=== PATIENT | female | born 1985 | race Caucasian/White ===

== ENCOUNTER 2018-07-15 19:47 | Emergency (ER) | payer MEDICAID, SELFPAY ==
[2018-07-15 19:59] VITALS: BP 140/67; PULSE 80; RESP 14; TEMP 36.8; O2SAT 100
[2018-07-15 20:13] LABS: Bilirubin Negative (Negative); Blood Moderate (Negative); Clarity Sl Cloudy; Glucose Negative (Negative); Ketones Negative (Negative); Leukocyte Esterase Small (Negative); Nitrite Negative (Negative); Specific Gravity >= 1.030 (1.005-1.025); Urobilinogen 0.2 EU/dL (Up TO 0.2); pH 6.5 (5-8)
--- NOTE | 2018-07-15 20:15 | ED.GENADUL_ITS ---
Discharge Plan Disposition Patient Disposition: HOME Condition: Good Discharge Details Chief Complaint: Urinary Clinical Impression: UTI (urinary tract infection) Primary Care Provider: Isabell Guthrie ED Provider: Judah Monique Verden Meds and New Rx's Prescriptions: New phenazopyridine 100 mg Tablet 100 mg PO TID Qty: 5 RF: 0 nitrofurantoin monohyd/m-cryst [Macrobid] 100 mg Capsule 100 mg PO BID Qty: 9 RF: 0 Continue trazodone 100 MG tablet 200 mg PO DAILY RF: 0 fluoxetine [Prozac] 20 MG capsule 20 mg PO DAILY RF: 0 lamotrigine [Lamictal] 100 MG tablet PO DIRECTED RF: 0 Implanon RF: 0 Discharge Instructions Instructions: Phenazopyridine (By mouth), Nitrofurantoin Combination (By mouth) , Urinary Tract Infection in Women (ED) Additional Instructions: Will treat for UTI though urine microscopic suggest contamination, symptoms are consistent with bladder infection. If you do not feel better next week please follow up with PCP. Return to ED if you develop fever, vomiting, flank pain, abdominal pain, other concerns. Referrals: Isabell Guthrie, BUSINESS RULES ANALYST [Primary Care Provider] - Medical Decision Making MDM Narrative Medical decision making narrative: Patient with urinary symptoms without evidence of systemic illness. test is negative. Urine dip positive for blood and leuks. Micro with evidence of contamination. Patient to provide repeat urine, will get micro only. Repeat urine is still contaminated. At this point will just go ahead and treat with Macrobid and Pyridium. Follow up with PCP next week if not better. Return to ED if fever, flank pain, vomiting, abdominal pain, other concerns. Lab Data Lab results reviewed: Yes I reviewed the patient's lab results. HPI - General Adult General Mode of arrival: ambulatory . Date/Time Provider Initiated Documentation: 07/15/18 20:11 . Limitations to Documentation: no limitations . Information obtained by: patient and RN notes reviewed . HPI Narrative: Patient presents to ED due to dysuria and frequency that she has had for two days now. She denies abdominal pain or pelvic pain. She denies vaginal bleeding or discharge. She denies fever or chills. She has no flank pain. She otherwise feels well. Related Data Home Medications Medication Instructions Recorded Confirmed lamotrigine [Lamictal] 0 mg PO DIRECTED 03/19/14 07/15/18 Implanon 06/28/17 fluoxetine [Prozac] 20 mg PO DAILY tab-cap 01/24/18 07/15/18 trazodone 200 mg PO DAILY tab-cap 01/24/18 07/15/18 Previous Rx's Medication Instructions Recorded nitrofurantoin monohyd/m-cryst 100 mg PO BID #9 cap 07/15/18 [Macrobid] phenazopyridine 100 mg PO TID #5 tab 07/15/18 Allergies Allergy/AdvReac Type Severity Reaction Status Date / Time aspirin AdvReac Intermediate unable to Unverified 07/15/18 20:11 take due to heart surgery General Stated Complaint: Urinary PAT: 4 Review of Systems Constitutional Denies chills, Denies fever(s), Denies headache(s), Denies malaise and Denies weakness ENT Denies headache(s) Cardiovascular Denies chest pain, Denies palpitations and Denies dyspnea Respiratory Denies cough and Denies dyspnea Gastrointestinal Denies abdominal pain, Denies diarrhea, Denies nausea and Denies vomiting Genitourinary Denies hematuria, Reports dysuria, Denies pelvic pain, Denies flank pain and Reports urinary urgency Musculoskeletal Denies numbness Neurologic Denies headache(s), Denies numbness and Denies weakness Endocrine Denies palpitations PFSH Family History Paternal Grandfather Diabetes Essential hypertension Coronary heart disease Brother ADHD Medical History Depression Epilepsy Hydrocephalus Transposition of great vessels Social History Smoking/Tobacco Use Status: Former Tobacco Use Surgical History Ventriculoperitoneal Shunt open heart surgery Exam Const General: cooperative and comfortable Nutritional Appearance: obese Orientation: alert and oriented x3 HENMT Head: normocephalic and atraumatic Resp Effort & Inspection: normal respiratory effort Auscultation: clear to auscultation bilaterally Cardio Rate: regular rate Rhythm: regular rhythm GI Inspection: non-distended Palpation: soft, no guarding and nontender Back/Spine/Pelvis Back: no CVA tenderness Neuro General: alert, oriented x3, no focal motor deficits and CN's II-XI intact bilaterally Sensory Exam: no sensory deficits noted Course Vital Signs Temperature 98.2 F 07/15/18 19:59 Pulse 80 07/15/18 19:59 Respiratory Rate 14 07/15/18 19:59 Blood Pressure 140/67 07/15/18 19:59 Pulse Oximetry 100 07/15/18 19:59 Temperature 98.2 F 07/15/18 19:59 Pulse 80 07/15/18 19:59 Respiratory Rate 14 07/15/18 19:59 Blood Pressure 140/67 07/15/18 19:59 Pulse Oximetry 100 07/15/18 19:59
[2018-07-15 20:29] LABS: Bacteria Few HPF (Negative); C & S Indicated? No/Sq. Contamination; Casts Negative LPF (Negative); Crystals Negative HPF (Negative); Epithelial Cells Many HPF (Negative); Mucus Trace (Negative); RBC 20-50 (0-2); WBC 20-50 HPF (0-5)
[2018-07-15 21:15] LABS: RBC >50 (0-2); WBC >50 HPF (0-5)
[2018-07-15 21:16] LABS: Bacteria Few HPF (Negative); C & S Indicated? No/Sq. Contamination; Casts Negative LPF (Negative); Crystals Negative HPF (Negative); Epithelial Cells Many HPF (Negative); Mucus Trace (Negative)
[2018-07-15 21:53] VITALS: BP 136/70; PULSE 76; RESP 14; TEMP 36.8; O2SAT 100
[2018-07-15] MEDS: Phenazopyridine 100 MG TAB PO (21:54)
[2018-07-15] MEDS: MacroBID 100 MG CAP PO (21:54)
== END 2018-07-15 21:54 | disposition home or self-care (01) ==
LOC: ER 21:58
PROVIDERS: Emergency Provider Emergency Medicine; PCP Nurse Practitioner
DX: N39.0 Urinary tract infection, site not specified (principal); E11.9 Type 2 diabetes mellitus without complications; I10 Essential (primary) hypertension
CPT/HCPCS: 81025; 99283; 81003; 81015

== ENCOUNTER 2018-08-08 11:35 | Emergency (ER) | payer MEDICAID, SELFPAY ==
[2018-08-08 11:51] VITALS: PULSE 81; RESP 17; TEMP 36.7; O2SAT 96
--- NOTE | 2018-08-08 13:32 | ED.GENADUL_ITS ---
Discharge Plan Disposition Patient Disposition: HOME Condition: Stable Discharge Details Chief Complaint: RespSymp Clinical Impression: Asthma Primary Care Provider: Isabell Guthrie ED Provider: Minal Mcconnell Home Meds and New Rx's Prescriptions: New albuterol sulfate 90 mcg/actuation HFA aerosol inhaler 2 puff IH Q4H PRN PRN (Reason: Shortness Of Breath Or Wheezing) Qty: 8 RF: 3 Continue trazodone 100 MG tablet 200 mg PO DAILY RF: 0 fluoxetine [Prozac] 20 MG capsule 20 mg PO DAILY RF: 0 lamotrigine [Lamictal] 100 MG tablet PO DIRECTED RF: 0 phenazopyridine 100 mg Tablet 100 mg PO TID Qty: 5 RF: 0 Implanon RF: 0 Discontinued nitrofurantoin monohyd/m-cryst [Macrobid] 100 mg Capsule 100 mg PO BID Qty: 9 RF: 0 Discharge Instructions Instructions: Asthma (ED) Additional Instructions: Please return immediately to the emergency department if you develop any new or worsening symptoms or if you become otherwise concerned. It is extremely important that you make an appointment to be seen by your primary care doctor within the next 1-2 weeks in follow-up for this visit. Referrals: Isabell Guthrie, INTERNAL MEDICINE DOCTOR [Primary Care Provider] - Discharge Data Discharge Date/Time-TO BE ENTERED AT DEPARTURE: 08/08/18 15:12 Medical Decision Making Patient initially placed in results waiting area due to high ED volume and low acuity of Pt at triage. I spoke with the patient at the time that she was moved to the results waiting area to ask if she wanted to be in the encounter or wanted to wait for room for privacy. The patient stated at that time that she wanted to wait to the arrival of her case planner and also for a room. Florence Otto is a 33 y/o woman with h/o cognitive deficit, hydrocehpalus s/p shunt, congenital heart defect, sz d/o who presented to the emergency department with SOB for several days after running out of her inhaler, which she typically uses once every few days. On exam Pt is very well-appearing, speaking in full sentences with nl WOB. Slight wheeze throughout on auscultation. Concern for mild asthma exacerbation. Exam/hx not c/w PTX, PNA, CHF, sepsis, PE, ACS, other acute life threatening pathology. Plan for duoneb, reassess. Pt reassessed. Wheeze resolved. LCTAB b/l. Pt feels much better, no further SOB. Plan for inh for home, Rx for inh. Lengthy discussion with Pt and case planner re: RTED precautions and importance of outpt f/u. They are amenable to the plan. Medical Records Medical records reviewed: Yes I reviewed the patient's medical records. HPI General Mode of arrival: ambulatory . Date/Time Provider Initiated Documentation: 08/08/18 11:38 . Limitations to Documentation: no limitations . Information obtained by: patient, RN notes reviewed and old records reviewed . HPI Narrative: Pt seen in RWR 2/2 triage level of Pt, acuity/volume of Pts in ED. Pt declines evaluation until her case planner is present. This resulted in significant delay in care. Florence Otto is a 33 y/o woman with h/o cognitive delay, congenital heart defect repaired as infant, hydrocephalus with shunt in place, seizures, asthma presenting to the emergency department with SOB for past few days; she is accompanied by her case planner. Pt reports that she has asthma, but her inhaler ran out last week. She reports mild SOB and wheezing in the past few days c/w her usual asthma symptoms. Mild dry cough that is also c/w her usual asthma. Has been able to complete her daily activities without restriction 2/2 symptoms. No fever, no n/v/d, no pain, no rash., no swelling. Feels otherwise in her usual state of health. Has been eating and drinking normally. No recent travel. Related Data Home Medications Medication Instructions Recorded Confirmed lamotrigine [Lamictal] 0 mg PO DIRECTED 03/19/14 07/15/18 Implanon 06/28/17 fluoxetine [Prozac] 20 mg PO DAILY tab-cap 01/24/18 07/15/18 trazodone 200 mg PO DAILY tab-cap 01/24/18 07/15/18 phenazopyridine 100 mg PO TID #5 tab 07/15/18 albuterol sulfate 2 puff IH Q4H PRN PRN #8 gm 08/08/18 Previous Rx's Medication Instructions Recorded phenazopyridine 100 mg PO TID #5 tab 07/15/18 albuterol sulfate 2 puff IH Q4H PRN PRN #8 gm 08/08/18 Allergies Allergy/AdvReac Type Severity Reaction Status Date / Time aspirin AdvReac Intermediate unable to Unverified 07/15/18 20:11 take due to heart surgery General Stated Complaint: RespSymp PAT: 3 Review of Systems Review of Systems Constitutional: denies fevers Eyes: denies eye pain ENT: denies facial pain, dental pain, sore throat Cardiovascular: denies chest pain, edema Respiratory: reports SOB, cough as per HPI GI: denies abdominal pain, vomiting, diarrhea : denies flank pain MSK: denies back pain, neck pain, arthralgias, myalgias Skin: denies rash Neuro: denies headaches, lightheadedness, weakness PFSH Family History Paternal Grandfather Diabetes Essential hypertension Coronary heart disease Brother ADHD Medical History Depression Epilepsy Hydrocephalus Transposition of great vessels Social History Smoking/Tobacco Use Status: Former Tobacco Use second hand exposure: No substance use type: does not use seatbelt use: always Surgical History Ventriculoperitoneal Shunt open heart surgery Exam Narrative Exam Narrative: Constitutional: well and [id number], pleasant, conversing normally HENT: head atraumatic, normocephalic normal inspection, mucous membranes moist Eyes: conjunctiva normal, sclera normal, pupils 3mm b/l Neck: no stridor, normal ROM, trachea midline Chest: normal inspection Resp: normal work of breathing, slight wheeze throughout, no rales/rhonchi, no decreased breath sounds Cardio: normal rate, normal rhythm, no murmur appreciated Back: normal inspection, no rash Skin: warm, dry, normal color, no rash Neuro: alert, not altered, grossly non-focal, normal tone Ext: no edema of LEs, no posterior calf TTP Psych: normal mood, normal affect, normal behavior Course Vital Signs Temperature 36.7 C 08/08/18 11:51 Pulse 81 08/08/18 11:51 Respiratory Rate 17 08/08/18 11:51 Pulse Oximetry 96 08/08/18 11:51 Temperature 36.7 C 08/08/18 11:51 Temperature Source Temporal Artery Scan 08/08/18 11:51 Pulse 81 08/08/18 11:51 Respiratory Rate 17 08/08/18 11:51 Pulse Oximetry 96 08/08/18 11:51 Oxygen Delivery Method Room Air 08/08/18 11:51 Oxygen Flow Rate 0 08/08/18 11:51 Pain Level 0 08/08/18 11:51
[2018-08-08 14:06] VITALS: PULSE 75; RESP 16; RESP 4; RESP 8; O2SAT 99
[2018-08-08] MEDS: Albuterol/Ipratropium 3 ML UPD VIAL UPD (14:06)
[2018-08-08 14:36] VITALS: PULSE 85; RESP 18; RESP 4; RESP 8; O2SAT 96
[2018-08-08] MEDS: Albuterol HFA 8 GM 60 PUFF INH IH (14:59)
[2018-08-08 15:11] VITALS: PULSE 85; RESP 18; O2SAT 96
== END 2018-08-08 15:12 | disposition home or self-care (01) ==
PROVIDERS: Emergency Provider Student in an Organized Health Care Education/Training Program; PCP Nurse Practitioner
DX: J45.909 Unspecified asthma, uncomplicated (principal)
CPT/HCPCS: 94640; 99283; J7620

== ENCOUNTER 2018-11-03 11:25 | Outpatient (REF) | payer MEDICAID, SELFPAY ==
[2018-11-04 13:04] LABS: Chlamydia Result Negative; GC Result Negative; Specimen Description URINE
== END 2018-11-03 11:45 ==
LOC: LBN 11:25
PROVIDERS: PCP Nurse Practitioner; Visit Provider Nurse Practitioner Women's Health
DX: Z11.3 Encounter for screening for infections with a predominantly sexual mode of transmission (principal)
CPT/HCPCS: 87491; 87591

== ENCOUNTER 2018-12-04 07:06 | Emergency (ER) | payer MEDICAID, SELFPAY ==
[2018-12-04 07:12] VITALS: BP 135/77; PULSE 80; RESP 18; TEMP 36.5; O2SAT 92
--- NOTE | 2018-12-04 07:22 | W.ED.GENAD ---
Discharge Plan Disposition Patient Disposition: HOME Condition: Stable Discharge Details Chief Complaint: DentalOral Clinical Impression: Left facial swelling Primary Care Provider: Isabell Guthrie ED Provider: Brian Carrera Home Meds and New Rx's Prescriptions: New clindamycin HCl [Cleocin HCl] 150 mg capsule 450 mg PO TID 7 Days Qty: 63 RF: 0 Continued Nexplanon 68 mg implant 1 implant SBD ONCE Qty: 1 RF: 0 trazodone 100 MG tablet 200 mg PO DAILY RF: 0 fluoxetine [Prozac] 20 MG capsule 20 mg PO DAILY RF: 0 lamotrigine [Lamictal] 100 MG tablet PO DIRECTED RF: 0 phenazopyridine 100 mg Tablet 100 mg PO TID Qty: 5 RF: 0 albuterol sulfate 90 mcg/actuation HFA aerosol inhaler 2 puff IH Q4H PRN PRN (Reason: Shortness Of Breath Or Wheezing) Qty: 8 RF: 3 Discharge Instructions Additional Instructions: If symptoms continue follow up with your surgeon you can take 1000mg tylenol and 600mg ibuprofen every 6 hours for pain as needed if you have difficulty breathing or swallowing liquids return to the emergency department Medical Decision Making pt states on Wednesday she had her wisdom teeth removed and has had swelling and some discomfort to the left lower jaw. She has mild swelling, no visible abscess, speaking in full senttences, no submandibular swelling, no pain over the hyoid or restricted neck movements, speaking in full setnences and no drooling swallowing without problems, no findings to suggest ludwigs, rpa, guard captain, epiglotitis. I suspect routine post op healing but will start abx to cover for possible infection and adivsed she call her oral surgeon tomorrow and return if worsening Differential Diagnosis infection, post op healing HPI General Mode of arrival: ambulatory. Date/Time Provider Initiated Documentation: 12/04/18 07:07. Limitations to Documentation: no limitations. Information obtained by: patient. History of Present Illness 33 year old F presents to the emergency department with the chief complaint of left facial swelling, described as moderate, with intensity rated at 3. Quality is described as aching, Patient reports no radiation. Patient started experiencing this hour(s) (12) and it has been constant. No relieving factors improve symptom(s), No exacerbating factors reported . Patient notes no other symptoms.. Related Data Home Medications Medication Instructions Recorded Confirmed lamotrigine [Lamictal] 0 mg PO DIRECTED 03/19/14 11/22/18 fluoxetine [Prozac] 20 mg PO DAILY tab-cap 01/24/18 11/22/18 trazodone 200 mg PO DAILY tab-cap 01/24/18 11/22/18 phenazopyridine 100 mg PO TID #5 tab 07/15/18 11/22/18 albuterol sulfate 2 puff IH Q4H PRN PRN #8 gm 08/08/18 11/22/18 etonogestrel 68 mg subdermal 1 implant SBD ONCE #1 each 11/03/18 11/22/18 implant clindamycin HCl [Cleocin HCl] 450 mg PO TID 7 Days #63 cap 12/04/18 Previous Rx's Medication Instructions Recorded phenazopyridine 100 mg PO TID #5 tab 07/15/18 albuterol sulfate 2 puff IH Q4H PRN PRN #8 gm 08/08/18 etonogestrel 68 mg subdermal 1 implant SBD ONCE #1 each 11/03/18 implant clindamycin HCl [Cleocin HCl] 450 mg PO TID 7 Days #63 cap 12/04/18 Allergies Allergy/AdvReac Type Severity Reaction Status Date / Time aspirin AdvReac Intermediate unable to Verified 11/22/18 09:30 take due to heart surgery General Stated Complaint: DentalOral PAT: 4 Review of Systems Review of Systems All systems reviewed & are unremarkable except as noted in HPI and below Constitutional Denies chills, Denies fever(s) and Denies weakness ENT Denies change in voice Cardiovascular Denies chest pain and Denies dyspnea Respiratory Denies cough and Denies dyspnea Gastrointestinal Denies abdominal pain, Denies nausea and Denies vomiting Genitourinary Denies dysuria Musculoskeletal Denies joint swelling Integumentary/Breasts Denies rash Neurologic Denies weakness [facility] Medical History Depression Epilepsy Hydrocephalus Transposition of great vessels Family History Paternal Grandfather Diabetes Essential hypertension Coronary heart disease Brother ADHD Social History lives independently: Yes number of children: 0 current occupational status: unemployed frequency: 3-4 times per week Smoking/Tobacco Use Status: Former Tobacco Use second hand exposure: No alcohol intake: current alcohol intake frequency: a few times a week substance use type: does not use seatbelt use: always Female Reproductive History Menstrual control method: implanted (nexplanon inserted by Elisa Carrera NP TVG=[id number] EXP=03/2021) History History 0 Para Hx # Term Pregnancies Multiple births Hx # Pregnancies Ectopic pregnancies AB induced Hx Number of Living Children AB spontaneous Exam Const General: no acute distress Orientation: alert HENMT Head: normal to inspection Ears: external ears normal General nose exam: external nose normal Mouth: moist mucous membranes Eyes General: appearance normal, both eyes and all related structures Neck Neck: normal visual inspection Resp Effort & Inspection: normal respiratory effort and able to speak in complete sentences Cardio Rate: regular rate Skin General skin exam: no rashes or lesions noted Neuro General: alert and oriented x3 Extrem General: normal to inspection Psych Mental Status: mental status grossly normal Course Vital Signs Temperature 36.5 C 12/04/18 07:12 Pulse 80 12/04/18 07:12 Respiratory Rate 18 12/04/18 07:12 Blood Pressure 135/77 12/04/18 07:12 Pulse Oximetry 92 L 12/04/18 07:12 Temperature 36.5 C 12/04/18 07:12 Temperature Source Temporal Artery Scan 12/04/18 07:12 Pulse 80 12/04/18 07:12 Respiratory Rate 18 12/04/18 07:12 Respiratory Effort 12/04/18 07:17 Blood Pressure 135/77 12/04/18 07:12 Blood Pressure Position Sitting 12/04/18 07:12 Pulse Oximetry 92 L 12/04/18 07:12 Oxygen Delivery Method Room Air 12/04/18 07:12 Oxygen Flow Rate 0 12/04/18 07:12 Pain Level 8 12/04/18 07:16
--- NOTE | 2018-12-04 07:25 | ED.GENADUL_ITS ---
Discharge Plan Disposition Patient Disposition: HOME Condition: Stable Discharge Details Chief Complaint: DentalOral Clinical Impression: Left facial swelling Primary Care Provider: Isabell Guthrie ED Provider: Brian Carrera Home Meds and New Rx's Prescriptions: New clindamycin HCl [Cleocin HCl] 150 mg capsule 450 mg PO TID 7 Days Qty: 63 RF: 0 Continued Nexplanon 68 mg implant 1 implant SBD ONCE Qty: 1 RF: 0 trazodone 100 MG tablet 200 mg PO DAILY RF: 0 fluoxetine [Prozac] 20 MG capsule 20 mg PO DAILY RF: 0 lamotrigine [Lamictal] 100 MG tablet PO DIRECTED RF: 0 phenazopyridine 100 mg Tablet 100 mg PO TID Qty: 5 RF: 0 albuterol sulfate 90 mcg/actuation HFA aerosol inhaler 2 puff IH Q4H PRN PRN (Reason: Shortness Of Breath Or Wheezing) Qty: 8 RF: 3 Discharge Instructions Additional Instructions: If symptoms continue follow up with your surgeon you can take 1000mg tylenol and 600mg ibuprofen every 6 hours for pain as needed if you have difficulty breathing or swallowing liquids return to the emergency department Medical Decision Making pt states on Wednesday she had her wisdom teeth removed and has had swelling and some discomfort to the left lower jaw. She has mild swelling, no visible abscess, speaking in full senttences, no submandibular swelling, no pain over the hyoid or restricted neck movements, speaking in full setnences and no drooling swallowing without problems, no findings to suggest ludwigs, rpa, captain waiter, epiglotitis. I suspect routine post op healing but will start abx to cover for possible infection and adivsed she call her oral surgeon tomorrow and return if worsening Differential Diagnosis infection, post op healing HPI General Mode of arrival: ambulatory . Date/Time Provider Initiated Documentation: 12/04/18 07:07 . Limitations to Documentation: no limitations . Information obtained by: patient . History of Present Illness 33 year old F presents to the emergency department with the chief complaint of left facial swelling, described as moderate, with intensity rated at 3. Quality is described as aching, Patient reports no radiation. Patient started experiencing this hour(s) (12) and it has been constant. No relieving factors improve symptom(s), No exacerbating factors reported . Patient notes no other symptoms.. Related Data Home Medications Medication Instructions Recorded Confirmed lamotrigine [Lamictal] 0 mg PO DIRECTED 03/19/14 11/22/18 fluoxetine [Prozac] 20 mg PO DAILY tab-cap 01/24/18 11/22/18 trazodone 200 mg PO DAILY tab-cap 01/24/18 11/22/18 phenazopyridine 100 mg PO TID #5 tab 07/15/18 11/22/18 albuterol sulfate 2 puff IH Q4H PRN PRN #8 gm 08/08/18 11/22/18 etonogestrel 68 mg subdermal 1 implant SBD ONCE #1 each 11/03/18 11/22/18 implant clindamycin HCl [Cleocin HCl] 450 mg PO TID 7 Days #63 cap 12/04/18 Previous Rx's Medication Instructions Recorded phenazopyridine 100 mg PO TID #5 tab 07/15/18 albuterol sulfate 2 puff IH Q4H PRN PRN #8 gm 08/08/18 etonogestrel 68 mg subdermal 1 implant SBD ONCE #1 each 11/03/18 implant clindamycin HCl [Cleocin HCl] 450 mg PO TID 7 Days #63 cap 12/04/18 Allergies Allergy/AdvReac Type Severity Reaction Status Date / Time aspirin AdvReac Intermediate unable to Verified 11/22/18 09:30 take due to heart surgery General Stated Complaint: DentalOral PAT: 4 Review of Systems Review of Systems All systems reviewed & are unremarkable except as noted in HPI and below Constitutional Denies chills, Denies fever(s) and Denies weakness ENT Denies change in voice Cardiovascular Denies chest pain and Denies dyspnea Respiratory Denies cough and Denies dyspnea Gastrointestinal Denies abdominal pain, Denies nausea and Denies vomiting Genitourinary Denies dysuria Musculoskeletal Denies joint swelling Integumentary/Breasts Denies rash Neurologic Denies weakness [facility] Medical History Depression Epilepsy Hydrocephalus Transposition of great vessels Family History Paternal Grandfather Diabetes Essential hypertension Coronary heart disease Brother ADHD Social History lives independently: Yes number of children: 0 current occupational status: unemployed frequency: 3-4 times per week Smoking/Tobacco Use Status: Former Tobacco Use second hand exposure: No alcohol intake: current alcohol intake frequency: a few times a week substance use type: does not use seatbelt use: always Female Reproductive History Menstrual control method: implanted (nexplanon inserted by Elisa Carrera NP MNS=[id number] EXP=03/2021) History History 0 Para Hx # Term Pregnancies Multiple births Hx # Pregnancies Ectopic pregnancies AB induced Hx Number of Living Children AB spontaneous Exam Const General: no acute distress Orientation: alert HENMT Head: normal to inspection Ears: external ears normal General nose exam: external nose normal Mouth: moist mucous membranes Eyes General: appearance normal, both eyes and all related structures Neck Neck: normal visual inspection Resp Effort & Inspection: normal respiratory effort and able to speak in complete sentences Cardio Rate: regular rate Skin General skin exam: no rashes or lesions noted Neuro General: alert and oriented x3 Extrem General: normal to inspection Psych Mental Status: mental status grossly normal Course Vital Signs Temperature 36.5 C 12/04/18 07:12 Pulse 80 12/04/18 07:12 Respiratory Rate 18 12/04/18 07:12 Blood Pressure 135/77 12/04/18 07:12 Pulse Oximetry 92 L 12/04/18 07:12 Temperature 36.5 C 12/04/18 07:12 Temperature Source Temporal Artery Scan 12/04/18 07:12 Pulse 80 12/04/18 07:12 Respiratory Rate 18 12/04/18 07:12 Respiratory Effort 12/04/18 07:17 Blood Pressure 135/77 12/04/18 07:12 Blood Pressure Position Sitting 12/04/18 07:12 Pulse Oximetry 92 L 12/04/18 07:12 Oxygen Delivery Method Room Air 12/04/18 07:12 Oxygen Flow Rate 0 12/04/18 07:12 Pain Level 8 12/04/18 07:16
[2018-12-04 18:16] VITALS: BP 135/77; PULSE 80; RESP 18; TEMP 36.5; O2SAT 92
== END 2018-12-04 07:30 | disposition home or self-care (01) ==
LOC: ER 07:27
PROVIDERS: Emergency Provider Emergency Medicine; PCP Nurse Practitioner
DX: R22.0 Localized swelling, mass and lump, head (principal); Y84.8 Other medical procedures as the cause of abnormal reaction of the patient, or of later complication, without mention of misadventure at the time of the procedure
CPT/HCPCS: 99283

== ENCOUNTER 2019-01-10 22:03 | Emergency (ER) | payer MEDICAID, SELFPAY ==
--- NOTE | 2019-01-10 22:07 | DI.RAD_ITS ---
SYMPTOM/DIAGNOSIS: PAIN, S/P FALL RIGHT ANKLE: There is an apparent nondisplaced posterior malleolar fracture. This finding noted on the lateral projection. There is no other evident fracture. The mortise joint appears intact. Soft tissue swelling is noted over the lateral malleolus.
[2019-01-10 22:09] VITALS: BP 157/89; PULSE 79; RESP 16; TEMP 36.8; O2SAT 98
[2019-01-10] MEDS: Ibuprofen 600 MG TAB PO (22:14)
--- NOTE | 2019-01-10 22:16 | W.ED.GENAD ---
Discharge Plan Disposition Patient Disposition: HOME Condition: Stable Discharge Details Chief Complaint: Orthopedic Clinical Impression: Closed fracture of distal end of right tibia Primary Care Provider: Isabell Guthrie ED Provider: Brian Carrera Home Meds and New Rx's Prescriptions: No Action Nexplanon 68 mg implant 1 implant SBD ONCE Qty: 1 RF: 0 trazodone 100 MG tablet 200 mg PO DAILY RF: 0 fluoxetine [Prozac] 20 MG capsule 20 mg PO DAILY RF: 0 lamotrigine [Lamictal] 100 MG tablet PO DIRECTED RF: 0 albuterol sulfate 90 mcg/actuation HFA aerosol inhaler 2 puff IH Q4H PRN PRN (Reason: Shortness Of Breath Or Wheezing) Qty: 8 RF: 3 Discharge Instructions Instructions: Ankle Sprain (ED) Additional Instructions: call orthopedics tomorrow morning for an appointment you can take 1000mg tylenol and 600mg ibuprofen every 6 hours for pain as needed Referrals: Young Fleming MD [ [facility] STAFF PHYSICIAN] - Medical Decision Making 33 yo female who states she saw what she thought was a skunk but turned out to be a cat, and started to run and slipped on ice and rolled her right ankle. Did not hit her head or pass out. No headache, neck pain, chest pain, sob, abd pain. She has pain in medial ankle without visible or palpable deformity to the ankle. She has intact sensation and pulses and has full plantar flexion so doubt achilles tendon rupture. Will xray to eval for fx though I suspect sprain xray shows fx of posterior distal tibia. Posterior splint applied, she states she has crutches and will use the ones she has at home. WIll have her f/u with orthopedics Differential Diagnosis sprain, fx Imaging Data Radiologic Study: Attestation: I personally reviewed and interpreted this imaging study as follows: Imaging: X-Ray My impression: Nondisplaced acute vertical oriented fracture through the dorsal corner of the right distal tibia. HPI General Mode of arrival: wheelchair. Date/Time Provider Initiated Documentation: 01/10/19 22:07. Limitations to Documentation: no limitations. Information obtained by: patient. History of Present Illness 33 year old F presents to the emergency department with the chief complaint of right ankle pain, described as severe, with intensity rated at 10. Quality is described as aching, and is localized to the right and lower extremity. Patient reports no radiation. Patient started experiencing this hour(s) (1) and it has been constant. No relieving factors improve symptom(s), No exacerbating factors reported . Patient did receive the following treatments prior to arrival, none Related Data Home Medications Medication Instructions Recorded Confirmed lamotrigine [Lamictal] 0 mg PO DIRECTED 03/19/14 01/10/19 fluoxetine [Prozac] 20 mg PO DAILY tab-cap 01/24/18 01/10/19 trazodone 200 mg PO DAILY tab-cap 01/24/18 01/10/19 albuterol sulfate 2 puff IH Q4H PRN PRN #8 gm 08/08/18 01/10/19 etonogestrel 68 mg subdermal 1 implant SBD ONCE #1 each 11/03/18 01/10/19 implant Previous Rx's Medication Instructions Recorded albuterol sulfate 2 puff IH Q4H PRN PRN #8 gm 08/08/18 etonogestrel 68 mg subdermal 1 implant SBD ONCE #1 each 11/03/18 implant Allergies Allergy/AdvReac Type Severity Reaction Status Date / Time aspirin AdvReac Intermediate unable to Verified 11/22/18 09:30 take due to heart surgery General Stated Complaint: Orthopedic PAT: 4 Review of Systems Review of Systems All systems reviewed & are unremarkable except as noted in HPI and below Constitutional Denies chills and Denies fever(s) ENT Denies change in voice Cardiovascular Denies chest pain and Denies dyspnea Respiratory Denies cough and Denies dyspnea Gastrointestinal Denies abdominal pain, Denies nausea and Denies vomiting Genitourinary Denies dysuria Musculoskeletal Denies joint swelling Integumentary/Breasts Denies rash Psychiatric Denies depression [facility] Social History lives independently: Yes number of children: 0 current occupational status: unemployed what type of physical activity do you participate in: walking frequency: 3-4 times per week Smoking and Tabacco status: Former Tobacco Use second hand exposure: No alcohol intake: current alcohol intake frequency: a few times a week substance use type: does not use Seatbelt use: always Female Reproductive History Menstrual control method: implanted (nexplanon inserted by Elisa Carrera NP WWP=[id number] EXP=03/2021) History History 0 Para Hx # Term Pregnancies Multiple births Hx # Pregnancies Ectopic pregnancies AB induced Hx Number of Living Children AB spontaneous Exam Const General: no acute distress Orientation: alert HENMT Head: normal to inspection Ears: external ears normal General nose exam: external nose normal Mouth: moist mucous membranes Eyes General: appearance normal, both eyes and all related structures Neck Neck: normal visual inspection Resp Effort & Inspection: normal respiratory effort and able to speak in complete sentences Cardio Rate: regular rate Skin General skin exam: no rashes or lesions noted Neuro General: alert and oriented x3 Extrem General: normal to inspection Psych Mental Status: mental status grossly normal Course Vital Signs Temperature 36.8 C 01/10/19 22:09 Pulse 79 01/10/19 22:09 Respiratory Rate 16 01/10/19 22:09 Blood Pressure 157/89 H 01/10/19 22:09 Pulse Oximetry 98 01/10/19 22:09 Temperature 36.8 C 01/10/19 22:09 Temperature Source Temporal Artery Scan 01/10/19 22:09 Pulse 79 01/10/19 22:09 Respiratory Rate 16 01/10/19 22:09 Respiratory Effort 01/10/19 22:09 Blood Pressure 157/89 H 01/10/19 22:09 Blood Pressure Position Sitting 01/10/19 22:09 Pulse Oximetry 98 01/10/19 22:09 Oxygen Delivery Method Room Air 01/10/19 22:09 Oxygen Flow Rate 0 01/10/19 22:09 Pain Level 10 01/10/19 22:14
--- NOTE | 2019-01-10 22:19 | ED.GENADUL_ITS ---
Discharge Plan Disposition Patient Disposition: HOME Condition: Stable Discharge Details Chief Complaint: Orthopedic Clinical Impression: Closed fracture of distal end of right tibia Primary Care Provider: Isabell Guthrie ED Provider: Brian Carrera Home Meds and New Rx's Prescriptions: No Action Nexplanon 68 mg implant 1 implant SBD ONCE Qty: 1 RF: 0 trazodone 100 MG tablet 200 mg PO DAILY RF: 0 fluoxetine [Prozac] 20 MG capsule 20 mg PO DAILY RF: 0 lamotrigine [Lamictal] 100 MG tablet PO DIRECTED RF: 0 albuterol sulfate 90 mcg/actuation HFA aerosol inhaler 2 puff IH Q4H PRN PRN (Reason: Shortness Of Breath Or Wheezing) Qty: 8 RF: 3 Discharge Instructions Instructions: Ankle Sprain (ED) Additional Instructions: call orthopedics tomorrow morning for an appointment you can take 1000mg tylenol and 600mg ibuprofen every 6 hours for pain as needed Referrals: Young Fleming MD [ [facility] STAFF PHYSICIAN] - Medical Decision Making 33 yo female who states she saw what she thought was a skunk but turned out to be a cat, and started to run and slipped on ice and rolled her right ankle. Did not hit her head or pass out. No headache, neck pain, chest pain, sob, abd pain. She has pain in medial ankle without visible or palpable deformity to the ankle. She has intact sensation and pulses and has full plantar flexion so doubt achilles tendon rupture. Will xray to eval for fx though I suspect sprain xray shows fx of posterior distal tibia. Posterior splint applied, she states she has crutches and will use the ones she has at home. WIll have her f/u with orthopedics Differential Diagnosis sprain, fx Imaging Data Radiologic Study: Attestation: I personally reviewed and interpreted this imaging study as follows: Imaging: X-Ray My impression: Nondisplaced acute vertical oriented fracture through the dorsal corner of the right distal tibia. HPI General Mode of arrival: wheelchair . Date/Time Provider Initiated Documentation: 01/10/19 22:07 . Limitations to Documentation: no limitations . Information obtained by: patient . History of Present Illness 33 year old F presents to the emergency department with the chief complaint of right ankle pain, described as severe, with intensity rated at 10. Quality is described as aching, and is localized to the right and lower extremity. Patient reports no radiation. Patient started experiencing this hour(s) (1) and it has been constant. No relieving factors improve symptom(s), No exacerbating factors reported . Patient did receive the following treatments prior to arrival, none Related Data Home Medications Medication Instructions Recorded Confirmed lamotrigine [Lamictal] 0 mg PO DIRECTED 03/19/14 01/10/19 fluoxetine [Prozac] 20 mg PO DAILY tab-cap 01/24/18 01/10/19 trazodone 200 mg PO DAILY tab-cap 01/24/18 01/10/19 albuterol sulfate 2 puff IH Q4H PRN PRN #8 gm 08/08/18 01/10/19 etonogestrel 68 mg subdermal 1 implant SBD ONCE #1 each 11/03/18 01/10/19 implant Previous Rx's Medication Instructions Recorded albuterol sulfate 2 puff IH Q4H PRN PRN #8 gm 08/08/18 etonogestrel 68 mg subdermal 1 implant SBD ONCE #1 each 11/03/18 implant Allergies Allergy/AdvReac Type Severity Reaction Status Date / Time aspirin AdvReac Intermediate unable to Verified 11/22/18 09:30 take due to heart surgery General Stated Complaint: Orthopedic PAT: 4 Review of Systems Review of Systems All systems reviewed & are unremarkable except as noted in HPI and below Constitutional Denies chills and Denies fever(s) ENT Denies change in voice Cardiovascular Denies chest pain and Denies dyspnea Respiratory Denies cough and Denies dyspnea Gastrointestinal Denies abdominal pain, Denies nausea and Denies vomiting Genitourinary Denies dysuria Musculoskeletal Denies joint swelling Integumentary/Breasts Denies rash Psychiatric Denies depression [facility] Social History lives independently: Yes number of children: 0 current occupational status: unemployed what type of physical activity do you participate in: walking frequency: 3-4 times per week Smoking and Tabacco status: Former Tobacco Use second hand exposure: No alcohol intake: current alcohol intake frequency: a few times a week substance use type: does not use Seatbelt use: always Female Reproductive History Menstrual control method: implanted (nexplanon inserted by Elisa Carrera NP GGM=[id number] EXP=03/2021) History History 0 Para Hx # Term Pregnancies Multiple births Hx # Pregnancies Ectopic pregnancies AB induced Hx Number of Living Children AB spontaneous Exam Const General: no acute distress Orientation: alert HENMT Head: normal to inspection Ears: external ears normal General nose exam: external nose normal Mouth: moist mucous membranes Eyes General: appearance normal, both eyes and all related structures Neck Neck: normal visual inspection Resp Effort & Inspection: normal respiratory effort and able to speak in complete sentences Cardio Rate: regular rate Skin General skin exam: no rashes or lesions noted Neuro General: alert and oriented x3 Extrem General: normal to inspection Psych Mental Status: mental status grossly normal Course Vital Signs Temperature 36.8 C 01/10/19 22:09 Pulse 79 01/10/19 22:09 Respiratory Rate 16 01/10/19 22:09 Blood Pressure 157/89 H 01/10/19 22:09 Pulse Oximetry 98 01/10/19 22:09 Temperature 36.8 C 01/10/19 22:09 Temperature Source Temporal Artery Scan 01/10/19 22:09 Pulse 79 01/10/19 22:09 Respiratory Rate 16 01/10/19 22:09 Respiratory Effort 01/10/19 22:09 Blood Pressure 157/89 H 01/10/19 22:09 Blood Pressure Position Sitting 01/10/19 22:09 Pulse Oximetry 98 01/10/19 22:09 Oxygen Delivery Method Room Air 01/10/19 22:09 Oxygen Flow Rate 0 01/10/19 22:09 Pain Level 10 01/10/19 22:14
--- NOTE | 2019-01-10 23:09 | DI.VRAD_ITS ---
Addendum created by Brian Velasco MD on 01/10/2019 11:10:26 PM EDT ADDENDUM: Nondisplaced acute vertical oriented fracture through the dorsal corner of the right distal tibia. Initial report created on 01/10/2019 11:09:15 PM EDT EXAM: XR Right Ankle Complete, 3 or more Views EXAM DATE/TIME: 01/10/2019 10:08 PM CLINICAL HISTORY: 33 years old, female; Signs and symptoms; Other: Pain S/P fall TECHNIQUE: XR Right ankle 3 or more views. COMPARISON: CR RIGHT ANKLE COMPLETE 07/20/2016 10:03 AM FINDINGS: Bones/joints: Plantar calcaneal spur. No acute fracture. Soft tissues: Normal. IMPRESSION: No acute finding. Dictated and Authenticated by: Brian Velasco MD. Ordering:PATRICIA Torres MD
== END 2019-01-10 23:33 | disposition home or self-care (01) ==
PROVIDERS: Emergency Provider Emergency Medicine; PCP Nurse Practitioner
DX: S82.301A Unspecified fracture of lower end of right tibia, initial encounter for closed fracture (principal); W00.0XXA Fall on same level due to ice and snow, initial encounter
CPT/HCPCS: 99283; 73610; L1902

== ENCOUNTER 2019-01-11 09:45 | Emergency (ER) | payer MEDICAID, SELFPAY ==
[2019-01-11 09:55] VITALS: BP 129/70; PULSE 87; RESP 16; TEMP 36.6; O2SAT 96
--- NOTE | 2019-01-11 09:58 | ED.GENADUL_ITS ---
Discharge Plan Disposition Patient Disposition: HOME Condition: Good Discharge Details Chief Complaint: Orthopedic Clinical Impression: Closed fracture of posterior malleolus of right tibia, Aftercare for cast or splint check or change Primary Care Provider: Isabell Guthrie ED Provider: Judah Monique [place] Meds and New Rx's Prescriptions: Continued Nexplanon 68 mg implant 1 implant SBD ONCE Qty: 1 RF: 0 trazodone 100 MG tablet 200 mg PO DAILY RF: 0 fluoxetine [Prozac] 20 MG capsule 20 mg PO DAILY RF: 0 lamotrigine [Lamictal] 100 MG tablet PO DIRECTED RF: 0 albuterol sulfate 90 mcg/actuation HFA aerosol inhaler 2 puff IH Q4H PRN PRN (Reason: Shortness Of Breath Or Wheezing) Qty: 8 RF: 3 Discharge Instructions Additional Instructions: Keep your leg elevated. Ice to help with swelling. Acetaminophen or ibuprofen for pain. Leave splint in place and remain nonweightbearing on the right. Follow-up with orthopedics next week as scheduled. Referrals: Young Fleming MD [ [facility] STAFF PHYSICIAN] - Isabell Guthrie NP [Primary Care Provider] - Discharge Data Discharge Date/Time-TO BE ENTERED AT DEPARTURE: 01/11/19 10:26 Medical Decision Making I did look at the patient's x-rays. Mortise is intact. Nondisplaced posterior malleolus fracture identified. Arun wrap was removed. Splint is intact and looks good. DP pulse is strong. Arun wrap reapplied and patient reports no discomfort. She has follow-up with orthopedics next week. She is to remain nonweightbearing. Medical Records Medical records reviewed: Yes I reviewed the patient's medical records. HPI General Mode of arrival: wheelchair . Date/Time Provider Initiated Documentation: 01/11/19 09:56 . Limitations to Documentation: no limitations . Information obtained by: patient . HPI Narrative: Patient seen here last night and diagnosed with posterior malleolus fracture of the tibia. She is in a posterior splint. She returns this morning saying that it is too tight and causing pain. She denies any numbness or tingling. She has not been weig htbearing. Related Data Home Medications Medication Instructions Recorded Confirmed lamotrigine [Lamictal] 0 mg PO DIRECTED 03/19/14 01/11/19 fluoxetine [Prozac] 20 mg PO DAILY tab-cap 01/24/18 01/11/19 trazodone 200 mg PO DAILY tab-cap 01/24/18 01/11/19 albuterol sulfate 2 puff IH Q4H PRN PRN #8 gm 08/08/18 01/11/19 etonogestrel 68 mg subdermal 1 implant SBD ONCE #1 each 11/03/18 01/11/19 implant Previous Rx's Medication Instructions Recorded albuterol sulfate 2 puff IH Q4H PRN PRN #8 gm 08/08/18 etonogestrel 68 mg subdermal 1 implant SBD ONCE #1 each 11/03/18 implant Allergies Allergy/AdvReac Type Severity Reaction Status Date / Time aspirin AdvReac Intermediate unable to Verified 01/11/19 09:58 take due to heart surgery General Stated Complaint: Orthopedic PAT: 4 Review of Systems Musculoskeletal Denies numbness and Denies tingling Comments: RLE in posterior splint Neurologic Denies numbness, Denies sensory deficit, Denies tingling and Denies paresthesias PFSH Medical History Depression Epilepsy Hydrocephalus Transposition of great vessels Surgical History Ventriculoperitoneal Shunt open heart surgery Social History lives independently: Yes number of children: 0 current occupational status: unemployed what type of physical activity do you participate in: walking frequency: 3-4 times per week Smoking and Tabacco status: Former Tobacco Use second hand exposure: No alcohol intake: current alcohol intake frequency: a few times a week substance use type: does not use Seatbelt use: always Female Reproductive History Menstrual control method: implanted (nexplanon inserted by Elisa Carrera NP EII=[id number] EXP=03/2021) History History 0 Para Hx # Term Pregnancies Multiple births Hx # Pregnancies Ectopic pregnancies AB induced Hx Number of Living Children AB spontaneous Exam Const General: cooperative, comfortable and no acute distress Skin Trauma: no lacerations or abrasions Wounds: no wounds Neuro General: alert, oriented x3 and no focal motor deficits Sensory Exam: no sensory deficits noted Extrem General: normal exam except as noted Other: Right lower extremity in a posterior splint with Arun wrapping. Toes with normal capillary refill. Able to wiggle toes. Sensory intact. Course Vital Signs Temperature 97.9 F 01/11/19 09:55 Pulse 87 01/11/19 09:55 Respiratory Rate 16 01/11/19 09:55 Blood Pressure 129/70 01/11/19 09:55 Pulse Oximetry 96 01/11/19 09:55 Temperature 97.9 F 01/11/19 09:55 Temperature Source Skin 01/11/19 09:55 Pulse 87 01/11/19 09:55 Respiratory Rate 16 01/11/19 09:55 Blood Pressure 129/70 01/11/19 09:55 Blood Pressure Position Sitting 01/11/19 09:55 Pulse Oximetry 96 01/11/19 09:55 Oxygen Delivery Method Room Air 01/11/19 09:55 Oxygen Flow Rate 0 01/11/19 09:55 Pain Level 8 01/11/19 09:55
[2019-01-11 10:30] VITALS: BP 129/70; PULSE 87; RESP 16; TEMP 36.6; O2SAT 96
== END 2019-01-11 10:26 | disposition home or self-care (01) ==
PROVIDERS: Emergency Provider Emergency Medicine; PCP Nurse Practitioner
DX: S82.301A Unspecified fracture of lower end of right tibia, initial encounter for closed fracture (principal); M25.571 Pain in right ankle and joints of right foot

== ENCOUNTER 2019-01-18 09:49 | Outpatient (CLI) | payer MEDICAID, SELFPAY ==
--- NOTE | 2019-01-18 09:40 | DI.RAD_ITS ---
SYMPTOMS/DIAGNOSIS: F/U RT POST MAL FX RIGHT ANKLE: Three views. Comparison is 01/10/19. The nondisplaced fracture of the posterior malleolus is less well visualized on the current examination. No new fractures or dislocations are seen.
== END 2019-01-18 10:09 ==
PROVIDERS: PCP Nurse Practitioner; Visit Provider Student in an Organized Health Care Education/Training Program
DX: S82.54XA Nondisplaced fracture of medial malleolus of right tibia, initial encounter for closed fracture (principal)
CPT/HCPCS: 73610

== ENCOUNTER 2019-02-07 08:59 | Emergency (ER) | payer MEDICAID, SELFPAY ==
[2019-02-07] VITALS (9 sets, daily range): BP systolic 139–156; BP diastolic 75–94; PULSE 74–77; RESP 15–28; TEMP 36.8; O2SAT 95–99
--- NOTE | 2019-02-07 09:31 | ED.GENADUL_ITS ---
Discharge Plan Disposition Patient Disposition: HOME Condition: Stable Discharge Details Chief Complaint: Chest Pain Clinical Impression: Gastritis Primary Care Provider: Isabell Guthrie ED Provider: Scott Osborn Home Meds and New Rx's Prescriptions: New ranitidine HCl 150 mg capsule 150 mg PO BID Qty: 14 RF: 0 Continued Nexplanon 68 mg implant 1 implant SBD ONCE Qty: 1 RF: 0 trazodone 100 MG tablet 200 mg PO DAILY RF: 0 fluoxetine [Prozac] 20 MG capsule 20 mg PO DAILY RF: 0 ibuprofen 800 mg tablet 800 mg PO TID PRN (Reason: pain) Qty: 60 RF: 3 lamotrigine [Lamictal] 100 MG tablet PO DIRECTED RF: 0 albuterol sulfate 90 mcg/actuation HFA aerosol inhaler 2 puff IH Q4H PRN PRN (Reason: Shortness Of Breath Or Wheezing) Qty: 8 RF: 3 Medical Decision Making 33-year-old female with a history of congenital heart disease repaired in the period. 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 She developed anterior substernal discomfort this morning that she describes as pressure and similar to previous in the past. She has not had any recent illness, no leg pain, swelling, recent travel. She is afebrile with normal oxygenation. Differential diagnosis considered including GERD, esophageal spasm, bronchitis, must exclude PE. Patient had IV access established, referred for chest x-ray, EKG, laboratory testing. Her diagnostic studies are reassuring without significant acute finding; she has had a mild leukocytosis in the past. She is improved with GI cocktail she may have a mild esophagitis from recent use of antibiotic for dental infection. I will prescribe her a short course of ranitidine. Lab Data Lab results reviewed: Yes I reviewed the patient's lab results. Laboratory Results - last 24 hr 02/07/19 02/07/19 02/07/19 09:55 09:55 09:55 WBC 11.45 H RBC 5.12 Hgb 13.4 Hct 41.0 MCV 80.1 MCH 26.2 L MCHC 32.7 RDW 13.5 Plt Count 368 MPV 8.6 Immature Gran % See Differential Neutrophils % 61.0 Lymphocytes % 23.0 Monocytes % 5.0 Eosinophils % 11.0 Basophils % 0.0 Absolute Neutrophils 6.98 H Absolute Lymphocytes 2.63 Absolute Monocytes 0.57 Absolute Eosinophils 1.26 H Absolute Basophils 0.00 Differential Comment Manual differential D-Dimer 396 Sodium 139 Potassium 3.5 Chloride 103 Carbon Dioxide 28.5 Anion Gap 7.5 BUN 11 Creatinine 0.79 Estimated GFR/1.73 m2 >= 60.00 Glucose 94 Calcium 8.6 Magnesium 1.8 Total Bilirubin 0.1 L AST 14 L ALT 26 Alkaline Phosphatase 107 Troponin I < 0.02 Total Protein 7.3 Albumin 3.3 L ECG Data Attestation: I personally reviewed and interpreted this ECG (s) as follows: Interpretation: Regular sinus rhythm with a rate of 77, there are T wave inversions in leads I, aVL, V2. There is no ST segment elevation. T wave inversions are similar to that of August 31, 2017 HPI General Mode of arrival: ambulatory . Date/Time Provider Initiated Documentation: 02/07/19 09:14 . Limitations to Documentation: no limitations . Information obtained by: patient . History of Present Illness 33 year old F presents to the emergency department with the chief complaint of Epigastric pain, described as moderate and similar to prior episodes, Quality is described as dull and constant, and is localized to the chest and abdomen. Patient started experiencing this hour(s) and it has been constant. No relieving factors improve symptom(s), No exacerbating factors reported . Patient notes no other symptoms.; denies cough, fever/chills and shortness of breath. Patient did receive the following treatments prior to arrival, none Related Data Home Medications Medication Instructions Recorded Confirmed lamotrigine [Lamictal] 0 mg PO DIRECTED 03/19/14 02/07/19 fluoxetine [Prozac] 20 mg PO DAILY tab-cap 01/24/18 02/07/19 trazodone 200 mg PO DAILY tab-cap 01/24/18 02/07/19 albuterol sulfate 2 puff IH Q4H PRN PRN #8 gm 08/08/18 02/07/19 etonogestrel 68 mg subdermal 1 implant SBD ONCE #1 each 11/03/18 02/07/19 implant ibuprofen 800 mg tablet 800 mg PO TID PRN #60 tab 01/16/19 02/07/19 ranitidine HCl 150 mg PO BID #14 cap 02/07/19 Previous Rx's Medication Instructions Recorded albuterol sulfate 2 puff IH Q4H PRN PRN #8 gm 08/08/18 etonogestrel 68 mg subdermal 1 implant SBD ONCE #1 each 11/03/18 implant ibuprofen 800 mg tablet 800 mg PO TID PRN #60 tab 01/16/19 ranitidine HCl 150 mg PO BID #14 cap 02/07/19 Allergies Allergy/AdvReac Type Severity Reaction Status Date / Time aspirin AdvReac Intermediate unable to Verified 02/07/19 09:14 take due to heart surgery General Stated Complaint: Chest Pain PAT: 3 Review of Systems Review of Systems No leg pain or swelling. No recent travel 6 systems reviewed and otherwise negative ON LICENSE OF [facility] Medical History Depression Epilepsy Hydrocephalus Transposition of great vessels Surgical History Ventriculoperitoneal Shunt open heart surgery Family History Paternal Grandfather Diabetes Essential hypertension Coronary heart disease Brother ADHD Social History Smoking/Tobacco Use Status: Former Tobacco Use Second Hand Exposure: No Alcohol Intake: current Alcohol Intake frequency: a few times a week Drug use: Never Substance use type: does not use Number of Children: 0 What type of physical activity do you participate in: walking Frequency: 3-4 times per week Seatbelt use: always Do you feel safe in your relationship?: Yes Female Reproductive History Menstrual control method: implanted (nexplanon inserted by Elisa Carrera NP UGE=[id number] EXP=03/2021) History History 0 Para Hx # Term Pregnancies Multiple births Hx # Pregnancies Ectopic pregnancies AB induced Hx Number of Living Children AB spontaneous Exam Narrative Exam Narrative: GEN: awake, alert, oriented 3. Pleasant, well groomed, interactive. HEAD: Normocephalic, atraumatic ENT: Mucous membranes moist, oropharynx unremarkable, External ear exam unremarkable EYES: PERRL, EOMI NECK: Full ROM, no EDER, no menigismus CHEST/RESP: Nontender, clear to auscultation bilateral, no wheeze/rhonchi/rales. Anterior sternotomy scar and left posterior thorax scar CARDIOVASCULAR: RRR, no murmur, rub mirela. 2+ Rad pulse bilateral ABDOMEN: Soft, nontender, no mass. +Bowel sounds EXT: Full ROM, no edema, no rash Neuro: Grossly normal neurologic exam, conversant, interactive. Psych: Speech fluent, thoughts congruent, affect flat at times Course Vital Signs Pulse 76 02/07/19 08:57 Respiratory Rate 19 02/07/19 08:57 Blood Pressure 139/94 H 02/07/19 08:57 Pulse Oximetry 96 02/07/19 08:57 Temperature 36.8 C 02/07/19 09:04 Temperature Source Skin 02/07/19 09:04 Pulse 75 02/07/19 09:16 Pulse 77 02/07/19 09:16 Respiratory Rate 28 H 02/07/19 09:16 Respiratory Effort Non-Labored 02/07/19 09:14 Blood Pressure 155/80 H 02/07/19 09:16 Blood Pressure Mean 97 02/07/19 09:16 Pulse Oximetry 99 02/07/19 09:16 Pain Level 6 02/07/19 09:04
--- NOTE | 2019-02-07 10:03 | DI.RAD_ITS ---
SYMPTOM/DIAGNOSIS: EPIGASTRIC AND CHEST PAIN PA AND LATERAL CHEST; Comparison is made with 10/20/17. Heart size and pulmonary vasculature are within normal limits. Ventriculoperitoneal shunt tubing is again seen. Wiring overlies the left chest wall is unchanged. The lungs are clear. No effusions or pneumothoraces are identified. The bones appear intact. IMPRESSION: No acute pulmonary process.
[2019-02-07 10:06] LABS: Abs Immature Grans 0.03 k/cumm (0.0-0.09); HGB 13.4 g/dL (12.0-15.5); Mean Corp. HGB Concentration 32.7 g/dL (32.0-36.0); Mean Corpuscular Hemoglobin 26.2 pg (27.0-33.0); Mean Corpuscular Volume 80.1 fL (80-95); Mean Platelet Volume 8.6 fL (8.0-11.0); Platelet Count 368 x1000/uL (130-400); RBC 5.12 m/cumm (4.00-5.20); RBC Distribution Width 13.5 % (11.7-14.6); White Blood Cell Count 11.45 k/cumm (4.4-10.8)
[2019-02-07 10:17] LABS: ALT 26 U/L (12-78); AST 14 U/L (15-37); Albumin 3.3 g/dL (3.4-5.0); Alkaline Phosphatase 107 U/L (46-116); Anion Gap 7.5 mmol/L (3-11); BUN 11 mg/dL (7-18); Bilirubin, Total 0.1 mg/dL (0.2-1.0); CO2 28.5 mmol/L (21.0-32.0); CREATININE 0.79 mg/dL (0.55-1.02); Calcium 8.6 mg/dL (8.5-10.1); Chloride 103 mmol/L (98-107); Glucose 94 mg/dL (70-100); Magnesium 1.8 mg/dL (1.8-2.4); Potassium 3.5 mmol/L (3.5-5.1); Sodium 139 mmol/L (136-145); Total Protein 7.3 g/dL (6.4-8.2)
[2019-02-07 10:18] LABS: Troponin I < 0.02 ng/mL (0.00-0.06)
[2019-02-07 10:25] LABS: Absolute Eosinophil Count 1.26 k/cumm (0.0-0.7); Absolute Lymphocyte Count 2.63 k/cumm (1.2-3.4); Absolute Monocyte Count 0.57 k/cumm (0.11-0.7); Absolute Neutrophil Count 6.98 k/cumm (1.2-6.7); Diff Comment Manual Differential
[2019-02-07 10:30] LABS: D-Dimer 396 ng/mlFEU (<500)
== END 2019-02-07 10:58 | disposition home or self-care (01) ==
PROVIDERS: Emergency Provider Emergency Medicine; PCP Nurse Practitioner
DX: K52.9 Noninfective gastroenteritis and colitis, unspecified (principal)
CPT/HCPCS: 36415; 80053; 93005; 99285; 71046; 83735; 84484; 85025; 85379; 93010

== ENCOUNTER 2019-02-08 10:06 | Outpatient (CLI) | payer MEDICAID, SELFPAY ==
--- NOTE | 2019-02-08 10:03 | DI.RAD_ITS ---
SYMPTOMS/DIAGNOSIS: F/U RT POSTERIOR MALLEOLUS FRACTURE RIGHT ANKLE: Three views. Comparison 01/18/19. There has been no change in alignment of the nondisplaced fracture involving the posterior malleolus. Callous formation has developed about the fracture site consistent with some interval healing. No new fractures or dislocations are seen. Calcaneal spurs are present. IMPRESSION: Healing posterior malleolar fracture.
== END 2019-02-08 10:26 ==
PROVIDERS: PCP Nurse Practitioner; Visit Provider Student in an Organized Health Care Education/Training Program
DX: S82.54XD Nondisplaced fracture of medial malleolus of right tibia, subsequent encounter for closed fracture with routine healing (principal)
CPT/HCPCS: 73610

== ENCOUNTER 2019-04-10 09:19 | Emergency (ER) | payer MEDICAID, SELFPAY ==
[2019-04-10 09:21] VITALS: BP 119/65; PULSE 85; RESP 16; TEMP 36.8; O2SAT 97
--- NOTE | 2019-04-10 09:42 | ED.GENADUL_ITS ---
Discharge Plan Disposition Patient Disposition: HOME Condition: Improving Discharge Details Chief Complaint: EarProblem Clinical Impression: Foreign body in left ear, initial encounter Primary Care Provider: Isabell Guthrie ED Provider: Deniz Mcconnell Home Meds and New Rx's Prescriptions: Continued Nexplanon 68 mg implant 1 implant SBD ONCE Qty: 1 RF: 0 ciclopirox 0.77 % cream 1 applic TP BID 28 Days Qty: 90 RF: 0 trazodone 100 MG tablet 200 mg PO DAILY RF: 0 fluoxetine [Prozac] 20 MG capsule 20 mg PO DAILY RF: 0 ibuprofen 800 mg tablet 800 mg PO TID PRN (Reason: pain) Qty: 60 RF: 3 lamotrigine [Lamictal] 100 MG tablet PO DIRECTED RF: 0 albuterol sulfate 90 mcg/actuation HFA aerosol inhaler 2 puff IH Q4H PRN PRN (Reason: Shortness Of Breath Or Wheezing) Qty: 8 RF: 3 Discharge Instructions Additional Instructions: Do not put Q-tips in your ear canal. Medical Decision Making 34-year-old female here with Q-tip cotton stuck in left external ear canal. Patient provided informed verbal consent to foreign body removal. Forceps were used to easily remove cotton foreign body without complication. Otoscopic exam post foreign body removal revealed intact tympanic membrane with no injury. HPI General Mode of arrival: ambulatory . Date/Time Provider Initiated Documentation: 04/10/19 09:20 . Limitations to Documentation: no limitations . Information obtained by: patient . HPI Narrative: 34-year-old female presents with chief complaint of piece of Q-tip broken off in her ear. This occurred just prior to arrival. Involved left ear. No modifiers. No associated ear pain or discharge. Related Data Home Medications Medication Instructions Recorded Confirmed lamotrigine [Lamictal] 0 mg PO DIRECTED 03/19/14 04/10/19 fluoxetine [Prozac] 20 mg PO DAILY tab-cap 01/24/18 04/10/19 trazodone 200 mg PO DAILY tab-cap 01/24/18 04/10/19 albuterol sulfate 2 puff IH Q4H PRN PRN #8 gm 08/08/18 04/10/19 etonogestrel 68 mg subdermal 1 implant SBD ONCE #1 each 11/03/18 04/10/19 implant ibuprofen 800 mg tablet 800 mg PO TID PRN #60 tab 01/16/19 04/10/19 ciclopirox 0.77 % topical cream 1 applic TP BID 28 Days #90 gm 04/05/19 04/10/19 Previous Rx's Medication Instructions Recorded albuterol sulfate 2 puff IH Q4H PRN PRN #8 gm 08/08/18 etonogestrel 68 mg subdermal 1 implant SBD ONCE #1 each 11/03/18 implant ibuprofen 800 mg tablet 800 mg PO TID PRN #60 tab 01/16/19 ciclopirox 0.77 % topical cream 1 applic TP BID 28 Days #90 gm 04/05/19 Allergies Allergy/AdvReac Type Severity Reaction Status Date / Time aspirin AdvReac Intermediate unable to Verified 04/10/19 09:27 take due to heart surgery General Stated Complaint: EarProblem PAT: 4 Review of Systems ENT Reports as per HPI PFSH Medical History Depression Hydrocephalus Transposition of great vessels (Resolved) Fracture of posterior malleolus of right tibia (Resolved) Vitamin D deficiency (Chronic 07/16/17) Seizure disorder (Acute 01/23/16) Obesity (Acute 07/16/17) Nexplanon in place (Acute 02/17/18) Mild cognitive impairment (Acute 07/16/17) 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) Hydrocephalus (Acute 01/23/16) 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) History of nephrolithiasis (Acute 07/16/17) GERD (gastroesophageal reflux disease) (Acute 07/16/17) Fatty liver (Acute 07/16/17) Depression (Acute 07/16/17) Chronic anxiety (Acute 07/16/17) Surgical History Ventriculoperitoneal Shunt (Chronic) open heart surgery (Resolved) Social History Smoking/Tobacco Use Status: Former Tobacco Use Second Hand Exposure: No Alcohol Intake: current Alcohol Intake frequency: a few times a week Drug use: Never Substance use type: does not use Adopted: No Caregiver/Support person: No Foster care: No Household members: other Details: Has her own apartment Number of Children: 0 Education Level: high school current occupation: On disability for cognitive impairment Pets and animals: Yes Pets and animals: cat(s) and other Details: Rabbit Current gender identity: female What type of physical activity do you participate in: walking Frequency: 3-4 times per week Seatbelt use: always Do you feel safe at home: Yes Do you feel safe in your relationship?: Yes Female Reproductive History Menstrual control method: implanted (nexplanon inserted by Elisa Carrera NP CXG=[id number] EXP=03/2021) History History 0 Para Hx # Term Pregnancies Multiple births Hx # Pregnancies Ectopic pregnancies AB induced Hx Number of Living Children AB spontaneous Exam Const General: cooperative and healthy appearing HENMT Ears: other (cotton fb in left external ear canal) Course Vital Signs Temperature 36.8 C 04/10/19 09:21 Pulse 85 04/10/19 09:21 Respiratory Rate 16 04/10/19 09:21 Blood Pressure 119/65 04/10/19 09:21 Pulse Oximetry 97 04/10/19 09:21 Temperature 36.8 C 04/10/19 09:21 Temperature Source Skin 04/10/19 09:21 Pulse 85 04/10/19 09:21 Respiratory Rate 16 04/10/19 09:21 Respiratory Effort 04/10/19 09:29 Blood Pressure 119/65 04/10/19 09:21 Blood Pressure Position Sitting 04/10/19 09:21 Pulse Oximetry 97 04/10/19 09:21 Oxygen Delivery Method Room Air 04/10/19 09:21 Oxygen Flow Rate 0 04/10/19 09:21 Pain Level 0 04/10/19 09:21
== END 2019-04-10 09:49 | disposition home or self-care (01) ==
PROVIDERS: Emergency Provider Student in an Organized Health Care Education/Training Program; PCP Nurse Practitioner
DX: T16.2XXA Foreign body in left ear, initial encounter (principal)
CPT/HCPCS: 99281

== ENCOUNTER 2019-06-21 13:16 | Emergency (ER) | payer MEDICAID, SELFPAY ==
[2019-06-21 13:20] VITALS: BP 127/59; PULSE 77; TEMP 36.7; O2SAT 97
--- NOTE | 2019-06-21 13:28 | ED.GENADUL_ITS ---
Discharge Plan Disposition Patient Disposition: HOME Condition: Stable Discharge Details Chief Complaint: EarProblem Clinical Impression: Otitis externa Primary Care Provider: Isabell Guthrie ED Provider: Jose Raul Colon Home Meds and New Rx's Prescriptions: New Ciprodex 0.3-0.1 % drops,suspension 4 drp OT BID 7 Days Qty: 7.5 RF: 0 Continued Nexplanon 68 mg implant 1 implant SBD ONCE Qty: 1 RF: 0 trazodone 100 MG tablet 200 mg PO DAILY RF: 0 fluoxetine [Prozac] 20 MG capsule 20 mg PO DAILY RF: 0 ibuprofen 800 mg tablet 800 mg PO TID PRN (Reason: pain) Qty: 60 RF: 3 lamotrigine [Lamictal] 100 mg tablet See Rx Instructions PO DIRECTED Qty: 76 RF: 0 albuterol sulfate 90 mcg/actuation HFA aerosol inhaler 2 puff IH Q4H PRN PRN (Reason: Shortness Of Breath Or Wheezing) Qty: 8 RF: 3 Discharge Instructions Instructions: Otitis Externa (ED) Additional Instructions: Please use the provided eardrops twice daily for the next 7 days. Return to the emergency department for any new or significant worsening of symptoms otherwise follow-up with your primary care provider as needed for reassessment Referrals: Isabell Guthrie, LIAT [Primary Care Provider] - Medical Decision Making Patient presenting the emergency department for chief complaint of left ear pain. Patient states this started 2 days ago with tenderness to palpation of the external ear. Patient denies fever chills, nasal congestion, sore throat. Physical exam shows edema, erythema, and purulence to the left external ear canal. TM appears intact but difficult to fully see due to amount of swelling. Exam is otherwise unremarkable. Patient placed on Ciprodex, return precautions discussed, patient otherwise to follow-up with primary care provider. HPI General Mode of arrival: ambulatory . Date/Time Provider Initiated Documentation: 06/21/19 13:23 . Limitations to Documentation: no limitations . Information obtained by: patient and RN notes reviewed . History of Present Illness 34 year old F presents to the emergency department with the chief complaint of left ear pain , described as moderate, with intensity rated at 6. Quality is described as aching, and is localized to the left (ear). Patient started experiencing this day(s) (2) and it has been constant. No relieving factors improve symptom(s), No exacerbating factors reported . Patient notes no other symptoms.. Patient did receive the following treatments prior to arrival, none Related Data Home Medications Medication Instructions Recorded Confirmed fluoxetine [Prozac] 20 mg PO DAILY tab-cap 01/24/18 06/21/19 trazodone 200 mg PO DAILY tab-cap 01/24/18 06/21/19 albuterol sulfate 2 puff IH Q4H PRN PRN #8 gm 08/08/18 06/21/19 etonogestrel 68 mg subdermal 1 implant SBD ONCE #1 each 11/03/18 06/21/19 implant ibuprofen 800 mg tablet 800 mg PO TID PRN #60 tab 01/16/19 06/21/19 lamotrigine 100 mg tablet See Rx Instructions PO DIRECTED 05/31/19 06/21/19 #76 tab ciprofloxacin-dexamethasone 4 drp OT BID 7 Days #7.5 ml 06/21/19 [Ciprodex] Previous Rx's Medication Instructions Recorded albuterol sulfate 2 puff IH Q4H PRN PRN #8 gm 08/08/18 etonogestrel 68 mg subdermal 1 implant SBD ONCE #1 each 11/03/18 implant ibuprofen 800 mg tablet 800 mg PO TID PRN #60 tab 01/16/19 lamotrigine 100 mg tablet See Rx Instructions PO DIRECTED 05/31/19 #76 tab ciprofloxacin-dexamethasone 4 drp OT BID 7 Days #7.5 ml 06/21/19 [Ciprodex] Allergies Allergy/AdvReac Type Severity Reaction Status Date / Time aspirin AdvReac Intermediate unable to Verified 06/21/19 13:26 take due to heart surgery General Stated Complaint: EarProblem PAT: 4 Review of Systems Constitutional Denies chills, Denies fever(s) and Denies headache(s) ENT Denies ear discharge, Reports otalgia, Denies headache(s), Denies nasal congestion and Denies sore throat Neurologic Denies headache(s) [facility] Medical History Chronic anxiety (Acute 07/16/17) Depression (Acute 07/16/17) Fatty liver (Acute 07/16/17) Fracture of posterior malleolus of right tibia (Resolved) GERD (gastroesophageal reflux disease) (Acute 07/16/17) History of nephrolithiasis (Acute 07/16/17) 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) Hydrocephalus (Acute 01/23/16) 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) Mild cognitive impairment (Acute 07/16/17) Nexplanon in place (Acute 02/17/18) Obesity (Acute 07/16/17) Seizure disorder (Acute 01/23/16) Transposition of great vessels (Resolved) Vitamin D deficiency (Chronic 07/16/17) Surgical History open heart surgery (Inactive) Ventriculoperitoneal Shunt (Chronic) Family History Paternal Grandfather Diabetes Essential hypertension Coronary heart disease Brother ADHD Social History Smoking/Tobacco Use Status: Former Tobacco Use Second Hand Exposure: No Alcohol Intake: current Alcohol Intake frequency: a few times a week Drug use: Never Substance use type: does not use Adopted: No Caregiver/Support person: No Foster care: No Household members: other Details: Has her own apartment Number of Children: 0 Education Level: high school current occupation: On disability for cognitive impairment Pets and animals: Yes Pets and animals: cat(s) and other Details: Rabbit Current gender identity: female What type of physical activity do you participate in: walking Frequency: 3-4 times per week Seatbelt use: always Do you feel safe at home: Yes Do you feel safe in your relationship?: Yes Female Reproductive History Menstrual control method: implanted (nexplanon inserted by Elisa Carrera NP CKV=[id number] EXP=03/2021) History History 0 Para Hx # Term Pregnancies Multiple births Hx # Pregnancies Ectopic pregnancies AB induced Hx Number of Living Children AB spontaneous Exam Const General: cooperative, healthy appearing, comfortable, no acute distress, not diaphoretic and not ill appearing Orientation: awake HENUT Head: normal to inspection, normocephalic and atraumatic Ears: hearing grossly normal bilaterally, TM normal on the right, mastoids normal, EAC abnormal erythema, edema, EAC tenderness and otic discharge, external ear abnormal auricular tenderness and pain with movement of external ear and unable to visualize TM on the left General nose exam: external nose normal Face and sinus: normal facial exam and no erythema Throat: posterior oropharynx normal, tonsils normal and uvula midline Neck Neck: normal visual inspection, full ROM, no lymphadenopathy, trachea midline, supple and no anterior neck swelling Chest Chest: normal inspection of the chest Resp Effort & Inspection: normal respiratory effort and able to speak in complete sentences Skin General skin exam: no rashes or lesions noted Course Vital Signs Temperature 36.7 C 06/21/19 13:20 Pulse 77 06/21/19 13:20 Blood Pressure 127/59 L 06/21/19 13:20 Pulse Oximetry 97 06/21/19 13:20 Temperature 36.7 C 06/21/19 13:20 Temperature Source Temporal Artery Scan 06/21/19 13:20 Pulse 77 06/21/19 13:20 Respiratory Effort 06/21/19 13:24 Blood Pressure 127/59 L 06/21/19 13:20 Blood Pressure Position Sitting 06/21/19 13:20 Pulse Oximetry 97 06/21/19 13:20 Oxygen Delivery Method Room Air 06/21/19 13:20 Oxygen Flow Rate 0 06/21/19 13:20
== END 2019-06-21 13:39 | disposition home or self-care (01) ==
PROVIDERS: Emergency Provider Nurse Practitioner Family; PCP Nurse Practitioner
DX: H60.502 Unspecified acute noninfective otitis externa, left ear (principal)
CPT/HCPCS: 99283

== ENCOUNTER 2019-07-20 18:22 | Outpatient (REF) | payer MEDICAID, SELFPAY | END 2019-07-20 18:42 | LOC: LBN 18:22 | PROVIDERS: PCP Nurse Practitioner; Visit Provider Obstetrics & Gynecology | DX: R30.0 Dysuria (principal) | CPT/HCPCS: 87086 ==

== ENCOUNTER 2019-08-01 01:43 | Outpatient (CLI) | payer MEDICAID, SELFPAY ==
--- NOTE | 2019-08-01 13:00 | NS.NUTBLAN_ITS ---
DESCRIPTION:? Florence Otto presents for nutrition consult fo obesity.? States she doesn't understand why she is not losing weight because she walks all the time and has given up grinders Weight today: 254.7? Goal weight 240 pounds. Florence has a dish of granola and yogurt for breakfast; salad for lunch, chicken with vegetable or salad for supper.? She denies snacking.? States she drinks water.? She states yesterday she had pasta for lunch and for z[place]an fries for supper.? She has pizza once a week, but only has a slice and eats it for several days. Denies eating sweets. States she walks 20 minutes a day.? Otherwise she tries to stay motivated by picking up the house.? Lives with her boyfriend who states he supports her weight loss efforts but buys what he wants which is pasta.? ASSESSMENT/INTERVENTION: Florence appears to have a good understanding of foods to help her lose weight but she is unable to consistently follow this plan and often eats what her boyfriend is eating. She expresses frustration that he is not supporting her when he promised he would. Discussed food guide, portions; hunger/fullness which is difficult for her to assess.? Discussed ways to be sure the foods that help with weight loss are available to her. Discussed ways to limit breads and grains including pasta. PLAN:? She agrees to make a list of the foods she wants to eat that are good for her before going shopping.? She will talk with her boyfriend about how he can support her in her weight loss efforts Suggest Claire Gamboa. 08/15/19 Florence comes in for weight check. Weight today 249 following the Keto diet as recommended by a cardiology doctor at [facility]. She is pleased with her progress and motivated to continue. She will call when she wants a weight check again.
== END 2019-08-01 02:03 ==
PROVIDERS: PCP Nurse Practitioner; Visit Provider Dietitian, Registered
DX: E66.09 Other obesity due to excess calories (principal); Z71.3 Dietary counseling and surveillance
CPT/HCPCS: 97802

== ENCOUNTER 2019-09-22 10:00 | Outpatient (CLI) | payer MEDICAID, SELFPAY ==
--- NOTE | 2019-09-22 14:00 | NS.NUTBLAN_ITS ---
DESCRIPTION: Florence Otto presents for same day request for weight check. She is distressed that her scale does not seem to be reading accurately. States she eats salads, egg, yogurt, chicken and stak for supper; does not drink soda. States she is sticking to the Keto diet. States she is walking daily. Weight today 241.9 which is her weight at home Florence is visibly distressed by this and cannot understand why she has not lost any more weight. INTERVENTION: Encouraged her to continue what she feels works well for her; encouraged her to think in terms of health rather than 'a number'. Discussed help she may want for food choices but she states she knows what to do and is doing it. Supportive listening. PLAN: She will return when she wishes. Face to face: 20 minutes
== END 2019-09-22 10:20 ==
PROVIDERS: PCP Nurse Practitioner; Visit Provider Dietitian, Registered
DX: E66.09 Other obesity due to excess calories (principal); Z71.3 Dietary counseling and surveillance
CPT/HCPCS: 97803

== ENCOUNTER 2019-11-13 11:02 | Outpatient (CLI) | payer MEDICAID, SELFPAY ==
--- NOTE | 2019-11-13 09:10 | NS.NUTBLAN_ITS ---
DESCRIPTION: Florence calls to have her weight checked. Presents with her partner who voices support for Florence's efforts. Weight today: 232.4 States she is drinking water; eating keto snacks between meals, mostly eating vegetables and meats and fruits. States she is following 'her plan'. States she walks extensively every day. Supportive listening. She is satisfied with her current regimen. She will follow up as she wishes. 15 minutes face to face 1 unit billed MNT
== END 2019-11-13 11:22 ==
PROVIDERS: PCP Nurse Practitioner; Visit Provider Dietitian, Registered
DX: E66.9 Obesity, unspecified (principal); Z71.3 Dietary counseling and surveillance
CPT/HCPCS: 97803

== ENCOUNTER 2019-12-06 03:05 | Outpatient (CLI) | payer MEDICAID, SELFPAY ==
--- NOTE | 2019-12-06 09:20 | NS.NUTBLAN_ITS ---
DESCRIPTION: Florence Otto presents for follow up nutrition consult for weight management. Florence is following what she calls the Keto diet under advisement of her calciner operator whom she just visited. She is eating meat, lots of 'real' fruits and vegetables and yogurt in the morning. States she eats nothing after 8PM. She has switched from ranch dressing to lite balsamic vinaigrette per her calciner operator. She reports a weight loss of 50 pounds. She states she does not even know what her BMI is, or how many calories she should be eating in a day. States she is also drinking Pedialyte because her mother suggested this. Weight today: 231 BMI 38.4 down from 43.3 at her self-reported highest weight Florence reports distress and disappointment because this weight today is higher than it was a few days ago. INTERVENTION: Attempted to discuss her weight in the big picture and to explain the weight loss plateau after 5-6 months of caloric restriction. She does not understand why she does everything right and has stopped losing weight. Attempted to clarify keto diet and her actual food choices of yogurt, corn, banana daily. It is unclear what resources she is using to guide her food choices other than her cardiologists recommendations. Discussed how she would manage counting calories as requested. Suggested using an dionte but this is not accepted. Suggested 1500 calories is a reasonable goal for weight loss, however in her post-weight loss period that may not be useful in achieving the goal of further weight loss at this time. She admits to high frustration and lack of patience, as well as irritation with those who suggest she needs patience. She does state she has a cooler servicer but she is never available to help her with what she needs help with. In response, discussed with her group support of Healthier Living workshop or WRAP. States she does not like large groups. She agreed that I could refer her for these 2 groups and she would decide if she wanted to do either of them. She knows to call when she would like follow up. Billed 2 MNT for 35 minutes face to face.
== END 2019-12-06 03:25 ==
PROVIDERS: PCP Nurse Practitioner; Visit Provider Dietitian, Registered
DX: E66.9 Obesity, unspecified (principal); Z71.3 Dietary counseling and surveillance
CPT/HCPCS: 97803

== ENCOUNTER 2019-12-07 10:12 | Outpatient (CLI) | payer MEDICAID, SELFPAY ==
[2019-12-08 10:48] LABS: HIV-1/2 Ag & Ab Screen Negative (Negative)
[2019-12-08 11:48] LABS: Hepatitis C Ab w Rflx HCV PCR Negative (Negative)
== END 2019-12-07 10:32 ==
PROVIDERS: PCP Nurse Practitioner; Visit Provider Obstetrics & Gynecology
DX: Z11.3 Encounter for screening for infections with a predominantly sexual mode of transmission (principal); Z11.4 Encounter for screening for human immunodeficiency virus [HIV]; Z11.59 Encounter for screening for other viral diseases
CPT/HCPCS: 36415; 86803; 87389

== ENCOUNTER 2019-12-07 11:46 | Outpatient (REF) | payer MEDICAID, SELFPAY ==
[2019-12-08 14:53] LABS: Chlamydia Result Negative (Negative); GC Result Negative (Negative)
== END 2019-12-07 12:06 ==
LOC: LBN 11:46
PROVIDERS: PCP Nurse Practitioner; Visit Provider Obstetrics & Gynecology
DX: Z11.3 Encounter for screening for infections with a predominantly sexual mode of transmission (principal)
CPT/HCPCS: 87491; 87591; 87480; 87510; 87660

== ENCOUNTER 2020-04-08 12:02 | Emergency (ER) | payer MEDICAID, SELFPAY ==
[2020-04-08 12:08] VITALS: BP 144/72; PULSE 73; RESP 16; TEMP 36.7; O2SAT 94
--- NOTE | 2020-04-08 12:27 | W.ED.GENAD ---
Discharge Plan Disposition Patient Disposition: HOME Condition: Improving Discharge Details Chief Complaint: Headache Clinical Impression: Headache, Sinus congestion Primary Care Provider: Isabell Guthrie ED Provider: Di Sanford Home Meds and New Rx's Prescriptions: New fluticasone propionate [Flonase Allergy Relief] 50 mcg/actuation spray,suspension 1 spray JABIER DAILY Qty: 15.8 RF: 0 methylprednisolone [Medrol (Dean)] 4 mg tablets,dose pack See Rx Instructions .ROUTE .COMPLEX Qty: 21 RF: 0 Continued Nexplanon 68 mg implant 1 implant SBD ONCE Qty: 1 RF: 0 lamotrigine [Lamictal] 100 mg tablet See Rx Instructions PO DIRECTED Qty: 315 RF: 3 nystatin 100,000 unit/gram cream 1 applic TP QID Qty: 60 RF: 0 clotrimazole 1 % cream 1 applic TP BID Qty: 15 RF: 0 trazodone 100 MG tablet 200 mg PO DAILY RF: 0 fluoxetine [Prozac] 20 MG capsule 20 mg PO DAILY RF: 0 No Action estradiol 1 mg tablet 1 mg PO DAILY 7 Days Qty: 7 RF: 0 Discharge Instructions Instructions: Sinusitis (ED), General Headache (ED) Additional Instructions: Your headache may be due to a sinus infection. As you have no reported fever or green nasal discharge, antibiotics are not indicated at this time. You are given a short course of low-dose steroids which may provide you relief for this. Headaches also can be due to tension, stress, muscle strain, dehydration, etc. Your SUPERVISOR PAYROLL shunt looks stable and the CAT scan of your head was negative for any acute findings today. Follow-up with your scheduled appointment with neurosurgery at [facility] this summer. Be sure to drink plenty of fluids and take Tylenol as needed and directed for pain. Use the Flonase as directed. Take the steroids until finished. Return immediately to the emergency department if you develop any worsening or concerning symptoms such as fever, worsening headache, persistent vomiting or any other concerns. Discharge Data Discharge Date/Time-TO BE ENTERED AT DEPARTURE: 04/08/20 15:30 Discharge Physician: Di Sanford Medical Decision Making 1215 -- 35-year-old female with history of hydrocephalus and SUPERVISOR PAYROLL shunt placed at along with congenital heart defect with history of PA band and PDA ligation, anxiety and depression presents for headache for the past week. Feels consistent with her usual headaches but more intense. Also admits to nasal congestion and discharge. No fever or neck pain. She appears nontoxic. She has left frontal sinus tenderness. No focal deficits. Differential diagnosis includes shunt dysfunction, migraine headache, tension headache, dehydration, sinusitis etc. History and presentation not c/w cva, subarachnoid hemorrhage, meningitis. Will check CT head, SUPERVISOR PAYROLL shunt series, screening labs and give fluids, Compazine, Benadryl and Decadron and reassess. 1430 -- Labs and imaging reviewed and unremarkable. Normal white blood cell count. test negative. CT head and SUPERVISOR PA[employer]RO[employer] shunt negative for acute findings. Pt reassessed - she feels much better. Headache near resolved. She was able to ambulate very easily around the ED with no acute complaints or unsteadiness. She is requesting to go home. Will treat for possible sinusitis with low dose short course of steroids and flonase. Do not see an indication for antibiotics at this time. Advised to f/u with her scheduled appointment with [facility] neurosurgery in June. Usual and customary return precautions given prior to discharge. Medical Records Medical records reviewed: Yes I reviewed the patient's medical records. 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 TECHNIQUE: Imaging Protocol: Axial computed tomography images with coronal and sagittal reformatted images were created and reviewed COMPARISON: CT HEAD WITHOUT CONTRAST from 12/11/2013 FINDINGS: Ventricles and Extra axial spaces: Normal in size and morphology for the patient's age. Hemorrhage: None. Cerebral parenchyma: Normal. Midline shift: None. Brainstem/Cerebellum: Normal. Calvarium: Normal. Visualized Paranasal sinuses/Mastoids: Mild mucosal thickening in both maxillary sinuses, right frontal sinus and ethmoid air cells bilaterally. Mastoids are clear bilaterally. Soft Tissues: There is again noted a right ventriculoperitoneal shunt. IMPRESSION: No acute intracranial process. 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 TECHNIQUE: 2D digital imaging was performed. COMPARISON: CR XR CHEST 2V PA LATERAL from 02/07/2019 CR XR CHEST 2V PA LATERAL from 02/07/2019 Findings: SKULL: Unremarkable. No destructive osseous lesion seen. LUNGS: Clear. No pleural abnormality seen. HEART: Normal. MEDIASTINUM: Normal. There is a round radiopaque object overlying the lower sternum of uncertain if any clinical significance. This may be artifact. Please correlate clinically. There is again seen a wire overlying the left chest and upper abdomen. It is unchanged. BOWEL GAS PATTERN: Nondistended bowel loops. No air-fluid levels seen. ABNORMAL COLLECTIONS OF AIR: No abnormal collection of air. No pneumoperitoneum. CALCIFICATIONS: None. No radiopaque renal, ureteral, or bladder calcification. SHUNT CATHETER: Visualized portions of shunt catheter from the level of the skull to the level of the abdomen is continuous without evidence of kink or break. OTHER FINDINGS: None. IMPRESSION: 1. Nonobstructive bowel gas pattern. 2. No acute pulmonary findings. Lab Data Lab results reviewed: Yes I reviewed the patient's lab results. Labs: Laboratory Tests Range/Units 04/08/20 04/08/20 13:20 13:20 WBC (4.4-10.8) k/cumm 10.66 RBC (4.00-5.20) m/cumm 5.17 Hgb (12.0-15.5) g/dL 14.2 Hct (36.0-46.0) % 42.3 MCV (80-95) fL 81.8 MCH (27.0-33.0) pg 27.5 MCHC (32.0-36.0) g/dL 33.6 RDW (11.7-14.6) % 13.3 Plt Count (130-400) x1000/uL 374 MPV (8.0-11.0) fL 8.9 Immature Gran % % 0.3 Neutrophils % 51.2 Lymphocytes % 30.1 Monocytes % 6.8 Eosinophils % 11.0 Basophils % 0.6 Absolute Neutrophils (1.2-6.7) k/cumm 5.46 Absolute Lymphocytes (1.2-3.4) k/cumm 3.21 Absolute Monocytes (0.11-0.7) k/cumm 0.73 H Absolute Eosinophils (0.0-0.7) k/cumm 1.17 H Absolute Basophils (0.0-0.2) k/cumm 0.06 Sodium (136-145) mmol/L 141 Potassium (3.5-5.1) mmol/L 3.7 Chloride (98-107) mmol/L 103 Carbon Dioxide (21.0-32.0) mmol/L 30.6 Anion Gap (3-11) mmol/L 7.4 BUN (7-18) mg/dL 14 Creatinine (0.55-1.02) mg/dL 0.82 Estimated GFR/1.73 m2 (mL/min/1.73m2) >= 60.00 Glucose (74-106) mg/dL 77 Calcium (8.5-10.1) mg/dL 9.1 Total Bilirubin (0.2-1.0) mg/dL 0.2 AST (15-37) U/L 19 ALT (14-59) U/L 35 Alkaline Phosphatase (46-116) U/L 93 C-Reactive Protein (0.0-0.3) mg/dL 0.32 H Total Protein (6.4-8.2) g/dL 7.6 Albumin (3.4-5.0) g/dL 3.6 HPI General Mode of arrival: ambulatory. Date/Time Provider Initiated Documentation: 04/08/20 12:08. Limitations to Documentation: no limitations. Information obtained by: patient. HPI Narrative: Patient is a 35-year-old female with a history of hydrocephalus and SUPERVISOR PAYROLL shunt placed at , anxiety, depression, seizure disorder and history of congenital heart defect with PA band and PDA ligation presents for headache for the past week. She describes the headache as intermittent, dull ache radiating from her occipital region along the top of her head to her forehead. She states she has frequent headaches and that this has the same quality but more intense than usual. She does admit to nasal congestion and rhinorrhea with clear discharge but denies any fever, neck pain, sore throat, cough, shortness of breath or chest pain. She usually has relief with Tylenol for headaches but denies any relief this week with this. Related Data Home Medications Medication Instructions Recorded Confirmed fluoxetine [Prozac] 20 mg PO DAILY tab-cap 01/24/18 04/09/20 trazodone 200 mg PO DAILY tab-cap 01/24/18 04/09/20 etonogestrel 68 mg subdermal 1 implant SBD ONCE #1 each 11/03/18 04/09/20 implant nystatin 100,000 unit/gram topical 1 applic TP QID #60 gm 09/26/19 04/09/20 cream lamotrigine 100 mg tablet See Rx Instructions PO DIRECTED 10/17/19 04/09/20 #315 tab clotrimazole 1 % topical cream 1 applic TP BID #15 gm 03/12/20 04/09/20 fluticasone propionate [Flonase 1 spray JABIER DAILY #15.8 ml 04/08/20 04/09/20 Allergy Relief] methylprednisolone [Medrol (Dean)] See Rx Instructions .ROUTE 04/08/20 04/09/20 .COMPLEX #21 dose pk estradiol 1 mg tablet 1 mg PO DAILY 7 Days #7 tab 04/09/20 04/09/20 Previous Rx's Medication Instructions Recorded etonogestrel 68 mg subdermal 1 implant SBD ONCE #1 each 11/03/18 implant nystatin 100,000 unit/gram topical 1 applic TP QID #60 gm 09/26/19 cream lamotrigine 100 mg tablet See Rx Instructions PO DIRECTED 10/17/19 #315 tab clotrimazole 1 % topical cream 1 applic TP BID #15 gm 03/12/20 fluticasone propionate [Flonase 1 spray JABIER DAILY #15.8 ml 04/08/20 Allergy Relief] methylprednisolone [Medrol (Dean)] See Rx Instructions .ROUTE 04/08/20 .COMPLEX #21 dose pk estradiol 1 mg tablet 1 mg PO DAILY 7 Days #7 tab 04/09/20 Allergies Allergy/AdvReac Type Severity Reaction Status Date / Time aspirin AdvReac Intermediate unable to Verified 04/09/20 13:34 take due to heart surgery ibuprofen AdvReac Unknown unknown Verified 04/09/20 13:34 General Stated Complaint: Headache PAT: 2 Review of Systems All systems reviewed & are unremarkable except as noted in HPI and below Constitutional Constitutional: Reports as per HPI, Denies chills, Denies fever(s) and Reports headache(s) Eyes Eyes: Denies blurry vision ENT Ears, Nose, Mouth, and Throat: Denies dizziness, Reports headache(s), Reports nasal congestion, Reports nasal discharge, Denies sore throat and Denies throat swelling Cardiovascular Cardiovascular: Denies chest pain and Denies dyspnea Respiratory Respiratory: Denies cough and Denies dyspnea Gastrointestinal Gastrointestinal: Denies abdominal pain, Denies diarrhea and Denies vomiting Genitourinary Genitourinary: Denies hematuria and Denies dysuria Musculoskeletal Musculoskeletal: Denies back pain and Denies numbness Integumentary/Breasts Skin/Breast: Denies lesions and Denies rash Neurologic Neurologic: Denies dizziness, Reports headache(s), Denies localized weakness and Denies numbness Allergic/Immunologic Allergic/Immunologic: Denies throat swelling [facility] Medical History (Updated 04/09/20 @ 14:04 by Elisha Abdi DO) Chronic anxiety (Acute 07/16/17) Depression (Chronic 07/16/17) DUB (dysfunctional uterine bleeding) (Acute) Fatty liver (Acute 07/16/17) U/S 11/06/15 Fracture of posterior malleolus of right tibia (Resolved) GERD (gastroesophageal reflux disease) (Acute 07/16/17) History of nephrolithiasis (Acute 07/16/17) CT 08/24/15 bilateral calculi 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 Pulmonary artery banding. 22mo removal of PA band and closure of VSD. Pt is under impression that she should not be Pt is under impression that she should not become . 03/2016 [facility] [place] records reviewed with [facility] Cardiology. No contraindication to . Hydrocephalus (Acute 01/23/16) Shunted at . Last repair 1994 at [facility]. No issues. 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 On meds. Previously seen at [facility] [place]. Now [facility] Transposition of great vessels (Resolved) s/p surgery at [facility]. Pulmonary artery banding. removal of band at 22mo and closure of VSD. Vitamin D deficiency (Chronic 07/16/17) Surgical History open heart surgery (Inactive) as for transposition of great vessels. Pulmonary artery banding at and removal of band @ 22mo and closure of VSD. Ventriculoperitoneal Shunt (Chronic) At ? Last surgery was 1994 @ [facility]. Social History Smoking/Tobacco Use Status: Former Tobacco Use Second Hand Exposure: No Alcohol Intake: current Alcohol Intake frequency: a few times a week Drug use: Never Substance use type: does not use Adopted: No Caregiver/Support person: No Foster care: No Household members: other Details: Has her own apartment Number of Children: 0 Education Level: high school current occupation: On disability for cognitive impairment Pets and animals: Yes Pets and animals: cat(s) and other Details: Rabbit Current gender identity: female What type of physical activity do you participate in: walking Frequency: 3-4 times per week Seatbelt use: always Do you feel safe at home: Yes Do you feel safe in your relationship?: Yes Female Reproductive History Menstrual control method: implanted (nexplanon inserted by Elisa Carrera NP AAB=[id number] EXP=03/2021) History History 0 Para Hx # Term Pregnancies Multiple births Hx # Pregnancies Ectopic pregnancies AB induced Hx Number of Living Children AB spontaneous Exam Const General: cooperative and healthy appearing Orientation: alert and awake HENMT Head: normal to inspection Ears: hearing grossly normal bilaterally, external ears normal and TM's normal bilaterally General nose exam: external nose normal Face and sinus: sinus tenderness frontal (Left) Mouth: oral mucosae normal Teeth and gingiva: dentition normal Throat: posterior oropharynx normal Eyes General: appearance normal, both eyes and all related structures Eyelids: eyelids normal Pupils: PERRL EOM: EOM intact bilaterally Neck Neck: normal visual inspection Lymphatic: no lymphadenopathy noted Chest Chest: normal inspection of the chest Resp Effort & Inspection: normal respiratory effort and able to speak in complete sentences Auscultation: clear to auscultation bilaterally Cardio Rate: regular rate Rhythm: regular rhythm GI Inspection: normal to inspection Palpation: soft, not firm, no guarding, no hepatosplenomegaly, no masses and nontender Auscultation: normal bowel sounds Back/Spine/Pelvis Back: no CVA tenderness Skin General skin exam: no rashes or lesions noted Neuro General: patient alert, patient awake, gait normal, moves all extremities, no meningeal signs, no focal motor deficits and CN's II-XI intact bilaterally Cranial Nerves: CN's II-XI intact bilaterally Cognition: normal cognition Speech: speech normal Gait: normal gait Motor: muscle tone normal throughout and strength 5/5 throughout Sensory Exam: no sensory deficits noted Extrem General: normal to inspection, full ROM and capillary refill normal Psych Appearance: grossly normal Mental Status: mental status grossly normal Speech and Movement: speech and movement normal Affect: normal affect Thought Process: normal Course Vital Signs Vital signs: Vital Signs Temperature 98.1 F 04/08/20 12:08 Pulse 73 04/08/20 12:08 Respiratory Rate 16 04/08/20 12:08 Blood Pressure 144/72 H 04/08/20 12:08 Pulse Oximetry 94 L 04/08/20 12:08 Temperature 98.1 F 04/08/20 12:08 Temperature Source Skin 04/08/20 12:08 Pulse 73 04/08/20 12:08 Respiratory Rate 16 04/08/20 12:08 Respiratory Effort Non-Labored 04/08/20 12:08 Blood Pressure 144/72 H 04/08/20 12:08 Pulse Oximetry 94 L 04/08/20 12:08 Oxygen Delivery Method Room Air 04/08/20 12:08 Oxygen Flow Rate 0 04/08/20 12:08 Pain Level 7 04/08/20 12:08
--- NOTE | 2020-04-08 12:45 | DI.RAD_ITS ---
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 TECHNIQUE: 2D digital imaging was performed. COMPARISON: CR XR CHEST 2V PA LATERAL from 02/07/2019 CR XR CHEST 2V PA LATERAL from 02/07/2019 Findings: SKULL: Unremarkable. No destructive osseous lesion seen. LUNGS: Clear. No pleural abnormality seen. HEART: Normal. MEDIASTINUM: Normal. There is a round radiopaque object overlying the lower sternum of uncertain if any clinical significance. This may be artifact. Please correlate clinically. There is again seen a wire overlying the left chest and upper abdomen. It is unchanged. BOWEL GAS PATTERN: Nondistended bowel loops. No air-fluid levels seen. ABNORMAL COLLECTIONS OF AIR: No abnormal collection of air. No pneumoperitoneum. CALCIFICATIONS: None. No radiopaque renal, ureteral, or bladder calcification. SHUNT CATHETER: Visualized portions of shunt catheter from the level of the skull to the level of the abdomen is continuous without evidence of kink or break. OTHER FINDINGS: None. IMPRESSION: 1. Nonobstructive bowel gas pattern. 2. No acute pulmonary findings. DATA REPOSITORY: RADIATION DOSE DELIVERED:
--- NOTE | 2020-04-08 12:45 | DI.CT_ITS ---
EXAM: CT HEAD WO CLINICAL HISTORY: headache, h/o vp celebrity services shunt, r/o acute disease/cva. TECHNIQUE: Imaging Protocol: Axial computed tomography images with coronal and sagittal reformatted images were created and reviewed COMPARISON: CT HEAD WITHOUT CONTRAST from 12/11/2013 FINDINGS: Ventricles and Extra axial spaces: Normal in size and morphology for the patient's age. Hemorrhage: None. Cerebral parenchyma: Normal. Midline shift: None. Brainstem/Cerebellum: Normal. Calvarium: Normal. Visualized Paranasal sinuses/Mastoids: Mild mucosal thickening in both maxillary sinuses, right front al sinus and ethmoid air cells bilaterally. Mastoids are clear bilaterally. Soft Tissues: There is again noted a right ventriculoperitoneal shunt. IMPRESSION: No acute intracranial process. Findings were discussed with the emergency department on the date of the examination. RADIATION DOSE DELIVERED: 749.45mGy.cm Total DLP DATA REPOSITORY: All CT scans at this facility are submitted to the National Radiology Data Registry (NRDR) Dose Index Registry (DIR) with the [employer] (ACR). RADIATION OPTIMIZATION: All CT scans at this facility use at least one of these dose optimization te chniques: automated exposure control; mA and/or kV adjustment per patient size (includes targeted exa ms where dose is matched to clinical indication); or iterative reconstruction.
[2020-04-08] MEDS: diphenhydrAMINE 50 MG/ML VIAL 25 MG IVP (13:27)
[2020-04-08] MEDS: Normal Saline Flush 10 ML SYR IVP (13:28)
[2020-04-08] MEDS: Dexamethasone 10 MG/ML VIAL IVP (13:30)
[2020-04-08] MEDS: Prochlorperazine 10 MG/2 ML VIAL IVP (13:31)
[2020-04-08 13:33] LABS: Abs Immature Grans 0.03 k/cumm (0.0-0.09); Absolute Basophil Count 0.06 k/cumm (0.0-0.2); Absolute Eosinophil Count 1.17 k/cumm (0.0-0.7); Absolute Lymphocyte Count 3.21 k/cumm (1.2-3.4); Absolute Monocyte Count 0.73 k/cumm (0.11-0.7); Absolute Neutrophil Count 5.46 k/cumm (1.2-6.7); Basophils % 0.6; HCT 42.3 % (36.0-46.0); HGB 14.2 g/dL (12.0-15.5); Immature Grans % 0.3 %; Lymphocytes % 30.1; Mean Corp. HGB Concentration 33.6 g/dL (32.0-36.0); Mean Corpuscular Hemoglobin 27.5 pg (27.0-33.0); Mean Corpuscular Volume 81.8 fL (80-95); Mean Platelet Volume 8.9 fL (8.0-11.0); Monocytes % 6.8; Neutrophils % 51.2; Platelet Count 374 x1000/uL (130-400); RBC 5.17 m/cumm (4.00-5.20); RBC Distribution Width 13.3 % (11.7-14.6); White Blood Cell Count 10.66 k/cumm (4.4-10.8)
[2020-04-08 13:44] LABS: ALT 35 U/L (14-59); AST 19 U/L (15-37); Albumin 3.6 g/dL (3.4-5.0); Alkaline Phosphatase 93 U/L (46-116); Anion Gap 7.4 mmol/L (3-11); BUN 14 mg/dL (7-18); Bilirubin, Total 0.2 mg/dL (0.2-1.0); C-Reactive Protein 0.32 mg/dL (0.0-0.3); CO2 30.6 mmol/L (21.0-32.0); CREATININE 0.82 mg/dL (0.55-1.02); Calcium 9.1 mg/dL (8.5-10.1); Chloride 103 mmol/L (98-107); Glucose 77 mg/dL (74-106); Potassium 3.7 mmol/L (3.5-5.1); Sodium 141 mmol/L (136-145); Total Protein 7.6 g/dL (6.4-8.2)
[2020-04-08 14:36] VITALS: BP 143/69; PULSE 73; RESP 14; O2SAT 99
== END 2020-04-08 15:30 | disposition home or self-care (01) ==
PROVIDERS: Emergency Provider Physician Assistant; PCP Nurse Practitioner
DX: R09.81 Nasal congestion (principal); R51 Headache; Q03.9 Congenital hydrocephalus, unspecified; Z98.2 Presence of cerebrospinal fluid drainage device
CPT/HCPCS: 36415; 80053; 81025; 96374; 96375; 99284; 70360; 70450; 71045; 72050; 74018; 85025; 86140; 99285; J0780; J1100; J1200

== ENCOUNTER 2020-05-07 09:40 | Outpatient (REF) | payer MEDICAID, SELFPAY ==
--- NOTE | 2020-05-07 09:34 | PAPFT_PTH ---
PATIENT: Florence Otto LOC: [facility] U#:[id number] AGE/SX: 35/F ROOM: RE05/07/[address]: Elisha Abdi DO : 1985 BED: DIS: 05/07/2020 SPEC #: [id number] RECD: 05/07/20 13:02 STATUS: ALEX RELenora #: [id number] JOSELIN: 05/07/20 09:[address]: Elisha Abdi DEPT[facility] Cytology RECD BY: Crys Truong ENTERED: 05/07/20 13:02 SP TYPE: PAPFT SERA DR: Isabell Guthrie APRN Tissues: 1 - CX/ENDOCX FOR PAP SMEARS Procedures: PAP THIN PREP/[facility] Screening HPV DNA PROBE Comments: [id number]
== END 2020-05-07 10:00 ==
LOC: LBN 09:40
PROVIDERS: PCP Nurse Practitioner; Visit Provider Obstetrics & Gynecology
DX: Z12.4 Encounter for screening for malignant neoplasm of cervix (principal)
CPT/HCPCS: 88142; 87624

== ENCOUNTER 2020-06-28 09:03 | Emergency (ER) | payer MEDICAID, SELFPAY ==
[2020-06-28 09:10] VITALS: BP 134/73; PULSE 70; RESP 18; TEMP 36.7; O2SAT 96
--- NOTE | 2020-06-28 09:21 | W.ED.GENAD ---
Discharge Plan Disposition Patient Disposition: HOME Condition: Stable Discharge Details Chief Complaint: Sorethroat Clinical Impression: Pharyngitis Primary Care Provider: Isabell Guthrie ED Provider: Deniz Mcconnell Home Meds and New Rx's Prescriptions: New fluticasone propionate [Flonase Allergy Relief] 50 mcg/actuation spray,suspension 1 spray JABIER BID Qty: 11.1 RF: 0 Continued Nexplanon 68 mg implant 1 implant SBD ONCE Qty: 1 RF: 0 lamotrigine [Lamictal] 100 mg tablet See Rx Instructions PO DIRECTED Qty: 315 RF: 3 trazodone 100 MG tablet 200 mg PO DAILY RF: 0 fluoxetine [Prozac] 20 MG capsule 20 mg PO DAILY RF: 0 Discharge Instructions Instructions: Pharyngitis (ED) Additional Instructions: Please drink plenty of fluid and allow for plenty of rest. Please take ibuprofen over the counter. Take 600mg by mouth every 6 hours as needed for pain. Please take acetaminophen (tylenol) - 650mg every 6 hours by mouth as needed for pain. Please contact your primary care physician to arrange follow-up. Return to the ER for any worsening or new concerning symptoms. Referrals: Isabell Guthrie, TILE DECORATOR [Primary Care Provider] - Medical Decision Making [phone]??35-year-old female here with sinus congestion and sore throat. Pharyngitis on exam. Rapid strep test negative. Suspect viral illness. Symptoms not consistent with typical COVID-19 presentation. Symptomatic treatment advised. Patient advised to follow-up with PCP. Usual and customary discharge instructions were reviewed with patient. HPI General Mode of arrival: ambulatory. Date/Time Provider Initiated Documentation: 06/28/20 09:21. Limitations to Documentation: no limitations. Information obtained by: patient. HPI Narrative: 35-year-old female presents with chief complaint of sore throat. Patient notes sore throat for the past 2 weeks. Symptoms are moderate. No modifiers. No difficulty swallowing. Patient has associated sinus congestion over same period of time. No ear pain. No fevers. No headache. No cough. No known contact with COVID-19 positive patient. No travel. Related Data Home Medications Medication Instructions Recorded Confirmed fluoxetine [Prozac] 20 mg PO DAILY tab-cap 01/24/18 05/17/20 trazodone 200 mg PO DAILY tab-cap 01/24/18 05/17/20 etonogestrel 68 mg subdermal 1 implant SBD ONCE #1 each 11/03/18 05/17/20 implant lamotrigine 100 mg tablet See Rx Instructions PO DIRECTED 10/17/19 05/17/20 #315 tab fluticasone propionate [Flonase 1 spray JABIER BID #11.1 ml 06/28/20 Allergy Relief] Previous Rx's Medication Instructions Recorded etonogestrel 68 mg subdermal 1 implant SBD ONCE #1 each 11/03/18 implant lamotrigine 100 mg tablet See Rx Instructions PO DIRECTED 10/17/19 #315 tab fluticasone propionate [Flonase 1 spray JABIER BID #11.1 ml 06/28/20 Allergy Relief] Allergies Allergy/AdvReac Type Severity Reaction Status Date / Time aspirin AdvReac Intermediate unable to Verified 06/28/20 09:12 take due to heart surgery ibuprofen AdvReac Unknown unknown Verified 06/28/20 09:12 General Stated Complaint: Sorethroat PAT: 4 Review of Systems Constitutional Constitutional: Denies fever(s) ENT Ears, Nose, Mouth, and Throat: Reports as per HPI, Denies otalgia, Denies facial pain and Reports nasal congestion Respiratory Respiratory: Denies cough PFSH Medical History Chronic anxiety (Acute 07/16/17) Depression (Chronic 07/16/17) DUB (dysfunctional uterine bleeding) (Acute) Fatty liver (Acute 07/16/17) U/S 11/06/15 Fracture of posterior malleolus of right tibia (Resolved) GERD (gastroesophageal reflux disease) (Acute 07/16/17) History of nephrolithiasis (Acute 07/16/17) CT 08/24/15 bilateral calculi 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 Pulmonary artery banding. 22mo removal of PA band and closure of VSD. Pt is under impression that she should not be Pt is under impression that she should not become . 03/2016 [facility] [place] records reviewed with [facility] Cardiology. No contraindication to . Hydrocephalus (Acute 01/23/16) Shunted at . Last repair 1994 at [facility]. No issues. 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 On meds. Previously seen at [facility] [place]. Now [facility] Transposition of great vessels (Resolved) s/p surgery at [facility]. Pulmonary artery banding. removal of band at 22mo and closure of VSD. Vitamin D deficiency (Chronic 07/16/17) Well woman exam with routine gynecological exam (Acute) Surgical History open heart surgery (Inactive) as for transposition of great vessels. Pulmonary artery banding at and removal of band @ 22mo and closure of VSD. Ventriculoperitoneal Shunt (Chronic) At ? Last surgery was 1994 @ [facility]. Family History Paternal Grandfather Diabetes Essential hypertension Coronary heart disease Brother ADHD Social History Smoking/Tobacco Use Status: Former Tobacco Use Second Hand Exposure: No Alcohol Intake: current Alcohol Intake frequency: a few times a week Drug use: Never Substance use type: does not use Adopted: No Caregiver/Support person: No Foster care: No Household members: other Details: Has her own apartment Number of Children: 0 Education Level: high school current occupation: On disability for cognitive impairment Pets and animals: Yes Pets and animals: cat(s) and other Details: Rabbit Current gender identity: female What type of physical activity do you participate in: walking Frequency: 3-4 times per week Seatbelt use: always Do you feel safe at home: Yes Do you feel safe in your relationship?: Yes Female Reproductive History Menstrual control method: implanted (nexplanon inserted by Elisa Carrera NP JQX=[id number] EXP=03/2021) History History 0 Para Hx # Term Pregnancies Multiple births Hx # Pregnancies Ectopic pregnancies AB induced Hx Number of Living Children AB spontaneous Exam Const General: cooperative and no acute distress HENMT General nose exam: no nasal discharge and other (Sinus congestion) Face and sinus: sinuses nontender, no erythema and no edema Mouth: moist mucous membranes and no trismus Throat: uvula midline, no peritonsillar masses and posterior oropharynx abnormal erythema; no cobblstoning, no edema and no exudates Eyes Conjunctivae: normal conjunctivae Sclera: normal sclerae Neck Neck: trachea midline and supple Resp Auscultation: clear to auscultation bilaterally, no rales, no rhonchi and no wheezes Cardio Jugular venous pressure: no JVD Rate: regular rate and not tachycardic Rhythm: regular rhythm Skin General skin exam: no rashes or lesions noted Neuro General: patient alert, patient awake and tone normal Course Vital Signs Vital signs: Vital Signs Temperature 36.7 C 06/28/20 09:10 Pulse 70 06/28/20 09:10 Respiratory Rate 18 06/28/20 09:10 Blood Pressure 134/73 06/28/20 09:10 Pulse Oximetry 96 06/28/20 09:10 Temperature 36.7 C 06/28/20 09:10 Pulse 70 06/28/20 09:10 Respiratory Rate 18 06/28/20 09:10 Respiratory Effort Non-Labored 06/28/20 09:12 Blood Pressure 134/73 06/28/20 09:10 Blood Pressure Position Sitting 06/28/20 09:10 Pulse Oximetry 96 06/28/20 09:10 Oxygen Delivery Method Room Air 06/28/20 09:10 Oxygen Flow Rate 0 06/28/20 09:10 Pain Level 7 06/28/20 09:10
[2020-06-28 09:24] VITALS: BP 134/73; PULSE 70; RESP 18; TEMP 36.7; O2SAT 96
== END 2020-06-28 09:27 | disposition home or self-care (01) ==
PROVIDERS: Emergency Provider Student in an Organized Health Care Education/Training Program; PCP Nurse Practitioner
DX: J02.9 Acute pharyngitis, unspecified (principal); R09.81 Nasal congestion
CPT/HCPCS: 87880; 99282; 87081; 99283

== ENCOUNTER 2020-08-25 14:57 | Emergency (ER) | payer MEDICAID, SELFPAY ==
[2020-08-25 15:06] VITALS: BP 139/79; PULSE 75; TEMP 36.5; O2SAT 94
[2020-08-25 15:12] VITALS: RESP 16
--- NOTE | 2020-08-25 15:12 | W.ED.GENAD ---
Discharge Plan Disposition Patient Disposition: HOME Condition: Stable Discharge Details Clinical Impression: Asthma Primary Care Provider: Isabell Guthrie ED Provider: Brian Carrera Home Meds and New Rx's Prescriptions: New prednisone 20 mg tablet 60 mg PO DAILY 4 Days Qty: 12 RF: 0 albuterol sulfate 90 mcg/actuation HFA aerosol inhaler 2 puff inhalation Q6H PRNQty: 18 RF: 0 Continued Nexplanon 68 mg implant 1 implant SBD ONCE Qty: 1 RF: 0 lamotrigine [Lamictal] 100 mg tablet See Rx Instructions PO DIRECTED Qty: 315 RF: 3 trazodone 100 MG tablet 200 mg PO DAILY RF: 0 fluoxetine [Prozac] 20 MG capsule 20 mg PO DAILY RF: 0 fluticasone propionate [Flonase Allergy Relief] 50 mcg/actuation spray,suspension 1 spray JABIER BID Qty: 11.1 RF: 0 Discharge Instructions Instructions: Asthma (ED) Additional Instructions: follow up with your primary care provider within 1 week especially if symptoms persist if you feel more ill, have worsening shortness of breath return to the emergency department Medical Decision Making 35 yo female with hx of asthma and has been out of her inhaler for over a month, comes in with cc of 12 days of worsening shortness of breath and wheezing. Denies fevers, chills, travel, sick contacts, chest pain/pressure, leg swelling. She arrives HD stable and speaking in full sentences. HAs no calf tenderness. Does have wheezing in all lung meeks bilaterally, no jvd. suspect asthma exacerbation from lack of medicine at home. Will give duoneb and prednisone and reassess. HAs no fevers or cough so doubt pna. No chest pain/pressure, no jvd or leg swelling so doubt acs or chf at this time and no tachycardia or evidence of dvt so doubt PE pt feels much better after nebs and prednisone lung souds improved remains hd stable. Will d/c with albuterol refill and prednisone and advised to f/u with pcp and return precautions given Differential Diagnosis Differential Diagnosis: asthma, reactive airway disease HPI General Mode of arrival: ambulatory. Date/Time Provider Initiated Documentation: 08/25/20 15:01. Limitations to Documentation: no limitations. Information obtained by: patient. History of Present Illness 35 year old F presents to the emergency department with the chief complaint of shortness of breath, Patient started experiencing this day(s) (12) and it has been constant. No relieving factors improve symptom(s), No exacerbating factors reported . Patient notes no other symptoms.. Patient did receive the following treatments prior to arrival, none Related Data Home Medications Medication Instructions Recorded Confirmed fluoxetine [Prozac] 20 mg PO DAILY tab-cap 01/24/18 08/25/20 trazodone 200 mg PO DAILY tab-cap 01/24/18 08/25/20 etonogestrel 68 mg subdermal 1 implant SBD ONCE #1 each 11/03/18 08/25/20 implant lamotrigine 100 mg tablet See Rx Instructions PO DIRECTED 10/17/19 08/25/20 #315 tab fluticasone propionate [Flonase 1 spray JABIER BID #11.1 ml 06/28/20 08/25/20 Allergy Relief] albuterol sulfate 2 puff INHALATION Q6H PRN #18 g 08/25/20 prednisone 60 mg PO DAILY 4 Days #12 tab 08/25/20 Previous Rx's Medication Instructions Recorded etonogestrel 68 mg subdermal 1 implant SBD ONCE #1 each 11/03/18 implant lamotrigine 100 mg tablet See Rx Instructions PO DIRECTED 10/17/19 #315 tab fluticasone propionate [Flonase 1 spray JABIER BID #11.1 ml 06/28/20 Allergy Relief] albuterol sulfate 2 puff INHALATION Q6H PRN #18 g 08/25/20 prednisone 60 mg PO DAILY 4 Days #12 tab 08/25/20 Allergies Allergy/AdvReac Type Severity Reaction Status Date / Time aspirin AdvReac Intermediate unable to Verified 08/25/20 15:10 take due to heart surgery ibuprofen AdvReac Unknown unknown Verified 08/25/20 15:10 General Stated Complaint: SOB PTA: 3 Review of Systems All systems reviewed & are unremarkable except as noted in HPI and below Constitutional Constitutional: Denies chills, Denies fever(s) and Denies weakness Cardiovascular Cardiovascular: Denies chest pain Respiratory Respiratory: Denies cough Gastrointestinal Gastrointestinal: Denies abdominal pain, Denies nausea and Denies vomiting Genitourinary Genitourinary: Denies dysuria Musculoskeletal Musculoskeletal: Denies joint swelling Integumentary/Breasts Skin/Breast: Denies rash Neurologic Neurologic: Denies weakness Psychiatric Psychiatric: Denies depression [facility] Medical History (Updated 08/25/20 @ 16:21 by Brian Carrera MD) Chronic anxiety (07/16/17) Depression (07/16/17) DUB (dysfunctional uterine bleeding) Fatty liver (07/16/17) U/S 11/06/15 Fracture of posterior malleolus of right tibia GERD (gastroesophageal reflux disease) (07/16/17) History of nephrolithiasis (07/16/17) CT 08/24/15 bilateral calculi History of transposition of great vessels (01/23/16) surgery at [facility] as a . Pulmonary artery banding. 22mo removal of PA band and closure of VSD. Pt is under impression that she should not be Pt is under impression that she should not become . 03/2016 [facility] [place] records reviewed with [facility] Cardiology. No contraindication to . Hydrocephalus (01/23/16) Shunted at . Last repair 1994 at [facility]. No issues. 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 On meds. Previously seen at [facility] [place]. Now [facility] Transposition of great vessels s/p surgery at [facility]. Pulmonary artery banding. removal of band at 22mo and closure of VSD. Vitamin D deficiency (07/16/17) Well woman exam with routine gynecological exam Surgical History open heart surgery as infant for transposition of great vessels. Pulmonary artery banding at and removal of band @ 22mo and closure of VSD. Ventriculoperitoneal Shunt At ? Last surgery was 1994 @ [facility]. Family History Paternal Grandfather Diabetes Essential hypertension Coronary heart disease Brother ADHD Social History Smoking/Tobacco Use Status: Former Tobacco Use Second Hand Exposure: No Alcohol Intake: current Alcohol Intake frequency: a few times a week Drug use: Never Substance use type: does not use Adopted: No Caregiver/Support person: No Foster care: No Household members: other Details: Has her own apartment Number of Children: 0 Education Level: high school current occupation: On disability for cognitive impairment Pets and animals: Yes Pets and animals: cat(s) and other Details: Rabbit Current gender identity: female What type of physical activity do you participate in: walking Frequency: 3-4 times per week Seatbelt use: always Do you feel safe at home: Yes Do you feel safe in your relationship?: Yes Female Reproductive History Menstrual control method: implanted (nexplanon inserted by Elisa Carrera NP PTB=[id number] EXP=03/2021) History History 0 Para Hx # Term Pregnancies Multiple births Hx # Pregnancies Ectopic pregnancies AB induced Hx Number of Living Children AB spontaneous Exam Const General: no acute distress Orientation: alert HENMT Head: normal to inspection Ears: external ears normal General nose exam: external nose normal Mouth: moist mucous membranes Eyes General: appearance normal, both eyes and all related structures Neck Neck: normal visual inspection Resp Effort & Inspection: normal respiratory effort and able to speak in complete sentences Cardio Rate: regular rate Skin General skin exam: no rashes or lesions noted Neuro General: patient alert and patient oriented x3 Extrem General: normal to inspection Psych Mental Status: mental status grossly normal Course Vital Signs Vital signs: Vital Signs Temperature 36.5 C 08/25/20 15:06 Pulse 75 08/25/20 15:06 Blood Pressure 139/79 08/25/20 15:06 Pulse Oximetry 94 08/25/20 15:06 Temperature 36.5 C 08/25/20 15:06 Temperature Source Temporal Artery Scan 08/25/20 15:06 Pulse 75 08/25/20 15:06 Respiratory Effort Non-Labored 08/25/20 15:08 Blood Pressure 139/79 08/25/20 15:06 Blood Pressure Position Sitting 08/25/20 15:06 Pulse Oximetry 94 08/25/20 15:06 Oxygen Delivery Method Room Air 08/25/20 15:06 Oxygen Flow Rate 0 08/25/20 15:06 Pain Level 0 08/25/20 15:06
[2020-08-25 15:23] VITALS: RESP 16; RESP 19; RESP 4; RESP 8; O2SAT 93
[2020-08-25] MEDS: predniSONE 20 MG TAB 60 MG PO (15:23)
[2020-08-25] MEDS: Albuterol/Ipratropium 3 ML UPD VIAL UPD ×2 (15:23→15:42)
[2020-08-25 15:42] VITALS: PULSE 76; RESP 12; RESP 16; RESP 4; O2SAT 95
[2020-08-25] MEDS: Inhaler, Assist Device 1 EACH MC (15:42)
== END 2020-08-25 16:28 | disposition home or self-care (01) ==
LOC: ER 16:33
PROVIDERS: Emergency Provider Emergency Medicine; PCP Nurse Practitioner
DX: J45.901 Unspecified asthma with (acute) exacerbation (principal); T48.6X6A Underdosing of antiasthmatics, initial encounter; Z91.138 Patient's unintentional underdosing of medication regimen for other reason
CPT/HCPCS: 94640; 99284; J7512; J7620

== ENCOUNTER 2020-09-11 01:38 | Outpatient (CLI) | payer MEDICAID, SELFPAY ==
--- NOTE | 2020-09-11 08:45 | DI.US_ITS ---
EXAM: US PELVIS TRANSVAGINAL CLINICAL HISTORY: abnl uterine bleeding,n93.8. TECHNIQUE: Transabdominal and transvaginal pelvic ultrasound was performed using standard protocol. COMPARISON: No exams were available for comparison FINDINGS: KIDNEYS: Kidneys are symmetric in size. No evidence of renal calculi. No evidence of hydronephrosis. No renal mass or cyst identified. UTERUS: Position: Anteverted. Size: 6.5 long by 2.9 AP by 4.7 transverse cm Endometrium: 0.4 cm. Normal for patient's menstrual status. Myometrium: Unremarkable. Cervix: Unremarkable. OVARIES: Right: 5.6 x 2.9 x 2.7 cm Cyst or mass: 4 x 3.9 x 2.1 cm simple cyst. Left: 1.8 x 1.3 x 1.0 cm Cyst or mass: None. DOPPLER: Color: Symmetric and uniform flow to both ovaries. No hyperemia. Duplex: Normal ovarian arterial waveforms visualized. CUL-DE-SAC: Free fluid: Small amount of fluid in the cul-de-sac. Other: None. IMPRESSION: 1. Normal sonographic appearance of the kidneys. 2. Normal-appearing uterus with endometrial stripe within normal limits. 3. 4 x 3.9 x 2.1 cm simple right ovarian cyst. DATA REPOSITORY:
== END 2020-09-11 01:58 ==
PROVIDERS: PCP Nurse Practitioner; Visit Provider Nurse Practitioner Women's Health
DX: N83.291 Other ovarian cyst, right side (principal); N93.8 Other specified abnormal uterine and vaginal bleeding
CPT/HCPCS: 76830; 76856

== ENCOUNTER 2020-09-11 01:42 | Outpatient (CLI) | payer MEDICAID, SELFPAY ==
--- NOTE | 2020-09-11 08:45 | DI.US_ITS ---
EXAM: US SOFT TISSUE HEAD OR NECK CLINICAL HISTORY: ? subdermal pathology,localized tenderness, ? subcutaneous cyst,scalp bruis TECHNIQUE: Ultrasound overlying the occiput was performed using standard protocol. COMPARISON: No exams were available for comparison FINDINGS: No solid or cystic masses, hypoechoic foci, areas of abnormal shadowing, or areas of skin thickening. IMPRESSION: No sonographically suspicious finding. DATA REPOSITORY:
== END 2020-09-11 02:02 ==
PROVIDERS: PCP Nurse Practitioner; Visit Provider Student in an Organized Health Care Education/Training Program
DX: R51.9 Headache, unspecified (principal); S00.03XA Contusion of scalp, initial encounter
CPT/HCPCS: 76536

== ENCOUNTER 2020-09-12 11:26 | Emergency (ER) | payer MEDICAID, SELFPAY ==
[2020-09-12] VITALS (26 sets, daily range): BP systolic 145–170; BP diastolic 79–128; PULSE 85–115; RESP 4–37; TEMP 37.2–37.4; O2SAT 88–98
--- NOTE | 2020-09-12 11:15 | RT.EKG_ITS ---
APPROVED REPORT Exam: Resting ECG Patient Location: E HR:89 bpm ECG Measurements Heart Rate 89 AXIS NM 115 P -46 QRSd 132 QRS 189 QT 411 T 109 QTc 500 Conclusion Sinus or ectopic atrial rhythm...P axis (-45,135) Nonspecific intraventricular conduction delay...QRSd >115mS, not LBBB/RBBB Abnrm T, consider ischemia, anterolateral lds...T <-0.20mV, I aVL V2-V6 ST elevation, consider inferior injury...ST >0.08mV, II III aVF. Sinus. No STEMI. No change from previous EKG 07/26/19
--- NOTE | 2020-09-12 11:28 | ED.GENADUL_ITS ---
Discharge Plan Disposition Patient Disposition: HOME Condition: Improving Discharge Details Clinical Impression: Asthma exacerbation Primary Care Provider: Isabell Guthrie ED Provider: Di Sanford Home Meds and New Rx's Prescriptions: New prednisone 20 mg tablet See Rx Instructions .ROUTE .COMPLEX Qty: 12 RF: 0 Flovent HFA 110 mcg/actuation HFA aerosol inhaler 2 puff inhalation BID Qty: 12 RF: 0 Continued Nexplanon 68 mg implant 1 implant SBD ONCE Qty: 1 RF: 0 lamotrigine [Lamictal] 100 mg tablet See Rx Instructions PO DIRECTED Qty: 315 RF: 3 norethindrone acetate [Aygestin] 5 mg tablet 5 mg PO DAILY Qty: 30 RF: 0 trazodone 100 MG tablet 200 mg PO HS RF: 0 fluoxetine [Prozac] 20 MG capsule 20 mg PO DAILY RF: 0 fluticasone propionate [Flonase Allergy Relief] 50 mcg/actuation spray,suspension 1 spray JABIER BID Qty: 11.1 RF: 0 albuterol sulfate 90 mcg/actuation HFA aerosol inhaler 2 puff inhalation Q6H PRN (Reason: shortness of breath or wheezing) Qty: 18 RF: 0 Discharge Instructions Instructions: Asthma (ED) Additional Instructions: Drink plenty of fluids and get plenty of rest. Use your albuterol inhaler as needed and directed for shortness of breath. Take the steroids until finished. Use the Flovent inhaler as directed to prevent an asthma exacerbation. Follow-up with your primary care doctor in 1 week. Call the respiratory therapy department to schedule an appointment for a pulmonary function test for further assessment of your asthma. Return to the emergency department with any worsening or new concerning symptoms. 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 Patient given a DuoNeb in route per EMS with some improvement of her symptoms. Oxygen saturation 93 to 94% on room air. She has inspiratory and expiratory wheezing throughout. No rhonchi. Normal ENT exam. Suspect most likely asthma exacerbation possibly due to cold weather change. Will give a DuoNeb and 5 mg neb and reassess. Do not see an indication for chest x-ray at this time. 1230 -- patient reassessed and she states she feels approximately 50% better. She has wheezing throughout. Oxygen saturation 90-91% on room air. Will give a 7.5mg albuterol neb and reassess. 1345 -- pt reassessed and she feels much better. Peak flow 250. O2 sat 93-94% on RA. Wheezing significantly improved. A pulmonary function test ordered to be done as outpatient. Advised to follow up with the primary doctor for re- evaluation. We will send home with a prescription for Flovent to help control symptoms due to her persistent recent asthma attack. Usual and customary return precautions given prior to discharge. Medical Records Medical records reviewed: Yes I reviewed the patient's medical records. ECG Data Attestation: I personally reviewed and interpreted this ECG (s) as follows: Interpretation: Rate of 89, sinus. No acute ST elevation or depression. No change from previous EKG 2018. AK 115. QRS 132. QTc 500. HPI General Mode of arrival: EMS . Date/Time Provider Initiated Documentation: 09/12/20 11:26 . Limitations to Documentation: no limitations . Information obtained by: patient . HPI Narrative: Patient is a 35-year-old female with a history of asthma, open heart surgery due to transposition of the great vessels, obesity and seizure disorder who presents for shortness of breath and dry cough since last night. Patient was seen here 2 weeks ago for an asthma attack and treated with oral steroids with improvement of her symptoms but states they did not completely resolve. She states her symptoms got much worse last night. Her usual triggers for her asthma include weather change and the temperature has dropped over the past 2 days. She admits to dry cough but denies any fever, chest pain, change in appetite, recent travel, recent sick contacts. She states she has used her albuterol inhaler at home as needed but does not have a nebulizer. She denies any recent antibiotics, recent hospital admission and states she does not take any controller inhalers or medication for her asthma. Related Data Home Medications Medication Instructions Recorded Confirmed fluoxetine [Prozac] 20 mg PO DAILY tab-cap 01/24/18 09/12/20 trazodone 200 mg PO HS tab-cap 01/24/18 09/12/20 etonogestrel 68 mg subdermal 1 implant SBD ONCE #1 each 11/03/18 09/12/20 implant lamotrigine 100 mg tablet See Rx Instructions PO DIRECTED 10/17/19 09/12/20 #315 tab fluticasone propionate [Flonase 1 spray JABIER BID #11.1 ml 06/28/20 09/12/20 Allergy Relief] norethindrone acetate 5 mg tablet 5 mg PO DAILY #30 tab 09/02/20 09/12/20 albuterol sulfate 2 puff INHALATION Q6H PRN #18 g 09/12/20 fluticasone propionate [Flovent 2 puff INHALATION BID #12 g 09/12/20 HFA] prednisone See Rx Instructions .ROUTE 09/12/20 .COMPLEX #12 tab Previous Rx's Medication Instructions Recorded etonogestrel 68 mg subdermal 1 implant SBD ONCE #1 each 11/03/18 implant lamotrigine 100 mg tablet See Rx Instructions PO DIRECTED 10/17/19 #315 tab fluticasone propionate [Flonase 1 spray JABIER BID #11.1 ml 06/28/20 Allergy Relief] norethindrone acetate 5 mg tablet 5 mg PO DAILY #30 tab 09/02/20 albuterol sulfate 2 puff INHALATION Q6H PRN #18 g 09/12/20 fluticasone propionate [Flovent 2 puff INHALATION BID #12 g 09/12/20 HFA] prednisone See Rx Instructions .ROUTE 09/12/20 .COMPLEX #12 tab Allergies Allergy/AdvReac Type Severity Reaction Status Date / Time aspirin AdvReac Intermediate unable to Verified 09/12/20 11:36 take due to heart surgery ibuprofen AdvReac Unknown unknown Verified 09/12/20 11:36 General PAT: 3 Review of Systems All systems reviewed & are unremarkable except as noted in HPI and below Constitutional Constitutional: Reports as per HPI, Denies chills and Denies fever(s) Eyes Eyes: Denies blurry vision ENT Ears, Nose, Mouth, and Throat: Denies dizziness, Denies sore throat and Denies throat swelling Cardiovascular Cardiovascular: Denies chest pain and Reports dyspnea Respiratory Respiratory: Reports cough and Reports dyspnea Gastrointestinal Gastrointestinal: Denies abdominal pain, Denies diarrhea and Denies vomiting Genitourinary Genitourinary: Denies hematuria and Denies dysuria Musculoskeletal Musculoskeletal: Denies back pain and Denies numbness Integumentary/Breasts Skin/Breast: Denies lesions and Denies rash Neurologic Neurologic: Denies dizziness, Denies localized weakness and Denies numbness Allergic/Immunologic Allergic/Immunologic: Denies throat swelling [facility] Medical History (Updated 09/12/20 @ 13:15 by Di Sanford DO) Asthma Cervicogenic headache More of a localized head pain, but worse with supine position .. WHEN LAYING ON OCCIPUT Chronic anxiety (07/16/17) Consultation for sterilization 09/2020. Federal consent form signed. 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 Pulmonary artery banding. 22mo removal of PA band and closure of VSD. Pt is under impression that she should not be Pt is under impression that she should not become . [place] [facility] [place] [facility] Cardiology. No contraindication to . Hydrocephalus (01/23/16) Shunted at . Last repair 1994 at [facility]. No issues. 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 On meds. Previously seen at [facility] [place] Now [facility] Transposition of great vessels s/p surgery at [facility]. Pulmonary artery banding. removal of band at 22mo and closure of VSD. Vitamin D deficiency (07/16/17) Well woman exam with routine gynecological exam Surgical History open heart surgery as for transposition of great vessels. Pulmonary artery banding at and removal of band @ 22mo and closure of VSD. Ventriculoperitoneal Shunt At ? Last surgery was 1994 @ [facility]. Family History Paternal Grandfather Diabetes Essential hypertension Coronary heart disease Brother ADHD Social History Smoking/Tobacco Use Status: Former Tobacco Use Second Hand Exposure: No Smoking risk assessment performed?: Yes Alcohol Intake: current Alcohol Intake frequency: a few times a week Drug use: Never Substance use type: does not use Adopted: No Caregiver/Support person: No Foster care: No Household members: other Details: Has her own apartment Number of Children: 0 Education Level: high school current occupation: On disability for cognitive impairment Pets and animals: Yes Pets and animals: cat(s) and other Details: Rabbit Current gender identity: female What type of physical activity do you participate in: walking Frequency: 3-4 times per week Seatbelt use: always Do you feel safe at home: Yes Do you feel safe in your relationship?: Yes Female Reproductive History Menstrual control method: implanted (nexplanon inserted by Elisa Carrera NP UVU=[id number] EXP=03/2021) History History 0 Para Hx # Term Pregnancies Multiple births Hx # Pregnancies Ectopic pregnancies AB induced Hx Number of Living Children AB spontaneous Exam Const General: cooperative, healthy appearing and no acute distress HENMT Head: normal to inspection Ears: hearing grossly normal bilaterally, external ears normal and TM's normal bilaterally General nose exam: external nose normal Face and sinus: normal facial exam Mouth: oral mucosae normal Throat: posterior oropharynx normal Eyes General: appearance normal, both eyes and all related structures Pupils: PERRL EOM: EOM intact bilaterally Neck Neck: normal visual inspection and No submandibular swelling Lymphatic: no lymphadenopathy noted Chest Chest: normal inspection of the chest and no tenderness Resp Effort & Inspection: normal respiratory effort and able to speak in complete sentences Auscultation: wheezes expiratory wheezes and inspiratory wheezes Cardio Rate: regular rate Rhythm: regular rhythm GI Inspection: normal to inspection Palpation: soft, not firm, not rigid and nontender Auscultation: normal bowel sounds Skin General skin exam: no rashes or lesions noted Neuro General: patient alert, patient awake and patient oriented x3 Cognition: normal cognition Speech: speech normal Motor: muscle tone normal throughout Sensory Exam: no sensory deficits noted Extrem General: normal to inspection, full ROM, capillary refill normal, no calf tenderness bilaterally and no edema Psych Appearance: grossly normal Mental Status: mental status grossly normal Speech and Movement: speech and movement normal Affect: normal affect
[2020-09-12] MEDS: Albuterol/Ipratropium 3 ML UPD VIAL (11:48)
[2020-09-12] MEDS: Albuterol 2.5 MG/3 ML INH SOLN VIAL 5 MG UPD (11:58)
[2020-09-12] MEDS: predniSONE 20 MG TAB 60 MG PO (12:06)
[2020-09-12] MEDS: Albuterol 2.5 MG/3 ML INH SOLN VIAL 7.5 MG UPD (12:52)
== END 2020-09-12 13:50 | disposition home or self-care (01) ==
PROVIDERS: Emergency Provider Physician Assistant; PCP Nurse Practitioner
DX: J45.901 Unspecified asthma with (acute) exacerbation (principal)
CPT/HCPCS: 81025; 93005; 94640; 99284; 93010; 99285; J7512; J7613; J7620

== ENCOUNTER 2020-09-17 15:57 | Outpatient (REF) | payer MEDICAID, SELFPAY ==
[2020-09-19 18:29] LABS: Patient Race White; SARS-CoV-2 RNA Undetected (Undetected); SARS-CoV-2 Specimen Source Nasal
== END 2020-09-17 16:17 ==
LOC: LBN 15:57
PROVIDERS: PCP Nurse Practitioner; Visit Provider Nurse Practitioner
DX: Z11.59 Encounter for screening for other viral diseases (principal)
CPT/HCPCS: U0003

== ENCOUNTER 2020-11-19 12:06 | Outpatient (CLI) | payer MEDICAID, SELFPAY ==
--- NOTE | 2020-11-19 09:00 | DI.RAD_ITS ---
EXAM: XR LUMBAR SPINE COMPLETE CLINICAL HISTORY: R/O Compression frx between L3-L5 M54.5 LOW BACK PAIN. TECHNIQUE: 2D digital imaging was performed. COMPARISON: CR XR SHUNT SERIES from 04/08/2020 FINDINGS: BONES: No fracture or destructive lesion. Vertebral bodies are unremarkable. No facet hypertrophy mega ntified. DISKS: Intervertebral disc spaces are maintained. Degenerative changes at the T11-T12 level. ALIGNMENT: Lumbar spinal alignment is within normal limits. 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 IMPRESSION: Unremarkable radiographs of the lumbar spine. DATA REPOSITORY: RADIATION DOSE DELIVERED:
== END 2020-11-19 12:26 ==
PROVIDERS: PCP Nurse Practitioner; Visit Provider Family Medicine
DX: M54.5 Low back pain (principal)
CPT/HCPCS: 72110

== ENCOUNTER 2021-01-28 15:21 | Emergency (ER) | payer MEDICAID, SELFPAY ==
[2021-01-28 15:29] VITALS: BP 151/86; PULSE 91; RESP 16; TEMP 36.7; O2SAT 92
--- NOTE | 2021-01-28 15:30 | DI.RAD_ITS ---
EXAM: XR PORTABLE CHEST AP CLINICAL HISTORY: cough. TECHNIQUE: 2D digital imaging was performed. COMPARISON: Chest x-ray 04/08/2020 FINDINGS: Sternotomy wires noted as is a wire over the left side of the chest and a right ventriculoperitoneal shunt. Heart size unchanged. Mediastinum is not widened. Mild increased markings noted in the righ t lung base but without air bronchograms. No obvious pleural effusions. IMPRESSION: As above. Recommend nonportable PA and lateral views when clinically possible. DATA REPOSITORY: RADIATION DOSE DELIVERED: All CT scans at this facility use at least one of these dose optimization techniques: automated exposure control; mA and/or kV adjustment per patient size (includes targeted e xams where dose is matched to clinical indication); or iterative reconstruction.
[2021-01-28 15:37] VITALS: RESP 20
--- NOTE | 2021-01-28 15:47 | W.ED.GENAD ---
Discharge Plan Disposition Patient Disposition: HOME Condition: Stable Discharge Details Clinical Impression: Asthma exacerbation, CAP (community acquired pneumonia) Primary Care Provider: Isabell Guthrie ED Provider: Brian Carrera Home Meds and New Rx's Prescriptions: New amoxicillin-pot clavulanate [Augmentin] 875-125 mg tablet 1 tab PO BID Qty: 14 RF: 0 azithromycin 500 mg tablet See Rx Instructions .ROUTE .COMPLEX Qty: 6 RF: 0 Continued Nexplanon 68 mg implant 1 implant SBD ONCE Qty: 1 RF: 0 lamotrigine [Lamictal] 100 mg tablet See Rx Instructions PO DIRECTED Qty: 315 RF: 3 acetaminophen-codeine 300-30 mg tablet 1 tab PO Q6H PRN (Reason: pain) Qty: 20 RF: 0 trazodone 100 MG tablet 200 mg PO HS RF: 0 fluoxetine [Prozac] 20 MG capsule 20 mg PO DAILY RF: 0 fluticasone propionate [Flonase Allergy Relief] 50 mcg/actuation spray,suspension 1 spray JABIER BID Qty: 11.1 RF: 0 Flovent HFA 110 mcg/actuation HFA aerosol inhaler 2 puff inhalation BID Qty: 12 RF: 0 albuterol sulfate 90 mcg/actuation HFA aerosol inhaler 2 puff inhalation Q6H PRN (Reason: shortness of breath or wheezing) Qty: 18 RF: 0 Discharge Instructions Instructions: Asthma (ED), Community Acquired Pneumonia (ED) Additional Instructions: follow up with your primary care provider within 1 week if you feel more ill or have worsening shortness of breath return to the emergency department Stand Alone Forms: PENDING COVID-19 TESTING Medical Decision Making 35 yo female with hx of asthma, depression, anxiety, gerd, former smoker and denies alcohol or drug use comes in with cc of cough which causes her to be short of breath for 2 weeks. Denies chest pain/pressure, denies fevers, chills, known sick contacts and no recent travel or surgeries. Denies leg swelling, abdominal pain, rashes. She is speaking in full sentences on exam in no distress. Does have diffuse wheezing in both lower lung meeks consistent with asthma exacerbation, will treat with prednisone and nebulizers and reasess. Given the cough which is likely related to the asthma will also obtain xray to evaluate for infiltrate though no fevers/chills so doubt this and will also send a test for covid. Has no leg swelling, pleuritic chest pain, tachycardia and has exam consistent with asthma so doubt PE and no chest pain/pressure, nor jvd or leg swelling so doubt acs or chf. patient feels better after neb and prednisone and only has very mild wheezing at right lower lobe and on my read shows small infiltrate in right lower lobe. She feels significantly better and remains stable. Will start her on treatment for community acquired pneumonia and advised to follow up with her pcp and return precautions given Differential Diagnosis Differential Diagnosis: pneumonia, asthma, covid Medical Records Medical records reviewed: Yes I reviewed the patient's medical records. Imaging Data Radiologic Study: Attestation: I personally reviewed and interpreted this imaging study as follows: Imaging: X-Ray My impression: right lower lobe infiltrate HPI General Mode of arrival: ambulatory. Date/Time Provider Initiated Documentation: 01/28/21 15:24. Limitations to Documentation: no limitations. Information obtained by: patient. History of Present Illness 35 year old F presents to the emergency department with the chief complaint of cough, described as moderate, Patient started experiencing this week(s) (3) and it has been constant. No relieving factors improve symptom(s), No exacerbating factors reported . Patient notes shortness of breath. Patient did receive the following treatments prior to arrival, none Related Data Home Medications Medication Instructions Recorded Confirmed fluoxetine [Prozac] 20 mg PO DAILY tab-cap 01/24/18 01/28/21 trazodone 200 mg PO HS tab-cap 01/24/18 01/28/21 etonogestrel 68 mg subdermal 1 implant SBD ONCE #1 each 11/03/18 01/28/21 implant lamotrigine 100 mg tablet See Rx Instructions PO DIRECTED 10/17/19 01/28/21 #315 tab fluticasone propionate [Flonase 1 spray JABIER BID #11.1 ml 06/28/20 01/28/21 Allergy Relief] Flovent HFA 2 puff INHALATION BID #12 g 09/12/20 01/28/21 albuterol sulfate 2 puff INHALATION Q6H PRN #18 g 09/12/20 01/28/21 acetaminophen 300 mg-codeine 30 mg 1 tab PO Q6H PRN #20 tab 11/18/20 01/28/21 tablet amoxicillin-pot clavulanate 1 tab PO BID #14 tab 01/28/21 [Augmentin] azithromycin See Rx Instructions .ROUTE 01/28/21 .COMPLEX #6 tab Previous Rx's Medication Instructions Recorded etonogestrel 68 mg subdermal 1 implant SBD ONCE #1 each 11/03/18 implant lamotrigine 100 mg tablet See Rx Instructions PO DIRECTED 10/17/19 #315 tab fluticasone propionate [Flonase 1 spray JABIER BID #11.1 ml 06/28/20 Allergy Relief] Flovent HFA 2 puff INHALATION BID #12 g 09/12/20 albuterol sulfate 2 puff INHALATION Q6H PRN #18 g 09/12/20 acetaminophen 300 mg-codeine 30 mg 1 tab PO Q6H PRN #20 tab 11/18/20 tablet amoxicillin-pot clavulanate 1 tab PO BID #14 tab 01/28/21 [Augmentin] azithromycin See Rx Instructions .ROUTE 01/28/21 .COMPLEX #6 tab Allergies Allergy/AdvReac Type Severity Reaction Status Date / Time aspirin AdvReac Intermediate unable to Verified 01/28/21 15:35 take due to heart surgery ibuprofen AdvReac Unknown unknown Verified 01/28/21 15:35 General Stated Complaint: SOB PAT: 2 Review of Systems All systems reviewed & are unremarkable except as noted in HPI and below Constitutional Constitutional: Denies chills, Denies fever(s) and Denies weakness Cardiovascular Cardiovascular: Denies chest pain Gastrointestinal Gastrointestinal: Denies abdominal pain, Denies nausea and Denies vomiting Neurologic Neurologic: Denies weakness [facility] Medical History Asthma Cervicogenic headache More of a localized head pain, but worse with supine position .. WHEN LAYING ON OCCIPUT Chronic anxiety (07/16/17) Consultation for sterilization 09/2020. Federal consent form signed. 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 Pulmonary artery banding. 22mo removal of PA band and closure of VSD. Pt is under impression that she should not be Pt is under impression that she should not become . 03/2016 [facility] records reviewed with [facility] Cardiology. No contraindication to . Hydrocephalus (01/23/16) Shunted at . Last repair 1994 at [facility]. No issues. 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 On meds. Previously seen at [facility]. Now [facility] Transposition of great vessels s/p surgery at [facility]. Pulmonary artery banding. removal of band at 22mo and closure of VSD. Vitamin D deficiency (07/16/17) Well woman exam with routine gynecological exam Surgical History open heart surgery as for transposition of great vessels. Pulmonary artery banding at and removal of band @ 22mo and closure of VSD. Ventriculoperitoneal Shunt At ? Last surgery was 1994 @ [facility]. Family History Paternal Grandfather Diabetes Essential hypertension Coronary heart disease Brother ADHD Social History Smoking/Tobacco Use Status: Former Tobacco Use Second Hand Exposure: No Smoking risk assessment performed?: Yes Alcohol Intake: former Drug use: Never Substance use type: does not use Adopted: No Caregiver/Support person: No Foster care: No Household members: other Details: Has her own apartment Number of Children: 0 Education Level: high school current occupation: On disability for cognitive impairment Pets and animals: Yes Pets and animals: cat(s) and other Details: Rabbit Current gender identity: female What type of physical activity do you participate in: walking Frequency: 3-4 times per week Seatbelt use: always Do you feel safe at home: Yes Do you feel safe in your relationship?: Yes Female Reproductive History Menstrual control method: implanted (nexplanon inserted by Elisa Carrera NP ENR=[id number] EXP=03/2021) History History 0 Para Hx # Term Pregnancies Multiple births Hx # Pregnancies Ectopic pregnancies AB induced Hx Number of Living Children AB spontaneous Exam Const General: no acute distress Orientation: alert HENMT Head: normal to inspection Ears: external ears normal General nose exam: external nose normal Mouth: moist mucous membranes Eyes General: appearance normal, both eyes and all related structures Neck Neck: normal visual inspection Resp Effort & Inspection: normal respiratory effort and able to speak in complete sentences Cardio Rate: regular rate Skin General skin exam: no rashes or lesions noted Neuro General: patient alert and patient oriented x3 Extrem General: normal to inspection Psych Mental Status: mental status grossly normal Course Vital Signs Vital signs: Vital Signs Temperature 36.7 C 01/28/21 15:29 Pulse 91 H 01/28/21 15:29 Respiratory Rate 16 01/28/21 15:29 Blood Pressure 151/86 H 01/28/21 15:29 Pulse Oximetry 92 01/28/21 15:29 Temperature 36.7 C 01/28/21 15:29 Temperature Source Skin 01/28/21 15:29 Pulse 91 H 01/28/21 15:29 Respiratory Rate 20 01/28/21 15:37 Respiratory Effort 01/28/21 15:37 Respiratory Depth Normal 01/28/21 15:37 Respiratory Pattern Normal 01/28/21 15:37 Blood Pressure 151/86 H 01/28/21 15:29 Blood Pressure Position Sitting 01/28/21 15:29 Pulse Oximetry 92 01/28/21 15:29 Oxygen Delivery Method Room Air 01/28/21 15:29 Oxygen Flow Rate 0 01/28/21 15:29 Pain Level 8 01/28/21 15:29 Comment 01/28/21 15:29
[2021-01-28 15:58] VITALS: RESP 4
[2021-01-28] MEDS: Albuterol/Ipratropium 3 ML UPD VIAL UPD (15:58)
[2021-01-28] MEDS: predniSONE 20 MG TAB 60 MG PO (15:58)
[2021-01-28] MEDS: Amoxicillin 875/Clav. 125 TAB PO (17:55)
--- NOTE | 2021-01-28 18:13 | DI.VRAD_ITS ---
PROCEDURE INFORMATION: Exam: XR Chest Exam date and time: 01/28/2021 3:42 PM Age: 35 years old Clinical indication: Other: Cough TECHNIQUE: Imaging protocol: XR of the chest Views: 1 view. Total images: 1 COMPARISON: CR XR CHEST 2V PA LATERAL 02/07/2019 10:03 AM FINDINGS: Lungs: Lungs are clear without consolidation. Pulmonary sharee: Unremarkable contours. Pleural spaces: No pleural effusion. No pneumothorax. Heart/Mediastinum: Unremarkable contours. No cardiomegaly. Bones/joints: Unremarkable. Intraperitoneal space: Visualized upper abdomen is unremarkable. IMPRESSION: No acute findings. No pneumonia. Dictated and Authenticated by: Scott Hall MD. Ordering:PATRICIA Torres MD
[2021-01-28 18:27] VITALS: BP 160/77; PULSE 81; RESP 16; TEMP 37; O2SAT 92
[2021-01-29 11:08] LABS: COVID-19 RT-PCR UVMMC Result Negative (Negative)
--- NOTE | 2021-01-30 15:24 | NUR.NOTE ---
Nursing Note: Pt contacted via phone and notified of negative covid results
== END 2021-01-28 18:30 | disposition home or self-care (01) ==
PROVIDERS: Emergency Provider Emergency Medicine; PCP Nurse Practitioner
DX: J44.0 Chronic obstructive pulmonary disease with (acute) lower respiratory infection (principal); J18.9 Pneumonia, unspecified organism; J45.901 Unspecified asthma with (acute) exacerbation; Z03.818 Encounter for observation for suspected exposure to other biological agents ruled out
CPT/HCPCS: 94640; 99283; U0003; 71045; J7512; J7620

== ENCOUNTER 2021-10-13 15:04 | Outpatient (REF) | payer MEDICAID, SELFPAY ==
[2021-10-16 11:09] LABS: Chlamydia Result Negative (Negative); GC Result Negative (Negative)
== END 2021-10-13 15:05 | disposition home or self-care (01) ==
LOC: LBN 15:04
PROVIDERS: PCP Nurse Practitioner; Visit Provider Nurse Practitioner Women's Health
DX: Z11.3 Encounter for screening for infections with a predominantly sexual mode of transmission (principal)
CPT/HCPCS: 87491; 87591

== ENCOUNTER 2021-12-29 19:27 | Outpatient (REF) | payer MEDICAID, SELFPAY ==
[2021-12-31 15:08] LABS: Chlamydia Result Negative (Negative); GC Result Negative (Negative)
== END 2021-12-29 19:28 | disposition home or self-care (01) ==
LOC: LBN 19:27
PROVIDERS: PCP Nurse Practitioner; Visit Provider Nurse Practitioner Women's Health
DX: Z11.3 Encounter for screening for infections with a predominantly sexual mode of transmission (principal)
CPT/HCPCS: 87491; 87591

== ENCOUNTER 2022-01-12 14:20 | Emergency (ER) | payer MEDICAID, SELFPAY ==
[2022-01-12 14:55] VITALS: BP 127/68; PULSE 76; RESP 16; TEMP 36.9; O2SAT 96
--- NOTE | 2022-01-12 16:00 | DI.RAD_ITS ---
Exam(s) XR CHEST 2V PA LATERAL EXAM: XR CHEST 2V PA LATERAL CLINICAL HISTORY: Right side chest pain TECHNIQUE: 2D digital imaging was performed. COMPARISON: CR XR SHUNT SERIES from 04/08/2020 CR,XR XR PORTABLE CHEST AP from 01/28/2021 FINDINGS: Heart is enlarged, unchanged. Sternal wires and pacing wire noted. SENIOR ADVISOR shunt. Stable mild prominenc e of pulmonary vasculature. No infiltrate or effusion. No pneumothorax. No visible rib or spine fr acture. IMPRESSION: No acute abnormality. DATA REPOSITORY: RADIATION DOSE DELIVERED:
--- NOTE | 2022-01-12 16:08 | W.ED.GENAD ---
Discharge Plan Disposition Patient Disposition: HOME Condition: Stable Discharge Details Clinical Impression: Right flank pain, Cirrhosis of liver Primary Care Provider: Isabell Guthrie ED Provider: Bonita Ashford Home Meds and New Rx's Prescriptions: Continued Nexplanon 68 mg implant 1 implant SBD ONCE Qty: 1 0RF Rx Instructions: as a single dose clotrimazole 1 % cream 1 applic TP TID Qty: 30 0RF Rx Instructions: apply liberal amnt to L axilla 3x/d until resolved lamotrigine [Lamictal] 100 mg tablet See Rx Instructions PO DIRECTED Qty: 315 3RF Rx Instructions: 200 mg am, 150 mg pm NKHS fluoxetine [Prozac] 20 mg capsule 20 mg PO DAILY Qty: 90 0RF Rx Instructions: [facility] 01/24/18 cgc trazodone 100 mg tablet 200 mg PO HS Qty: 60 0RF Rx Instructions: [facility] 01/24/18 cgc fluticasone propionate [Flonase Allergy Relief] 50 mcg/actuation spray,suspension 1 spray JABIER BID Qty: 11.1 0RF Rx Instructions: administer into each nostril albuterol sulfate 90 mcg/actuation HFA aerosol inhaler 2 puff inhalation Q6H PRN (Reason: shortness of breath or wheezing) Qty: 18 0RF Discharge Instructions Instructions: Cirrhosis (ED), Flank Pain (ED) Additional Instructions: Please follow-up with your primary care provider in the next 3 days to discuss results today. Follow up with primary care provider in 3-5 days. Return to ED sooner if any worsening or concerns. Increase oral fluids. Referrals: Isabell Guthrie NP [Primary Care Provider] - 3 days Medical Decision Making 36-year-old female presents to the ER with chief complaint of right flank pain which began approximately 2 days ago. Patient reports he gets worse when she stands up or moves certain ways and with deep breathing. She describes the pain as sharp. She denies any nausea vomiting diarrhea no fever chills. She does not report any known injury or heavy lifting. She does have a past medical history of asthma, vitamin D deficiency, obesity, mild cognitive impairment, hydrocephalus, GERD, fatty liver. 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 She is a former smoker. CBC shows slightly elevated white blood count 10.4, CMP largely within normal limits. Urinalysis shows trace blood trace protein Urinalysis negative for leukocytes or nitrites. Squamous contamination. CXR 2 view: Imaging protocol: XR of the chest. Views: 2 views. COMPARISON: XR PORTABLE CHEST AP 01/28/2021 5:14 PM FINDINGS: Lungs: See Heart/Mediastinum finding. Pleural spaces: Unremarkable. No pleural effusion. No pneumothorax. Heart/Mediastinum: Mildly enlarged cardiac silhouette. Borderline perihilar vascular fullness similar to January 28 2021. Bones/joints: Sternotomy wires. Right ventricular peritoneal shunt tubing. Left hemithoracic wire is unchanged dating to January 2019. IMPRESSION: Mildly enlarged cardiac silhouette. Borderline perihilar vascular fullness similar to January 28, 2021. Thank you for allowing us to participate in the care of your patient. Dictated and Authenticated by: Mahogany Rico DO 01/12/2022 5:28 PM Eastern Time (US & [place] CT Abd Pelvis WO: COMPARISON: CT ABD PELVIS WO CONTRAST 11/22/2017 10:01 AM FINDINGS: Tubes, catheters and devices: Lower thoracic and upper abdominal wire/catheter is similar to prior exams Lungs: No concerning finding. Liver: Nodular liver contour, asymmetric enlargement of left and caudate lobes and prominent fissures, consistent with cirrhosis. Gallbladder and bile ducts: Mildly distended gallbladder without calcified gallstones or pericholecystic inflammatory changes to suggest acute cholecystitis. Gallbladder position somewhat more midline than is typical, unchanged. No biliary ductal dilatation. Pancreas: The pancreas is unremarkable. Spleen: Unremarkable, nonenlarged spleen. Adrenal glands: The adrenal glands are unremarkable. Kidneys and ureters: No hydronephrosis. Punctate nonobstructing renal calculi. . No abnormal perinephric stranding. Stomach and bowel: Multiple small bowel loops are demonstrated within the right abdomen, lateral to the ascending colon which is midline, similar to November 2015, likely anatomic variant. No abnormal bowel distention or wall thickening. No mesenteric hyperemia or peritoneal thickening. Appendix: No evidence of appendicitis. Intraperitoneal space: Small volume simple non loculated ascites, also present in November 2015 and November 2017. Vasculature: The aorta is unremarkable. No portosystemic collaterals. Lymph nodes: Unremarkable. No enlarged lymph nodes. Urinary bladder: Unremarkable as visualized. Reproductive: Unremarkable as visualized. Bones/joints: Unremarkable. No acute fracture. Soft tissues: Unremarkable. IMPRESSION: 1. Punctate urinary tract calculi; no hydronephrosis or secondary signs of obstruction. 2. Mildly distended gallbladder without calcified gallstones or pericholecystic inflammatory changes to suggest acute cholecystitis. 3. Cirrhotic liver morphology. NO splenomegaly or portosystemic collaterals to suggest portal hypertension. 4. No acute abdominopelvic process or certain etiology for abdominal pain. 5. Atypically positioned bowel loops, dating to November 2015, likely anatomic variant Thank you for allowing us to participate in the care of your patient. Dictated and Authenticated by: Mahogany Rico DO Spoke with ad radiologist regarding the patient. She reports that the liver appears cirrhotic and nodular. There is also an abnormal bowel configuration which appears to be chronic. She also notes a distended gallbladder without any elevated. Patient is nontender in that area. I did discuss the findings with the patient reports that she has been told she has a history of fatty liver disease but she does not drink anymore. She reports that she stopped drinking approximately 4 months ago. Did discuss having patient follow-up with her primary care provider and has been referred to a GI specialist. I did discuss strict return instructions to return for any nausea vomiting worsening pain or fever. At this time liver enzymes are within normal limits. Bilirubin is within normal well. Discussed home care follow-up. This text was generated using [employer] system, please disregard any oddities of phrase or misspellings. HPI General Mode of arrival: ambulatory. Date/Time Provider Initiated Documentation: 01/12/22 14:23. Limitations to Documentation: no limitations. Information obtained by: patient, RN notes reviewed and old records reviewed. HPI Narrative: 36-year-old female presents to the ER with chief complaint of right flank pain which began approximately 2 days ago. Patient reports he gets worse when she stands up or moves certain ways and with deep breathing. She describes the pain as sharp. She denies any nausea vomiting diarrhea no fever chills. She does not report any known injury or heavy lifting. She does have a past medical history of asthma, vitamin D deficiency, obesity, mild cognitive impairment, hydrocephalus, GERD, fatty liver. 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 She is a former smoker. Related Data Home Medications Medication Instructions Recorded Confirmed etonogestrel 68 mg subdermal 1 implant SBD ONCE #1 each 11/03/18 01/12/22 implant (Nexplanon) fluticasone propionate 50 1 spray JABIER BID #11.1 ml 06/28/20 01/12/22 mcg/actuation nasal spray,suspension (Flonase Allergy Relief) albuterol sulfate 90 mcg/actuation 2 puff INHALATION Q6H PRN #18 g 09/12/20 01/12/22 aerosol inhaler lamotrigine 100 mg tablet See Rx Instructions PO DIRECTED 03/24/21 01/12/22 (Lamictal) #315 tab clotrimazole 1 % topical cream 1 applic TP TID #30 g 08/22/21 01/12/22 fluoxetine 20 mg capsule (Prozac) 20 mg PO DAILY #90 tab-cap 11/19/21 01/12/22 trazodone 100 mg tablet 200 mg PO HS #60 tab-cap 12/22/21 01/12/22 Previous Rx's Medication Instructions Recorded etonogestrel 68 mg subdermal 1 implant SBD ONCE #1 each 11/03/18 implant (Nexplanon) fluticasone propionate 50 1 spray JABIER BID #11.1 ml 06/28/20 mcg/actuation nasal spray,suspension (Flonase Allergy Relief) albuterol sulfate 90 mcg/actuation 2 puff INHALATION Q6H PRN #18 g 09/12/20 aerosol inhaler lamotrigine 100 mg tablet See Rx Instructions PO DIRECTED 03/24/21 (Lamictal) #315 tab clotrimazole 1 % topical cream 1 applic TP TID #30 g 08/22/21 fluoxetine 20 mg capsule (Prozac) 20 mg PO DAILY #90 tab-cap 11/19/21 trazodone 100 mg tablet 200 mg PO HS #60 tab-cap 12/22/21 Allergies Allergy/AdvReac Type Severity Reaction Status Date / Time aspirin AdvReac Intermediate unable to Verified 01/12/22 14:58 take due to heart surgery ibuprofen AdvReac Unknown unknown Verified 01/12/22 14:58 General Stated Complaint: Abd Prob PAT: 3 Review of Systems All systems reviewed & are unremarkable except as noted in HPI and below PFSH All Active Problems (Updated 01/12/22 @ 19:01 by Bonita Ashford) Right flank pain (Acute) Cirrhosis of liver (Acute) Partial epilepsy (Acute) Asthma (Acute) Asthma exacerbation (Acute) CAP (community acquired pneumonia) (Acute) Low back pain (Acute) Cough (Acute) Cervicogenic headache (Acute) More of a localized head pain, but worse with supine position .. WHEN LAYING ON OCCIPUT Infected piercing of trunk (Acute) Fungal rash of torso (Acute) Chest pain (Acute) Vitamin D deficiency (Chronic 07/16/17) Seizure disorder (Chronic) Dx at 21yo. 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 On meds. Previously seen at [facility]. 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 Last repair 1994 at [facility]. No issues. 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 Pulmonary artery banding. 22mo removal of PA band and closure of VSD. Pt is under impression that she should not be Pt is under impression that she should not become . 03/2016 [facility] records reviewed with [facility] Cardiology. No contraindication to . open heart surgery as for transposition of great vessels. Pulmonary artery banding at and removal of band @ 22mo and closure of VSD. Ventriculoperitoneal Shunt At ? Last surgery was 1994 @ [facility]. Family History Paternal Grandfather Diabetes Essential hypertension Coronary heart disease Brother ADHD Social History Smoking/Tobacco Use Status: Former Tobacco Use Second Hand Exposure: No Smoking risk assessment performed?: Yes Alcohol Intake: former Drug use: Never Substance use type: does not use Adopted: No Caregiver/Support person: No Foster care: No Household members: other Details: Has her own apartment Number of Children: 0 Education Level: high school current occupation: On disability for cognitive impairment Pets and animals: Yes Pets and animals: cat(s) and other Details: Rabbit Current gender identity: female What type of physical activity do you participate in: walking Frequency: 3-4 times per week Seatbelt use: always Do you feel safe at home: Yes Do you feel safe in your relationship?: Yes Female Reproductive History Menstrual control method: implanted (nexplanon inserted by Elisa Carrera NP DUB=[id number] EXP=03/2021) History History 0 Para Hx # Term Pregnancies Multiple births Hx # Pregnancies Ectopic pregnancies AB induced Hx Number of Living Children AB spontaneous Exam Narrative Exam Narrative: Constitutional: Alert and oriented x3. Appears stated age. Obese l body habitus. Head: Normocephalic, no trauma. Eyes: Pupils PERRL, Red reflex noted, EOM's intact. Eyelids symmetrical without lesions, discharge, or swelling. ENT: Bilateral TM's WNL, External ear normal to inspection, no mastoid TTP, swelling, or erythema, Nasal turbinates WNL, no nasal discharge. Normal dentition, Posterior pharynx WNL, no exudate. Chest: RRR, Normal S1, S2, distal pulses intact. Tenderness to the right rib cage with palpation. Resp: Lungs diminishedto auscultation bilaterally, no wheezes, rales, or rhonchi. Abdomen: Soft, non-distended, Normoactive bowel sounds all 4 quads. Musculoskeletal: Normal gait, 5/5 strength to all four extremities. Skin: No suspicious rashes or lesions. Capillary refill less than 2 sec. Neurologic: Cranial nerves II-XII intact. Alert and oriented x 3. Motor: No deficits noted. Sensory: Intact bilaterally all 4 extremities. Reflexes: DTR's intact bilaterally.. Hematologic/Lymphatic: No ecchymosis, no lymphadenopathy. Course Vital Signs Vital signs: Vital Signs Temperature 36.9 C 01/12/22 14:55 Pulse 76 01/12/22 14:55 Respiratory Rate 16 01/12/22 14:55 Blood Pressure 127/68 01/12/22 14:55 Pulse Oximetry 96 01/12/22 14:55 Temperature 36.9 C 01/12/22 14:55 Temperature Source Skin 01/12/22 14:55 Pulse 76 01/12/22 14:55 Respiratory Rate 16 01/12/22 14:55 Respiratory Effort 01/12/22 14:55 Blood Pressure 127/68 01/12/22 14:55 Blood Pressure Position Sitting 01/12/22 14:55 Pulse Oximetry 96 01/12/22 14:55 Oxygen Delivery Method Room Air 01/12/22 14:55 Oxygen Flow Rate 0 01/12/22 14:55 Pain Level 8 01/12/22 14:55
[2022-01-12 16:39] LABS: Abs Immature Grans 0.04 10^3/uL (0.0-0.06); Absolute Basophil Count 0.05 10^3/uL (0.0-0.2); Absolute Eosinophil Count 0.95 10^3/uL (0.0-0.7); Absolute Lymphocyte Count 2.61 10^3/uL (1.2-3.4); Absolute Monocyte Count 0.66 10^3/uL (0.1-0.8); Basophils % 0.5; Eosinophils % 8.8; HCT 43.5 % (36.0-46.0); HGB 13.7 g/dL (11.2-15.7); Immature Grans % 0.4; Lymphocytes % 24.1; MCH 25.5 pg (27.0-33.0); MCHC 31.5 % (32.0-36.0); MPV 8.9 fL (8.0-11.0); Monocytes % 6.1; Neutrophils % 60.1; Nucleated RBC 0 %; Platelet Count 395 10^3/uL (130-400); RBC 5.37 10^6/uL (3.93-5.22); RDW 13.2 % (11.7-14.6); RDW-SD 38.7 fL; WBC 10.84 10^3/uL (4.4-10.8)
[2022-01-12 16:40] LABS: Absolute Neutrophil Count 6.51 10^3/uL (1.2-6.7)
[2022-01-12 16:49] LABS: Bilirubin Negative (Negative); Blood Trace-lysed (Negative); Clarity Clear (Clear); Glucose Negative (Negative); Ketones Negative (Negative); Leukocyte Esterase Negative (Negative); Nitrite Negative (Negative); Specific Gravity >= 1.030 (1.005-1.025); Urobilinogen 0.2 EU/dL (Up TO 0.2)
[2022-01-12 16:55] LABS: Bacteria Few HPF (Negative); C & S Indicated? No/Sq. Contamination; Casts Negative LPF (Negative); Crystals Negative HPF (Negative); Epithelial Cells Many HPF (Negative); Mucus Trace (Negative)
[2022-01-12 16:57] LABS: ALT 38 U/L (14-59); AST 20 U/L (15-37); Albumin 4.1 g/dL (3.4-5.0); Alkaline Phosphatase 87 U/L (46-116); BUN 11 mg/dL (7-18); Bilirubin, Total 0.2 mg/dL (0.2-1.0); CREATININE 0.8 mg/dL (0.55-1.02); Calcium 9.3 mg/dL (8.5-10.1); Chloride 106 mmol/L (98-107); Glucose 80 mg/dL (74-106); Potassium 3.8 mmol/L (3.5-5.1); Sodium 142 mmol/L (136-145); Total Protein 8.1 g/dL (6.4-8.2)
--- NOTE | 2022-01-12 17:29 | DI.VRAD_ITS ---
PROCEDURE INFORMATION: Exam: XR Chest Exam date and time: 01/12/2022 4:12 PM Age: 36 years old Clinical indication: Other: Right side chest pain TECHNIQUE: Imaging protocol: XR of the chest. Views: 2 views. COMPARISON: XR PORTABLE CHEST AP 01/28/2021 5:14 PM FINDINGS: Lungs: See Heart/Mediastinum finding. Pleural spaces: Unremarkable. No pleural effusion. No pneumothorax. Heart/Mediastinum: Mildly enlarged cardiac silhouette. Borderline perihilar vascular fullness similar to January 28 2021. Bones/joints: Sternotomy wires. Right ventricular peritoneal shunt tubing. Left hemithoracic wire is unchanged dating to January 2019. IMPRESSION: Mildly enlarged cardiac silhouette. Borderline perihilar vascular fullness similar to January 28, 2021. Dictated and Authenticated by: Mahogany Rico MD. Ordering:GONZALEZ Mesa MD
[2022-01-12] MEDS: Ketorolac 15 MG/ML VIAL IVP (17:45)
--- NOTE | 2022-01-12 18:09 | DI.CT_ITS ---
Exam(s) CT ABDOMEN PELVIS WO EXAM: CT ABDOMEN PELVIS WO CLINICAL HISTORY: Right Flank Pain, R/O Kidney stone. TECHNIQUE: Imaging Protocol: Axial computed tomography images with coronal and sagittal reformatted images were created and reviewed. Oral: no COMPARISON: CT ABD PELVIS WO CONTRAST from 11/22/2017 FINDINGS: ABDOMEN: Lung Bases: Normal where visualized. Liver: Enlarged, particularly the left lobe. Mildly nodular contour. Diffusely decreased density co nsistent with moderate hepatic steatosis. No measurable mass. No evidence of varices. Gallbladder and biliary tract: No radiodense calculus or dilation. Pancreas: Normal density, no abnormal calcifications or inflammatory process. Spleen: Normal. Kidneys: Normal size, contour and axis. Punctate bilateral renal calculi. No obstructive uropathy. No masses seen. Adrenal glands: No masses seen. Lymph nodes: Within normal limits. Abdominal Aorta: Abdominal portion non-dilated. Soft tissues: COSMETIC ACCOUNT COORDINATOR shunt tubing seen in the right upper abdomen and lower chest. PELVIS: Bladder: Symmetric distention, no gross wall thickening. Bowel: Normal quantity of fecal material. The colon is positioned toward the left in the small bowel toward the right common anatomic variant. The appendix is normal. No obstruction or bowel wall thi ckening. Peritoneal cavity: Small amount of fluid in the low pelvis, similar to prior exams. No focal collect ion or mesenteric inflammatory response. Reproductive organs: Within normal limits. Bones: Within normal limits. IMPRESSION: No acute abnormality. Cirrhotic appearing liver with progression since the previous exam. Bilateral nonobstructing renal s tones. RADIATION DOSE DELIVERED: 1,034.24mGy.cm Total DLP DATA REPOSITORY: All CT scans at this facility are submitted to the National Radiology Data Registry (NRDR) Dose Index Registry (DIR) with the [employer] (ACR). RADIATION OPTIMIZATION: All CT scans at this facility use at least one of these dose optimization te chniques: automated exposure control; mA and/or kV adjustment per patient size (includes targeted exa ms where dose is matched to clinical indication); or iterative reconstruction.
--- NOTE | 2022-01-12 18:46 | DI.VRAD_ITS ---
Addendum created by Mahogany Rico DO on 01/12/2022 6:48:38 PM EDT: The findings were verbally communicated via telephone conference at 6:48 PM EDT on 01/12/2022 with LIDIA NAVAS. The findings were acknowledged and understood. Initial report created on 01/12/2022 6:45:36 PM EDT: PROCEDURE INFORMATION: Exam: CT Abdomen And Pelvis Without Contrast Exam date and time: 01/12/2022 5:36 PM Age: 36 years old Clinical indication: Patient HX: RT flank pain. HX stones TECHNIQUE: Imaging protocol: Computed tomography of the abdomen and pelvis without contrast. Radiation optimization: All CT scans at this facility use at least one of these dose optimization techniques: automated exposure control; mA and/or kV adjustment per patient size (includes targeted exams where dose is matched to clinical indication); or iterative reconstruction. COMPARISON: CT ABD PELVIS WO CONTRAST 11/22/2017 10:01 AM FINDINGS: Tubes, catheters and devices: Lower thoracic and upper abdominal wire/catheter is similar to prior exams Lungs: No concerning finding. Liver: Nodular liver contour, asymmetric enlargement of left and caudate lobes and prominent fissures, consistent with cirrhosis. Gallbladder and bile ducts: Mildly distended gallbladder without calcified gallstones or pericholecystic inflammatory changes to suggest acute cholecystitis. Gallbladder position somewhat more midline than is typical, unchanged. No biliary ductal dilatation. Pancreas: The pancreas is unremarkable. Spleen: Unremarkable, nonenlarged spleen. Adrenal glands: The adrenal glands are unremarkable. Kidneys and ureters: No hydronephrosis. Punctate nonobstructing renal calculi. . No abnormal perinephric stranding. Stomach and bowel: Multiple small bowel loops are demonstrated within the right abdomen, lateral to the ascending colon which is midline, similar to November 2015, likely anatomic variant. No abnormal bowel distention or wall thickening. No mesenteric hyperemia or peritoneal thickening. Appendix: No evidence of appendicitis. Intraperitoneal space: Small volume simple non loculated ascites, also present in November 2015 and November 2017. Vasculature: The aorta is unremarkable. No portosystemic collaterals. Lymph nodes: Unremarkable. No enlarged lymph nodes. Urinary bladder: Unremarkable as visualized. Reproductive: Unremarkable as visualized. Bones/joints: Unremarkable. No acute fracture. Soft tissues: Unremarkable. IMPRESSION: 1. Punctate urinary tract calculi; no hydronephrosis or secondary signs of obstruction. 2. Mildly distended gallbladder without calcified gallstones or pericholecystic inflammatory changes to suggest acute cholecystitis. 3. Cirrhotic liver morphology. NO splenomegaly or portosystemic collaterals to suggest portal hypertension. 4. No acute abdominopelvic process or certain etiology for abdominal pain. 5. Atypically positioned bowel loops, dating to November 2015, likely anatomic variant Dictated and Authenticated by: Mahogany Rico MD. Ordering:GONZALEZ Mesa MD
== END 2022-01-12 19:11 | disposition home or self-care (01) ==
PROVIDERS: Emergency Provider Registered Nurse Emergency; PCP Nurse Practitioner
DX: R10.9 Unspecified abdominal pain (principal); R07.1 Chest pain on breathing; K74.60 Unspecified cirrhosis of liver
CPT/HCPCS: 36415; 80053; 81025; 96374; 99284; 71046; 74176; 81003; 81015; 83735; 85025; J1885

== ENCOUNTER 2022-01-21 14:27 | Emergency (ER) | payer MEDICAID, SELFPAY ==
--- NOTE | 2022-01-21 14:45 | DI.CT_ITS ---
Exam(s) CT ABDOMEN PELVIS WO EXAM: CT ABDOMEN PELVIS WO CLINICAL HISTORY: right flank pain, hx of kidney stones. TECHNIQUE: Imaging Protocol: Axial computed tomography images with coronal and sagittal reformatted images were created and reviewed CONTRAST MATERIAL: Intravenous: none Oral: None COMPARISON: CT CT HEAD WO from 04/08/[address] ABDOMEN PELVIS WO from 01/12/2022 FINDINGS: VISUALIZED LUNG BASES: No nodules nor pleural effusions evident. ABDOMEN: There is no ascites. There is a right of center catheter which probably a ventriculoperitoneal shunt . LIVER: Left hepatic lobe is again noted be enlarged. No obvious discrete lesions in the liver on thi s noninfused study. GALLBLADDER/BILIARY: No obvious acute gallbladder pathology. CBD is not dilated. PANCREAS: No evidence of pancreatic mass nor dilatation of the pancreatic duct. SPLEEN: Spleen is not enlarged. No obvious intrasplenic lesions. ADRENALS: There are no significant adrenal masses. KIDNEYS:There is a 3 millimeter nonobstructive calculus in the lower pole of the right kidney. There is a 2 millimeter nonobstructive calculus in the midpole of the left kidney. There are no calculi i n the ureters (which are not dilated). Ureters are not dilated. No calculi in the urinary bladder. Bladder is not distended . No solid renal masses. No perinephric fluid.. ABDOMINAL AORTA: Abdominal aorta is not enlarged. LYMPH NODES: There is no retroperitoneal nor paraaortic adenopathy. ABDOMINAL WALL: No evidence of significant anterior abdominal wall nor inguinal hernia. GI: There appears to have been subtotal colectomy. No bowel obstruction. No free air. Nor abscess PELVIS: LYMPH NODES: There is no intrapelvic nor inguinal adenopathy. GI: No evidence of appendicitis.No evidence of sigmoid diverticulitis. URINARY BLADDER: No calculi nor obvious masses evident. REPRODUCTIVE: Uterus is anteverted, normal size. No abnormal ovarian masses evident. OSSEOUS: No significant osseous lesions. Incidentally noted is limbus T12 vertebra, anterosuperiorly. IMPRESSION: 1. Solitary small nonobstructive calculus in each ureter, unchanged in size and position from the CT scan of 01/12/2022. no hydronephrosis nor hydroureter. No calculi in the urinary bladder. 2. Enlarged left hepatic lobe again noted. No obvious discrete focal hepatic lesions on this noninfu sed study. 3. Appears to been probable subtotal colectomy. No evidence of bowel obstruction, free air, nor absc ess. There is a right-sided ventriculoperitoneal shunt again noted. RADIATION DOSE DELIVERED: 1,286.78mGy.cm Total DLP DATA REPOSITORY: All CT scans at this facility are submitted to the National Radiology Data Registry (NRDR) Dose Index Registry (DIR) with the [employer] (ACR). RADIATION OPTIMIZATION: All CT scans at this facility use at least one of these dose optimization te chniques: automated exposure control; mA and/or kV adjustment per patient size (includes targeted exa ms where dose is matched to clinical indication); or iterative reconstruction.
[2022-01-21 14:47] VITALS: BP 131/80; PULSE 73; RESP 16; TEMP 36.8; O2SAT 94
[2022-01-21] MEDS: Acetaminophen 325 MG TAB 650 MG PO (15:13)
--- NOTE | 2022-01-21 15:24 | ED.GENADUL_ITS ---
Discharge Plan Disposition Patient Disposition: HOME Condition: Stable Discharge Details Chief Complaint: FlankPain Clinical Impression: Flank pain, Bilateral kidney stones Primary Care Provider: Isabell Guthrie ED Provider: Jed Hastings Home Meds and New Rx's Prescriptions: No Action Nexplanon 68 mg implant 1 implant SBD ONCE Qty: 1 0RF Rx Instructions: as a single dose clotrimazole 1 % cream 1 applic TP TID Qty: 30 0RF Rx Instructions: apply liberal amnt to L axilla 3x/d until resolved fluoxetine [Prozac] 20 mg capsule 20 mg PO DAILY Qty: 90 3RF Rx Instructions: [facility] 01/24/18 cgc trazodone 100 mg tablet 200 mg PO HS Qty: 180 3RF Rx Instructions: [facility] 01/24/18 cgc lamotrigine [Lamictal] 100 mg tablet See Rx Instructions PO DIRECTED Qty: 315 3RF Rx Instructions: 200 mg am, 150 mg pm NKHS albuterol sulfate 90 mcg/actuation HFA aerosol inhaler 2 puff inhalation Q6H PRN (Reason: shortness of breath or wheezing) Qty: 18 6RF Discharge Instructions Instructions: Flank Pain (ED) Additional Instructions: Please follow-up with urology team as scheduled tomorrow. Please return to emergency department for any worsening symptoms such as worsening uncontrolled pain nausea vomiting fevers inability urinate or signs of infection such as burning when you pee cloudy smelly urine nausea vomiting or fevers. Medical Decision Making 36-year-old female history of obesity, seizure disorder, transposition of the great vessels, presents with acute on chronic right flank discomfort that is been present for some time, denies abdominal pain nausea vomiting dysuria urinary frequency or change in color of her urine. History of kidney stones has appointment to see urology tomorrow. Abdomen soft nontender nondistended no CVA tenderness, hemodynamically stable resting comfortably, no suprapubic tenderness. Consider symptomatic kidney stone versus less likely UTI versus unlikely pyelonephritis versus musculoskeletal back/flank pain versus unlikely biliary colic or cholecystitis. Screening labs imaging patient endorses that Tylenol will be fine for discomfort. Close reassessment if negative work-up will encourage follow-up as an outpatient Resting comfortably no acute distress. Kidney stones bilaterally stable. No signs of hydroureter or hydronephrosis. No evidence of infection. Patient has close follow-up with urology in the a.m. Tomorrow. Home care instructions and return precautions given. HPI General Date/Time Provider Initiated Documentation: 01/21/22 14:59 . HPI Narrative: 36-year-old female history of seizure disorder transposition of the great vessels with GERD kidney stones, presents with right flank pain over the past several days, denies nausea vomiting abdominal pain urinary symptomatology such as burning frequency or change in color of her urine. Has appointment to see urology tomorrow denies history of abdominal surgeries Related Data Home Medications Medication Instructions Recorded Confirmed etonogestrel 68 mg subdermal 1 implant SBD ONCE #1 each 11/03/18 01/21/22 implant (Nexplanon) clotrimazole 1 % topical cream 1 applic TP TID #30 g 08/22/21 01/21/22 albuterol sulfate 90 mcg/actuation 2 puff INHALATION Q6H PRN #18 g 01/14/22 01/21/22 aerosol inhaler fluoxetine 20 mg capsule (Prozac) 20 mg PO DAILY #90 tab-cap 01/14/22 01/21/22 lamotrigine 100 mg tablet See Rx Instructions PO DIRECTED 01/14/22 01/21/22 (Lamictal) #315 tab trazodone 100 mg tablet 200 mg PO HS #180 tab-cap 01/14/22 01/21/22 Previous Rx's Medication Instructions Recorded etonogestrel 68 mg subdermal 1 implant SBD ONCE #1 each 11/03/18 implant (Nexplanon) clotrimazole 1 % topical cream 1 applic TP TID #30 g 08/22/21 albuterol sulfate 90 mcg/actuation 2 puff INHALATION Q6H PRN #18 g 01/14/22 aerosol inhaler fluoxetine 20 mg capsule (Prozac) 20 mg PO DAILY #90 tab-cap 01/14/22 lamotrigine 100 mg tablet See Rx Instructions PO DIRECTED 01/14/22 (Lamictal) #315 tab trazodone 100 mg tablet 200 mg PO HS #180 tab-cap 01/14/22 Allergies Allergy/AdvReac Type Severity Reaction Status Date / Time aspirin AdvReac Intermediate unable to Verified 01/21/22 14:55 take due to heart surgery ibuprofen AdvReac Unknown unknown Verified 01/21/22 14:55 General Stated Complaint: FlankPain PAT: 3 Review of Systems Narrative: Review of Systems Constitutional: negative Eyes: negative ENT: negative Cardiovascular: negative Respiratory: negative Gastrointestinal: Flank pain : negative Musculoskeletal: negative Skin: negative Neurologic: negative Psych: negative PFSH All Active Problems (Updated 01/21/22 @ 17:15 by Jed Hastings MD) Flank pain (Acute) Bilateral kidney stones (Acute) Right flank pain (Acute) Cirrhosis of liver (Acute) Partial epilepsy (Acute) Asthma (Acute) Asthma exacerbation (Acute) CAP (community acquired pneumonia) (Acute) Low back pain (Acute) Cough (Acute) Cervicogenic headache (Acute) More of a localized head pain, but worse with supine position .. WHEN LAYING ON OCCIPUT Infected piercing of trunk (Acute) Fungal rash of torso (Acute) Chest pain (Acute) Vitamin D deficiency (Chronic 07/16/17) Seizure disorder (Chronic) Dx at 21yo. 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 On meds. Previously seen at [facility] [place] 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 Last repair 1994 at [facility]. No issues. 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 Pulmonary artery banding. 22mo removal of PA band and closure of VSD. Pt is under impression that she should not be Pt is under impression that she should not become . 03/2016 [facility] [place] records reviewed with [facility] Cardiology. No contraindication to . open heart surgery as for transposition of great vessels. Pulmonary artery banding at and removal of band @ 22mo and closure of VSD. Ventriculoperitoneal Shunt At ? Last surgery was 1994 @ [facility]. Family History Paternal Grandfather Diabetes Essential hypertension Coronary heart disease Brother ADHD Social History Smoking/Tobacco Use Status: Former Tobacco Use Second Hand Exposure: No Smoking risk assessment performed?: Yes Alcohol Intake: former Drug use: Never Substance use type: does not use Adopted: No Caregiver/Support person: No Foster care: No Household members: other Details: Has her own apartment Number of Children: 0 Education Level: high school current occupation: On disability for cognitive impairment Pets and animals: Yes Pets and animals: cat(s) and other Details: Rabbit Current gender identity: female What type of physical activity do you participate in: walking Frequency: 3-4 times per week Seatbelt use: always Do you feel safe at home: Yes Do you feel safe in your relationship?: Yes Female Reproductive History Menstrual control method: implanted (nexplanon inserted by Elisa Carrera NP SQJ=[id number] EXP=03/2021) History History 0 Para Hx # Term Pregnancies Multiple births Hx # Pregnancies Ectopic pregnancies AB induced Hx Number of Living Children AB spontaneous Exam Narrative Exam Narrative: Physical Examination General: alert, awake, cooperative, resting comfortably, no acute distress HEENT: normocephalic, atraumatic; PERRL, EOM intact, conjunctiva normal; no nasal discharge; moist mucous membranes, oral and pharyngeal mucosa normal, tolerating secretions Neck: supple, trachea midline; full ROM Chest: normal to inspection Respiratory: normal respiratory effort, speaking in full sentences, clear to auscultation, no wheezing, rales or rhonchi Cardiac: regular rate, regular rhythm, S1S2 intact, no murmurs rubs or gallops GI: abdomen soft, non-tender, non-distended; no palpable mass or hepatosplenomegaly; no CVA tenderness Skin: no lesions, rashes or trauma appreciated Neuro: AAOx3, normal speech, moving all extremities Psych: Appropriate mood and affect Course Vital Signs Vital signs: Vital Signs Temperature 36.8 C 01/21/22 14:47 Pulse 73 01/21/22 14:47 Respiratory Rate 16 01/21/22 14:47 Blood Pressure 131/80 01/21/22 14:47 Pulse Oximetry 94 01/21/22 14:47 Temperature 36.8 C 01/21/22 14:47 Temperature Source Tympanic 01/21/22 14:47 Pulse 73 01/21/22 14:47 Respiratory Rate 16 01/21/22 14:47 Respiratory Effort Non-Labored 01/21/22 14:54 Blood Pressure 131/80 01/21/22 14:47 Blood Pressure Position Sitting 01/21/22 14:47 Pulse Oximetry 94 01/21/22 14:47 Oxygen Delivery Method Room Air 01/21/22 14:47 Oxygen Flow Rate 0 01/21/22 14:47 Pain Level 8 01/21/22 15:13 Lab/Test Results Lab/Test Results: POC- Test(urine) Negative
[2022-01-21 15:26] LABS: Bilirubin Negative (Negative); Blood Trace-intact (Negative); Clarity Clear (Clear); Glucose Negative (Negative); Ketones Negative (Negative); Leukocyte Esterase Negative (Negative); Nitrite Negative (Negative); Specific Gravity >= 1.030 (1.005-1.025); Urobilinogen 0.2 EU/dL (Up TO 0.2); pH 6.5 (5-8)
[2022-01-21 15:28] LABS: Abs Immature Grans 0.03 10^3/uL (0.0-0.06); Absolute Basophil Count 0.07 10^3/uL (0.0-0.2); Absolute Monocyte Count 0.95 10^3/uL (0.1-0.8); Absolute Neutrophil Count 7.81 10^3/uL (1.2-6.7); Basophils % 0.5; Eosinophils % 9.2; HGB 13.8 g/dL (11.2-15.7); Immature Grans % 0.2; Lymphocytes % 22.9; MCH 26.2 pg (27.0-33.0); MCHC 32.1 % (32.0-36.0); MCV 81.6 fL (80-95); MPV 8.8 fL (8.0-11.0); Monocytes % 7.3; Neutrophils % 59.9; Nucleated RBC 0 %; Platelet Count 385 10^3/uL (130-400); RBC 5.27 10^6/uL (3.93-5.22); RDW 13.1 % (11.7-14.6); RDW-SD 38.7 fL; WBC 13.04 10^3/uL (4.4-10.8)
[2022-01-21 15:40] LABS: Bacteria Negative HPF (Negative); C & S Indicated? No/Sq. Contamination; Casts Negative LPF (Negative); Crystals Many Calcium Oxalate HPF (Negative); Epithelial Cells Many HPF (Negative); Mucus Negative (Negative); Other Cells Negative (Negative); RBC Negative HPF (0-2)
[2022-01-21 15:41] LABS: Absolute Lymphocyte Count 2.99 10^3/uL (1.2-3.4)
[2022-01-21 15:45] LABS: ALT 34 U/L (14-59); AST 22 U/L (15-37); Alkaline Phosphatase 97 U/L (46-116); Anion Gap 6.2 mmol/L (3-11); BUN 13 mg/dL (7-18); Bilirubin, Total 0.2 mg/dL (0.2-1.0); CO2 28.8 mmol/L (21.0-32.0); CREATININE 0.8 mg/dL (0.55-1.02); Calcium 8.9 mg/dL (8.5-10.1); Chloride 104 mmol/L (98-107); Glucose 88 mg/dL (74-106); Potassium 4.8 mmol/L (3.5-5.1); Sodium 139 mmol/L (136-145); Total Protein 8.2 g/dL (6.4-8.2)
[2022-01-21 17:24] VITALS: BP 121/75; PULSE 70; TEMP 37; O2SAT 93
[2022-01-21 17:30] VITALS: BP 121/75; PULSE 70; RESP 16; TEMP 37; O2SAT 97
== END 2022-01-21 17:37 | disposition home or self-care (01) ==
PROVIDERS: Emergency Provider Emergency Medicine; PCP Nurse Practitioner
DX: N20.0 Calculus of kidney (principal); R10.9 Unspecified abdominal pain
CPT/HCPCS: 80053; 81025; 99284; 74176; 81003; 81015; 85025; 99283

== ENCOUNTER 2022-05-08 02:43 | Outpatient (CLI) | payer MEDICAID, SELFPAY ==
--- NOTE | 2022-05-08 11:41 | W.NUTRFU ---
Date of service: 05/08/22 Time of Service: 11:41 Nutrition Note NOTE: Florence was referred for weight management education. Recently dx with fatty liver disease. 5'6 233 lbs BMI: 38. Diet Recall: B: roxana donut coffee with cakebatomas whitmanut. Lunch: baked ziti. Dinner: Crock Pot: pork loin, potatoes and vegetables. Drinks mostly water. No exercise. Does not like to walk. Session today focused on how to follow a lower carb diet. Recommend home made meals and avoiding Roxana Donuts and other convenience foods. Florence is very upset as she wants to lose weight but does not want to exercise or change her eating habits. May benefit from GLP1ra such as Trulicity as may help with appetite. Lisadeepali to meet with PCP 05/18/22 to discuss. Plan: Florence to follow up in 4 weeks. Goal weight loss is 10% of weight in next 90 days. Time Spent in Nutritional Counseling and Treatment: 30
== END 2022-05-08 02:44 | disposition home or self-care (01) ==
LOC: DS 02:43
PROVIDERS: PCP Nurse Practitioner; Visit Provider Dietitian, Registered

== ENCOUNTER 2022-05-13 11:21 | Outpatient (REF) | payer MEDICAID, SELFPAY | END 2022-05-13 11:22 | disposition home or self-care (01) | LOC: LBN 11:21 | PROVIDERS: PCP Nurse Practitioner; Visit Provider Nurse Practitioner | DX: R30.0 Dysuria (principal) | CPT/HCPCS: 87077; 87086; 87186 ==

== ENCOUNTER 2022-05-21 11:13 | Outpatient (CLI) | payer MEDICAID, SELFPAY | END 2022-05-21 11:14 | disposition home or self-care (01) | LOC: LBO 11:14 | PROVIDERS: PCP Nurse Practitioner; Visit Provider Nurse Practitioner ==

== ENCOUNTER 2022-05-27 03:55 | Outpatient (CLI) | payer MEDICAID, SELFPAY ==
[2022-05-27 10:16] LABS: Hemoglobin A1C 5.9 % (<5.7)
[2022-05-27 12:02] LABS: Calculated LDL 121 mg/dL (<100); Cholesterol 190 mg/dL (<200); HDL Cholesterol 49 mg/dL (40-60); Triglyceride 102 mg/dL (<150)
== END 2022-05-27 03:56 | disposition home or self-care (01) ==
LOC: LBO 03:55
PROVIDERS: Absent Provider Nurse Practitioner; PCP Nurse Practitioner; Referring Provider Nurse Practitioner; Visit Provider Nurse Practitioner
DX: E66.9 Obesity, unspecified (principal); Z13.220 Encounter for screening for lipoid disorders
CPT/HCPCS: 36415; 80061; 83036; 84443

== ENCOUNTER 2022-06-06 16:32 | Outpatient (REF) | payer MEDICAID, SELFPAY ==
[2022-06-07 10:57] LABS: COVID-19 RT-PCR UVMMC Result Negative (Negative)
== END 2022-06-06 16:33 | disposition home or self-care (01) ==
LOC: LBN 16:32
PROVIDERS: PCP Nurse Practitioner; Visit Provider Nurse Practitioner Family
DX: J02.9 Acute pharyngitis, unspecified (principal); Z20.822 Contact with and (suspected) exposure to COVID-19
CPT/HCPCS: U0003; 87070

== ENCOUNTER 2022-06-11 02:50 | Outpatient (CLI) | payer MEDICAID, SELFPAY ==
--- NOTE | 2022-06-11 10:00 | NS.NUTBLAN_ITS ---
Florence returns for weight management counseling. She was unable to have her insurance pay for Ozempic or trQuotefishity to aid in weight loss. She was started on 500 mg metformin BID. c/o diarrhea with new med but getting better. Diet Recall: apple sauce, keto bar. L: salad from subway with ranch and chicken, keto bar. Dinner: chicken and vegetables. Exercise: walks 1 hour every day for last 14 days. Wt: 236 lbs. down 4 lbs since 05/27/22. Florence has made dramatic changes in her meal plan and exercise habits. Her goal weight is 160-180 lbs. Reviewed meal plan and made adjustements. She is very happy and states that her exercise is helping make her feel better and more positive. She is not complaining about hunger. Overall, she is doing very well on a low carb diet and has incorporated daily exercise. Goal: 5 lbs loss per month Follow up planned 07/21/22 at 10 am.
== END 2022-06-11 02:51 | disposition home or self-care (01) ==
LOC: DS 02:50
PROVIDERS: PCP Nurse Practitioner; Visit Provider Dietitian, Registered
DX: E66.9 Obesity, unspecified (principal); Z71.3 Dietary counseling and surveillance
CPT/HCPCS: 97803

== ENCOUNTER 2022-06-15 12:08 | Emergency (ER) | payer MEDICAID, SELFPAY ==
[2022-06-15 12:20] VITALS: BP 137/65; PULSE 87; RESP 18; TEMP 37.3; O2SAT 91
--- NOTE | 2022-06-15 12:25 | ED.GENADUL_ITS ---
Discharge Plan Disposition Patient Disposition: HOME Condition: Good Discharge Details Clinical Impression: Sinus pain, Body aches, Malaise Primary Care Provider: Isabell Guthrie ED Provider: Kim Campuzano Home Meds and New Rx's Prescriptions: Continued Nexplanon 68 mg implant 1 implant SBD ONCE Qty: 1 0RF Rx Instructions: as a single dose hydroxyzine HCl 10 mg tablet 10 mg PO TID PRN (Reason: itching) Qty: 30 2RF clotrimazole 1 % cream 1 applic TP TID Qty: 30 0RF Rx Instructions: apply liberal amnt to L axilla 3x/d until resolved fluoxetine [Prozac] 20 mg capsule 20 mg PO DAILY Qty: 90 3RF Rx Instructions: [facility] 01/24/18 cgc trazodone 100 mg tablet 200 mg PO HS Qty: 180 3RF Rx Instructions: [facility] 01/24/18 cgc lamotrigine [Lamictal] 100 mg tablet See Rx Instructions PO DIRECTED Qty: 315 3RF Rx Instructions: 200 mg am, 150 mg pm [facility] albuterol sulfate 90 mcg/actuation HFA aerosol inhaler 2 puff inhalation Q6H PRN (Reason: shortness of breath or wheezing) Qty: 18 6RF metformin 500 mg tablet 500 mg PO BID Qty: 60 3RF Discharge Instructions Instructions: Viral Syndrome (ED) Additional Instructions: Your exam here today is most consistent with a viral illness. This is likely what is causing you to have your decreased appetite, body aches, sinus pain. Please continue to encourage hydration. May continue with Tylenol as directed on the packaging for discomfort. COVID test is pending. Please quarantine until his results have returned. Please follow-up with primary care in 1 week for reevaluation. If you develop fever/chills, shortness of breath, abdominal pain, inability stay hydrated or other new/worsening symptoms please seek care urgently once again. Referrals: Isabell Guthrie NP [Primary Care Provider] - Discharge Data Discharge Date/Time-TO BE ENTERED AT DEPARTURE: 06/15/22 13:38 Medical Decision Making Patient is a 37 year old female presenting today with cc of cough, SOB when coughing, body aches, rhinorrhea, sore throat. She states it began about 2 days ago. Ws ssen at urgent care. States that she took an at home COVID test which was negative. Denies rash. Reports subjective fevers. No GI upset. Endorses general body aches. Has been vaccinated. On exam, patient appears nontoxic. Her inital O2 wa recorded at 91%, rechecked and after ambulating into the room is 100%. She has no tachycardia. Lungs are clear. HEENT exam unremarkable. Her exam and history is most consistent with viral illness. Despite her negative home test, I remain concerned for possible COVID. She appears to be hydrating well. We discussed supportive care options and warning signs that should prompt her to return to the ED. I do not see indication of PE, bacterial pneumonia, pneumothorax at this time. All of her questions and concerns were addressed, she is in agreement with this plan. HPI General Date/Time Provider Initiated Documentation: 06/15/22 12:20 . Limitations to Documentation: no limitations . Information obtained by: patient and RN notes reviewed . History of Present Illness 37 year old F presents to the emergency department with the chief complaint of headache, malaise, cough, described as moderate, Quality is described as aching (general body aches), Patient started experiencing this day(s) (2) and it has been constant. No relieving factors improve symptom(s), No exacerbating factors reported . Patient notes cough, loss of appetite, malaise and shortness of breath; denies chest pain, diaphoresis, fever/chills, nausea/vomiting and rash. Patient did receive the following treatments prior to arrival, none Related Data Home Medications Medication Instructions Recorded Confirmed etonogestrel 68 mg subdermal 1 implant subdermal ONCE #1 ea 11/03/18 06/15/22 implant (Nexplanon) clotrimazole 1 % topical cream 1 applic topical TID #30 grams 08/22/21 06/15/22 albuterol sulfate 90 mcg/actuation 2 puff inhalation Q6H PRN 01/14/22 06/15/22 aerosol inhaler shortness of breath or wheezing #18 grams fluoxetine 20 mg capsule (Prozac) 20 mg PO DAILY #90 tab-caps 01/14/22 06/15/22 lamotrigine 100 mg tablet See Rx Instructions PO DIRECTED 01/14/22 06/15/22 (Lamictal) #315 tabs trazodone 100 mg tablet 200 mg PO HS #180 tab-caps 01/14/22 06/15/22 hydroxyzine HCl 10 mg tablet 10 mg PO TID PRN itching #30 tabs 05/28/22 06/15/22 metformin 500 mg tablet 500 mg PO BID #60 tabs 06/04/22 06/15/22 Previous Rx's Medication Instructions Recorded etonogestrel 68 mg subdermal 1 implant subdermal ONCE #1 ea 11/03/18 implant (Nexplanon) clotrimazole 1 % topical cream 1 applic topical TID #30 grams 08/22/21 albuterol sulfate 90 mcg/actuation 2 puff inhalation Q6H PRN 01/14/22 aerosol inhaler shortness of breath or wheezing #18 grams fluoxetine 20 mg capsule (Prozac) 20 mg PO DAILY #90 tab-caps 01/14/22 lamotrigine 100 mg tablet See Rx Instructions PO DIRECTED 01/14/22 (Lamictal) #315 tabs trazodone 100 mg tablet 200 mg PO HS #180 tab-caps 01/14/22 hydroxyzine HCl 10 mg tablet 10 mg PO TID PRN itching #30 tabs 05/28/22 metformin 500 mg tablet 500 mg PO BID #60 tabs 06/04/22 Allergies Allergy/AdvReac Type Severity Reaction Status Date / Time aspirin AdvReac Intermediate unable to Verified 06/15/22 12:23 take due to heart surgery ibuprofen AdvReac Unknown unknown Verified 06/15/22 12:23 General Stated Complaint: GenMedical PAT: 3 Review of Systems Constitutional Constitutional: Reports as per HPI and Denies headache(s) Eyes Eyes: Reports as per HPI, Denies eye discharge and Denies irritation ENT Ears, Nose, Mouth, and Throat: Reports as per HPI and Denies headache(s) Cardiovascular Cardiovascular: Reports as per HPI and Denies chest pain Respiratory Respiratory: Reports as per HPI Gastrointestinal Gastrointestinal: Reports as per HPI, Denies abdominal pain, Denies change in bowel habits, Denies nausea and Denies vomiting Integumentary/Breasts Skin/Breast: Reports as per HPI and Denies rash Neurologic Neurologic: Reports as per HPI and Denies headache(s) PFSH All Active Problems (Updated 06/15/22 @ 13:30 by KAYE Ramsey) Sinus pain (Acute) Body aches (Acute) Malaise (Acute) Pre-diabetes (Acute) Partial epilepsy (Acute) Asthma (Acute) Asthma exacerbation (Acute) CAP (community acquired pneumonia) (Acute) Low back pain (Acute) Cough (Acute) Cervicogenic headache (Acute) More of a localized head pain, but worse with supine position .. WHEN LAYING ON OCCIPUT Infected piercing of trunk (Acute) Fungal rash of torso (Acute) Chest pain (Acute) Vitamin D deficiency (Chronic 07/16/17) Seizure disorder (Chronic) Dx at 21yo. 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 On meds. [place] at [facility] [place] 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 Last repair 1994 at [facility]. No issues. History of nephrolithiasis (Acute 07/16/17) CT 08/24/15 bilateral calculi GERD (gastroesophageal reflux disease) (Acute 07/16/17) Fatty liver (Chronic 07/16/17) U/S 11/06/15 FibroScan 04/16/22 Stage 1 Liver Fibrosis, grade 3 Steatosis affectin 66% of hepatocytes. Depression (Chronic 07/16/17) Chronic anxiety (Acute 07/16/17) Anxiety with depression (Acute 07/16/17) Malrotation of intestine (Acute) Surgical History History of transposition of great vessels (01/23/16) surgery at [facility] as a . Pulmonary artery banding. 22mo removal of PA band and closure of VSD. Pt is under impression that she should not be Pt is under impression that she should not become . 03/2016 [facility] [place] reviewed with [facility] Cardiology. No contraindication to . open heart surgery as infant for transposition of great vessels. Pulmonary artery banding at and removal of band @ 22mo and closure of VSD. Ventriculoperitoneal Shunt At ? Last surgery was 1994 @ [facility]. Family History Paternal Grandfather Diabetes Essential hypertension Coronary heart disease Brother ADHD Social History Smoking/Tobacco Use Status: Former Tobacco Use Second Hand Exposure: No Smoking risk assessment performed?: Yes Alcohol Intake: former Drug use: Never Substance use type: does not use Adopted: No Caregiver/Support person: No Foster care: No Household members: other Details: Has her own apartment Number of Children: 0 Education Level: high school current occupation: On disability for cognitive impairment Pets and animals: Yes Pets and animals: cat(s) and other Details: Rabbit Current gender identity: female What type of physical activity do you participate in: walking Frequency: 3-4 times per week Seatbelt use: always Do you feel safe at home: Yes Do you feel safe in your relationship?: Yes Female Reproductive History Menstrual control method: implanted (nexplanon inserted by Elisa Carrera NP ANT=[id number] EXP=03/2021) History History 0 Para Hx # Term Pregnancies Multiple births Hx # Pregnancies Ectopic pregnancies AB induced Hx Number of Living Children AB spontaneous Exam Const General: cooperative, healthy appearing, comfortable, no acute distress, well developed and well groomed Nutritional Appearance: average body habitus and well nourished Orientation: alert and awake HENMI Head: normal to inspection, normocephalic and atraumatic Ears: hearing grossly normal bilaterally, external ears normal and TM's normal bilaterally General nose exam: external nose normal and nares normal Face and sinus: normal facial exam, sinuses nontender and face symmetric Mouth: oral mucosae normal, lip normal, tongue normal, oropharynx normal and moist mucous membranes Teeth and gingiva: dentition normal Throat: posterior oropharynx normal, tonsils normal and uvula midline Eyes General: appearance normal, both eyes and all related structures Neck Neck: normal visual inspection, full ROM, no lymphadenopathy and no meningeal signs Resp Effort & Inspection: normal respiratory effort, able to speak in complete sentences and no respiratory distress Auscultation: clear to auscultation bilaterally, no rales, no rhonchi and no wheezes Cardio Rate: regular rate Rhythm: regular rhythm Heart Sounds: S1 normal and S2 normal Skin General skin exam: no rashes or lesions noted Neuro General: patient alert and patient awake Cognition: normal cognition Speech: speech normal Gait: normal gait Psych Appearance: grossly normal and well kempt Mental Status: mental status grossly normal Speech and Movement: speech and movement normal Course Vital Signs Vital signs: Vital Signs Temperature 37.3 C 06/15/22 12:20 Pulse 87 06/15/22 12:20 Respiratory Rate 18 06/15/22 12:20 Blood Pressure 137/65 06/15/22 12:20 Pulse Oximetry 91 L 06/15/22 12:20 Temperature 37.3 C 06/15/22 12:20 Temperature Source Temporal Artery Scan 06/15/22 12:20 Pulse 87 06/15/22 12:20 Respiratory Rate 18 06/15/22 12:20 Blood Pressure 137/65 06/15/22 12:20 Blood Pressure Position Sitting 06/15/22 12:20 Pulse Oximetry 91 L 06/15/22 12:20 Oxygen Delivery Method Room Air 06/15/22 12:20 Oxygen Flow Rate 0 06/15/22 12:20
[2022-06-15 12:32] VITALS: RESP 18
[2022-06-15 13:29] VITALS: PULSE 82; RESP 18; TEMP 37.2; O2SAT 100
[2022-06-17 14:08] LABS: COVID-19 RT-PCR UVMMC Result Positive (Negative)
--- NOTE | 2022-06-17 14:09 | W.ED.FU ---
Date of service: 06/17/22 Time of Service: 14:09 Follow Up Plan: Covid test +, patient informed via phone call.
--- NOTE | 2022-06-17 17:34 | W.ED.FU ---
Follow Up Plan: got a lab print out of positive covid, after chart review patient had a call already from Dr. Osborn.
== END 2022-06-15 13:38 | disposition home or self-care (01) ==
PROVIDERS: Emergency Provider Physician Assistant; PCP Nurse Practitioner
DX: U07.1 COVID-19 (principal); Z87.891 Personal history of nicotine dependence
CPT/HCPCS: 99281; U0003; 99284

== ENCOUNTER 2022-07-21 01:45 | Outpatient (CLI) | payer MEDICAID, SELFPAY ==
--- NOTE | 2022-07-21 10:00 | NS.NUTBLAN_ITS ---
Maddison returns for weight management education. She reports that she has a lot of stress recently. Her BF is not working and won't help pay his part. She has been having a hard time exercising and following meal plan due to difficult home situation. Wt: 244 lbs, up 8 lbs in last month Exercise: walking about 10 min per day- down from 60 min daily last month Diet Recall: oatmeal for B, Wrap at L, Balanced meal for Dinner. Has increased intake of chocolate Session today focused on life style changes that Florence continues to do despite her stress. She continues to drink mostly water and be mindful of her meal choices. Encouraged Florence to talk to her parents about home life and to restart counseling if she feels like she needs to talk to someone. She is clearly overwhelmed and could use some extra support. Her BF has lived with her for 3.5 years and her parents pay for the apartment and want him out. Session today mostly consisted of encouraging Florence to talk to her parents and skilled nursing case manager and to ask for help. Encouraged her to continue to walk daily with goal of 1 hour walking per day. Florence to follow up once her home life is more settled and she can focus on herself again. No follow up planned at this time.
== END 2022-07-21 01:46 | disposition home or self-care (01) ==
LOC: DS 01:45
PROVIDERS: PCP Nurse Practitioner; Visit Provider Dietitian, Registered
DX: E66.8 Other obesity (principal); Z71.3 Dietary counseling and surveillance
CPT/HCPCS: 97803

== ENCOUNTER 2022-08-01 09:45 | Emergency (ER) | payer MEDICAID, SELFPAY ==
[2022-08-01 09:50] VITALS: BP 133/44; PULSE 85; RESP 18; TEMP 37.2; O2SAT 97
--- NOTE | 2022-08-01 10:01 | W.ED.GENAD ---
Discharge Plan Disposition Patient Disposition: HOME Condition: Stable Discharge Details Clinical Impression: Pain of left heel Primary Care Provider: Isabell Guthrie ED Provider: Brian Carrera Home Meds and New Rx's Prescriptions: Continued Nexplanon 68 mg implant 1 implant SBD ONCE Qty: 1 0RF Rx Instructions: as a single dose hydroxyzine HCl 10 mg tablet 10 mg PO TID PRN (Reason: itching) Qty: 30 2RF norgestimate-ethinyl estradiol 0.25-35 mg-mcg tablet 1 tab PO DAILY Qty: 84 0RF clotrimazole 1 % cream 1 applic TP TID Qty: 30 0RF Rx Instructions: apply liberal amnt to L axilla 3x/d until resolved fluoxetine [Prozac] 20 mg capsule 20 mg PO DAILY Qty: 90 3RF Rx Instructions: [facility] 01/24/18 cgc trazodone 100 mg tablet 200 mg PO HS Qty: 180 3RF Rx Instructions: [facility] 01/24/18 cgc lamotrigine [Lamictal] 100 mg tablet See Rx Instructions PO DIRECTED Qty: 315 3RF Rx Instructions: 200 mg am, 150 mg pm NK albuterol sulfate 90 mcg/actuation HFA aerosol inhaler 2 puff inhalation Q6H PRN (Reason: shortness of breath or wheezing) Qty: 18 6RF metformin 500 mg tablet 500 mg PO BID Qty: 60 3RF Discharge Instructions Instructions: Plantar Fasciitis (ED), Plantar Fasciitis Exercises (ED) Additional Instructions: follow up with your primary care provider within 1-2 weeks if symptoms continue use the crutches and walking boot until pain free if you feel more ill, have fevers or difficulty breathing return to the emergency department Medical Decision Making 37 yo female comes in with left heel pain for 2 weeks, denies trauma or falls but has been walking a lot wearing what she describes as poor fitting shoes. She denies fevers, chills, calf pain, dyspnea. She arrives stable speaking in full sentences in no distress. She has tenderness on the plantar surface of her left ankle at the heel, no deformities noted, no warmth, no erythema, full rom of the ankle and intact sensation and pulses. Given lack of trauma doubt fracture and do not feel xray indicated. She has no findings to suggest infectious etiology. Suspect plantar fascitis based on location, will provide walking boot and crutches to use as needed, advised to f/u with pcp and return precautions given Differential Diagnosis Differential Diagnosis: plantar fascitis, stress injury Medical Records Medical records reviewed: Yes I reviewed the patient's medical records. HPI General Mode of arrival: ambulatory. Date/Time Provider Initiated Documentation: 08/01/22 09:45. Limitations to Documentation: no limitations. Information obtained by: patient. History of Present Illness 37 year old F presents to the emergency department with the chief complaint of left heel pain, described as moderate, Quality is described as aching, Patient reports no radiation. Patient started experiencing this week(s) (2) and it has been constant. Rest improves symptom(s), Other factors that worsen symptoms (walking boot) . Patient notes no other symptoms.. Related Data Home Medications Medication Instructions Recorded Confirmed etonogestrel 68 mg subdermal 1 implant subdermal ONCE #1 ea 11/03/18 08/01/22 implant (Nexplanon) clotrimazole 1 % topical cream 1 applic topical TID #30 grams 08/22/21 08/01/22 albuterol sulfate 90 mcg/actuation 2 puff inhalation Q6H PRN 01/14/22 08/01/22 aerosol inhaler shortness of breath or wheezing #18 grams fluoxetine 20 mg capsule (Prozac) 20 mg PO DAILY #90 tab-caps 01/14/22 08/01/22 lamotrigine 100 mg tablet See Rx Instructions PO DIRECTED 01/14/22 08/01/22 (Lamictal) #315 tabs trazodone 100 mg tablet 200 mg PO HS #180 tab-caps 01/14/22 08/01/22 hydroxyzine HCl 10 mg tablet 10 mg PO TID PRN itching #30 tabs 05/28/22 08/01/22 metformin 500 mg tablet 500 mg PO BID #60 tabs 06/04/22 08/01/22 norgestimate 0.25 mg-ethinyl 1 tab PO DAILY #84 tabs 07/23/22 08/01/22 estradiol 35 mcg tablet Previous Rx's Medication Instructions Recorded etonogestrel 68 mg subdermal 1 implant subdermal ONCE #1 ea 11/03/18 implant (Nexplanon) clotrimazole 1 % topical cream 1 applic topical TID #30 grams 08/22/21 albuterol sulfate 90 mcg/actuation 2 puff inhalation Q6H PRN 01/14/22 aerosol inhaler shortness of breath or wheezing #18 grams fluoxetine 20 mg capsule (Prozac) 20 mg PO DAILY #90 tab-caps 01/14/22 lamotrigine 100 mg tablet See Rx Instructions PO DIRECTED 01/14/22 (Lamictal) #315 tabs trazodone 100 mg tablet 200 mg PO HS #180 tab-caps 01/14/22 hydroxyzine HCl 10 mg tablet 10 mg PO TID PRN itching #30 tabs 05/28/22 metformin 500 mg tablet 500 mg PO BID #60 tabs 06/04/22 norgestimate 0.25 mg-ethinyl 1 tab PO DAILY #84 tabs 07/23/22 estradiol 35 mcg tablet Allergies Allergy/AdvReac Type Severity Reaction Status Date / Time aspirin AdvReac Intermediate unable to Verified 07/23/22 09:45 take due to heart surgery ibuprofen AdvReac Unknown unknown Verified 07/23/22 09:45 General Stated Complaint: Orthopedic PAT: 4 Review of Systems All systems reviewed & are unremarkable except as noted in HPI and below Constitutional Constitutional: Denies chills, Denies fever(s) and Denies weakness Cardiovascular Cardiovascular: Denies chest pain and Denies dyspnea Respiratory Respiratory: Denies cough and Denies dyspnea Gastrointestinal Gastrointestinal: Denies abdominal pain, Denies nausea and Denies vomiting Musculoskeletal Musculoskeletal: Denies joint swelling Neurologic Neurologic: Denies weakness PFSH All Active Problems (Updated 08/01/22 @ 10:05 by Brian Carrera MD) Pain of left heel (Acute) Breakthrough bleeding on Implanon (Acute) Pre-diabetes (Acute) Partial epilepsy (Acute) Asthma (Acute) Asthma exacerbation (Acute) CAP (community acquired pneumonia) (Acute) Low back pain (Acute) Cough (Acute) Cervicogenic headache (Acute) More of a localized head pain, but worse with supine position .. WHEN LAYING ON OCCIPUT Infected piercing of trunk (Acute) Fungal rash of torso (Acute) Chest pain (Acute) Vitamin D deficiency (Chronic 07/16/17) Seizure disorder (Chronic) Dx at 21yo. 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 On meds. [place] [facility] 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 Last repair 1994 at [facility]. No issues. History of nephrolithiasis (Acute 07/16/17) CT 08/24/15 bilateral calculi GERD (gastroesophageal reflux disease) (Acute 07/16/17) Fatty liver (Chronic 07/16/17) U/S 11/06/15 FibroScan 04/16/22 Stage 1 Liver Fibrosis, grade 3 Steatosis affectin 66% of hepatocytes. 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 Pulmonary artery banding. 22mo removal of PA band and closure of VSD. Pt is under impression that she should not be Pt is under impression that she should not become . [place] [facility] [place] [facility] Cardiology. No contraindication to . open heart surgery as infant for transposition of great vessels. Pulmonary artery banding at and removal of band @ 22mo and closure of VSD. Ventriculoperitoneal Shunt At ? Last surgery was 1994 @ [facility]. Family History Paternal Grandfather Diabetes Essential hypertension Coronary heart disease Brother ADHD Social History Smoking/Tobacco Use Status: Former Tobacco Use Second Hand Exposure: No Smoking risk assessment performed?: Yes Alcohol Intake: former Drug use: Never Substance use type: does not use Adopted: No Caregiver/Support person: No Foster care: No Household members: other Details: Has her own apartment Number of Children: 0 Education Level: high school current occupation: On disability for cognitive impairment Pets and animals: Yes Pets and animals: cat(s) and other Details: Rabbit Current gender identity: female What type of physical activity do you participate in: walking Frequency: 3-4 times per week Seatbelt use: always Do you feel safe at home: Yes Do you feel safe in your relationship?: Yes Female Reproductive History Menstrual control method: implanted History History 0 Para Hx # Term Pregnancies Multiple births Hx # Pregnancies Ectopic pregnancies AB induced Hx Number of Living Children AB spontaneous Exam Const General: no acute distress Orientation: alert HENMT Head: normal to inspection Ears: external ears normal General nose exam: external nose normal Mouth: moist mucous membranes Eyes General: appearance normal, both eyes and all related structures Neck Neck: normal visual inspection Resp Effort & Inspection: normal respiratory effort and able to speak in complete sentences Cardio Rate: regular rate Skin General skin exam: no rashes or lesions noted Neuro General: patient alert and patient oriented x3 Extrem General: full ROM and capillary refill normal Psych Mental Status: mental status grossly normal Course Vital Signs Vital signs: Vital Signs Temperature 37.2 C 08/01/22 09:50 Pulse 85 08/01/22 09:50 Respiratory Rate 18 08/01/22 09:50 Blood Pressure 133/44 L 08/01/22 09:50 Pulse Oximetry 97 08/01/22 09:50 Temperature 37.2 C 08/01/22 09:50 Temperature Source Temporal Artery Scan 08/01/22 09:50 Pulse 85 08/01/22 09:50 Respiratory Rate 18 08/01/22 09:50 Respiratory Effort Non-Labored 08/01/22 09:53 Blood Pressure 133/44 L 08/01/22 09:50 Blood Pressure Position Sitting 08/01/22 09:50 Pulse Oximetry 97 08/01/22 09:50 Oxygen Delivery Method Room Air 08/01/22 09:50 Oxygen Flow Rate 0 08/01/22 09:50 Pain Level 6 08/01/22 09:50
[2022-08-01 10:04] VITALS: BP 133/44; PULSE 85; RESP 18; TEMP 37.2; O2SAT 97
== END 2022-08-01 10:23 | disposition home or self-care (01) ==
PROVIDERS: Emergency Provider Emergency Medicine; PCP Nurse Practitioner
DX: M79.672 Pain in left foot (principal); Z87.891 Personal history of nicotine dependence
CPT/HCPCS: 99281; 99282

== ENCOUNTER → 2022-08-20 11:03 | Outpatient (CLI) | payer MEDICAID, SELFPAY ==
--- NOTE | 2022-08-20 | DI.RAD_ITS ---
Exam(s) XR FOOT LT COMPLETE EXAM: XR FOOT LT COMPLETE CLINICAL HISTORY: LEFT HEEL PAIN--M79.6732 TECHNIQUE: COMPARISON: CR LEFT FOOT COMPLETE from 06/18/2013 FINDINGS: Three views were obtained. There are enthesophytes of the attachment of the plantar fascia and Achil les tendon on the calcaneus. No other significant bony abnormality seen. Alignment appears within n ormal limits. IMPRESSION: RADIATION DOSE DELIVERED: Total DLP
== END ==
PROVIDERS: PCP Nurse Practitioner; Visit Provider Physician Assistant Medical
DX: M76.62 Achilles tendinitis, left leg (principal)
CPT/HCPCS: 73630

== ENCOUNTER → 2022-09-07 13:30 | Outpatient (CLI) | payer MEDICAID, SELFPAY ==
--- NOTE | 2022-09-07 10:54 | DI.RAD_ITS ---
Exam(s) XR WRIST RT COMPLETE EXAM: XR WRIST RT COMPLETE CLINICAL HISTORY: PAIN IN RT WRIST, M25.531. TECHNIQUE: 2D digital imaging was performed. COMPARISON: CR RIGHT THUMB from 05/29/2013 FINDINGS: 3 views No evidence of fracture or dislocation. No significant ulnar variance. Bone density normal. No oss eous lesions nor erosions. IMPRESSION: No significant osseous findings in the wrist. Wet read DATA REPOSITORY: RADIATION DOSE DELIVERED:
== END ==
PROVIDERS: PCP Nurse Practitioner; Visit Provider Nurse Practitioner Family
DX: M25.531 Pain in right wrist (principal)
CPT/HCPCS: 73110

== ENCOUNTER 2022-10-07 14:40 | Outpatient (REF) | payer MEDICAID, SELFPAY ==
[2022-10-09 13:11] LABS: COVID-19 RT-PCR UVMMC Result Negative (Negative)
[2022-10-12 16:26] LABS: Influenza A RNA Result Positive (Negative); Influenza B RNA Result Negative (Negative); RSV RNA Result Negative (Negative)
== END 2022-10-07 14:41 | disposition home or self-care (01) ==
LOC: LBN 14:40
PROVIDERS: PCP Nurse Practitioner; Visit Provider Nurse Practitioner
DX: R05.8 Other specified cough (principal); R09.89 Other specified symptoms and signs involving the circulatory and respiratory systems; Z20.822 Contact with and (suspected) exposure to COVID-19
CPT/HCPCS: 87631; U0003

== ENCOUNTER 2022-11-09 15:57 | Outpatient (REF) | payer MEDICAID, SELFPAY ==
[2022-11-11 12:50] LABS: GC Result Negative (Negative)
[2022-11-11 14:04] LABS: Specimen Description CERVIX
[2022-11-11 14:09] LABS: Chlamydia Result Positive (Negative)
== END 2022-11-09 15:58 | disposition home or self-care (01) ==
LOC: LBN 15:57
PROVIDERS: PCP Nurse Practitioner; Visit Provider Nurse Practitioner Women's Health
DX: Z11.3 Encounter for screening for infections with a predominantly sexual mode of transmission (principal)
CPT/HCPCS: 87491; 87591

== ENCOUNTER 2022-11-12 04:05 | Outpatient (CLI) | payer MEDICAID, SELFPAY ==
[2022-11-14 09:40] LABS: HIV-1/2 Ag & Ab Screen Negative (Negative)
[2022-11-16 09:54] LABS: Hepatitis C Ab w Rflx HCV PCR Negative (Negative)
[2022-11-16 23:52] LABS: Syphilis IgG w/Reflex Nonreactive (Nonreactive)
== END 2022-11-12 04:06 | disposition home or self-care (01) ==
LOC: LBO 04:05
PROVIDERS: PCP Nurse Practitioner; Visit Provider Nurse Practitioner Women's Health
DX: Z11.3 Encounter for screening for infections with a predominantly sexual mode of transmission (principal); Z11.4 Encounter for screening for human immunodeficiency virus [HIV]; Z11.59 Encounter for screening for other viral diseases
CPT/HCPCS: 36415; 86803; 87389; 86780

== ENCOUNTER 2022-12-09 17:40 | Outpatient (REF) | payer MEDICAID, SELFPAY ==
[2022-12-11 12:57] LABS: Chlamydia Result Negative (Negative); GC Result Negative (Negative)
== END 2022-12-09 17:41 | disposition home or self-care (01) ==
LOC: LBN 17:40
PROVIDERS: PCP Nurse Practitioner; Visit Provider Nurse Practitioner Women's Health
DX: Z11.3 Encounter for screening for infections with a predominantly sexual mode of transmission (principal)
CPT/HCPCS: 87491; 87591

== ENCOUNTER 2023-02-26 12:51 | Outpatient (REF) | payer MEDICAID, SELFPAY ==
[2023-02-26 14:24] LABS: Bacteria Few HPF (Negative); C & S Indicated? C&S Done As Ordered; Casts Negative LPF (Negative); Crystals Negative HPF (Negative); Epithelial Cells Moderate HPF (Negative); Mucus Negative (Negative); RBC 0-2 HPF (0-2); WBC >50 HPF (0-5)
[2023-02-27 15:05] LABS: GC Result Negative (Negative)
[2023-02-27 15:47] LABS: Chlamydia Result Positive (Negative); Specimen Description VAGINAL
== END 2023-02-26 12:52 | disposition home or self-care (01) ==
LOC: LBN 12:51
PROVIDERS: PCP Nurse Practitioner; Visit Provider Physician Assistant Medical
DX: R30.0 Dysuria (principal); N89.8 Other specified noninflammatory disorders of vagina; Z11.3 Encounter for screening for infections with a predominantly sexual mode of transmission
CPT/HCPCS: 87491; 87591; 81015; 87086; 87480; 87510; 87660

== ENCOUNTER 2023-03-25 08:52 | Emergency (ER) | payer MEDICAID, SELFPAY ==
[2023-03-25 09:02] VITALS: BP 129/74; PULSE 72; RESP 18; TEMP 37.2; O2SAT 96
--- NOTE | 2023-03-25 09:36 | DI.CT_ITS ---
Exam(s) CT ABDOMEN PELVIS W EXAM: CT ABDOMEN PELVIS W CLINICAL HISTORY: abdominal pain, rt flank TECHNIQUE: Imaging Protocol: Axial computed tomography images with coronal and sagittal reformatted images were created and reviewed CONTRAST MATERIAL: Intravenous: Omnipaque 350 Contrast volume:100 mL Oral: No COMPARISON: CT RENAL COLIC WO CONTRAST from 04/24/2011 CT RENAL COLIC WO CONTRAST from 04/13/2013 CT RENAL COLIC WO CONTRAST from 05/05/2013 CT ABD PELVIS WITH CONTRAST from 11/23/[address] ABDOMEN PELVIS WO from 01/12/[address] ABDOMEN PELVIS WO from 01/21/2022 FINDINGS: ABDOMEN: Lung Bases: Normal where visualized. Liver: Unchanged hepatomegaly. There are 4 enhancing masses seen within the liver. They show homoge neous enhancement. There isodense to the aorta. The largest is seen in the inferior aspect of the r ight lobe of the liver and measures 3.2 x 2.5 cm. There is a 2.4 x 2.4 cm low lesion in the inferior left lobe of the liver. There are 2 smaller left lobe lesions measuring approximately 1.2 cm each. These may represent hemangiomas. Portal, Superior Mesenteric, and Splenic Veins: Unremarkable. Gallbladder and Biliary Tract: No radiodense calculus or dilation. Pancreas: Normal density, no abnormal calcifications or inflammatory process. Spleen: Normal. Adrenals: No masses seen. Kidneys: Normal size, contour and axis. Bilateral nephrolithiasis. No ureterolithiasis or hydronephr osis. No masses seen. Abdominal Aorta: Abdominal portion non-dilated. Bowel: The duodenum does not appear to cross the midline suggesting malrotation of the bowel. The ce cum appears to lie in the midline. There is no evidence of bowel obstruction or bowel wall thickenin g. Appendix is unremarkable. Peritoneal Cavity: No free air.The distal aspect of the ventricular peritoneal shunt is in place. Th ere is a small amount of free fluid in the abdomen. No focal fluid collection is seen. Lymph Nodes: Within normal limits. Bones: Within normal limits for the patient's age. Soft Tissues: Unremarkable. PELVIS: Bladder: Symmetric distention, no gross wall thickening. Reproductive Organs: Unremarkable as visualized. Lymph Nodes: Within normal limits. Bones: Within normal limits for the patient's age. IMPRESSION: 1. No acute abdominal or pelvic process. 2. Four enhancing hepatic masses. They may represent hepatic hemangiomas. Nonemergent MRI or CT sca n is recommended using the hepatic hemangioma protocol for further evaluation. 3. Bilateral nephrolithiasis. No evidence of hydronephrosis or ureterolithiasis. 4. Presence of a TOOLER shunt. 5. Findings were discussed with Dr. Mcconnell at 11:45 a.m. on 03/25/2023. RADIATION DOSE DELIVERED: 1,284.95mGy.cm Total DLP DATA REPOSITORY: All CT scans at this facility are submitted to the National Radiology Data Registry (NRDR) Dose Index Registry (DIR) with the [employer] (ACR). RADIATION OPTIMIZATION: All CT scans at this facility use at least one of these dose optimization te chniques: automated exposure control; mA and/or kV adjustment per patient size (includes targeted exa ms where dose is matched to clinical indication); or iterative reconstruction.
[2023-03-25 09:37] LABS: Abs Immature Grans 0.02 10^3/uL (0.0-0.06); Absolute Basophil Count 0.05 10^3/uL (0.0-0.2); Absolute Eosinophil Count 0.42 10^3/uL (0.0-0.7); Absolute Lymphocyte Count 2.29 10^3/uL (1.2-3.4); Absolute Monocyte Count 0.74 10^3/uL (0.1-0.8); Absolute Neutrophil Count 5.24 10^3/uL (1.2-6.7); Basophils % 0.6; Eosinophils % 4.8; HCT 41.3 % (36.0-46.0); HGB 13.5 g/dL (11.2-15.7); Immature Grans % 0.2; Lymphocytes % 26.1; MCH 26.6 pg (27.0-33.0); MCHC 32.7 % (32.0-36.0); MCV 81 fL (80-95); MPV 9.1 fL (8.0-11.0); Monocytes % 8.4; Neutrophils % 59.9; Platelet Count 336 10^3/uL (130-400); RBC 5.08 10^6/uL (3.93-5.22); RDW 12.9 % (11.7-14.6); RDW-SD 38.3 fL; WBC 8.76 10^3/uL (4.4-10.8)
--- NOTE | 2023-03-25 09:39 | W.ED.GENAD ---
Discharge Plan Disposition Patient Disposition: Home Condition: Stable Discharge Details Clinical Impression: Liver masses, Kidney stones Primary Care Provider: Isabell Guthrie ED Provider: Deniz Mcconnell Home Meds and New Rx's Prescriptions: Continued Nexplanon 68 mg implant 1 implant SBD ONCE Qty: 1 0RF Rx Instructions: as a single dose hydroxyzine HCl 10 mg tablet 10 mg PO TID PRN (Reason: itching) Qty: 30 2RF benzonatate 200 mg capsule 200 mg PO TID PRN (Reason: cough) Qty: 21 0RF clotrimazole 1 % cream 1 applic TP TID Qty: 30 0RF Rx Instructions: apply liberal amnt to L axilla 3x/d until resolved lamotrigine [Lamictal] 100 mg tablet See Rx Instructions PO DIRECTED Qty: 315 3RF Rx Instructions: 200 mg am, 150 mg pm NKHS albuterol sulfate 90 mcg/actuation HFA aerosol inhaler 2 puff inhalation Q6H PRN (Reason: shortness of breath or wheezing) Qty: 18 6RF metformin 500 mg tablet 500 mg PO BID Qty: 60 3RF fluoxetine [Prozac] 20 mg capsule 20 mg PO DAILY Qty: 90 3RF Rx Instructions: [facility] [place] [facility] tablet 200 mg PO HS Qty: 180 1RF Rx Instructions: [facility] 01/24/18 [facility] Discharge Instructions Instructions: Kidney Stones (ED), Flank Pain (ED) Additional Instructions: CT the abdomen pelvis today revealed that you have 4 hepatic masses. Additional outpatient diagnostic testing is recommended by radiology. Please follow-up with your primary care physician to discuss. Please contact your primary care physician to arrange follow-up. Return to the ER immediately for any worsening or new concerning symptoms. Referrals: Isabell Guthrie, LIAT [Primary Care Provider] - Discharge Data Discharge Date/Time-TO BE ENTERED AT DEPARTURE: 03/25/23 12:36 Medical Decision Making 950?? 38-year-old female here with right foot pain that started yesterday and has persisted. Patient tender to right flank. No right lower quadrant tenderness. Negative Prince sign. Patient has no pelvic discomfort or vaginal symptoms. Consider pyelonephritis versus renal stone versus other. Plan to obtain CT of the abdomen pelvis. -- CT of the abdomen pelvis was interpreted by radiology: IMPRESSION: 1. No acute abdominal or pelvic process. 2. Four enhancing hepatic masses.? They may represent hepatic hemangiomas.? Nonemergent MRI or CT scan is recommended using the hepatic hemangioma protocol for further evaluation. 3. Bilateral nephrolithiasis.? No evidence of hydronephrosis or ureterolithiasis. 4. Presence of a DOUBLE SURFACE OPERATOR shunt. 5. Findings were discussed with Dr. Mcconnell at 11:45 a.m. on 03/25/2023. Labs reviewed and nondiagnostic. All results were discussed with the patient. Plan for discharge with outpatient follow-up. Disposition decision was made weighing the risks and benefits of hospitalization versus outpatient treatment, the risk for further decompensation, and the patient's wishes. The patient was stable and requested discharge. Prior to discharge, my usual and customary return precautions were reviewed with the patient - this included follow-up instructions and reason to return to the emergency department if condition worsens, does not improve as expected, or other new concerns arise. Lab Data Lab results reviewed: Yes I reviewed the patient's lab results. Labs: Laboratory Tests Range/Units 03/25/23 03/25/23 03/25/23 09:13 09:13 09:56 WBC (4.4-10.8) 10^3/uL 8.76 RBC (3.93-5.22) 10^6/uL 5.08 Hgb (11.2-15.7) g/dL 13.5 Hct (36.0-46.0) % 41.3 MCV (80-95) fL 81 MCH (27.0-33.0) pg 26.6 L MCHC (32.0-36.0) % 32.7 RDW (11.7-14.6) % 12.9 Plt Count (130-400) 10^3/uL 336 MPV (8.0-11.0) fL 9.1 Immature Gran % 0.2 Neutrophils % 59.9 Lymphocytes % 26.1 Monocytes % 8.4 Eosinophils % 4.8 Basophils % 0.6 Nucleated RBC % (0.0-0.3) % 0.0 Absolute Neutrophils (1.2-6.7) 10^3/uL 5.24 Absolute Lymphocytes (1.2-3.4) 10^3/uL 2.29 Absolute Monocytes (0.1-0.8) 10^3/uL 0.74 Absolute Eosinophils (0.0-0.7) 10^3/uL 0.42 Absolute Basophils (0.0-0.2) 10^3/uL 0.05 Sodium (136-145) mmol/L 137 Potassium (3.5-5.1) mmol/L 3.9 Chloride (98-107) mmol/L 102 Carbon Dioxide (21.0-32.0) mmol/L 29.5 Anion Gap (3-11) mmol/L 5.5 BUN (7-18) mg/dL 14 Creatinine (0.55-1.02) mg/dL 0.8 Est GFR (CKD-EPI 2020) (mL/min/1.73m2) 97.26 Glucose (74-106) mg/dL 81 Calcium (8.5-10.1) mg/dL 9.1 Total Bilirubin (0.2-1.0) mg/dL 0.2 AST (15-37) U/L 16 ALT (14-59) U/L 32 Alkaline Phosphatase (46-116) U/L 84 Total Protein (6.4-8.2) g/dL 8.3 H Albumin (3.4-5.0) g/dL 4.1 Lipase (16-77) U/L 43 Urine Color (Yellow) Yellow Urine Clarity (Clear) Clear Urine pH (5-8) 6.5 Ur Specific Pandora (1.005-1.025) 1.020 Urine Protein (Negative) mg/dL Negative Urine Ketones (Negative) mg/dL Negative Urine Blood (Negative) Negative Urine Nitrite (Negative) Negative Urine Bilirubin (Negative) Negative Urine Urobilinogen (Up to 0.2) mg/dL 0.2 Ur Leukocyte Esterase (Negative) Negative Urine Glucose (Negative) mg/dL Negative HPI General Mode of arrival: ambulatory. Date/Time Provider Initiated Documentation: 03/25/23 08:55. Limitations to Documentation: no limitations. Information obtained by: patient. History of Present Illness 38 year old F presents to the emergency department with the chief complaint of abdominal pain, described as severe, Quality is described as sharp, and is localized to the abdomen. Patient reports no radiation. Patient started experiencing this day(s) (1) and it has been constant. No relieving factors improve symptom(s), No exacerbating factors reported . Patient notes no other symptoms.. HPI Narrative: 38-year-old female here with right flank pain that started yesterday and has persisted. Pain is moderate. Feels sharp. No modifiers. She has no associated urinary symptoms. No fever. Related Data Home Medications Medication Instructions Recorded Confirmed etonogestrel 68 mg subdermal 1 implant subdermal ONCE #1 ea 11/03/18 03/30/23 implant (Nexplanon) clotrimazole 1 % topical cream 1 applic topical TID #30 grams 08/22/21 03/25/23 albuterol sulfate 90 mcg/actuation 2 puff inhalation Q6H PRN 01/14/22 03/30/23 aerosol inhaler shortness of breath or wheezing #18 grams lamotrigine 100 mg tablet See Rx Instructions PO DIRECTED 01/14/22 03/30/23 (Lamictal) #315 tabs hydroxyzine HCl 10 mg tablet 10 mg PO TID PRN itching #30 tabs 05/28/22 03/30/23 metformin 500 mg tablet 500 mg PO BID #60 tabs 06/04/22 03/30/23 benzonatate 200 mg capsule 200 mg PO TID PRN cough #21 caps 10/07/22 03/25/23 fluoxetine 20 mg capsule (Prozac) 20 mg PO DAILY #90 tab-caps 12/24/22 03/30/23 trazodone 100 mg tablet 200 mg PO HS #180 tab-caps 01/18/23 03/30/23 Previous Rx's Medication Instructions Recorded etonogestrel 68 mg subdermal 1 implant subdermal ONCE #1 ea 11/03/18 implant (Nexplanon) clotrimazole 1 % topical cream 1 applic topical TID #30 grams 08/22/21 albuterol sulfate 90 mcg/actuation 2 puff inhalation Q6H PRN 01/14/22 aerosol inhaler shortness of breath or wheezing #18 grams lamotrigine 100 mg tablet See Rx Instructions PO DIRECTED 01/14/22 (Lamictal) #315 tabs hydroxyzine HCl 10 mg tablet 10 mg PO TID PRN itching #30 tabs 05/28/22 metformin 500 mg tablet 500 mg PO BID #60 tabs 06/04/22 benzonatate 200 mg capsule 200 mg PO TID PRN cough #21 caps 10/07/22 fluoxetine 20 mg capsule (Prozac) 20 mg PO DAILY #90 tab-caps 12/24/22 trazodone 100 mg tablet 200 mg PO HS #180 tab-caps 01/18/23 Allergies Allergy/AdvReac Type Severity Reaction Status Date / Time aspirin AdvReac Intermediate unable to Verified 03/30/23 20:16 take due to heart surgery ibuprofen AdvReac Unknown unknown Verified 03/30/23 20:16 General Stated Complaint: Abd Prob PAT: 3 Review of Systems All systems reviewed & are unremarkable except as noted in HPI and below Constitutional Constitutional: Denies fever(s) Gastrointestinal Gastrointestinal: Reports as per HPI Genitourinary Genitourinary: Denies hematuria, Denies difficulty voiding, Denies genital pruritis, Denies genital lesions, Denies dysuria, Denies urinary urgency, Denies vaginal discharge and Denies vaginal pruritus PFSH All Active Problems (Updated 03/31/23 @ 01:48 by Aquiles Macdonald DO) Acute right flank pain (Acute) UTI (urinary tract infection) (Acute) Liver masses (Acute) Kidney stones (Chronic) Chlamydia infection (Acute) Pre-diabetes (Acute) Partial epilepsy (Acute) Asthma (Acute) Asthma exacerbation (Acute) CAP (community acquired pneumonia) (Acute) Low back pain (Acute) Cough (Acute) Cervicogenic headache (Acute) More of a localized head pain, but worse with supine position .. WHEN LAYING ON OCCIPUT Fungal rash of torso (Acute) Chest pain (Acute) Vitamin D deficiency (Chronic 07/16/17) Seizure disorder (Chronic) Dx at 21yo. 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 On meds. [place] [facility] 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 Depression (Chronic 07/16/17) Chronic anxiety (Acute 07/16/17) Anxiety with depression (Acute 07/16/17) Malrotation of intestine (Acute) Medical History Abnormal uterine bleeding (AUB) Hydrocephalus (01/23/16) Shunted at . Last repair 1994 at [facility]. No issues. 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 Pulmonary artery banding. removal of band at 22mo and closure of VSD. 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 Pulmonary artery banding. 22mo removal of PA band and closure of VSD. Pt is under impression that she should not be Pt is under impression that she should not become . 03[place] [facility] [place] [facility] Cardiology. No contraindication to . open heart surgery as for transposition of great vessels. Pulmonary artery banding at and removal of band @ 22mo and closure of VSD. Ventriculoperitoneal Shunt At ? Last surgery was 1994 @ [facility] [place]. Family History Paternal Grandfather Diabetes Essential hypertension Coronary heart disease Brother ADHD Social History Smoking/Tobacco Use Status: Former Tobacco Use Second Hand Exposure: No Smoking risk assessment performed?: Yes Alcohol Intake: former Drug use: Never Substance use type: does not use Adopted: No Caregiver/Support person: No Foster care: No Household members: other Details: Has her own apartment Number of Children: 0 Education Level: high school current occupation: On disability for cognitive impairment Pets and animals: Yes Pets and animals: cat(s) and other Details: Rabbit Current gender identity: female What type of physical activity do you participate in: walking Frequency: 3-4 times per week Seatbelt use: always Do you feel safe at home: Yes Do you feel safe in your relationship?: Yes Female Reproductive History Menstrual control method: implanted History History 0 Para Hx # Term Pregnancies Multiple births Hx # Pregnancies Ectopic pregnancies AB induced Hx Number of Living Children AB spontaneous Exam Const General: cooperative and no acute distress HENMT Mouth: moist mucous membranes Eyes Conjunctivae: normal conjunctivae Sclera: normal sclerae Neck Neck: trachea midline and supple Resp Auscultation: clear to auscultation bilaterally, no rales, no rhonchi and no wheezes Cardio Rate: regular rate and not tachycardic Rhythm: regular rhythm GI Palpation: soft, not firm, no guarding, no masses, not rigid and tender (rt flank) Neuro General: patient alert, patient awake and tone normal Extrem General: no edema Psych Appearance: grossly normal Mental Status: mental status grossly normal Course Vital Signs Vital signs: Vital Signs Temperature 37.2 C 03/25/23 09:02 Pulse 72 03/25/23 09:02 Respiratory Rate 18 03/25/23 09:02 Blood Pressure 129/74 03/25/23 09:02 Pulse Oximetry 96 03/25/23 09:02 Temperature 37.2 C 03/25/23 09:02 Pulse 72 03/25/23 09:02 Respiratory Rate 18 03/25/23 09:02 Respiratory Effort Normal 03/25/23 09:05 Blood Pressure 129/74 03/25/23 09:02 Blood Pressure Position Sitting 03/25/23 09:02 Pulse Oximetry 96 03/25/23 09:02 Oxygen Delivery Method Room Air 03/25/23 09:02 Oxygen Flow Rate 0 03/25/23 09:02 Pain Level 5 03/25/23 09:02 Lab/Test Results Lab/Test Results: Laboratory Tests Range/Units 03/25/23 09:13 WBC (4.4-10.8) 10^3/uL 8.76 RBC (3.93-5.22) 10^6/uL 5.08 Hgb (11.2-15.7) g/dL 13.5 Hct (36.0-46.0) % 41.3 MCV (80-95) fL 81 MCH (27.0-33.0) pg 26.6 L MCHC (32.0-36.0) % 32.7 RDW (11.7-14.6) % 12.9 Plt Count (130-400) 10^3/uL 336 MPV (8.0-11.0) fL 9.1 Immature Gran % 0.2 Neutrophils % 59.9 Lymphocytes % 26.1 Monocytes % 8.4 Eosinophils % 4.8 Basophils % 0.6 Nucleated RBC % (0.0-0.3) % 0.0 Absolute Neutrophils (1.2-6.7) 10^3/uL 5.24 Absolute Lymphocytes (1.2-3.4) 10^3/uL 2.29 Absolute Monocytes (0.1-0.8) 10^3/uL 0.74 Absolute Eosinophils (0.0-0.7) 10^3/uL 0.42 Absolute Basophils (0.0-0.2) 10^3/uL 0.05
[2023-03-25 09:50] LABS: ALT 32 U/L (14-59); AST 16 U/L (15-37); Albumin 4.1 g/dL (3.4-5.0); Alkaline Phosphatase 84 U/L (46-116); Anion Gap 5.5 mmol/L (3-11); BUN 14 mg/dL (7-18); Bilirubin, Total 0.2 mg/dL (0.2-1.0); CO2 29.5 mmol/L (21.0-32.0); CREATININE 0.8 mg/dL (0.55-1.02); Calcium 9.1 mg/dL (8.5-10.1); Chloride 102 mmol/L (98-107); Estimated GFR 97.26 (mL/min/1.73m2); Glucose 81 mg/dL (74-106); Lipase 43 U/L (16-77); Potassium 3.9 mmol/L (3.5-5.1); Sodium 137 mmol/L (136-145); Total Protein 8.3 g/dL (6.4-8.2)
[2023-03-25 10:05] LABS: Bilirubin Negative (Negative); Blood Negative (Negative); Clarity Clear (Clear); Glucose Negative (Negative); Ketones Negative (Negative); Leukocyte Esterase Negative (Negative); Nitrite Negative (Negative); Urobilinogen 0.2 mg/dL (Up to 0.2); pH 6.5 (5-8)
[2023-03-25] MEDS: Omnipaque 350 MG/ML 100 ML BTL IJ (11:11)
[2023-03-25] MEDS: Acetaminophen 325 MG TAB 650 MG PO (12:13)
[2023-03-25 12:33] VITALS: BP 121/80; PULSE 86; RESP 15; O2SAT 98
== END 2023-03-25 12:36 | disposition home or self-care (01) ==
PROVIDERS: Emergency Provider Student in an Organized Health Care Education/Training Program; PCP Nurse Practitioner
DX: N20.0 Calculus of kidney (principal); R16.0 Hepatomegaly, not elsewhere classified
CPT/HCPCS: 36415; 80053; 81025; 83690; 99285; 74177; 81003; 85025; 99284; J3490

== ENCOUNTER 2023-03-30 19:55 | Emergency (ER) | payer MEDICAID, SELFPAY ==
[2023-03-30] VITALS (9 sets, daily range): BP systolic 111–130; BP diastolic 61–73; PULSE 62–69; RESP 17; TEMP 37; O2SAT 97–100
[2023-03-30] MEDS: Normal Saline 1,000 ML 1000 ML IV (21:10)
[2023-03-30 21:35] LABS: Abs Immature Grans 0.03 10^3/uL (0.0-0.06); Absolute Basophil Count 0.06 10^3/uL (0.0-0.2); Absolute Eosinophil Count 0.44 10^3/uL (0.0-0.7); Absolute Lymphocyte Count 3.72 10^3/uL (1.2-3.4); Absolute Monocyte Count 0.77 10^3/uL (0.1-0.8); Basophils % 0.5; Eosinophils % 3.8; HCT 37.5 % (36.0-46.0); HGB 12.2 g/dL (11.2-15.7); Immature Grans % 0.3; MCH 26.5 pg (27.0-33.0); MCHC 32.5 % (32.0-36.0); MCV 81 fL (80-95); MPV 8.8 fL (8.0-11.0); Monocytes % 6.6; Neutrophils % 56.8; Platelet Count 301 10^3/uL (130-400); RBC 4.61 10^6/uL (3.93-5.22); RDW 12.7 % (11.7-14.6); RDW-SD 37.3 fL; WBC 11.64 10^3/uL (4.4-10.8)
[2023-03-30 21:41] LABS: Absolute Neutrophil Count 6.61 10^3/uL (1.2-6.7)
[2023-03-30 21:50] LABS: ALT 31 U/L (14-59); AST 17 U/L (15-37); Albumin 3.6 g/dL (3.4-5.0); Alkaline Phosphatase 84 U/L (46-116); Anion Gap 7.6 mmol/L (3-11); BUN 17 mg/dL (7-18); Bilirubin, Total 0.2 mg/dL (0.2-1.0); CO2 29.4 mmol/L (21.0-32.0); CREATININE 0.9 mg/dL (0.55-1.02); Calcium 8.6 mg/dL (8.5-10.1); Chloride 104 mmol/L (98-107); Estimated GFR 84.44 (mL/min/1.73m2); Glucose 80 mg/dL (74-106); Potassium 3.7 mmol/L (3.5-5.1); Sodium 141 mmol/L (136-145); Total Protein 7.3 g/dL (6.4-8.2)
[2023-03-30 22:02] LABS: Bilirubin Negative (Negative); Blood Trace-intact (Negative); Clarity Sl Cloudy (Clear); Glucose Negative (Negative); Ketones Negative (Negative); Leukocyte Esterase Trace (Negative); Nitrite Negative (Negative); Urobilinogen 0.2 mg/dL (Up to 0.2); pH 6.5 (5-8)
[2023-03-30 22:12] LABS: Bacteria Few HPF (Negative); C & S Indicated? No/Sq. Contamination; Crystals Negative HPF (Negative); Epithelial Cells Moderate HPF (Negative); Mucus Negative (Negative)
--- NOTE | 2023-03-30 22:22 | W.ED.GENAD ---
Discharge Plan Disposition Patient Disposition: Home Condition: Good Discharge Details Clinical Impression: UTI (urinary tract infection), Acute right flank pain Primary Care Provider: Isabell Guthrie ED Provider: Aquiles Macdonald Home Meds and New Rx's Prescriptions: New cephalexin 500 mg capsule 500 mg PO QID 7 Days Qty: 28 0RF No Action Nexplanon 68 mg implant 1 implant SBD ONCE Qty: 1 0RF Rx Instructions: as a single dose hydroxyzine HCl 10 mg tablet 10 mg PO TID PRN (Reason: itching) Qty: 30 2RF benzonatate 200 mg capsule 200 mg PO TID PRN (Reason: cough) Qty: 21 0RF clotrimazole 1 % cream 1 applic TP TID Qty: 30 0RF Rx Instructions: apply liberal amnt to L axilla 3x/d until resolved lamotrigine [Lamictal] 100 mg tablet See Rx Instructions PO DIRECTED Qty: 315 3RF Rx Instructions: 200 mg am, 150 mg pm NKHS albuterol sulfate 90 mcg/actuation HFA aerosol inhaler 2 puff inhalation Q6H PRN (Reason: shortness of breath or wheezing) Qty: 18 6RF metformin 500 mg tablet 500 mg PO BID Qty: 60 3RF fluoxetine [Prozac] 20 mg capsule 20 mg PO DAILY Qty: 90 3RF Rx Instructions: [facility] 01/24/18 cgc trazodone 100 mg tablet 200 mg PO HS Qty: 180 1RF Rx Instructions: [facility] 01/24/18 cgc Tubersol 5 tub. unit /0.1 mL solution 0.1 ml intradermal ONCE Qty: 1 0RF Discharge Instructions Instructions: Urinary Tract Infection in Women (ED), Flank Pain (ED) Additional Instructions: At this time your symptoms appear consistent with a urinary tract infection. If you have continued worsening of your symptoms you may need to return for repeat imaging and potential ultrasound. Please take the Keflex as directed. It is been sent to your pharmacy. Please take at 1000 mg of Tylenol every 6 hours for pain. If you notice any worsening of your symptoms, or any new symptoms such as vomiting, diarrhea, fever, chills, shortness of breath, chest pain, numbness, weakness, or fainting , please return immediately to the emergency department for reevaluation. Please follow up with your primary care provider as soon as possible for reassessment and reevaluation. As always, it was a pleasure participating in your medical care today. Referrals: Jagjit Jackson MD [ [facility] STAFF PHYSICIAN] - Isbaell Guthrie NP [Primary Care Provider] - Medical Decision Making 38-year-old female with a past medical history of a ORGAN TUNER shunt, GERD, hepatic lesions recently diagnosed, kidney stones, presents today for right flank pain. For the last 6 days the patient has had mild right flank pain, she was seen and assessed here 4 days ago where CAT scan was performed and she had evidence of few stones in her kidneys, and a few lesions on her liver which were thought to be hemangiomas, but no other significant abnormalities. Pain was very mild at that time. She went to see her primary care provider in the last 36 hours, and they are scheduling further outpatient imaging to further differentiate the liver lesions, however this evening her pain got notably worse. It is not improved with Tylenol or Motrin. She denies any fever or chills. No other complaints at this time. No other modifying factors Exam demonstrates a small area on the right with reproducible right CVA tenderness. No pain to McBurney's point, negative Prince sign. Differential includes UTI, less likely kidney stone. We will treat the patient's pain, get a urinalysis and labs, monitor closely and reassess. 1:44 AM Laboratory work-up shows minimal white count at 11.6, no bandemia or left shift. Lymphocytes are slightly elevated potentially suggestive of viral etiology. Renal function normal. Urinalysis does show elevated WBCs, trace leuk esterase, negative nitrates. Minimal blood. Concern for UTI. Symptoms appear inconsistent with obstructive urolithiasis at this time based on low level of RBCs, current symptoms, and CT scan. I did discuss with the patient potential repeat CT imaging versus treatment of the UTI, and at this time she has elected to hold off on any additional CT imaging currently. We will treat with Keflex, will send in a prescription to her pharmacy. Recommend continued Tylenol at home. I have extensively reviewed the treatment plan and discharge instructions with the patient. I have addressed all patient concerns at this time. The patient was made aware of what symptoms to monitor for that would warrant a return to the emergency department. Discussed the plan with the patient, they demonstrate verbal understanding and agreement with our assessment and plan at this time. The documentation in this chart was dictated using [employer] dictation software. Please excuse any dictation errors. ABDOMEN: Lung Bases: Normal where visualized. Liver: Unchanged hepatomegaly. There are 4 enhancing masses seen within the liver. They show homogeneous enhancement. There isodense to the aorta. The largest is seen in the inferior aspect of the right lobe of the liver and measures 3.2 x 2.5 cm. There is a 2.4 x 2.4 cm low lesion in the inferior left lobe of the liver. There are 2 smaller left lobe lesions measuring approximately 1.2 cm each. These may represent hemangiomas. Portal, Superior Mesenteric, and Splenic Veins: Unremarkable. Gallbladder and Biliary Tract: No radiodense calculus or dilation. Pancreas: Normal density, no abnormal calcifications or inflammatory process. Spleen: Normal. Adrenals: No masses seen. Kidneys: Normal size, contour and axis. Bilateral nephrolithiasis. No ureterolithiasis or hydronephrosis. No masses seen. Abdominal Aorta: Abdominal portion non-dilated. Bowel: The duodenum does not appear to cross the midline suggesting malrotation of the bowel. The cecum appears to lie in the midline. There is no evidence of bowel obstruction or bowel wall thickening. Appendix is unremarkable. Peritoneal Cavity: No free air.The distal aspect of the ventricular peritoneal shunt is in place. There is a small amount of free fluid in the abdomen. No focal fluid collection is seen. Lymph Nodes: Within normal limits. Bones: Within normal limits for the patient's age. Soft Tissues: Unremarkable. PELVIS: Bladder: Symmetric distention, no gross wall thickening. Reproductive Organs: Unremarkable as visualized. Lymph Nodes: Within normal limits. Bones: Within normal limits for the patient's age. IMPRESSION: 1. No acute abdominal or pelvic process. 2. Four enhancing hepatic masses. They may represent hepatic hemangiomas. Nonemergent MRI or CT scan is recommended using the hepatic hemangioma protocol for further evaluation. 3. Bilateral nephrolithiasis. No evidence of hydronephrosis or ureterolithiasis. 4. Presence of a ORGAN TUNER shunt. HPI General Date/Time Provider Initiated Documentation: 03/30/23 20:05. HPI Narrative: 38-year-old female with a past medical history of a ORGAN TUNER shunt, GERD, hepatic lesions recently diagnosed, kidney stones, presents today for right flank pain. For the last 6 days the patient has had mild right flank pain, she was seen and assessed here 4 days ago where CAT scan was performed and she had evidence of few stones in her kidneys, and a few lesions on her liver which were thought to be hemangiomas, but no other significant abnormalities. Pain was very mild at that time. She went to see her primary care provider in the last 36 hours, and they are scheduling further outpatient imaging to further differentiate the liver lesions, however this evening her pain got notably worse. It is not improved with Tylenol or Motrin. She denies any fever or chills. No other complaints at this time. No other modifying factors Related Data Home Medications Medication Instructions Recorded Confirmed etonogestrel 68 mg subdermal 1 implant subdermal ONCE #1 ea 11/03/18 03/30/23 implant (Nexplanon) clotrimazole 1 % topical cream 1 applic topical TID #30 grams 08/22/21 03/25/23 albuterol sulfate 90 mcg/actuation 2 puff inhalation Q6H PRN 01/14/22 03/30/23 aerosol inhaler shortness of breath or wheezing #18 grams lamotrigine 100 mg tablet See Rx Instructions PO DIRECTED 01/14/22 03/30/23 (Lamictal) #315 tabs hydroxyzine HCl 10 mg tablet 10 mg PO TID PRN itching #30 tabs 05/28/22 03/30/23 metformin 500 mg tablet 500 mg PO BID #60 tabs 06/04/22 03/30/23 benzonatate 200 mg capsule 200 mg PO TID PRN cough #21 caps 10/07/22 03/25/23 fluoxetine 20 mg capsule (Prozac) 20 mg PO DAILY #90 tab-caps 12/24/22 03/30/23 trazodone 100 mg tablet 200 mg PO HS #180 tab-caps 01/18/23 03/30/23 cephalexin 500 mg capsule 500 mg PO QID 7 days #28 caps 03/31/23 Previous Rx's Medication Instructions Recorded etonogestrel 68 mg subdermal 1 implant subdermal ONCE #1 ea 11/03/18 implant (Nexplanon) clotrimazole 1 % topical cream 1 applic topical TID #30 grams 08/22/21 albuterol sulfate 90 mcg/actuation 2 puff inhalation Q6H PRN 01/14/22 aerosol inhaler shortness of breath or wheezing #18 grams lamotrigine 100 mg tablet See Rx Instructions PO DIRECTED 01/14/22 (Lamictal) #315 tabs hydroxyzine HCl 10 mg tablet 10 mg PO TID PRN itching #30 tabs 05/28/22 metformin 500 mg tablet 500 mg PO BID #60 tabs 06/04/22 benzonatate 200 mg capsule 200 mg PO TID PRN cough #21 caps 10/07/22 fluoxetine 20 mg capsule (Prozac) 20 mg PO DAILY #90 tab-caps 12/24/22 trazodone 100 mg tablet 200 mg PO HS #180 tab-caps 01/18/23 cephalexin 500 mg capsule 500 mg PO QID 7 days #28 caps 03/31/23 Allergies Allergy/AdvReac Type Severity Reaction Status Date / Time aspirin AdvReac Intermediate unable to Verified 03/30/23 20:16 take due to heart surgery ibuprofen AdvReac Unknown unknown Verified 03/30/23 20:16 General Stated Complaint: FlankPain PAT: 3 Review of Systems All systems reviewed & are unremarkable except as noted in HPI and below PFSH All Active Problems (Updated 03/31/23 @ 01:48 by Aquiles Macdonald DO) Acute right flank pain (Acute) UTI (urinary tract infection) (Acute) Liver masses (Acute) Kidney stones (Chronic) Chlamydia infection (Acute) Pre-diabetes (Acute) Partial epilepsy (Acute) Asthma (Acute) Asthma exacerbation (Acute) CAP (community acquired pneumonia) (Acute) Low back pain (Acute) Cough (Acute) Cervicogenic headache (Acute) More of a localized head pain, but worse with supine position .. WHEN LAYING ON OCCIPUT Fungal rash of torso (Acute) Chest pain (Acute) Vitamin D deficiency (Chronic 07/16/17) Seizure disorder (Chronic) Dx at 21yo. 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 On meds. Previously seen at [facility] [place]. 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 Depression (Chronic 07/16/17) Chronic anxiety (Acute 07/16/17) Anxiety with depression (Acute 07/16/17) Malrotation of intestine (Acute) Medical History Abnormal uterine bleeding (AUB) Hydrocephalus (01/23/16) Shunted at . Last repair 1994 at [facility]. No issues. 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 Pulmonary artery banding. removal of band at 22mo and closure of VSD. Surgical History History of transposition of great vessels (01/23/16) surgery at [facility] as a . Pulmonary artery banding. 22mo removal of PA band and closure of VSD. Pt is under impression that she should not be Pt is under impression that she should not become . 03/2016 [facility] [place] records reviewed with [facility] Cardiology. No contraindication to . open heart surgery as infant for transposition of great vessels. Pulmonary artery banding at and removal of band @ 22mo and closure of VSD. Ventriculoperitoneal Shunt At ? Last surgery was 1994 @ [facility]. Family History Paternal Grandfather Diabetes Essential hypertension Coronary heart disease Brother ADHD Social History Smoking/Tobacco Use Status: Former Tobacco Use Second Hand Exposure: No Smoking risk assessment performed?: Yes Alcohol Intake: former Drug use: Never Substance use type: does not use Adopted: No Caregiver/Support person: No Foster care: No Household members: other Details: Has her own apartment Number of Children: 0 Education Level: high school current occupation: On disability for cognitive impairment Pets and animals: Yes Pets and animals: cat(s) and other Details: Rabbit Current gender identity: female What type of physical activity do you participate in: walking Frequency: 3-4 times per week Seatbelt use: always Do you feel safe at home: Yes Do you feel safe in your relationship?: Yes Female Reproductive History Menstrual control method: implanted History History 0 Para Hx # Term Pregnancies Multiple births Hx # Pregnancies Ectopic pregnancies AB induced Hx Number of Living Children AB spontaneous Exam Narrative Exam Narrative: 1.Const: Well-nourished, Well-developed, appearing stated age 2.Eyes: PERRL, no conjunctival injection, and symmetrical lids. 3.ENT: Atraumatic external nose and ears. Moist MM. Neck: Symmetric, trachea midline, No thyromegaly. 4.CVS: +S1/S2, No murmurs or gallops. Peripheral pulses 2+ and equal in all extremities. Brisk capillary refill in all extremities. 5.RESP: Unlabored respiratory effort. Clear to auscultation bilaterally. No wheezes rales or rhonchi 6.GI: Soft, Nontender/Nondistended, No hepatosplenomegaly. No guarding or rebound. Minimal right CVA tenderness 7.MSK: Normocephalic/Atraumatic, Extremities w/o deformity or ttp No cyanosis or clubbing, Normal movement of all extremities 8.Skin: Warm, Dry. No rashes or lesions. 9.Neuro: coil former II-XII grossly intact. Sensation grossly intact, no focal neurologic deficits. 10.Psych: (AAO) x3. Appropriate mood and affect Course Vital Signs Vital signs: Vital Signs Temperature 37.0 C 03/30/23 19:59 Pulse 69 03/30/23 19:59 Respiratory Rate 17 03/30/23 19:59 Blood Pressure 119/61 03/30/23 19:59 Pulse Oximetry 97 03/30/23 19:59 Temperature 37.0 C 03/30/23 19:59 Temperature Source Temporal Artery Scan 03/30/23 19:59 Pulse 62 03/30/23 22:01 Respiratory Rate 17 03/30/23 19:59 Respiratory Effort Normal 03/30/23 20:03 Blood Pressure 111/66 03/30/23 22:01 Blood Pressure Mean 76 03/30/23 22:01 Blood Pressure Position Sitting 03/30/23 19:59 Pulse Oximetry 98 03/30/23 22:00 Oxygen Delivery Method Room Air 03/30/23 19:59 Oxygen Flow Rate 0 03/30/23 19:59 Pain Level 6 05/30/23 20:15 Lab/Test Results Lab/Test Results: Laboratory Tests Range/Units 03/30/23 03/30/23 03/30/23 21:30 21:30 21:48 WBC (4.4-10.8) 10^3/uL 11.64 H RBC (3.93-5.22) 10^6/uL 4.61 Hgb (11.2-15.7) g/dL 12.2 Hct (36.0-46.0) % 37.5 MCV (80-95) fL 81 MCH (27.0-33.0) pg 26.5 L MCHC (32.0-36.0) % 32.5 RDW (11.7-14.6) % 12.7 Plt Count (130-400) 10^3/uL 301 MPV (8.0-11.0) fL 8.8 Immature Gran % 0.3 Neutrophils % 56.8 Lymphocytes % 32.0 Monocytes % 6.6 Eosinophils % 3.8 Basophils % 0.5 Nucleated RBC % (0.0-0.3) % 0.0 Absolute Neutrophils (1.2-6.7) 10^3/uL 6.61 Absolute Lymphocytes (1.2-3.4) 10^3/uL 3.72 H Absolute Monocytes (0.1-0.8) 10^3/uL 0.77 Absolute Eosinophils (0.0-0.7) 10^3/uL 0.44 Absolute Basophils (0.0-0.2) 10^3/uL 0.06 Sodium (136-145) mmol/L 141 Potassium (3.5-5.1) mmol/L 3.7 Chloride (98-107) mmol/L 104 Carbon Dioxide (21.0-32.0) mmol/L 29.4 Anion Gap (3-11) mmol/L 7.6 BUN (7-18) mg/dL 17 Creatinine (0.55-1.02) mg/dL 0.9 Est GFR (CKD-EPI 2020) (mL/min/1.73m2) 84.44 Glucose (74-106) mg/dL 80 Calcium (8.5-10.1) mg/dL 8.6 Total Bilirubin (0.2-1.0) mg/dL 0.2 AST (15-37) U/L 17 ALT (14-59) U/L 31 Alkaline Phosphatase (46-116) U/L 84 Total Protein (6.4-8.2) g/dL 7.3 Albumin (3.4-5.0) g/dL 3.6 Urine Color (Yellow) Yellow Urine Clarity (Clear) Sl Cloudy Urine pH (5-8) 6.5 Ur Specific Salyer (1.005-1.025) 1.020 Urine Protein (Negative) mg/dL Negative Urine Ketones (Negative) mg/dL Negative Urine Blood (Negative) Trace-intact H Urine Nitrite (Negative) Negative Urine Bilirubin (Negative) Negative Urine Urobilinogen (Up to 0.2) mg/dL 0.2 Ur Leukocyte Esterase (Negative) Trace H Urine RBC (0-2) HPF 3-5 H Urine WBC (0-5) HPF 10-20 H Ur Epithelial Cells (Negative) HPF Moderate Urine Crystals (Negative) HPF Negative Urine Bacteria (Negative) HPF Few Urine Mucus (Negative) Negative Ur Culture Indicated? No/Sq. Contamination Urine Glucose (Negative) mg/dL Negative
== END 2023-03-30 22:32 | disposition home or self-care (01) ==
PROVIDERS: Emergency Provider Student in an Organized Health Care Education/Training Program; PCP Nurse Practitioner
DX: N39.0 Urinary tract infection, site not specified (principal); R10.9 Unspecified abdominal pain
CPT/HCPCS: 80053; 96361; 96374; 99284; 81003; 81015; 85025

== ENCOUNTER 2023-04-12 20:59 | Emergency (ER) | payer MEDICAID, SELFPAY ==
[2023-04-12 21:02] VITALS: BP 131/80; PULSE 74; RESP 16; TEMP 36.5; O2SAT 100
[2023-04-12 22:08] LABS: Abs Immature Grans 0.04 10^3/uL (0.0-0.06); Absolute Lymphocyte Count 3.56 10^3/uL (1.2-3.4); Basophils % 0.3; Eosinophils % 2.1; HCT 41.6 % (36.0-46.0); Immature Grans % 0.3; Lymphocytes % 24.4; MCH 26.6 pg (27.0-33.0); MCHC 33.7 % (32.0-36.0); MCV 79 fL (80-95); MPV 9.3 fL (8.0-11.0); Monocytes % 6.2; Neutrophils % 66.7; Platelet Count 380 10^3/uL (130-400); RBC 5.27 10^6/uL (3.93-5.22); RDW 12.8 % (11.7-14.6); RDW-SD 36.7 fL; WBC 14.61 10^3/uL (4.4-10.8)
[2023-04-12 22:09] LABS: Absolute Basophil Count 0.04 10^3/uL (0.0-0.2); Absolute Eosinophil Count 0.31 10^3/uL (0.0-0.7); Absolute Monocyte Count 0.91 10^3/uL (0.1-0.8); Absolute Neutrophil Count 9.74 10^3/uL (1.2-6.7)
[2023-04-12 22:10] LABS: Bilirubin Negative (Negative); Blood Moderate (Negative); Clarity Sl Cloudy (Clear); Glucose Negative (Negative); Ketones Negative (Negative); Leukocyte Esterase Negative (Negative); Nitrite Negative (Negative); Urobilinogen 0.2 mg/dL (Up to 0.2); pH 7.5 (5-8)
--- NOTE | 2023-04-12 22:15 | DI.CT_ITS ---
Exam(s) CT ABDOMEN PELVIS W EXAM: CT ABDOMEN PELVIS W CLINICAL HISTORY: RUQ pain, leukocytosis. TECHNIQUE: Imaging Protocol: Axial computed tomography images with coronal and sagittal reformatted images were created and reviewed CONTRAST MATERIAL: Intravenous: Omnipaque-350 100cc Oral: None COMPARISON: CT CT ABDOMEN PELVIS W from 03/25/2023 FINDINGS: VISUALIZED LUNG BASES: No nodules nor pleural effusions evident. ABDOMEN: There are 2 separate catheter device is associated with the anterior abdominal wall. One of these ce ntral-slightly left of center, coiled, and terminates in the left rectus abdominus muscle. The upper aspect this catheter in the field of view this study is over the left side of the heart. There is n o fluid collection associated with this catheter. The other catheter is a subcutaneous ventriculoperitoneal shunt which enters the abdomen at the later al aspect of the right rectus abdominus muscle. There is small amount of associated perihepatic asci harjinder. LIVER: Mild hepatomegaly. No discrete focal hepatic lesions. No dilated intrahepatic ducts. No dil ated intrahepatic ducts. GALLBLADDER/BILIARY: No obvious gallbladder pathology. CBD is not dilated. PANCREAS: No evidence of pancreatic mass nor dilatation of the pancreatic duct. SPLEEN: Spleen is not enlarged. No obvious intrasplenic lesions. Splenic and portal veins are paten t. ADRENALS: There are no significant adrenal masses. KIDNEYS:No cysts evident. No solid renal masses. There a small nonobstructive calculi in both kidney s. No hydronephrosis nor hydroureter. No calculi in the nondistended urinary bladder. ABDOMINAL AORTA: Abdominal aorta is not enlarged. LYMPH NODES:There are few small retroperitoneal lymph nodes. There is no significant para-aortic anaid nopathy. ABDOMINAL WALL: No evidence of significant anterior abdominal wall nor inguinal hernia. GI: There is mild rotation of the small bowel loops which are predominantly right-sided. Also small bowel loops are filled with fluid and upper normal diameters.: Course is also on conventional. With exception of the rectosigmoid colon is also filled with fluid. There is fecal material in the rectos igmoid and rectum. There is no obvious bowel obstruction. PELVIS: GI: Appendix is difficult to identify. No obvious acute appendicitis.No evidence of sigmoid divertic ulitis. LYMPH NODES: There is no intrapelvic nor inguinal adenopathy. REPRODUCTIVE: Uterus size normal. There is a right ovarian cyst measuring 5 by 3.5 cm. No left adne xal findings. URINARY BLADDER: No calculi nor obvious masses evident OSSEOUS: No fractures and no significant osseous lesions. T12 limbus vertebra noted IMPRESSION: 1. There is a right-sided subcutaneous ventriculoperitoneal catheter which enters and remains in the right-side of the abdomen and is associated with a small amount of ascites. A 2nd catheter is projec cindy over the midline and the heart and appears to terminate in the rectus abdominus muscle. 2. Hepatomegaly noted. No a patent lesions identified. 3. Small bilateral nonobstructive renal calculi. No hydronephrosis. 4. Congenital bowel malrotation noted. The small bowel loops and large bowel loops with the exceptio n of the rectosigmoid contain abundant fluid suggesting diarrhea state. There is no obvious bowel ob struction. 5. There is a 5 x 4 cm cyst in the right ovary. Appropriate follow-up recommended. No left adnexal findings. Uterus normal size. RADIATION DOSE DELIVERED: 1,095.95mGy.cm Total DLP DATA REPOSITORY: All CT scans at this facility are submitted to the National Radiology Data Registry (NRDR) Dose Index Registry (DIR) with the [employer] (ACR). RADIATION OPTIMIZATION: All CT scans at this facility use at least one of these dose optimization te chniques: automated exposure control; mA and/or kV adjustment per patient size (includes targeted exa ms where dose is matched to clinical indication); or iterative reconstruction.
[2023-04-12 22:18] LABS: Bacteria Rare HPF (Negative); C & S Indicated? No; Casts Negative LPF (Negative); Crystals Moderate Amorphous HPF (Negative); Epithelial Cells Rare HPF (Negative); Mucus Negative (Negative); WBC Negative HPF (0-5)
[2023-04-12 22:23] LABS: ALT 37 U/L (14-59); AST 20 U/L (15-37); Albumin 4.4 g/dL (3.4-5.0); Alkaline Phosphatase 100 U/L (46-116); Anion Gap 8.9 mmol/L (3-11); BUN 16 mg/dL (7-18); Bilirubin, Total 0.4 mg/dL (0.2-1.0); CO2 30.1 mmol/L (21.0-32.0); CREATININE 0.9 mg/dL (0.55-1.02); Calcium 10.7 mg/dL (8.5-10.1); Chloride 97 mmol/L (98-107); Estimated GFR 84.44 (mL/min/1.73m2); Glucose 86 mg/dL (74-106); Lipase 36 U/L (16-77); Potassium 3.6 mmol/L (3.5-5.1); Sodium 136 mmol/L (136-145); Total Protein 8.8 g/dL (6.4-8.2)
[2023-04-12] MEDS: Normal Saline - Diluent 50 ML VIAL IJ (22:54)
[2023-04-12] MEDS: Omnipaque 350 MG/ML 100 ML BTL IJ (23:05)
[2023-04-12] MEDS: Normal Saline Flush 10 ML SYR IVP (23:06)
--- NOTE | 2023-04-12 23:12 | ED.GENADUL_ITS ---
Discharge Plan Disposition Patient Disposition: Home Discharge Details Clinical Impression: Abdominal pain Primary Care Provider: Isabell Guthrie ED Provider: Crys Holland Home Meds and New Rx's Prescriptions: Continued Nexplanon 68 mg implant 1 implant SBD ONCE Qty: 1 0RF Rx Instructions: as a single dose hydroxyzine HCl 10 mg tablet 10 mg PO TID PRN (Reason: itching) Qty: 30 2RF clotrimazole 1 % cream 1 applic TP TID Qty: 30 0RF Rx Instructions: apply liberal amnt to L axilla 3x/d until resolved lamotrigine [Lamictal] 100 mg tablet See Rx Instructions PO DIRECTED Qty: 315 3RF Rx Instructions: 200 mg am, 150 mg pm NKHS albuterol sulfate 90 mcg/actuation HFA aerosol inhaler 2 puff inhalation Q6H PRN (Reason: shortness of breath or wheezing) Qty: 18 6RF metformin 500 mg tablet 500 mg PO BID Qty: 60 3RF fluoxetine [Prozac] 20 mg capsule 20 mg PO DAILY Qty: 90 3RF Rx Instructions: [facility] 01/24/18 [facility] trazodone 100 mg tablet 200 mg PO HS Qty: 180 1RF Rx Instructions: [facility] 01/24/18 cgc Discharge Instructions Instructions: Abdominal Pain (ED) Additional Instructions: Please follow-up with primary care physician for reassessment Take Tylenol as needed for pain Return earlier with fever, chills, or with any new or worsening complaints please be rechecked by your pcp tomorrow and have blood work rechecked by pcp Referrals: Isabell Guthrie, INFORMATION SYSTEMS PROJECT MANAGER [Primary Care Provider] - Discharge Data Discharge Date/Time-TO BE ENTERED AT DEPARTURE: 04/13/23 00:20 Medical Decision Making 38-year-old female, alert and oriented, no acute distress but significant tenderness right upper quadrant Leukocytosis 14,000, because of this I will order another CT abdomen and pelvis for further evaluation Negative test I did perform a pelvic exam, there is no cervical motion tenderness or significant vaginal discharge, scant bleeding noted, specifically no adnexal tenderness or cervical motion tenderness, swabs pending Leukocytosis, 14,000, calcium mildly elevated at 10.7 urinalysis has mild blood consistent with patient's current menstruation Negative test CT abdomen pelvis shows hernia without any significant acute findings, will refer to surgery in the outpatient setting calm and Cooperative, no acute distress at time of reevaluation HPI General Date/Time Provider Initiated Documentation: 04/12/23 21:28 . 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 Denies any fever or chills. Denies chest pain or shortness of breath. Denies any urinary complaints. Worse with movement per patient. Related Data Home Medications Medication Instructions Recorded Confirmed etonogestrel 68 mg subdermal 1 implant subdermal ONCE #1 ea 11/03/18 04/14/23 implant (Nexplanon) clotrimazole 1 % topical cream 1 applic topical TID #30 grams 08/22/21 04/14/23 albuterol sulfate 90 mcg/actuation 2 puff inhalation Q6H PRN 01/14/22 04/14/23 aerosol inhaler shortness of breath or wheezing #18 grams lamotrigine 100 mg tablet See Rx Instructions PO DIRECTED 01/14/22 04/14/23 (Lamictal) #315 tabs hydroxyzine HCl 10 mg tablet 10 mg PO TID PRN itching #30 tabs 05/28/22 04/14/23 metformin 500 mg tablet 500 mg PO BID #60 tabs 06/04/22 04/14/23 fluoxetine 20 mg capsule (Prozac) 20 mg PO DAILY #90 tab-caps 12/24/22 04/14/23 trazodone 100 mg tablet 200 mg PO HS #180 tab-caps 01/18/23 04/14/23 Previous Rx's Medication Instructions Recorded etonogestrel 68 mg subdermal 1 implant subdermal ONCE #1 ea 11/03/18 implant (Nexplanon) clotrimazole 1 % topical cream 1 applic topical TID #30 grams 08/22/21 albuterol sulfate 90 mcg/actuation 2 puff inhalation Q6H PRN 01/14/22 aerosol inhaler shortness of breath or wheezing #18 grams lamotrigine 100 mg tablet See Rx Instructions PO DIRECTED 01/14/22 (Lamictal) #315 tabs hydroxyzine HCl 10 mg tablet 10 mg PO TID PRN itching #30 tabs 05/28/22 metformin 500 mg tablet 500 mg PO BID #60 tabs 06/04/22 fluoxetine 20 mg capsule (Prozac) 20 mg PO DAILY #90 tab-caps 12/24/22 trazodone 100 mg tablet 200 mg PO HS #180 tab-caps 01/18/23 Allergies Allergy/AdvReac Type Severity Reaction Status Date / Time aspirin AdvReac Intermediate unable to Verified 04/14/23 09:27 take due to heart surgery ibuprofen AdvReac Unknown unknown Verified 04/14/23 09:27 General Stated Complaint: Abd Prob PAT: 3 PFSH All Active Problems (Updated 04/14/23 @ 11:22 by Cleveland Fry MD) Acute right flank pain (Acute) UTI (urinary tract infection) (Acute) Abdominal pain (Acute) Liver masses (Acute) Kidney stones (Chronic) Chlamydia infection (Acute) Pre-diabetes (Acute) Partial epilepsy (Acute) Asthma (Acute) Asthma exacerbation (Acute) CAP (community acquired pneumonia) (Acute) Low back pain (Acute) Cough (Acute) Cervicogenic headache (Acute) More of a localized head pain, but worse with supine position .. WHEN LAYING ON OCCIPUT Fungal rash of torso (Acute) Chest pain (Acute) Vitamin D deficiency (Chronic 07/16/17) Seizure disorder (Chronic) Dx at 21yo. 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 On meds. Previously seen at [facility]. 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 Depression (Chronic 07/16/17) Chronic anxiety (Acute 07/16/17) Anxiety with depression (Acute 07/16/17) Malrotation of intestine (Acute) Medical History Abnormal uterine bleeding (AUB) Hydrocephalus (01/23/16) Shunted at . Last repair 1994 at [facility]. No issues. Transposition of great vessels s/p surgery at [facility]. Pulmonary artery banding. removal of band at 22mo and closure of VSD. Surgical History History of transposition of great vessels (01/23/16) surgery at [facility] as a . Pulmonary artery banding. 22mo removal of PA band and closure of VSD. Pt is under impression that she should not be Pt is under impression that she should not become . 03/2016 [facility] records reviewed with [facility] Cardiology. No contraindication to . open heart surgery as infant for transposition of great vessels. Pulmonary artery banding at and removal of band @ 22mo and closure of VSD. Ventriculoperitoneal Shunt At ? Last surgery was 1994 @ [facility]. Family History Paternal Grandfather Diabetes Essential hypertension Coronary heart disease Brother ADHD Social History Smoking/Tobacco Use Status: Former Tobacco Use Second Hand Exposure: No Smoking risk assessment performed?: Yes Alcohol Intake: former Drug use: Never Substance use type: does not use Adopted: No Caregiver/Support person: No Foster care: No Household members: other Details: Has her own apartment Number of Children: 0 Education Level: high school current occupation: On disability for cognitive impairment Pets and animals: Yes Pets and animals: cat(s) and other Details: Rabbit Current gender identity: female What type of physical activity do you participate in: walking Frequency: 3-4 times per week Seatbelt use: always Do you feel safe at home: Yes Do you feel safe in your relationship?: Yes Female Reproductive History Menstrual control method: implanted History History 0 Para Hx # Term Pregnancies Multiple births Hx # Pregnancies Ectopic pregnancies AB induced Hx Number of Living Children AB spontaneous Exam Narrative Exam Narrative: Patient is calm and cooperative, no acute distress Mild diffuse abdominal tenderness without rebound or guarding No scleral icterus, lungs clear to auscultation, cardiac rate rhythm regular no pallor, alert and oriented , mild blood noted cervical os, no cervical motion tenderness, no adnexal tenderness Alert and oriented x4, cranial nerves II through XII intact, ambulatory with steady Course Vital Signs Vital signs: Vital Signs Temperature 36.5 C 04/12/23 21:02 Pulse 74 04/12/23 21:02 Respiratory Rate 16 04/12/23 21:02 Blood Pressure 131/80 04/12/23 21:02 Pulse Oximetry 100 04/12/23 21:02 Temperature 36.5 C 04/12/23 21:02 Temperature Source Tympanic 04/12/23 21:02 Pulse 74 04/12/23 21:02 Respiratory Rate 16 04/12/23 21:02 Respiratory Effort Normal 04/12/23 21:06 Blood Pressure 131/80 04/12/23 21:02 Pulse Oximetry 100 04/12/23 21:02 Oxygen Delivery Method Room Air 04/12/23 21:02 Oxygen Flow Rate 0 04/12/23 21:02 Pain Level 7 04/12/23 21:02 Lab/Test Results Lab/Test Results: 04/12/23 22:15 Vaginal Vaginitis Screen - Pending Laboratory Tests Range/Units 04/12/23 04/12/23 04/12/23 21:40 21:40 22:05 WBC (4.4-10.8) 10^3/uL 14.61 H RBC (3.93-5.22) 10^6/uL 5.27 H Hgb (11.2-15.7) g/dL 14.0 Hct (36.0-46.0) % 41.6 MCV (80-95) fL 79 L MCH (27.0-33.0) pg 26.6 L MCHC (32.0-36.0) % 33.7 RDW (11.7-14.6) % 12.8 Plt Count (130-400) 10^3/uL 380 MPV (8.0-11.0) fL 9.3 Immature Gran % 0.3 Neutrophils % 66.7 Lymphocytes % 24.4 Monocytes % 6.2 Eosinophils % 2.1 Basophils % 0.3 Nucleated RBC % (0.0-0.3) % 0.0 Absolute Neutrophils (1.2-6.7) 10^3/uL 9.74 H Absolute Lymphocytes (1.2-3.4) 10^3/uL 3.56 H Absolute Monocytes (0.1-0.8) 10^3/uL 0.91 H Absolute Eosinophils (0.0-0.7) 10^3/uL 0.31 Absolute Basophils (0.0-0.2) 10^3/uL 0.04 Sodium (136-145) mmol/L 136 Potassium (3.5-5.1) mmol/L 3.6 Chloride (98-107) mmol/L 97 L Carbon Dioxide (21.0-32.0) mmol/L 30.1 Anion Gap (3-11) mmol/L 8.9 BUN (7-18) mg/dL 16 Creatinine (0.55-1.02) mg/dL 0.9 Est GFR (CKD-EPI 2020) (mL/min/1.73m2) 84.44 Glucose (74-106) mg/dL 86 Calcium (8.5-10.1) mg/dL 10.7 H Total Bilirubin (0.2-1.0) mg/dL 0.4 AST (15-37) U/L 20 ALT (14-59) U/L 37 Alkaline Phosphatase (46-116) U/L 100 Total Protein (6.4-8.2) g/dL 8.8 H Albumin (3.4-5.0) g/dL 4.4 Lipase (16-77) U/L 36 Urine Color (Yellow) Yellow Urine Clarity (Clear) Sl Cloudy Urine pH (5-8) 7.5 Ur Specific [place] (1.005-1.025) 1.020 Urine Protein (Negative) mg/dL Trace H Urine Ketones (Negative) mg/dL Negative Urine Blood (Negative) Moderate H Urine Nitrite (Negative) Negative Urine Bilirubin (Negative) Negative Urine Urobilinogen (Up to 0.2) mg/dL 0.2 Ur Leukocyte Esterase (Negative) Negative Urine RBC (0-2) HPF 5-10 H Urine WBC (0-5) HPF Negative Ur Epithelial Cells (Negative) HPF Rare Urine Crystals (Negative) HPF Moderate Amorphous Urine Bacteria (Negative) HPF Rare Urine Casts (Negative) LPF Negative Urine Mucus (Negative) Negative Ur Culture Indicated? No Urine Glucose (Negative) mg/dL Negative POC- Test(urine) Negative
--- NOTE | 2023-04-12 23:54 | DI.VRAD_ITS ---
PROCEDURE INFORMATION: Exam: CT Abdomen And Pelvis With Contrast Exam date and time: 04/12/2023 10:51 PM Age: 38 years old Clinical indication: Other: Ruq pain leukocytosis TECHNIQUE: Imaging protocol: Computed tomography of the abdomen and pelvis with contrast. Radiation optimization: All CT scans at this facility use at least one of these dose optimization techniques: automated exposure control; mA and/or kV adjustment per patient size (includes targeted exams where dose is matched to clinical indication); or iterative reconstruction. Contrast material: OMNIPAQUE 350; Contrast volume: 100 ml; Contrast route: INTRAVENOUS (IV); COMPARISON: CT ABDOMEN PELVIS W 03/25/2023 11:09 AM FINDINGS: Tubes, catheters and devices: Retained epicardial pacer lead segment noted. Shunt catheter tubing in the right anterior chest wall extends into the right upper quadrant peritoneal space, with its tip in the posterior right mid abdominal peritoneal space. No tubing breakage or kink within the scan range. Lungs: Visualized lung bases are clear. Heart: Heart size upper limits of normal. Mediastinal space: The visualized distal esophagus is largely contracted without gross abnormality. Liver: Mildly irregular liver contour with hypertrophy of the left lobe and caudate suspicious for cirrhosis. No mass lesions. No intrahepatic biliary ductal dilatation. Gallbladder and bile ducts: Normal. No calcified stones. No ductal dilation. Pancreas: Normal. No inflammatory changes or ductal dilation. Spleen: Normal. No splenomegaly. Adrenal glands: Normal. No adrenal mass. Kidneys and ureters: 5 mm nonobstructive right renal stone. 5 mm nonobstructive left renal stone. No ureteral stones. No hydronephrosis or hydroureter. Stomach and bowel: Moderate food content in the stomach. A small portion of the medial gastric fundus herniates through a small Bochdalek's hernia in the posteromedial left hemidiaphragm with no evidence of obstruction or strangulation. Bowel configuration is consistent with congenital malrotation, with the colon in the left abdomen in the small bowel in the right abdomen. Excessive fluid content throughout the small and large bowel suggesting diarrheal state, with slight wall thickening/hyperenhancement which may represent changes of hepatic enteropathy/colopathy from cirrhosis and hypoproteinemia although can not exclude mild infectious/inflammatory enterocolitis. No evidence of obstruction or perforation. Appendix: The appendix is normal in caliber and demonstrates no evidence of appendicitis. Intraperitoneal space: Small volume simple intrapelvic free fluid, within physiologic range. No free air. Vasculature: No acute process. No abdominal aortic aneurysm. Lymph nodes: There are few mildly enlarged periportal nodes, nonspecific. Urinary bladder: Unremarkable as visualized. Reproductive: Uterus and left ovary are unremarkable. Right ovarian cyst demonstrates simple features, measuring 5.2 x 2.8 by 2.9 cm. This is increased in size from 03/25/2023. No solid nodularity or septation is evident. Ultrasound follow-up in 6-12 months is recommended. (Reference: Joseph) Bones/joints: No acute osseous abnormalities. Soft tissues: Unremarkable. IMPRESSION: 1. Shunt catheter tubing in the right anterior chest wall extends into the right upper quadrant of the abdomen. No evidence of tubing breakage or kink. 2. Morphologic changes in the liver suspicious for hepatic cirrhosis. 3. Small volume peritoneal free fluid. 4. Bilateral nonobstructive renal stones. No ureteral stones or hydronephrosis. 5. Congenital bowel malrotation. 6. Excessive fluid content throughout the small and large bowel suggesting diarrheal state, with slight wall thickening/hyperenhancement which may represent changes of hepatic enteropathy/colopathy although can not exclude mild infectious/inflammatory enterocolitis. No perforation or obstruction. 7. There is a 5.2 cm simple right ovarian cyst. Ultrasound follow-up in 6-12 months is recommended. 8. There are few mildly enlarged periportal nodes, nonspecific. 9. Additional nonemergent findings detailed above. REFERENCES: Joseph et al. Management of Incidental Adnexal Findings on CT and MRI: A White Paper of the ACR Incidental Findings Committee, J Am Jaden Radiol. 2019;17(2):248-254. Dictated and Authenticated by: Frankie Garduno MD. Ordering:TAE Spangler MD
[2023-04-13 00:19] VITALS: BP 132/76; PULSE 65; RESP 18; O2SAT 96
--- NOTE | 2023-04-13 02:11 | NUR.NOTE ---
Referral faxed to [facility] to f/u gaviota 04/13/23 if possible for abd pain.Nursing Note:
[2023-04-14 12:44] LABS: Chlamydia Result Negative (Negative); GC Result Negative (Negative)
== END 2023-04-13 00:20 | disposition home or self-care (01) ==
PROVIDERS: Emergency Provider Physician Assistant; PCP Nurse Practitioner
DX: R10.9 Unspecified abdominal pain (principal)
CPT/HCPCS: 80053; 81025; 83690; 87491; 87591; 99285; 74177; 81003; 81015; 85025; 87480; 87510; 87660; 99283; J3490

== ENCOUNTER 2023-04-13 10:26 | Outpatient (REF) | payer MEDICAID, SELFPAY ==
[2023-04-13 10:37] LABS: Abs Immature Grans 0.03 10^3/uL (0.0-0.06); Absolute Basophil Count 0.05 10^3/uL (0.0-0.2); Absolute Eosinophil Count 0.34 10^3/uL (0.0-0.7); Absolute Lymphocyte Count 2.37 10^3/uL (1.2-3.4); Absolute Monocyte Count 0.64 10^3/uL (0.1-0.8); Absolute Neutrophil Count 7.06 10^3/uL (1.2-6.7); Basophils % 0.5; Eosinophils % 3.2; HCT 40.4 % (36.0-46.0); HGB 13.7 g/dL (11.2-15.7); Immature Grans % 0.3; Lymphocytes % 22.6; MCH 26.9 pg (27.0-33.0); MCHC 33.9 % (32.0-36.0); MCV 79 fL (80-95); MPV 9.4 fL (8.0-11.0); Monocytes % 6.1; Neutrophils % 67.3; Platelet Count 356 10^3/uL (130-400); RDW 12.9 % (11.7-14.6); RDW-SD 36.7 fL; WBC 10.49 10^3/uL (4.4-10.8)
== END 2023-04-13 10:27 | disposition home or self-care (01) ==
LOC: LBN 10:26
PROVIDERS: PCP Nurse Practitioner; Visit Provider Physical Therapy Assistant
DX: R10.84 Generalized abdominal pain (principal); R10.13 Epigastric pain
CPT/HCPCS: 85025

== ENCOUNTER 2023-04-14 09:16 | Emergency (ER) | payer MEDICAID, SELFPAY ==
[2023-04-14 09:21] VITALS: BP 128/47; PULSE 82; RESP 16; TEMP 36.9; O2SAT 97
--- NOTE | 2023-04-14 10:15 | DI.US_ITS ---
Exam(s) US ABDOMEN LIMITED EXAM: US ABDOMEN LIMITED CLINICAL HISTORY: post parandial pain TECHNIQUE: Ultrasound abdomen performed using standard protocol. COMPARISON: US US PELVIS TRANSVAGINAL from 09/11/[address] ABDOMEN PELVIS W from 03/25/[address] ABDOMEN PELVIS W from 04/12/2023 FINDINGS: There is no ascites evident in these ultrasound images.. LIVER: There are no hepatic lesions evident nor dilatation of intrahepatic ducts. GALLBLADDER/BILIARY: There are no gallstones. No gallbladder wall edema nor pericholecystic fluid. The common hepatic duct isnot dilated, measuring 5mm at the level of feliberto hepatis. PANCREAS: There is no evidence of pancreatic mass nor dilatation of the pancreatic duct. RIGHT KIDNEY:No cysts nor solid masses. No obvious echogenic calculi nor hydronephrosis. IMPRESSION: 1. No evidence of cholelithiasis nor dilatation of the biliary tree. 2. No other significant ultrasound findings in the right upper quadrant. 3. Please note that this patient has small calculi seen in both kidneys as evident on recent CT scan of 04/12/2023. These are too small to appreciate on ultrasound. 4. Also please note that recent CT scan revealed the presence of a probable ventriculoperitoneal felisha nt with some mild perihepatic fluid in region of this shunt. That CT scan also revealed congenital bowel malrotation. As well as a 5 cm cyst in the right ovary. DATA REPOSITORY:
--- NOTE | 2023-04-14 10:30 | W.ED.GENAD ---
Discharge Plan Disposition Patient Disposition: Home Discharge Details Chief Complaint: Abd Prob Clinical Impression: Malrotation of intestine Primary Care Provider: Isabell Guthrie ED Provider: Cleveland Fry Home Meds and New Rx's Prescriptions: No Action Nexplanon 68 mg implant 1 implant SBD ONCE Qty: 1 0RF Rx Instructions: as a single dose hydroxyzine HCl 10 mg tablet 10 mg PO TID PRN (Reason: itching) Qty: 30 2RF clotrimazole 1 % cream 1 applic TP TID Qty: 30 0RF Rx Instructions: apply liberal amnt to L axilla 3x/d until resolved lamotrigine [Lamictal] 100 mg tablet See Rx Instructions PO DIRECTED Qty: 315 3RF Rx Instructions: 200 mg am, 150 mg pm NKHS albuterol sulfate 90 mcg/actuation HFA aerosol inhaler 2 puff inhalation Q6H PRN (Reason: shortness of breath or wheezing) Qty: 18 6RF metformin 500 mg tablet 500 mg PO BID Qty: 60 3RF fluoxetine [Prozac] 20 mg capsule 20 mg PO DAILY Qty: 90 3RF Rx Instructions: [facility] 01/24/18 [facility] trazodone 100 mg tablet 200 mg PO HS Qty: 180 1RF Rx Instructions: [facility] 01/24/18 [facility] Discharge Instructions Instructions: Ileus (ED) Additional Instructions: Your care was discussed with the [facility] surgery service. You may follow-up with them for your condition. You may also want to advise with your primary care provider. Please see information below [facility] Surgery Department phone: [phone]: Medical Decision Making GB disease vs sequelae from malrotation. PT was unaware of this condition. [facility] general surgery , recommends r/o of GB DX and follow up as outpatient for malrotation. GB US pending, LFT's and lipase ordered. Will reassess. . HPI General Date/Time Provider Initiated Documentation: 04/14/23 09:17. HPI Narrative: Patient with a history of transposition of the great vessels now with her 3rd visit to the ED with post parandial abdominal pain. Moderate to severe. No known GB disease. Was unaware of possible gut malrotation DX. Went to OB today for eval of ovarian cysts as cause of pain. Denies NVD or fevers. Distant follow up with GI but non recent. Hx of [employer]CH[employer] shunt, no abd surgery. Related Data Home Medications Medication Instructions Recorded Confirmed etonogestrel 68 mg subdermal 1 implant subdermal ONCE #1 ea 11/03/18 04/14/23 implant (Nexplanon) clotrimazole 1 % topical cream 1 applic topical TID #30 grams 08/22/21 04/14/23 albuterol sulfate 90 mcg/actuation 2 puff inhalation Q6H PRN 01/14/22 04/14/23 aerosol inhaler shortness of breath or wheezing #18 grams lamotrigine 100 mg tablet See Rx Instructions PO DIRECTED 01/14/22 04/14/23 (Lamictal) #315 tabs hydroxyzine HCl 10 mg tablet 10 mg PO TID PRN itching #30 tabs 05/28/22 04/14/23 metformin 500 mg tablet 500 mg PO BID #60 tabs 06/04/22 04/14/23 fluoxetine 20 mg capsule (Prozac) 20 mg PO DAILY #90 tab-caps 12/24/22 04/14/23 trazodone 100 mg tablet 200 mg PO HS #180 tab-caps 01/18/23 04/14/23 Previous Rx's Medication Instructions Recorded etonogestrel 68 mg subdermal 1 implant subdermal ONCE #1 ea 11/03/18 implant (Nexplanon) clotrimazole 1 % topical cream 1 applic topical TID #30 grams 08/22/21 albuterol sulfate 90 mcg/actuation 2 puff inhalation Q6H PRN 01/14/22 aerosol inhaler shortness of breath or wheezing #18 grams lamotrigine 100 mg tablet See Rx Instructions PO DIRECTED 01/14/22 (Lamictal) #315 tabs hydroxyzine HCl 10 mg tablet 10 mg PO TID PRN itching #30 tabs 05/28/22 metformin 500 mg tablet 500 mg PO BID #60 tabs 06/04/22 fluoxetine 20 mg capsule (Prozac) 20 mg PO DAILY #90 tab-caps 12/24/22 trazodone 100 mg tablet 200 mg PO HS #180 tab-caps 01/18/23 Allergies Allergy/AdvReac Type Severity Reaction Status Date / Time aspirin AdvReac Intermediate unable to Verified 04/14/23 09:27 take due to heart surgery ibuprofen AdvReac Unknown unknown Verified 04/14/23 09:27 General Stated Complaint: Abd Prob PAT: 3 Review of Systems Narrative: CONST: Negative for fever, body aches and chills. HENT: Negative for neck pain/stiffness, headache, congestion, sore throat, swelling. EYES: Negative for discharge/pain or vision changes. RESP: Negative for cough/hemoptysis and shortness of breath. CV: Negative chest pain, difficulty breathing, palpitations. ABD: , nausea, vomiting. : Negative increase frequency, dysuria, blood in urine or stool. MUSC: Negative for muscle aches, edema. SKIN: Negative rash, lesions/sores. NEURO: Negative headache, dizziness, weakness. PFSH All Active Problems (Updated 04/14/23 @ 11:22 by Cleveland Fry MD) Acute right flank pain (Acute) UTI (urinary tract infection) (Acute) Abdominal pain (Acute) Liver masses (Acute) Kidney stones (Chronic) Chlamydia infection (Acute) Pre-diabetes (Acute) Partial epilepsy (Acute) Asthma (Acute) Asthma exacerbation (Acute) CAP (community acquired pneumonia) (Acute) Low back pain (Acute) Cough (Acute) Cervicogenic headache (Acute) More of a localized head pain, but worse with supine position .. WHEN LAYING ON OCCIPUT Fungal rash of torso (Acute) Chest pain (Acute) Vitamin D deficiency (Chronic 07/16/17) Seizure disorder (Chronic) Dx at 21yo. 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 On meds. Previously seen at [facility]. 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 Depression (Chronic 07/16/17) Chronic anxiety (Acute 07/16/17) Anxiety with depression (Acute 07/16/17) Malrotation of intestine (Acute) Medical History Abnormal uterine bleeding (AUB) Hydrocephalus (01/23/16) Shunted at . Last repair 1994 at [facility]. No issues. Transposition of great vessels s/p surgery at [facility]. Pulmonary artery banding. removal of band at 22mo and closure of VSD. Surgical History History of transposition of great vessels (01/23/16) surgery at [facility] as a . Pulmonary artery banding. 22mo removal of PA band and closure of VSD. Pt is under impression that she should not be Pt is under impression that she should not become . 03/2016 [facility] records reviewed with [facility] Cardiology. No contraindication to . open heart surgery as for transposition of great vessels. Pulmonary artery banding at and removal of band @ 22mo and closure of VSD. Ventriculoperitoneal Shunt At ? Last surgery was 1994 @ [facility]. Family History Paternal Grandfather Diabetes Essential hypertension Coronary heart disease Brother ADHD Social History Smoking/Tobacco Use Status: Former Tobacco Use Second Hand Exposure: No Smoking risk assessment performed?: Yes Alcohol Intake: former Drug use: Never Substance use type: does not use Adopted: No Caregiver/Support person: No Foster care: No Household members: other Details: Has her own apartment Number of Children: 0 Education Level: high school current occupation: On disability for cognitive impairment Pets and animals: Yes Pets and animals: cat(s) and other Details: Rabbit Current gender identity: female What type of physical activity do you participate in: walking Frequency: 3-4 times per week Seatbelt use: always Do you feel safe at home: Yes Do you feel safe in your relationship?: Yes Female Reproductive History Menstrual control method: implanted History History 0 Para Hx # Term Pregnancies Multiple births Hx # Pregnancies Ectopic pregnancies AB induced Hx Number of Living Children AB spontaneous Exam Narrative Exam Narrative: GENERAL APPEARANCE NAD, activity normal for age, well developed/ well nourished, no cyanosis, pallor, or diaphoresis. EYES lids/conjunctiva normal. EARS/NOSE/THROAT Mucous membranes moist, nares normal, lips/teeth normal uvula midline without oral pharyngeal erythema, exudate or swelling No lymphangitis/lymphedema. HEAD/NECK normocephalic atraumatic, no facial trauma, neck is supple. RESPIRATORY respiratory effort normal, speaks in full sentences, no tripod position, no accessory muscle use. Lungs clear to auscultation without rhonchi, wheezes, rales CARDIAC Regular rate and rhythm, no edema. ABDOMINAL epigastric abd pain , no guarding no rebound MUSCLES/EXTREMITIES No abnormal range of motion, no swelling. SKIN Warm, pink and dry. No rashes, dermatoses, petechiae or lesions. NEUROLOGICAL Speech is clear and appropriate. Normal level of consciousness. Gait and coordination are normal. 5/5 strength in all extremities. PSYCH Normal mood and affect. Judgement/competence is appropriate Course Reevaluation(s) Time: 11:19 Reevaluation: Right upper quadrant ultrasound reveals no biliary pathology as the cause of the patient's pain. As per discussion with general surgery patient stable for outpatient management and I will give her referral with the [facility] general surgery. Recommend diet modification. No further work-up in the ED necessary. Vital Signs Vital signs: Vital Signs Temperature 36.9 C 04/14/23 09:21 Pulse 82 04/14/23 09:21 Respiratory Rate 16 04/14/23 09:21 Blood Pressure 128/47 L 04/14/23 09:21 Pulse Oximetry 97 04/14/23 09:21 Temperature 36.9 C 04/14/23 09:21 Temperature Source Oral 04/14/23 09:21 Pulse 82 04/14/23 09:21 Respiratory Rate 16 04/14/23 09:21 Respiratory Effort Normal 04/14/23 09:24 Blood Pressure 128/47 L 04/14/23 09:21 Blood Pressure Position Sitting 04/14/23 09:21 Pulse Oximetry 97 04/14/23 09:21 Oxygen Delivery Method Room Air 04/14/23 09:21 Oxygen Flow Rate 0 04/14/23 09:21 Pain Level 7 04/14/23 09:24 Lab/Test Results Lab/Test Results: Laboratory Tests Range/Units 04/14/23 04/14/23 09:26 09:26 WBC Cancelled RBC Cancelled Hgb Cancelled Hct Cancelled MCV Cancelled MCH Cancelled MCHC Cancelled RDW Cancelled Plt Count Cancelled MPV Cancelled Immature Gran % Cancelled Neutrophils % Cancelled Band Neutrophils % Cancelled Lymphocytes % Cancelled Atypical Lymphs % Cancelled Monocytes % Cancelled Eosinophils % Cancelled Basophils % Cancelled Metamyelocytes % Cancelled Myelocytes % Cancelled Promyelocytes % Cancelled Other Cells % Cancelled Nucleated RBC % Cancelled Absolute Neutrophils Cancelled Absolute Lymphocytes Cancelled Absolute Monocytes Cancelled Absolute Eosinophils Cancelled Absolute Basophils Cancelled RBC Morphology Cancelled Polychromasia Cancelled Hypochromasia Cancelled Poikilocytosis Cancelled Basophilic Stippling Cancelled Anisocytosis Cancelled Microcytosis Cancelled Macrocytosis Cancelled Spherocytes Cancelled Tear Drop Cells Cancelled Ovalocytes Cancelled Stomatocytes Cancelled [place] Bodies Cancelled Maris Cells/Echinocytes Cancelled Acanthocytes (Spur) Cancelled Schistocytes Cancelled Sodium Cancelled Potassium Cancelled Chloride Cancelled Carbon Dioxide Cancelled Anion Gap Cancelled BUN Cancelled Creatinine Cancelled Est GFR (CKD-EPI 2020) Cancelled Glucose Cancelled Calcium Cancelled Total Bilirubin Cancelled AST Cancelled ALT Cancelled Alkaline Phosphatase Cancelled Total Protein Cancelled Albumin Cancelled
[2023-04-14 10:33] LABS: Abs Immature Grans 0.02 10^3/uL (0.0-0.06); Absolute Basophil Count 0.04 10^3/uL (0.0-0.2); Absolute Eosinophil Count 0.27 10^3/uL (0.0-0.7); Absolute Lymphocyte Count 2.04 10^3/uL (1.2-3.4); Absolute Monocyte Count 0.56 10^3/uL (0.1-0.8); Absolute Neutrophil Count 4.79 10^3/uL (1.2-6.7); Basophils % 0.5; Eosinophils % 3.5; HCT 39.6 % (36.0-46.0); HGB 13.1 g/dL (11.2-15.7); Immature Grans % 0.3; Lymphocytes % 26.4; MCH 26.7 pg (27.0-33.0); MCHC 33.1 % (32.0-36.0); MCV 81 fL (80-95); MPV 9.2 fL (8.0-11.0); Monocytes % 7.3; Platelet Count 299 10^3/uL (130-400); RDW 12.9 % (11.7-14.6); RDW-SD 37.8 fL; WBC 7.72 10^3/uL (4.4-10.8)
[2023-04-14 11:04] LABS: ALT 34 U/L (14-59); AST 16 U/L (15-37); Albumin 3.7 g/dL (3.4-5.0); Alkaline Phosphatase 88 U/L (46-116); Anion Gap 8.5 mmol/L (3-11); BUN 12 mg/dL (7-18); Bilirubin, Total 0.2 mg/dL (0.2-1.0); CO2 27.5 mmol/L (21.0-32.0); CREATININE 0.9 mg/dL (0.55-1.02); Calcium 9.1 mg/dL (8.5-10.1); Chloride 103 mmol/L (98-107); Estimated GFR 84.44 (mL/min/1.73m2); Glucose 107 mg/dL (74-106); Potassium 3.7 mmol/L (3.5-5.1); Sodium 139 mmol/L (136-145); Total Protein 7.7 g/dL (6.4-8.2)
[2023-04-14 13:13] LABS: Lipase 35 U/L (16-77)
== END 2023-04-14 11:44 | disposition home or self-care (01) ==
PROVIDERS: Emergency Provider Emergency Medicine; PCP Nurse Practitioner
DX: Q43.3 Congenital malformations of intestinal fixation (principal)
CPT/HCPCS: 36415; 80053; 83690; 99284; 76705; 85025; 99283

== ENCOUNTER → 2023-08-24 12:25 | Outpatient (CLI) | payer MEDICAID, SELFPAY ==
--- NOTE | 2023-08-24 11:15 | DI.CT_ITS ---
Exam(s) CT HEAD WO EXAM: CT HEAD WO CLINICAL HISTORY: headache, vision change, dizzy for 1W. 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 TECHNIQUE: Imaging Protocol: Axial computed tomography images with coronal and sagittal reformatted images were created and reviewed COMPARISON: CT CT HEAD WO from 04/08/2020 FINDINGS: Ventricles and Extra axial spaces: Ventriculoperitoneal shunt in place. No change in ventricular siz e. Hemorrhage: None. Cerebral parenchyma: No evidence of acute infarct or mass. Midline shift: None. Brainstem/Cerebellum: Normal. Calvarium: Normal. Visualized Paranasal sinuses/Mastoids: From opacification of the right maxillary sinus. Mucosal thic kening or left maxillary sinus. Mild mucous retention ethmoid sinuses. Soft Tissues: Unremarkable. IMPRESSION: Ventriculoperitoneal shunt, no change.. No acute intracranial process. Chronic sinus disease, great est of right maxillary sinus. RADIATION DOSE DELIVERED: Total DLP DATA REPOSITORY: All CT scans at this facility are submitted to the National Radiology Data Registry (NRDR) Dose Index Registry (DIR) with the [employer] (A[employer]). RADIATION OPTIMIZATION: All CT scans at this facility use at least one of these dose optimization te chniques: automated exposure control; mA and/or kV adjustment per patient size (includes targeted exa ms where dose is matched to clinical indication); or iterative reconstruction.
== END ==
PROVIDERS: PCP Nurse Practitioner; Visit Provider Nurse Practitioner
DX: R42 Dizziness and giddiness (principal); R51.9 Headache, unspecified; Z98.2 Presence of cerebrospinal fluid drainage device; J32.0 Chronic maxillary sinusitis
CPT/HCPCS: 70450

== ENCOUNTER 2023-10-13 11:32 | Outpatient (REF) | payer MEDICAID, SELFPAY ==
[2023-10-14 13:53] LABS: GC Result Negative (Negative)
[2023-10-14 14:10] LABS: Specimen Description CERVIX
[2023-10-14 14:13] LABS: Chlamydia Result Positive (Negative)
== END 2023-10-13 11:33 | disposition home or self-care (01) ==
LOC: LBN 11:32
PROVIDERS: PCP Nurse Practitioner; Visit Provider Nurse Practitioner
DX: N76.0 Acute vaginitis; Z20.2 Contact with and (suspected) exposure to infections with a predominantly sexual mode of transmission
CPT/HCPCS: 87491; 87591; 87480; 87510; 87660

== ENCOUNTER 2023-10-15 02:28 | Outpatient (CLI) | payer MEDICAID, SELFPAY ==
[2023-10-16 09:56] LABS: HIV-1/2 Ag & Ab Screen Negative (Negative)
[2023-10-18 10:17] LABS: Hepatitis C Ab w Rflx HCV PCR Negative (Negative)
[2023-10-18 12:29] LABS: Syphilis Serology (RPR) Negative (Negative)
== END 2023-10-15 02:29 | disposition home or self-care (01) ==
LOC: LBO 02:28
PROVIDERS: Absent Provider Nurse Practitioner; PCP Nurse Practitioner; Referring Provider Nurse Practitioner; Visit Provider Nurse Practitioner
DX: Z11.3 Encounter for screening for infections with a predominantly sexual mode of transmission (principal); Z20.2 Contact with and (suspected) exposure to infections with a predominantly sexual mode of transmission
CPT/HCPCS: 36415; 86803; 87389; 86592

== ENCOUNTER 2023-11-27 16:59 | Emergency (ER) | payer MEDICAID, SELFPAY ==
[2023-11-27] VITALS (13 sets, daily range): BP systolic 142–159; BP diastolic 56–72; PULSE 64–74; RESP 13–23; TEMP 36.6; O2SAT 95–98
--- NOTE | 2023-11-27 17:08 | W.ED.GENAD ---
HPI General Mode of arrival: ambulatory. Date/Time Provider Initiated Documentation: 11/27/23 17:02. Limitations to Documentation: no limitations. Information obtained by: patient, family and RN notes reviewed. History of Present Illness 38 year old F presents to the emergency department with the chief complaint of Right-sided abdominal pain, described as moderate, with intensity rated at 8. Quality is described as sharp, and is localized to the abdomen. Patient reports no radiation. Patient started experiencing this day(s) (2) and it has been constant. No relieving factors improve symptom(s), No exacerbating factors reported . Patient notes no other symptoms.. Patient did receive the following treatments prior to arrival, none Related Data Home Medications Medication Instructions Recorded Confirmed etonogestrel 68 mg subdermal 1 implant subdermal ONCE #1 ea 11/03/18 11/27/23 implant (Nexplanon) clotrimazole 1 % topical cream 1 applic topical TID #30 grams 08/22/21 11/27/23 hydroxyzine HCl 10 mg tablet 10 mg PO TID PRN itching #30 tabs 05/28/22 11/27/23 fluoxetine 20 mg capsule (Prozac) 20 mg PO DAILY #90 tab-caps 12/24/22 11/27/23 albuterol sulfate 90 mcg/actuation 2 puff inhalation Q6H PRN 04/16/23 11/27/23 aerosol inhaler shortness of breath or wheezing #18 grams trazodone 100 mg tablet See Rx Instructions .Route 07/06/23 11/27/23 .COMPLEX #180 tabs metformin 500 mg tablet 500 mg PO BID #60 tabs 08/24/23 11/27/23 lamotrigine 100 mg tablet See Rx Instructions PO DIRECTED 11/16/23 11/27/23 (Lamictal) #315 tabs Previous Rx's Medication Instructions Recorded etonogestrel 68 mg subdermal 1 implant subdermal ONCE #1 ea 11/03/18 implant (Nexplanon) clotrimazole 1 % topical cream 1 applic topical TID #30 grams 08/22/21 hydroxyzine HCl 10 mg tablet 10 mg PO TID PRN itching #30 tabs 05/28/22 fluoxetine 20 mg capsule (Prozac) 20 mg PO DAILY #90 tab-caps 12/24/22 albuterol sulfate 90 mcg/actuation 2 puff inhalation Q6H PRN 04/16/23 aerosol inhaler shortness of breath or wheezing #18 grams trazodone 100 mg tablet See Rx Instructions .Route 07/06/23 .COMPLEX #180 tabs metformin 500 mg tablet 500 mg PO BID #60 tabs 08/24/23 lamotrigine 100 mg tablet See Rx Instructions PO DIRECTED 11/16/23 (Lamictal) #315 tabs Allergies Allergy/AdvReac Type Severity Reaction Status Date / Time aspirin AdvReac Intermediate unable to Verified 11/27/23 17:05 take due to heart surgery ibuprofen AdvReac Unknown unknown Verified 11/27/23 17:05 General Stated Complaint: Abd Prob PAT: 3 Review of Systems Constitutional Constitutional: Denies chills, Denies fever(s) and Reports poor appetite Cardiovascular Cardiovascular: Denies chest pain and Denies dyspnea Respiratory Respiratory: Denies cough and Denies dyspnea Gastrointestinal Gastrointestinal: Reports as per HPI, Reports abdominal pain, Denies melena, Denies change in bowel habits, Denies constipation, Denies diarrhea, Denies nausea and Denies vomiting Genitourinary Genitourinary: Denies hematuria, Denies dysuria, Denies pelvic pain and Denies vaginal discharge Integumentary/Breasts Skin/Breast: Denies rash Exam Const General: cooperative Orientation: alert, awake and oriented x3 Resp Effort & Inspection: normal respiratory effort and able to speak in complete sentences Auscultation: clear to auscultation bilaterally Cardio Rate: regular rate Rhythm: regular rhythm Heart Sounds: S1 normal and S2 normal GI Inspection: obesity Palpation: soft, not firm, guarding in the RLQ, no masses, no pulsatile masses, not rigid and tender in the RLQ, at McBurney's point and with rebound tenderness; Prince's sign negative and psoas sign negative Auscultation: hypoactive bowel sounds Back/Spine/Pelvis Back: no CVA tenderness Neuro General: patient alert, patient awake, patient oriented x3, gait normal and moves all extremities Medical Decision Making Patient presenting to the emergency department for chief complaint of abdominal pain. Patient reports 3 days ago she started having some right-sided abdominal pain. Around that same time she did have a bellybutton ring that she removed due to slight signs of infection. Patient states no umbilical pain or discomfort but did note some redness but having more right-sided belly pain now. Patient denies all other associated symptoms. Patient has past medical history of of GERD, anxiety, obesity, mild cognitive impairment, seizure disorder, hydrocephalus, s/p shunt placement, nephrolithiasis, fatty liver, vitamin D deficiency and history of VSD repair. Exam is positive for point tenderness to McBurney's point in the right lower quadrant, no perceived CVA tenderness, area well here healing where umbilical ring was removed with no signs of cellulitis induration or abscess, hypoactive bowel sounds, otherwise noncontributory exam. Will plan on checking labs, verifying status, and performing CT imaging. Pending results will give patient IV acetaminophen. Reviewed patient's labs and patient is not , urinalysis shows some blood but otherwise nondiagnostic, patient does have white count of 11.65 with slight elevated neutrophils. CMP is nondiagnostic, magnesium slightly low at 1.7 lipase within normal range. Reviewed CT imaging and radiologist interpretation that shows possible early appendicitis. Findings otherwise nonemergent with recommendation for hepatic ultrasound that can be done outpatient given I do not feel that this is acute and patient has normal LFTs. Reassessed patient and she did state improvement of pain after acetaminophen. Discussed case with general surgeon and reviewed CT imaging and radiologist interpretation, along with patient's history of multiple visits for right-sided abdominal pain. Given that patient has no left shift, symptoms have been going on for days, pain is completely resolved at this time, patient has no other associated symptoms to be on the pain feel low likelihood that this is acute appendicitis. High potential for this to either be pain from adnexal cyst rupture, chronic abdominal pain due to noted malrotation of intestines, or other in undifferentiated abdominal etiology. Given this patient will follow-up with general surgery office on Wednesday for reassessment otherwise informed both patient and sister who is with her that they should return for significant worsening of symptoms which were thoroughly discussed. After discussion of diagnosis and plan of care patient and sibling has no further needs, questions, or concerns and states clear understanding to return to the emergency department for any worsening symptoms. This documentation was generated using [employer] system, please disregard any oddities of phrase or misspellings. Imaging Data Radiologic Study: Imaging: CT Scan Radiologist's impression: Exam(s) Addendum created by Vj Jha MD on 11/27/2023 7:18:12 PM EST: THIS REPORT CONTAINS FINDINGS THAT MAY BE CRITICAL TO PATIENT CARE. The findings were verbally communicated via telephone conference with JOSE RAUL COLON at 7:17 PM EST on 11/27/2023. The findings were acknowledged and understood. Discussion regarding the possibility of an early acute appendicitis. Also discussion of minor free fluid in the right pelvis and Jolie adnexal region. Also discussed was the hepatic change and recommendation for liver ultrasound follow-up. Initial report created on 11/27/2023 7:13:24 PM EST: PROCEDURE INFORMATION: Exam: CT Abdomen And Pelvis With Contrast Exam date and time: 11/27/2023 5:59 PM Age: 38 years old Clinical indication: Other: Rlq pain TECHNIQUE: Imaging protocol: Computed tomography of the abdomen and pelvis with contrast. Contrast material: OMNI 350; Contrast volume: 100 ml; Contrast route: INTRAVENOUS (IV); COMPARISON: CT ABDOMEN PELVIS W 04/12/2023 10:51 PM FINDINGS: Lungs: Lung bases are clear. Pleural spaces: No pleural effusion. Heart: Mild cardiomegaly. No pericardial effusion. No coronary artery atherosclerotic calcium is visible. Liver: Diffuse mild fatty liver change. Moderate hepatic enlargement. Transverse hepatic diameter is 27 cm. There is an area of slight hyperattenuation or contrast blush in the inferior right hepatic lobe measuring 3.4 x 2.5 cm. This could represent an area of geographic fatty sparing. Possibility of a hemangioma should also be considered. An ultrasound follow-up of the liver may be helpful for further characterization. This is not definable on a previous CT 04/12/2023.. Portal vein opacifies. Gallbladder and bile ducts: Patient has had a previous cholecystectomy. There is no biliary dilatation. There are no ductal stones visible. Pancreas: The pancreas is normal in contour and attenuation. Spleen: The spleen is normal in size, contour and attenuation. Adrenal glands: The adrenal glands are normal in size and contour bilaterally. Kidneys and ureters: The kidneys bilaterally are unremarkable. Normal attenutation. No hydronephrosis. No calculi. Stomach and bowel: Gastric morphology is unremarkable. No edema. No gastric outlet obstruction. Small bowel malrotation. Duodenal is in the right abdomen. The duodenal does not pass through the retroperitoneum. Large bowel is unremarkable caliber. The right colon and cecum are more midline in location. Formed feces. No obstructive change. Appendix: The appendix is visualized on series 5: Images 70 through 68 extending rightward from the cecal tip. No acute inflammatory features. Intraperitoneal space: Small amount of free fluid in the pelvis in the region of the right adnexa. Nonspecific. Vasculature: Abdominal aorta and inferior vena cava are unremarkable. Lymph nodes: Unremarkable. No enlarged lymph nodes. Urinary bladder: Urinary bladder is unremarkable in appearance. No wall thickening. No intravesicular calculi. No intravesicular gas. Reproductive: Uterus is unremarkable in appearance. There is a nonspecific left ovarian cyst measuring 3.3 x 2.9 cm. Right adnexa is unremarkable. Minor free fluid in the pelvis and right Jolie adnexal region. This fluid appears simple based on attenuation coefficient. No free air in the abdomen. Bones/joints: Unremarkable. No acute fracture. Soft tissues: Soft tissues of the abdominal wall are unremarkable. There is a [employer]UIT [employer]ILL shunt catheter noted. There also appear to be abandoned epicardial pacer leads. Minor fat containing umbilical hernia. No acute change.. IMPRESSION: 1. Partial bowel malrotation. No acute bowel obstruction or bowel edema. 2. The appendix is identified. Appendix is gasless, but without edema or adjacent inflammatory change. No calculus. Please correlate clinically. Possibility of early appendicitis can not be excluded. 3. Minor free fluid in the right posterior pelvis and periadnexal region. 4. Left ovarian nonspecific 3.3 x 2.9 cm cyst. 5. Moderate hepatic steatosis and hepatomegaly. Inferior right hepatic area of relative increased attenuation. Consider geographic sparing of fat versus a hemangioma versus a mass. This was not present 04/12/2023. See axial series 5: Image 24. Ultrasound follow-up of the liver is recommended. Dictated and Authenticated by: Vj Jha MD. Lab Data Lab results reviewed: Yes I reviewed the patient's lab results. Quality:SDOH Health Related Social Needs: No Data to Display PFSH All Active Problems (Updated 11/27/23 @ 19:39 by Jose Raul Colon NP) Right sided abdominal pain (Acute) test negative (Acute) Chlamydia infection (Acute) Pre-diabetes (Acute) Partial epilepsy (Acute) Asthma (Acute) Asthma exacerbation (Acute) CAP (community acquired pneumonia) (Acute) Low back pain (Acute) Cough (Acute) Cervicogenic headache (Acute) More of a localized head pain, but worse with supine position .. WHEN LAYING ON OCCIPUT Fungal rash of torso (Acute) Chest pain (Acute) Vitamin D deficiency (Chronic 07/16/17) Seizure disorder (Chronic) Dx at 21yo. 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 On meds. Previously seen at [facility]. Now 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 Depression (Chronic 07/16/17) Chronic anxiety (Acute 07/16/17) Anxiety with depression (Acute 07/16/17) Malrotation of intestine (Acute) Medical History Abnormal uterine bleeding (AUB) Hydrocephalus (01/23/16) Shunted at . Last repair 1994 at [facility]. No issues. 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 Pulmonary artery banding. removal of band at 22mo and closure of VSD. 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 Pulmonary artery banding. 22mo removal of PA band and closure of VSD. Pt is under impression that she should not be Pt is under impression that she should not become . 03/2016 [facility] records reviewed with [facility] Cardiology. No contraindication to . open heart surgery as for transposition of great vessels. Pulmonary artery banding at and removal of band @ 22mo and closure of VSD. Ventriculoperitoneal Shunt At ? Last surgery was 1994 @ [facility]. Family History Paternal Grandfather Diabetes Essential hypertension Coronary heart disease Brother ADHD Social History Smoking/Tobacco Use Status: Former Tobacco Use Second Hand Exposure: No Smoking risk assessment performed?: Yes Alcohol Intake: former Drug use: Never Substance use type: does not use Adopted: No Caregiver/Support person: No Foster care: No Household members: other Details: Has her own apartment Housing: apartment Number of Children: 0 Education Level: high school current occupation: On disability for cognitive impairment Pets and animals: Yes Pets and animals: cat(s) and other Details: Rabbit Current gender identity: female What type of physical activity do you participate in: walking Frequency: 3-4 times per week Seatbelt use: always Do you feel safe at home: Yes Do you feel safe in your relationship?: Yes Female Reproductive History Menstrual control method: implanted History History 0 Para Hx # Term Pregnancies Multiple births Hx # Pregnancies Ectopic pregnancies AB induced Hx Number of Living Children AB spontaneous Discharge Plan Disposition Patient Disposition: Home Discharge Details Clinical Impression: Right sided abdominal pain Primary Care Provider: Isabell Guthrie ED Provider: Jose Raul Colon [place] Meds and New Rx's Prescriptions: No Action Nexplanon 68 mg implant 1 implant SBD ONCE Qty: 1 0RF Rx Instructions: as a single dose hydroxyzine HCl 10 mg tablet 10 mg PO TID PRN (Reason: itching) Qty: 30 2RF albuterol sulfate 90 mcg/actuation HFA aerosol inhaler 2 puff inhalation Q6H PRN (Reason: shortness of breath or wheezing) Qty: 18 6RF clotrimazole 1 % cream 1 applic TP TID Qty: 30 0RF Rx Instructions: apply liberal amnt to L axilla 3x/d until resolved fluoxetine [Prozac] 20 mg capsule 20 mg PO DAILY Qty: 90 3RF Rx Instructions: [facility] 01/24/18 cgc trazodone 100 mg tablet See Rx Instructions .ROUTE .COMPLEX Qty: 180 1RF Dose Instruction: TAKE TWO TABLETS BY MOUTH AT BEDTIME Rx Instructions: TAKE TWO TABLETS BY MOUTH AT BEDTIME metformin 500 mg tablet 500 mg PO BID Qty: 60 3RF lamotrigine [Lamictal] 100 mg tablet See Rx Instructions PO DIRECTED Qty: 315 3RF Rx Instructions: 200 mg am, 150 mg pm NK Discharge Instructions Instructions: Abdominal Pain (ED) Additional Instructions: Please continue to monitor symptoms and return immediately for any new or significant worsening of symptoms. This may include significant nausea and vomiting, for loss of appetite, fever, or severe worsening of pain Otherwise please follow-up with the general surgery office on Wednesday. You will need to call the office on Wednesday for arrangement of specific appointment time. Please continue to take [id number] acetaminophen as needed for pain and discomfort as discussed. Referrals: [facility] [Provider Group] - 11/30/23
--- NOTE | 2023-11-27 17:15 | DI.CT_ITS ---
Exam(s) CT ABDOMEN PELVIS W EXAM: CT ABDOMEN PELVIS W CLINICAL HISTORY: RLQ pain TECHNIQUE: Imaging Protocol: Axial computed tomography images with coronal and sagittal reformatted images were created and reviewed. CONTRAST MATERIAL: Intravenous: Omnipaque 350 Contrast volume:100 mL Oral: No COMPARISON: CT CT ABDOMEN PELVIS WO from 01/21/[address] ABDOMEN PELVIS W from 03/25/[address] ABDOMEN PELVIS W from 04/12/2023 FINDINGS: ABDOMEN: Lung Bases: Normal where visualized. Liver: Mild hepatomegaly. There again seen enhancing hepatic masses. The largest is again seen in t he inferior aspect of the right lobe of the liver. It measures 3.5 x 2.4 cm. This compares to 3.2 x 2.5 cm on the prior examination. No new hepatic masses are seen. Portal, Superior Mesenteric, and Splenic Veins: Unremarkable. Gallbladder and Biliary Tract: No radiodense calculus or dilation. Pancreas: Normal density, no abnormal calcifications or inflammatory process. Spleen: Normal. Adrenals: No masses seen. Kidneys: Normal size, contour and axis. No radiodense stones or obstructive uropathy. No masses seen. Abdominal Aorta: Abdominal portion non-dilated. Bowel: There is malrotation of the bowel. No evidence of bowel obstruction or bowel wall thickening. The appendix measures 6 mm in diameter at its widest. (Series 6, image 708. No wall enhancement o r Jolie appendiceal inflammatory changes are seen. There is no evidence of an appendicoliths. Peritoneal Cavity: There is a trace amount of free fluid in the pelvis which may be physiologic. No free air.There is a catheter seen in the right abdomen which may represent a ALUMINUM HYDROXIDE PROCESS OPERATOR shunt. Lymph Nodes: Within normal limits. Bones: Within normal limits for the patient's age. Soft Tissues: Unremarkable. PELVIS: Bladder: Symmetric distention, no gross wall thickening. Reproductive Organs: Unremarkable as visualized. There is a 3 cm left ovarian cyst (series 6, image 6 60). Lymph Nodes: Within normal limits. Bones: Within normal limits for the patient's age. IMPRESSION: 1. The appendix measures 6 cm in diameter. No appendicoliths, wall thickening/enhancement or Jolie ap pendiceal inflammatory changes are seen. Early appendicitis cannot be entirely excluded. Follow-up as clinically appropriate. 2. No abscess or free air. 3. Stable hepatic masses. 4. 3 cm left ovarian cyst. RADIATION DOSE DELIVERED: 1,105.34mGy.cm Total DLP DATA REPOSITORY: All CT scans at this facility are submitted to the National Radiology Data Registry (NRDR) Dose Index Registry (DIR) with the [employer] (ACR). RADIATION OPTIMIZATION: All CT scans at this facility use at least one of these dose optimization te chniques: automated exposure control; mA and/or kV adjustment per patient size (includes targeted exa ms where dose is matched to clinical indication); or iterative reconstruction.
[2023-11-27 17:26] LABS: Bilirubin Negative (Negative); Blood Moderate (Negative); Clarity Clear (Clear); Glucose Negative (Negative); Ketones Negative (Negative); Leukocyte Esterase Negative (Negative); Nitrite Negative (Negative); Specific Gravity 1.025 (1.005-1.025); Urobilinogen 0.2 mg/dL (Up to 0.2)
[2023-11-27 17:39] LABS: Bacteria Rare HPF (Negative); C & S Indicated? No; Casts Negative LPF (Negative); Crystals Negative HPF (Negative); Epithelial Cells Few HPF (Negative); Mucus Trace (Negative); WBC 0-2 HPF (0-5)
[2023-11-27 17:48] LABS: Abs Immature Grans 0.04 10^3/uL (0.0-0.06); Absolute Basophil Count 0.08 10^3/uL (0.0-0.2); Absolute Eosinophil Count 0.41 10^3/uL (0.0-0.7); Absolute Lymphocyte Count 3.32 10^3/uL (1.2-3.4); Absolute Monocyte Count 0.75 10^3/uL (0.1-0.8); Basophils % 0.7; Eosinophils % 3.5; HCT 37.1 % (36.0-46.0); HGB 12.5 g/dL (11.2-15.7); Immature Grans % 0.3; Lymphocytes % 28.5; MCH 26.8 pg (27.0-33.0); MCHC 33.7 % (32.0-36.0); MCV 79 fL (80-95); MPV 8.8 fL (8.0-11.0); Monocytes % 6.4; Neutrophils % 60.6; Platelet Count 391 10^3/uL (130-400); RBC 4.67 10^6/uL (3.93-5.22); RDW 12.7 % (11.7-14.6); WBC 11.65 10^3/uL (4.4-10.8)
[2023-11-27 17:49] LABS: Absolute Neutrophil Count 7.06 10^3/uL (1.2-6.7)
[2023-11-27] MEDS: ACETAMINOPHEN 1,000 MG/100 ML BTL 400 MG IVPB (17:55)
[2023-11-27] MEDS: Omnipaque 350 MG/ML 100 ML BTL IJ (18:01)
[2023-11-27] MEDS: Normal Saline - Diluent 50 ML VIAL IJ (18:02)
[2023-11-27 18:05] LABS: ALT 28 U/L (14-59); AST 20 U/L (15-37); Albumin 3.9 g/dL (3.4-5.0); Alkaline Phosphatase 81 U/L (46-116); Anion Gap 9.6 mmol/L (3-11); BUN 15 mg/dL (7-18); Bilirubin, Total 0.2 mg/dL (0.2-1.0); CO2 27.4 mmol/L (21.0-32.0); CREATININE 0.9 mg/dL (0.55-1.02); Calcium 9.3 mg/dL (8.5-10.1); Chloride 102 mmol/L (98-107); Estimated GFR 84.44 (mL/min/1.73m2); Glucose 90 mg/dL (74-106); Lipase 48 U/L (16-77); Magnesium 1.7 mg/dL (1.8-2.4); Potassium 3.9 mmol/L (3.5-5.1); Sodium 139 mmol/L (136-145)
--- NOTE | 2023-11-27 19:13 | DI.VRAD_ITS ---
Addendum created by Vj Jha MD on 11/27/2023 7:18:12 PM EST: THIS REPORT CONTAINS FINDINGS THAT MAY BE CRITICAL TO PATIENT CARE. The findings were verbally communicated via telephone conference with ARIEL QUEEN at 7:17 PM EST on 11/27/2023. The findings were acknowledged and understood. Discussion regarding the possibility of an early acute appendicitis. Also discussion of minor free fluid in the right pelvis and Jolie adnexal region. Also discussed was the hepatic change and recommendation for liver ultrasound follow-up. Initial report created on 11/27/2023 7:13:24 PM EST: PROCEDURE INFORMATION: Exam: CT Abdomen And Pelvis With Contrast Exam date and time: 11/27/2023 5:59 PM Age: 38 years old Clinical indication: Other: Rlq pain TECHNIQUE: Imaging protocol: Computed tomography of the abdomen and pelvis with contrast. Contrast material: OMNI 350; Contrast volume: 100 ml; Contrast route: INTRAVENOUS (IV); COMPARISON: CT ABDOMEN PELVIS W 04/12/2023 10:51 PM FINDINGS: Lungs: Lung bases are clear. Pleural spaces: No pleural effusion. Heart: Mild cardiomegaly. No pericardial effusion. No coronary artery atherosclerotic calcium is visible. Liver: Diffuse mild fatty liver change. Moderate hepatic enlargement. Transverse hepatic diameter is 27 cm. There is an area of slight hyperattenuation or contrast blush in the inferior right hepatic lobe measuring 3.4 x 2.5 cm. This could represent an area of geographic fatty sparing. Possibility of a hemangioma should also be considered. An ultrasound follow-up of the liver may be helpful for further characterization. This is not definable on a previous CT 04/12/2023.. Portal vein opacifies. Gallbladder and bile ducts: Patient has had a previous cholecystectomy. There is no biliary dilatation. There are no ductal stones visible. Pancreas: The pancreas is normal in contour and attenuation. Spleen: The spleen is normal in size, contour and attenuation. Adrenal glands: The adrenal glands are normal in size and contour bilaterally. Kidneys and ureters: The kidneys bilaterally are unremarkable. Normal attenutation. No hydronephrosis. No calculi. Stomach and bowel: Gastric morphology is unremarkable. No edema. No gastric outlet obstruction. Small bowel malrotation. Duodenal is in the right abdomen. The duodenal does not pass through the retroperitoneum. Large bowel is unremarkable caliber. The right colon and cecum are more midline in location. Formed feces. No obstructive change. Appendix: The appendix is visualized on series 5: Images 70 through 68 extending rightward from the cecal tip. No acute inflammatory features. Intraperitoneal space: Small amount of free fluid in the pelvis in the region of the right adnexa. Nonspecific. Vasculature: Abdominal aorta and inferior vena cava are unremarkable. Lymph nodes: Unremarkable. No enlarged lymph nodes. Urinary bladder: Urinary bladder is unremarkable in appearance. No wall thickening. No intravesicular calculi. No intravesicular gas. Reproductive: Uterus is unremarkable in appearance. There is a nonspecific left ovarian cyst measuring 3.3 x 2.9 cm. Right adnexa is unremarkable. Minor free fluid in the pelvis and right Jolie adnexal region. This fluid appears simple based on attenuation coefficient. No free air in the abdomen. Bones/joints: Unremarkable. No acute fracture. Soft tissues: Soft tissues of the abdominal wall are unremarkable. There is a CLUBHOUSE MANAGER shunt catheter noted. There also appear to be abandoned epicardial pacer leads. Minor fat containing umbilical hernia. No acute change.. IMPRESSION: 1. Partial bowel malrotation. No acute bowel obstruction or bowel edema. 2. The appendix is identified. Appendix is gasless, but without edema or adjacent inflammatory change. No calculus. Please correlate clinically. Possibility of early appendicitis can not be excluded. 3. Minor free fluid in the right posterior pelvis and periadnexal region. 4. Left ovarian nonspecific 3.3 x 2.9 cm cyst. 5. Moderate hepatic steatosis and hepatomegaly. Inferior right hepatic area of relative increased attenuation. Consider geographic sparing of fat versus a hemangioma versus a mass. This was not present 04/12/2023. See axial series 5: Image 24. Ultrasound follow-up of the liver is recommended. Dictated and Authenticated by: Vj Jha MD. Ordering:REJI Blunt MD
--- NOTE | 2023-11-27 19:41 | SCONE_ITS ---
Date of service: 11/27/23 Time of Service: 19:42 Assessment and Plan Assessment and plan (1) Right sided abdominal pain: Status: Acute Assessment and plan: 38-year-old woman who has on chronic right?sided abdominal pain. Certainly the differential diagnosis includes appendicitis however CT scan states her cecum and right colon are in the midline secondary to malrotation and thus appendicitis would not be expected in the right lower quadrant. Ignoring the chronicity of right?sided pain for her, the acute presentation today is reportedly for 2 days. After 2 days of appendicitis, 1 would suspect significant inflammation to be visible on CT scan and 2 days of appendicitis would NOT be early. She has a mild/minimal leukocytosis without a shift and again, she has multiple prior lab work showing chronic slightly elevated leukocytosis. I think I counted 7 CT scans of the abdomen and pelvis in the last 2 years for right?sided abdominal pain and that is only this hospital. Who knows if she has gone elsewhere and gotten other scans. She is hemodynamically stable and her abdominal exam, while focally tender, is essentially benign and without peritonitis. I think she can be safely discharged home but this warrants more outpatient workup and I want her to have follow-up this week in the surgery office. Malrotation can present with on and off, chronic abdominal discomfort and I am suspicious this is her underlying problem. She should at least be offered the option of an elective, outpatient diagnostic laparoscopy with likely Stephen's procedure to include removing the appendix out of the picture anyway since it is in an unusual anatomic location. Plan: Offer her follow-up in the surgery office this week. If anything otherwise worsens she can return to the ER for repeat clinical evaluation and abdominal exam. I really do not think she needs another CT scan of the abdomen/pelvis in the future unless extreme clinical circumstances (such as trauma or septic shock) warrant it. All of this was discussed, in detail with the ER provider. History of Present Illness Narrative: Phone consult - history per chart and ED provider Called by ED provider because show CT scan reading: cannot rule out early appendicitis. 38-year-old woman presents with 2 days of constant, right-sided abdominal pain. No fevers. She has a history of multiple ED visits for right?sided pain over the last few years. She has had multiple CT scans. She had her gallbladder removed. She frequently has a low?grade leukocytosis on lab work. She has known malrotation. [facility] All Active Problems (Updated 11/27/23 @ 19:39 by Jose Raul Colon NP) Right sided abdominal pain (Acute) test negative (Acute) Chlamydia infection (Acute) Pre-diabetes (Acute) Partial epilepsy (Acute) Asthma (Acute) Asthma exacerbation (Acute) CAP (community acquired pneumonia) (Acute) Low back pain (Acute) Cough (Acute) Cervicogenic headache (Acute) More of a localized head pain, but worse with supine position .. WHEN LAYING ON OCCIPUT Fungal rash of torso (Acute) Chest pain (Acute) Vitamin D deficiency (Chronic 07/16/17) Seizure disorder (Chronic) Dx at 21yo. 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 On meds. Previously seen at [facility]. 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 Depression (Chronic 07/16/17) Chronic anxiety (Acute 07/16/17) Anxiety with depression (Acute 07/16/17) Malrotation of intestine (Acute) Medical History Abnormal uterine bleeding (AUB) Hydrocephalus (01/23/16) Shunted at . Last repair 1994 at [facility]. No issues. 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 Pulmonary artery banding. removal of band at 22mo and closure of VSD. Surgical History History of transposition of great vessels (01/23/16) surgery at [facility] as a . Pulmonary artery banding. 22mo removal of PA band and closure of VSD. Pt is under impression that she should not be Pt is under impression that she should not become . 03/2016 [facility] records reviewed with [facility] Cardiology. No contraindication to . open heart surgery as infant for transposition of great vessels. Pulmonary artery banding at and removal of band @ 22mo and closure of VSD. Ventriculoperitoneal Shunt At ? Last surgery was 1994 @ [facility]. Family History Paternal Grandfather Diabetes Essential hypertension Coronary heart disease Brother ADHD Social History Smoking/Tobacco Use Status: Former Tobacco Use Second Hand Exposure: No Smoking risk assessment performed?: Yes Alcohol Intake: former Drug use: Never Substance use type: does not use Adopted: No Caregiver/Support person: No Foster care: No Household members: other Details: Has her own apartment Housing: apartment Number of Children: 0 Education Level: high school current occupation: On disability for cognitive impairment Pets and animals: Yes Pets and animals: cat(s) and other Details: Rabbit Current gender identity: female What type of physical activity do you participate in: walking Frequency: 3-4 times per week Seatbelt use: always Do you feel safe at home: Yes Do you feel safe in your relationship?: Yes Female Reproductive History Menstrual control method: implanted History History 2 0 Para Hx # Term Pregnancies Multiple births Hx # Pregnancies Ectopic pregnancies AB induced Hx Number of Living Children AB spontaneous Exam Narrative Exam Narrative: Per ER provider over the phone: Hemodynamically stable with normal vital signs and afebrile. Patient is obese Patient's abdominal exam is focal McBurney point tenderness in the right lower quadrant. Results Last Vital Signs Temp 97.9 F 11/27/23 17:17 Pulse 64 11/27/23 19:31 Resp 18 11/27/23 19:31 BP 143/63 H 11/27/23 19:31 Pulse Ox 96 11/27/23 19:31 Labs 11/27/23 17:40 11/27/23 17:40 Labs: Laboratory Results - last 24 hr 11/27/23 11/27/23 11/27/23 17:13 17:40 18:50 WBC 11.65 H RBC 4.67 Hgb 12.5 Hct 37.1 MCV 79 L MCH 26.8 L MCHC 33.7 RDW 12.7 Plt Count 391 MPV 8.8 Immature Gran % 0.3 Neutrophils % 60.6 Lymphocytes % 28.5 Monocytes % 6.4 Eosinophils % 3.5 Basophils % 0.7 Nucleated RBC % 0.0 Absolute Neutrophils 7.06 H Absolute Lymphocytes 3.32 Absolute Monocytes 0.75 Absolute Eosinophils 0.41 Absolute Basophils 0.08 Sodium 139 Potassium 3.9 Chloride 102 Carbon Dioxide 27.4 Anion Gap 9.6 BUN 15 Creatinine 0.9 Est GFR (CKD-EPI 2020) 84.44 Glucose 90 Calcium 9.3 Magnesium 1.7 L Total Bilirubin 0.2 AST 20 ALT 28 Alkaline Phosphatase 81 Total Protein 8.0 Albumin 3.9 Lipase 48 Urine Color Yellow Urine Clarity Clear Urine pH 6.0 Ur Specific [place] 1.025 Urine Protein Negative Urine Ketones Negative Urine Blood Moderate H Urine Nitrite Negative Urine Bilirubin Negative Urine Urobilinogen 0.2 Ur Leukocyte Esterase Negative Urine RBC 3-5 H Urine WBC 0-2 Ur Epithelial Cells Few Urine Crystals Negative Urine Bacteria Rare Urine Casts Negative Urine Mucus Trace Urine Other Rare [place] Ur Culture Indicated? No Urine Glucose Negative Salicylates Cancelled Acetaminophen Cancelled Ethyl Alcohol Cancelled
== END 2023-11-27 20:31 | disposition home or self-care (01) ==
PROVIDERS: Emergency Provider Nurse Practitioner Family; PCP Nurse Practitioner
DX: R10.32 Left lower quadrant pain (principal); N83.202 Unspecified ovarian cyst, left side; Z87.891 Personal history of nicotine dependence
CPT/HCPCS: 00123; 80053; 81025; 83690; 96374; 99285; 74177; 80320; 80329; 81003; 81015; 83735; 85025; 99284; J0131; J3490

== ENCOUNTER 2023-12-17 13:25 | Emergency (ER) | payer MEDICAID, SELFPAY ==
[2023-12-17 13:33] VITALS: BP 167/64; PULSE 83; RESP 16; TEMP 36.7; O2SAT 95
[2023-12-17 14:19] LABS: Bilirubin Negative (Negative); Blood Negative (Negative); Clarity Clear (Clear); Glucose Negative (Negative); Ketones Negative (Negative); Leukocyte Esterase Trace (Negative); Nitrite Negative (Negative); Specific Gravity 1.025 (1.005-1.025); Urobilinogen 0.2 mg/dL (Up to 0.2)
[2023-12-17 14:24] LABS: Bacteria Rare HPF (Negative); C & S Indicated? No/Sq. Contamination; Casts Negative LPF (Negative); Crystals Negative HPF (Negative); Epithelial Cells Moderate HPF (Negative); Mucus Negative (Negative); RBC 0-2 HPF (0-2)
--- NOTE | 2023-12-17 14:34 | ED.GENADUL_ITS ---
HPI General Mode of arrival: ambulatory . Date/Time Provider Initiated Documentation: 12/17/23 13:36 . Limitations to Documentation: no limitations . Information obtained by: patient . History of Present Illness 38 year old F presents to the emergency department with the chief complaint of right flank pain, described as moderate, Quality is described as aching, and it has been constant. No relieving factors improve symptom(s), No exacerbating factors reported . Patient notes no other symptoms.; denies chest pain, fever/chills and shortness of breath. Patient did receive the following treatments prior to arrival, none Related Data Home Medications Medication Instructions Recorded Confirmed etonogestrel 68 mg subdermal 1 implant subdermal ONCE #1 ea 11/03/18 12/17/23 implant (Nexplanon) clotrimazole 1 % topical cream 1 applic topical TID #30 grams 08/22/21 12/17/23 hydroxyzine HCl 10 mg tablet 10 mg PO TID PRN itching #30 tabs 05/28/22 12/17/23 fluoxetine 20 mg capsule (Prozac) 20 mg PO DAILY #90 tab-caps 12/24/22 12/17/23 albuterol sulfate 90 mcg/actuation 2 puff inhalation Q6H PRN 04/16/23 12/17/23 aerosol inhaler shortness of breath or wheezing #18 grams trazodone 100 mg tablet See Rx Instructions .Route 07/06/23 12/17/23 .COMPLEX #180 tabs metformin 500 mg tablet 500 mg PO BID #60 tabs 08/24/23 12/17/23 lamotrigine 100 mg tablet See Rx Instructions PO DIRECTED 11/16/23 12/17/23 (Lamictal) #315 tabs Previous Rx's Medication Instructions Recorded etonogestrel 68 mg subdermal 1 implant subdermal ONCE #1 ea 11/03/18 implant (Nexplanon) clotrimazole 1 % topical cream 1 applic topical TID #30 grams 08/22/21 hydroxyzine HCl 10 mg tablet 10 mg PO TID PRN itching #30 tabs 05/28/22 fluoxetine 20 mg capsule (Prozac) 20 mg PO DAILY #90 tab-caps 12/24/22 albuterol sulfate 90 mcg/actuation 2 puff inhalation Q6H PRN 04/16/23 aerosol inhaler shortness of breath or wheezing #18 grams trazodone 100 mg tablet See Rx Instructions .Route 07/06/23 .COMPLEX #180 tabs metformin 500 mg tablet 500 mg PO BID #60 tabs 08/24/23 lamotrigine 100 mg tablet See Rx Instructions PO DIRECTED 11/16/23 (Lamictal) #315 tabs Allergies Allergy/AdvReac Type Severity Reaction Status Date / Time aspirin AdvReac Intermediate unable to Verified 12/17/23 13:31 take due to heart surgery ibuprofen AdvReac Unknown unknown Verified 12/17/23 13:31 General Stated Complaint: Abd Prob PAT: 3 Review of Systems All systems reviewed & are unremarkable except as noted in HPI and below Constitutional Constitutional: Denies chills, Denies fever(s) and Denies weakness Cardiovascular Cardiovascular: Denies chest pain and Denies dyspnea Respiratory Respiratory: Denies cough and Denies dyspnea Gastrointestinal Gastrointestinal: Denies nausea and Denies vomiting Genitourinary Genitourinary: Denies dysuria Musculoskeletal Musculoskeletal: Denies joint swelling Integumentary/Breasts Skin/Breast: Denies rash Neurologic Neurologic: Denies weakness Exam Const General: no acute distress Orientation: alert [facility] Head: normal to inspection Ears: external ears normal General nose exam: external nose normal Mouth: moist mucous membranes Eyes General: appearance normal, both eyes and all related structures Neck Neck: normal visual inspection Resp Effort & Inspection: normal respiratory effort and able to speak in complete sentences Cardio Rate: regular rate GI Palpation: soft, not firm and no guarding Skin General skin exam: no rashes or lesions noted Neuro General: patient alert and patient oriented x3 Extrem General: normal to inspection Psych Mental Status: mental status grossly normal Course Vital Signs Vital signs: Vital Signs Temperature 36.7 C 12/17/23 13:33 Pulse 83 12/17/23 13:33 Respiratory Rate 16 12/17/23 13:33 Blood Pressure 167/64 H 12/17/23 13:33 Pulse Oximetry 95 12/17/23 13:33 Temperature 36.7 C 12/17/23 13:33 Temperature Source Skin 12/17/23 13:33 Pulse 83 12/17/23 13:33 Respiratory Rate 16 12/17/23 13:33 Respiratory Effort Normal, Non-Labored 12/17/23 13:36 Blood Pressure 167/64 H 12/17/23 13:33 Pulse Oximetry 95 12/17/23 13:33 Pain Level 6 12/17/23 13:33 Lab/Test Results Lab/Test Results: Laboratory Tests Range/Units 12/17/23 14:05 Urine Color (Yellow) Yellow Urine Clarity (Clear) Clear Urine pH (5-8) 6.0 Ur Specific [place] (1.005-1.025) 1.025 Urine Protein (Neg-Trace) mg/dL Negative Urine Ketones (Negative) mg/dL Negative Urine Blood (Negative) Negative Urine Nitrite (Negative) Negative Urine Bilirubin (Negative) Negative Urine Urobilinogen (Up to 0.2) mg/dL 0.2 Ur Leukocyte Esterase (Negative) Trace H Urine RBC (0-2) HPF 0-2 Urine WBC (0-5) HPF 3-5 Ur Epithelial Cells (Negative) HPF Moderate Urine Crystals (Negative) HPF Negative Urine Bacteria (Negative) HPF Rare Urine Casts (Negative) LPF Negative Urine Mucus (Negative) Negative Ur Culture Indicated? No/Sq. Contamination Urine Glucose (Negative) mg/dL Negative Medical Decision Making 38-year-old female with a history of transposition of the great vessels r equiring surgery and she was a child, anxiety, who has had prolonged chronic right-sided flank pain with 7 CAT scans within the last 1 to 2 years, who comes in with continued right sided upper flank pain. She denies any new trauma or falls, no fevers no vomiting, no chest pain or shortness of breath. She localizes the pain to the right upper oblique area, has no visible or palpable deformity is mildly tender here. No other tenderness in the abdomen on exam. She appears well speaking in full sentences. Unclear etiology for her continued pain, she has seen general surgery in the recent past and they do not feel there is any surgical pathology at this time. Will check CBC CMP lipase and reassess after droperidol. She request to try and defer CAT scan at this time which I feel is reasonable. Patient stable, declined droperidol but requested IV Tylenol which significantly helped her pain. Labs unremarkable has a chronically elevated mild leukocytosis with white count of 14 today. No tenderness on exam. Given multiple recent imaging studies do not feel acute emergent imaging indicated. She is stable for discharge advised to follow-up with her primary care and return precautions given Differential Diagnosis Differential Diagnosis: Musculoskeletal pain, biliary colic Medical Records Medical records reviewed: Yes I reviewed the patient's medical records. Lab Data Lab results reviewed: Yes I reviewed the patient's lab results. Quality:[facility] Health Related Social Needs: No Data to Display [facility] All Active Problems (Updated 12/17/23 @ 15:24 by Brian Carrera MD) Right flank pain, chronic (Acute) Right sided abdominal pain (Acute) Pre-diabetes (Acute) Partial epilepsy (Acute) Asthma (Acute) Asthma exacerbation (Acute) CAP (community acquired pneumonia) (Acute) Low back pain (Acute) Cough (Acute) Cervicogenic headache (Acute) More of a localized head pain, but worse with supine position .. WHEN LAYING ON OCCIPUT Fungal rash of torso (Acute) Chest pain (Acute) Vitamin D deficiency (Chronic 07/16/17) Seizure disorder (Chronic) Dx at 21yo. 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 On meds. Previously seen at [facility]. 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 Depression (Chronic 07/16/17) Chronic anxiety (Acute 07/16/17) Anxiety with depression (Acute 07/16/17) Malrotation of intestine (Acute) Medical History (Updated 12/17/23 @ 15:24 by Brian Carrera MD) Left ovarian cyst Incidental finding on CT scan - likely physiologic Hydrocephalus (01/23/16) Shunted at . Last repair 1994 at [facility]. No issues. 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 Pulmonary artery banding. removal of band at 22mo and closure of VSD. 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 Pulmonary artery banding. 22mo removal of PA band and closure of VSD. Pt is under impression that she should not be Pt is under impression that she should not become . 03/2016 [facility] recor ds reviewed with [facility] Cardiology. No contraindication to . open heart surgery as infant for transposition of great vessels. Pulmonary artery banding at and removal of band @ 22mo and closure of VSD. Ventriculoperitoneal Shunt At ? Last surgery was 1994 @ [facility]. Family History Paternal Grandfather Diabetes Essential hypertension Coronary heart disease Brother ADHD Social History Smoking/Tobacco Use Status: Former Tobacco Use Second Hand Exposure: No Smoking risk assessment performed?: Yes Alcohol Intake: former Drug use: Never Substance use type: does not use Adopted: No Caregiver/Support person: No Foster care: No Household members: other Details: Has her own apartment Housing: apartment Number of Children: 0 Education Level: high school current occupation: On disability for cognitive impairment Pets and animals: Yes Pets and animals: cat(s) and other Details: Rabbit Current gender identity: female What type of physical activity do you participate in: walking Frequency: 3-4 times per week Seatbelt use: always Do you feel safe at home: Yes Do you feel safe in your relationship?: Yes Female Reproductive History Menstrual control method: implanted History History 0 Para Hx # Term Pregnancies Multiple births Hx # Pregnancies Ectopic pregnancies AB induced Hx Number of Living Children AB spontaneous Discharge Plan Disposition Patient Disposition: Home Condition: Stable Discharge Details Clinical Impression: Right flank pain, chronic Primary Care Provider: Isabell Guthrie ED Provider: Brian Carrera [place] Meds and New Rx's Prescriptions: Continued Nexplanon 68 mg implant 1 implant SBD ONCE Qty: 1 0RF Rx Instructions: as a single dose hydroxyzine HCl 10 mg tablet 10 mg PO TID PRN (Reason: itching) Qty: 30 2RF albuterol sulfate 90 mcg/actuation HFA aerosol inhaler 2 puff inhalation Q6H PRN (Reason: shortness of breath or wheezing) Qty: 18 6RF clotrimazole 1 % cream 1 applic TP TID Qty: 30 0RF Rx Instructions: apply liberal amnt to L axilla 3x/d until resolved fluoxetine [Prozac] 20 mg capsule 20 mg PO DAILY Qty: 90 3RF Rx Instructions: [facility] 01/24/18 cgc trazodone 100 mg tablet See Rx Instructions .ROUTE .COMPLEX Qty: 180 1RF Dose Instruction: TAKE TWO TABLETS BY MOUTH AT BEDTIME Rx Instructions: TAKE TWO TABLETS BY MOUTH AT BEDTIME metformin 500 mg tablet 500 mg PO BID Qty: 60 3RF lamotrigine [Lamictal] 100 mg tablet See Rx Instructions PO DIRECTED Qty: 315 3RF Rx Instructions: 200 mg am, 150 mg pm [facility] Discharge Instructions Instructions: Chronic Pain (ED) Additional Instructions: Follow-up with your primary care provider within 1 to 2 weeks If you feel more ill, have new pain such as severe chest pain, or new symptoms such as high fevers return to the emergency department
[2023-12-17 15:10] LABS: Abs Immature Grans 0.07 10^3/uL (0.0-0.06); Absolute Eosinophil Count 0.62 10^3/uL (0.0-0.7); Absolute Lymphocyte Count 3.37 10^3/uL (1.2-3.4); Absolute Monocyte Count 0.78 10^3/uL (0.1-0.8); Basophils % 0.7; Eosinophils % 4.4; HGB 12.5 g/dL (11.2-15.7); Immature Grans % 0.5; Lymphocytes % 23.8; MCH 26.4 pg (27.0-33.0); MCHC 32.9 % (32.0-36.0); MCV 80 fL (80-95); MPV 8.1 fL (8.0-11.0); Monocytes % 5.5; Neutrophils % 65.1; Platelet Count 344 10^3/uL (130-400); RBC 4.74 10^6/uL (3.93-5.22); RDW 12.7 % (11.7-14.6); RDW-SD 36.5 fL; WBC 14.14 10^3/uL (4.4-10.8)
[2023-12-17 15:15] LABS: Absolute Neutrophil Count 9.21 10^3/uL (1.2-6.7)
[2023-12-17] MEDS: Normal Saline 1,000 ML 1000 ML IV (15:33)
[2023-12-17 15:35] LABS: ALT 42 U/L (14-59); AST 22 U/L (15-37); Alkaline Phosphatase 91 U/L (46-116); Anion Gap 9.5 mmol/L (3-11); BUN 12 mg/dL (7-18); Bilirubin, Direct 0.1 mg/dL (0.0-0.2); Bilirubin, Total 0.2 mg/dL (0.2-1.0); CO2 28.5 mmol/L (21.0-32.0); CREATININE 0.9 mg/dL (0.55-1.02); Calcium 9.6 mg/dL (8.5-10.1); Chloride 102 mmol/L (98-107); Estimated GFR 84.44 (mL/min/1.73m2); Glucose 97 mg/dL (74-106); Lipase 52 U/L (16-77); Magnesium 1.8 mg/dL (1.8-2.4); Potassium 3.6 mmol/L (3.5-5.1); Sodium 140 mmol/L (136-145); Total Protein 8.1 g/dL (6.4-8.2)
[2023-12-17] MEDS: ACETAMINOPHEN 1,000 MG/100 ML BTL 400 MG IVPB (15:56)
[2023-12-17 16:15] VITALS: PULSE 78; RESP 18; TEMP 37.2; O2SAT 98
== END 2023-12-17 16:33 | disposition home or self-care (01) ==
PROVIDERS: Emergency Provider Emergency Medicine; PCP Nurse Practitioner
DX: R10.9 Unspecified abdominal pain (principal); Z87.891 Personal history of nicotine dependence
CPT/HCPCS: 80053; 83690; 96361; 96374; 96375; 99284; 81003; 81015; 82248; 83735; 85025; 99283; J0131

== ENCOUNTER 2024-01-01 17:35 | Outpatient (REF) | payer MEDICAID, SELFPAY | END 2024-01-01 17:36 | disposition home or self-care (01) | LOC: LBN 17:35 | PROVIDERS: PCP Nurse Practitioner; Visit Provider Physician Assistant Medical | DX: J02.9 Acute pharyngitis, unspecified (principal) | CPT/HCPCS: 87070 ==

== ENCOUNTER 2024-01-25 13:52 | Outpatient (REF) | payer MEDICAID, SELFPAY ==
[2024-01-26 12:02] LABS: Chlamydia Result Negative (Negative); GC Result Negative (Negative)
== END 2024-01-25 13:53 | disposition home or self-care (01) ==
LOC: LBN 13:52
PROVIDERS: PCP Nurse Practitioner; Visit Provider Nurse Practitioner Women's Health
DX: N76.0 Acute vaginitis (principal); Z11.3 Encounter for screening for infections with a predominantly sexual mode of transmission
CPT/HCPCS: 87491; 87591; 87480; 87510; 87660

== ENCOUNTER 2024-02-08 11:57 | Emergency (ER) | payer MEDICAID, SELFPAY ==
[2024-02-08 12:04] VITALS: BP 129/78; PULSE 85; RESP 18; TEMP 36.6; O2SAT 98
[2024-02-08 12:25] LABS: Bilirubin Negative (Negative); Blood Negative (Negative); Clarity Clear (Clear); Glucose Negative (Negative); Ketones 15 mg/dL (Negative); Leukocyte Esterase Negative (Negative); Nitrite Negative (Negative); Specific Gravity >= 1.030 (1.005-1.025); Urobilinogen 0.2 mg/dL (Up to 0.2); pH 5.5 (5-8)
[2024-02-08] MEDS: ACETAMINOPHEN 1,000 MG/100 ML BTL 400 MG IVPB (12:30)
--- NOTE | 2024-02-08 12:30 | DI.CT_ITS ---
Exam(s) CT ABDOMEN PELVIS WO EXAM: CT ABDOMEN PELVIS WO CLINICAL HISTORY: Right Flank Pain. TECHNIQUE: Imaging Protocol: Axial computed tomography images with coronal and sagittal reformatted images were created and reviewed. Oral: no COMPARISON: CT HEAD WITHOUT CONTRAST from 07/05/2009 CR ABD FLAT UPRIGHT PA CHEST from 04/24/2011 CT RENAL COLIC WO CONTRAST from 04/24/[address] ABDOMEN PELVIS W from 04/12/[address] ABDOMEN PELVIS W from 11/27/2023 FINDINGS: Lung Bases: No acute findings. The heart is enlarged. Liver: Enlarged. Hepatic steatosis. Previously noted on lesion at the inferior right lobe not visib le due to lack of contrast. Gallbladder and biliary tract: No radiodense calculus or biliary dilation. Pancreas: Normal density, no abnormal calcifications or inflammatory process. Spleen: Normal. Kidneys: Normal size, contour and axis. No radiodense stones or obstructive uropathy. No suspicious m asses seen. Adrenal glands: No masses seen. Lymph nodes: Within normal limits. Vasculature: Abdominal aorta non-dilated. Soft tissues: [employer] shunt tubing on the right. Bladder: Nearly empty. Not well evaluated. Bowel: Bowel malrotation again noted. No obstruction or bowel wall thickening. Appendix not dilate d. Peritoneal cavity: No ascites, collection or mesenteric inflammatory response. Reproductive organs: 3 centimeter right ovarian cyst/follicle. Bones: Unremarkable for age. IMPRESSION: No acute abnormality in the abdomen or pelvis. Small right ovarian cyst/dominant follicle. RADIATION DOSE DELIVERED: Total DLP DATA REPOSITORY: All CT scans at this facility are submitted to the National Radiology Data Registry (NRDR) Dose Index Registry (DIR) with the [employer] (ACR). RADIATION OPTIMIZATION: All CT scans at this facility use at least one of these dose optimization te chniques: automated exposure control; mA and/or kV adjustment per patient size (includes targeted exa ms where dose is matched to clinical indication); or iterative reconstruction.
--- NOTE | 2024-02-08 12:31 | W.ED.GENAD ---
Discharge Plan Disposition Patient Disposition: Home Condition: Stable Discharge Details Clinical Impression: Ovarian cyst, right Primary Care Provider: Isabell Guthrie ED Provider: Bonita Ashford Home Meds and New Rx's Prescriptions: Continued Nexplanon 68 mg implant 1 implant SBD ONCE Qty: 1 0RF Rx Instructions: as a single dose hydroxyzine HCl 10 mg tablet 10 mg PO TID PRN (Reason: itching) Qty: 30 2RF albuterol sulfate 90 mcg/actuation HFA aerosol inhaler 2 puff inhalation Q6H PRN (Reason: shortness of breath or wheezing) Qty: 18 6RF Mounjaro 5 mg/0.5 mL pen injector 5 mg subcut QWEEK MDD 5.0 mg 28 Days Qty: 2 12RF Rx Instructions: Inject 5.0 mg subcutaneously (under the skin) once weekly as directed clotrimazole 1 % cream 1 applic TP TID Qty: 30 0RF Rx Instructions: apply liberal amnt to L axilla 3x/d until resolved Mounjaro 2.5 mg/0.5 mL pen injector 2.5 mg subcut QWEEK 28 Days Qty: 2 0RF metformin 500 mg tablet 500 mg PO BID Qty: 60 3RF lamotrigine [Lamictal] 100 mg tablet See Rx Instructions PO DIRECTED Qty: 315 3RF Rx Instructions: 200 mg am, 150 mg pm [facility] trazodone 100 mg tablet See Rx Instructions .ROUTE .COMPLEX Qty: 180 1RF Dose Instruction: TAKE TWO TABLETS BY MOUTH AT BEDTIME Rx Instructions: TAKE TWO TABLETS BY MOUTH AT BEDTIME fluoxetine [Prozac] 20 mg capsule 20 mg PO DAILY Qty: 90 1RF Rx Instructions: [facility] 01/24/18 cgc Discharge Instructions Instructions: Ovarian Cyst (ED) Additional Instructions: CT shows a right-sided ovarian cyst. These usually will go away on their own. No evidence of kidney stones. Please take Tylenol or Ibuprofen with food every 4-6 hours as needed for pain and swelling. Follow up with primary care provider in 3-5 days. Return to ED sooner if any worsening or concerns. Referrals: Isabell Guthrie, [employer] [Primary Care Provider] - 5 days Discharge Data Discharge Date/Time-TO BE ENTERED AT DEPARTURE: 02/08/24 14:21 HPI General Mode of arrival: ambulatory. Date/Time Provider Initiated Documentation: 02/08/24 12:01. Limitations to Documentation: no limitations. Information obtained by: patient, RN notes reviewed and old records reviewed. HPI Narrative: 38-year-old female presents to the ER with a chief complaint of right-sided flank pain which began this morning. She denies taking any medication prior to arrival. No nausea vomiting diarrhea. 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 Other history includes left ovarian cyst and hydrocephalus. She reports she does have a history of kidney stones. No other associated symptoms or concerns. Related Data Home Medications Medication Instructions Recorded Confirmed etonogestrel 68 mg subdermal 1 implant subdermal ONCE #1 ea 11/03/18 02/08/24 implant (Nexplanon) clotrimazole 1 % topical cream 1 applic topical TID #30 grams 08/22/21 02/08/24 hydroxyzine HCl 10 mg tablet 10 mg PO TID PRN itching #30 tabs 05/28/22 02/08/24 albuterol sulfate 90 mcg/actuation 2 puff inhalation Q6H PRN 04/16/23 02/08/24 aerosol inhaler shortness of breath or wheezing #18 grams metformin 500 mg tablet 500 mg PO BID #60 tabs 08/24/23 02/08/24 lamotrigine 100 mg tablet See Rx Instructions PO DIRECTED 11/16/23 02/08/24 (Lamictal) #315 tabs fluoxetine 20 mg capsule (Prozac) 20 mg PO DAILY #90 tab-caps 12/29/23 02/08/24 trazodone 100 mg tablet See Rx Instructions .Route 12/29/23 02/08/24 .COMPLEX #180 tabs tirzepatide 2.5 mg/0.5 mL 2.5 mg (0.5 mL) subcut QWEEK 4 01/24/24 02/08/24 subcutaneous pen injector weeks #2 mL (Mounjaro) tirzepatide 5 mg/0.5 mL 5 mg (0.5 mL) subcut QWEEK 28 days 02/07/24 02/08/24 subcutaneous pen injector #2 mL (Mounjaro) Previous Rx's Medication Instructions Recorded etonogestrel 68 mg subdermal 1 implant subdermal ONCE #1 ea 11/03/18 implant (Nexplanon) clotrimazole 1 % topical cream 1 applic topical TID #30 grams 08/22/21 hydroxyzine HCl 10 mg tablet 10 mg PO TID PRN itching #30 tabs 05/28/22 albuterol sulfate 90 mcg/actuation 2 puff inhalation Q6H PRN 04/16/23 aerosol inhaler shortness of breath or wheezing #18 grams metformin 500 mg tablet 500 mg PO BID #60 tabs 08/24/23 lamotrigine 100 mg tablet See Rx Instructions PO DIRECTED 11/16/23 (Lamictal) #315 tabs fluoxetine 20 mg capsule (Prozac) 20 mg PO DAILY #90 tab-caps 12/29/23 trazodone 100 mg tablet See Rx Instructions .Route 12/29/23 .COMPLEX #180 tabs tirzepatide 2.5 mg/0.5 mL 2.5 mg (0.5 mL) subcut QWEEK 4 01/24/24 subcutaneous pen injector weeks #2 mL (Mounjaro) tirzepatide 5 mg/0.5 mL 5 mg (0.5 mL) subcut QWEEK 28 days 02/07/24 subcutaneous pen injector #2 mL (Mounjaro) Allergies Allergy/AdvReac Type Severity Reaction Status Date / Time aspirin AdvReac Intermediate unable to Verified 02/08/24 12:06 take due to heart surgery ibuprofen AdvReac Unknown unknown Verified 02/08/24 12:06 General Stated Complaint: Abd Prob PAT: 3 Review of Systems All systems reviewed & are unremarkable except as noted in HPI and below Genitourinary Genitourinary: Reports as per HPI and Reports flank pain Exam Narrative Exam Narrative: Constitutional: Alert and oriented x3. Appears stated age. Normal body habitus. Head: Normocephalic, no trauma. Eyes: Pupils PERRL, Red reflex noted, EOM's intact. Eyelids symmetrical without lesions, discharge, or swelling. ENT: Bilateral TM's WNL, External ear normal to inspection, no mastoid TTP, swelling, or erythema, Nasal turbinates WNL, no nasal discharge. Normal dentition, Posterior pharynx WNL, no exudate. Chest: RRR, Normal S1, S2, distal pulses intact. Resp: Lungs clear to auscultation bilaterally, no wheezes, rales, or rhonchi. Abdomen: Soft, non-distended, Normoactive bowel sounds all 4 quads. Musculoskeletal: Normal gait, Skin: No suspicious rashes or lesions. Capillary refill less than 2 sec. Neurologic: Cranial nerves II-XII intact. Alert and oriented x 3. Motor: No deficits noted. Sensory: Intact bilaterally all 4 extremities. Hematologic/Lymphatic: No ecchymosis, no lymphadenopathy. Course Vital Signs Vital signs: Vital Signs Temperature 36.6 C 02/08/24 12:04 Pulse 85 02/08/24 12:04 Respiratory Rate 18 02/08/24 12:04 Blood Pressure 129/78 02/08/24 12:04 Pulse Oximetry 98 02/08/24 12:04 Temperature 36.6 C 02/08/24 12:04 Temperature Source Skin 02/08/24 12:04 Pulse 85 02/08/24 12:04 Respiratory Rate 18 02/08/24 12:04 Respiratory Effort Normal, Non-Labored 02/08/24 12:06 Blood Pressure 129/78 02/08/24 12:04 Blood Pressure Position Sitting 02/08/24 12:04 Pulse Oximetry 98 02/08/24 12:04 Oxygen Delivery Method Room Air 02/08/24 12:04 Oxygen Flow Rate 0 02/08/24 12:04 Pain Level 4 02/08/24 12:04 Lab/Test Results Lab/Test Results: Laboratory Tests Range/Units 02/08/24 12:15 Urine Color (Yellow) Yellow Urine Clarity (Clear) Clear Urine pH (5-8) 5.5 Ur Specific [place] (1.005-1.025) >= 1.030 H Urine Protein (Neg-Trace) mg/dL Negative Urine Ketones (Negative) mg/dL 15 H Urine Blood (Negative) Negative Urine Nitrite (Negative) Negative Urine Bilirubin (Negative) Negative Urine Urobilinogen (Up to 0.2) mg/dL 0.2 Ur Leukocyte Esterase (Negative) Negative Urine Glucose (Negative) mg/dL Negative POC Urine Test Start: 02/08/24 12:17 Freq: Status: Complete Protocol: Document 02/08/24 12:17 FIDEL (Rec: 02/08/24 12:18 FIDEL [id number]) Test(Urine)-POC POC- Test(urine) Negative POC- Test(urine) Negative Medical Decision Making 38-year-old female presents to the ER with a chief complaint of right-sided flank pain which began this morning. She denies taking any medication prior to arrival. No nausea vomiting diarrhea. 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 Other history includes left ovarian cyst and hydrocephalus. She reports she does have a history of kidney stones. No other associated symptoms or concerns. Workup ordered including CBC CMP, urinalysis, CT abdomen pelvis without contrast. Will give Tylenol IV. CT shows a right-sided ovarian cyst, no evidence of kidney stone or urinary obstruction no hydronephrosis. Labs are largely unremarkable, will discharge home with follow-up with PCP. Imaging Data Radiologic Study: Imaging: CT Scan Radiologist's impression: CT CT ABDOMEN PELVIS W from 11/27/2023 FINDINGS: Lung Bases: No acute findings. The heart is enlarged. Liver: Enlarged. Hepatic steatosis. Previously noted on lesion at the inferior right lobe not visible due to lack of contrast. Gallbladder and biliary tract: No radiodense calculus or biliary dilation. Pancreas: Normal density, no abnormal calcifications or inflammatory process. Spleen: Normal. Kidneys: Normal size, contour and axis. No radiodense stones or obstructive uropathy. No suspicious masses seen. Adrenal glands: No masses seen. Lymph nodes: Within normal limits. Vasculature: Abdominal aorta non-dilated. Soft tissues: EMBOSSED OR IMPRESSED LETTERING PAINTER shunt tubing on the right. Bladder: Nearly empty. Not well evaluated. Bowel: Bowel malrotation again noted. No obstruction or bowel wall thickening. Appendix not dilated. Peritoneal cavity: No ascites, collection or mesenteric inflammatory response. Reproductive organs: 3 centimeter right ovarian cyst/follicle. Bones: Unremarkable for age. IMPRESSION: No acute abnormality in the abdomen or pelvis. Small right ovarian cyst/dominant follicl Lab Data Lab results reviewed: Yes I reviewed the patient's lab results. Labs: Laboratory Tests Range/Units 02/08/24 02/08/24 12:15 12:45 WBC (4.4-10.8) 10^3/uL 10.90 H RBC (3.93-5.22) 10^6/uL 4.74 Hgb (11.2-15.7) g/dL 12.6 Hct (36.0-46.0) % 38.3 MCV (80-95) fL 81 MCH (27.0-33.0) pg 26.6 L MCHC (32.0-36.0) % 32.9 RDW (11.7-14.6) % 12.6 Plt Count (130-400) 10^3/uL 344 MPV (8.0-11.0) fL 8.5 Immature Gran % 0.3 Neutrophils % 65.4 Lymphocytes % 23.6 Monocytes % 6.1 Eosinophils % 4.0 Basophils % 0.6 Nucleated RBC % (0.0-0.3) % 0.0 Absolute Neutrophils (1.2-6.7) 10^3/uL 7.13 H Absolute Lymphocytes (1.2-3.4) 10^3/uL 2.57 Absolute Monocytes (0.1-0.8) 10^3/uL 0.66 Absolute Eosinophils (0.0-0.7) 10^3/uL 0.44 Absolute Basophils (0.0-0.2) 10^3/uL 0.07 Sodium (136-145) mmol/L 141 Potassium (3.5-5.1) mmol/L 3.9 Chloride (98-107) mmol/L 103 Carbon Dioxide (21.0-32.0) mmol/L 26.7 Anion Gap (3-11) mmol/L 11.3 H BUN (7-18) mg/dL 14 Creatinine (0.55-1.02) mg/dL 0.9 Est GFR (CKD-EPI 2020) (mL/min/1.73m2) 84.44 Glucose (74-106) mg/dL 75 Calcium (8.5-10.1) mg/dL 9.1 Total Bilirubin (0.2-1.0) mg/dL 0.3 AST (15-37) U/L 23 ALT (14-59) U/L 38 Alkaline Phosphatase (46-116) U/L 80 Total Protein (6.4-8.2) g/dL 8.0 Albumin (3.4-5.0) g/dL 4.0 Urine Color (Yellow) Yellow Urine Clarity (Clear) Clear Urine pH (5-8) 5.5 Ur Specific [place] (1.005-1.025) >= 1.030 H Urine Protein (Neg-Trace) mg/dL Negative Urine Ketones (Negative) mg/dL 15 H Urine Blood (Negative) Negative Urine Nitrite (Negative) Negative Urine Bilirubin (Negative) Negative Urine Urobilinogen (Up to 0.2) mg/dL 0.2 Ur Leukocyte Esterase (Negative) Negative Urine Glucose (Negative) mg/dL Negative Quality:SDOH Health Related Social Needs: No Data to Display PFSH All Active Problems (Updated 02/08/24 @ 13:55 by Bonita Ashford NP) Ovarian cyst, right (Acute) Right flank pain, chronic (Acute) Pre-diabetes (Acute) Partial epilepsy (Acute) Asthma (Acute) Asthma exacerbation (Acute) CAP (community acquired pneumonia) (Acute) Low back pain (Acute) Cough (Acute) Cervicogenic headache (Acute) More of a localized head pain, but worse with supine position .. WHEN LAYING ON OCCIPUT Fungal rash of torso (Acute) Chest pain (Acute) Vitamin D deficiency (Chronic 07/16/17) Seizure disorder (Chronic) Dx at 21yo. 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 On meds. Previously seen at [facility]. 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 Depression (Chronic 07/16/17) Chronic anxiety (Acute 07/16/17) Anxiety with depression (Acute 07/16/17) Malrotation of intestine (Acute) Medical History Left ovarian cyst Incidental finding on CT scan - likely physiologic Hydrocephalus (01/23/16) Shunted at . Last repair 1994 at [facility]. No issues. Transposition of great vessels s/p surgery at [facility]. Pulmonary artery banding. removal of band at 22mo and closure of VSD. Surgical History History of transposition of great vessels (01/23/16) surgery at [facility] as a . Pulmonary artery banding. 22mo removal of PA band and closure of VSD. Pt is under impression that she should not be Pt is under impression that she should not become . 03/2016 [facility] [facility] records reviewed with [facility] Cardiology. No contraindication to . open heart surgery as for transposition of great vessels. Pulmonary artery banding at and removal of band @ 22mo and closure of VSD. Ventriculoperitoneal Shunt At ? Last surgery was 1994 @ [facility]. Family History Paternal Grandfather Diabetes Essential hypertension Coronary heart disease Brother ADHD Social History Smoking/Tobacco Use Status: Former Tobacco Use Second Hand Exposure: No Smoking risk assessment performed?: Yes Alcohol Intake: former Drug use: Never Substance use type: does not use Adopted: No Caregiver/Support person: No Foster care: No Household members: other Details: Has her own apartment Housing: apartment Number of Children: 0 Education Level: high school current occupation: On disability for cognitive impairment Pets and animals: Yes Pets and animals: cat(s) and other Details: Rabbit Current gender identity: female What type of physical activity do you participate in: walking Frequency: 3-4 times per week Seatbelt use: always Do you feel safe at home: Yes Do you feel safe in your relationship?: Yes Female Reproductive History Menstrual control method: implanted History History 0 Para Hx # Term Pregnancies Multiple births Hx # Pregnancies Ectopic pregnancies AB induced Hx Number of Living Children AB spontaneous
[2024-02-08 12:53] LABS: Abs Immature Grans 0.03 10^3/uL (0.0-0.06); Absolute Eosinophil Count 0.44 10^3/uL (0.0-0.7); Absolute Lymphocyte Count 2.57 10^3/uL (1.2-3.4); Absolute Monocyte Count 0.66 10^3/uL (0.1-0.8); Basophils % 0.6; HCT 38.3 % (36.0-46.0); HGB 12.6 g/dL (11.2-15.7); Immature Grans % 0.3; Lymphocytes % 23.6; MCH 26.6 pg (27.0-33.0); MCHC 32.9 % (32.0-36.0); MCV 81 fL (80-95); MPV 8.5 fL (8.0-11.0); Monocytes % 6.1; Neutrophils % 65.4; Platelet Count 344 10^3/uL (130-400); RBC 4.74 10^6/uL (3.93-5.22); RDW 12.6 % (11.7-14.6); RDW-SD 37.6 fL
[2024-02-08 12:55] LABS: Absolute Basophil Count 0.07 10^3/uL (0.0-0.2); Absolute Neutrophil Count 7.13 10^3/uL (1.2-6.7)
[2024-02-08 13:10] LABS: ALT 38 U/L (14-59); AST 23 U/L (15-37); Alkaline Phosphatase 80 U/L (46-116); Anion Gap 11.3 mmol/L (3-11); BUN 14 mg/dL (7-18); Bilirubin, Total 0.3 mg/dL (0.2-1.0); CO2 26.7 mmol/L (21.0-32.0); CREATININE 0.9 mg/dL (0.55-1.02); Calcium 9.1 mg/dL (8.5-10.1); Chloride 103 mmol/L (98-107); Estimated GFR 84.44 (mL/min/1.73m2); Glucose 75 mg/dL (74-106); Potassium 3.9 mmol/L (3.5-5.1); Sodium 141 mmol/L (136-145)
== END 2024-02-08 14:21 | disposition home or self-care (01) ==
PROVIDERS: Emergency Provider Registered Nurse Emergency; PCP Nurse Practitioner
DX: R10.32 Left lower quadrant pain (principal); Z98.2 Presence of cerebrospinal fluid drainage device; Z87.891 Personal history of nicotine dependence
CPT/HCPCS: 80053; 81025; 96374; 99284; 74176; 81003; 85025; J0131

== ENCOUNTER 2024-02-23 14:50 | Emergency (ER) | payer MEDICAID, SELFPAY ==
[2024-02-23 14:52] VITALS: BP 135/59; PULSE 74; RESP 18; TEMP 36.5; O2SAT 97
--- NOTE | 2024-02-23 15:11 | ED.GENADUL_ITS ---
Discharge Plan Disposition Patient Disposition: Home Condition: Stable Discharge Details Clinical Impression: Sinusitis Primary Care Provider: Isabell Guthrie ED Provider: Brian Carrera Home Meds and New Rx's Prescriptions: New prednisone 20 mg tablet 60 mg PO DAILY 4 Days Qty: 12 0RF Continued Nexplanon 68 mg implant 1 implant SBD ONCE Qty: 1 0RF Rx Instructions: as a single dose hydroxyzine HCl 10 mg tablet 10 mg PO TID PRN (Reason: itching) Qty: 30 2RF albuterol sulfate 90 mcg/actuation HFA aerosol inhaler 2 puff inhalation Q6H PRN (Reason: shortness of breath or wheezing) Qty: 18 6RF Mounjaro 5 mg/0.5 mL pen injector 5 mg subcut QWEEK MDD 5.0 mg 28 Days Qty: 2 12RF Rx Instructions: Inject 5.0 mg subcutaneously (under the skin) once weekly as directed clotrimazole 1 % cream 1 applic TP TID Qty: 30 0RF Rx Instructions: apply liberal amnt to L axilla 3x/d until resolved metformin 500 mg tablet 500 mg PO BID Qty: 60 3RF lamotrigine [Lamictal] 100 mg tablet See Rx Instructions PO DIRECTED Qty: 315 3RF Rx Instructions: 200 mg am, 150 mg pm NKHS trazodone 100 mg tablet See Rx Instructions .ROUTE .COMPLEX Qty: 180 1RF Dose Instruction: TAKE TWO TABLETS BY MOUTH AT BEDTIME Rx Instructions: TAKE TWO TABLETS BY MOUTH AT BEDTIME fluoxetine [Prozac] 20 mg capsule 20 mg PO DAILY Qty: 90 1RF Rx Instructions: [facility] 01/24/18 cgc Discharge Instructions Additional Instructions: You are likely suffering from allergies or virus. [id number] nasal or sinus rinses Take Benadryl as needed before bed, follow dosing instructions on the box. Can also try taking a daily Zyrtec or Claritin If not better within 10 days follow-up with your primary care provider To the emergency department if you feel you are more ill or suffering from an emergent medical process. HPI General Mode of arrival: ambulatory . Date/Time Provider Initiated Documentation: 02/23/24 14:51 . Limitations to Documentation: no limitations . Information obtained by: patient . History of Present Illness 38 year old F presents to the emergency department with the chief complaint of nasal congestion, described as moderate, Patient started experiencing this day(s) (1) and it has been constant. No relieving factors improve symptom(s), No exacerbating factors reported . Patient notes no other symptoms.; denies fever/chills. Patient did receive the following treatments prior to arrival, none Related Data Home Medications Medication Instructions Recorded Confirmed etonogestrel 68 mg subdermal 1 implant subdermal ONCE #1 ea 11/03/18 02/23/24 implant (Nexplanon) clotrimazole 1 % topical cream 1 applic topical TID #30 grams 08/22/21 02/23/24 hydroxyzine HCl 10 mg tablet 10 mg PO TID PRN itching #30 tabs 05/28/22 02/23/24 albuterol sulfate 90 mcg/actuation 2 puff inhalation Q6H PRN 04/16/23 02/23/24 aerosol inhaler shortness of breath or wheezing #18 grams metformin 500 mg tablet 500 mg PO BID #60 tabs 08/24/23 02/23/24 lamotrigine 100 mg tablet See Rx Instructions PO DIRECTED 11/16/23 02/23/24 (Lamictal) #315 tabs fluoxetine 20 mg capsule (Prozac) 20 mg PO DAILY #90 tab-caps 12/29/23 02/23/24 trazodone 100 mg tablet See Rx Instructions .Route 12/29/23 02/23/24 .COMPLEX #180 tabs tirzepatide 5 mg/0.5 mL 5 mg (0.5 mL) subcut QWEEK 28 days 02/07/24 02/23/24 subcutaneous pen injector #2 mL (Trevor) prednisone 20 mg tablet 60 mg (3 x 20 mg) PO DAILY 4 days 02/23/24 #12 tabs Previous Rx's Medication Instructions Recorded etonogestrel 68 mg subdermal 1 implant subdermal ONCE #1 ea 11/03/18 implant (Nexplanon) clotrimazole 1 % topical cream 1 applic topical TID #30 grams 08/22/21 hydroxyzine HCl 10 mg tablet 10 mg PO TID PRN itching #30 tabs 05/28/22 albuterol sulfate 90 mcg/actuation 2 puff inhalation Q6H PRN 04/16/23 aerosol inhaler shortness of breath or wheezing #18 grams metformin 500 mg tablet 500 mg PO BID #60 tabs 08/24/23 lamotrigine 100 mg tablet See Rx Instructions PO DIRECTED 11/16/23 (Lamictal) #315 tabs fluoxetine 20 mg capsule (Prozac) 20 mg PO DAILY #90 tab-caps 12/29/23 trazodone 100 mg tablet See Rx Instructions .Route 12/29/23 .COMPLEX #180 tabs tirzepatide 5 mg/0.5 mL 5 mg (0.5 mL) subcut QWEEK 28 days 02/07/24 subcutaneous pen injector #2 mL (Mounjaro) prednisone 20 mg tablet 60 mg (3 x 20 mg) PO DAILY 4 days 02/23/24 #12 tabs Allergies Allergy/AdvReac Type Severity Reaction Status Date / Time aspirin AdvReac Intermediate unable to Verified 02/23/24 14:55 take due to heart surgery ibuprofen AdvReac Unknown unknown Verified 02/23/24 14:55 General Stated Complaint: RespSymp PAT: 4 Review of Systems All systems reviewed & are unremarkable except as noted in HPI and below Constitutional Constitutional: Denies chills, Denies fever(s) and Denies weakness ENT Ears, Nose, Mouth, and Throat: Denies change in voice Cardiovascular Cardiovascular: Denies chest pain and Denies dyspnea Respiratory Respiratory: Denies cough and Denies dyspnea Gastrointestinal Gastrointestinal: Denies abdominal pain, Denies nausea and Denies vomiting Musculoskeletal Musculoskeletal: Denies joint swelling Neurologic Neurologic: Denies weakness Exam Const General: no acute distress Orientation: alert HENMT Head: normal to inspection Ears: external ears normal General nose exam: external nose normal Mouth: moist mucous membranes Eyes General: appearance normal, both eyes and all related structures Neck Neck: normal visual inspection Resp Effort & Inspection: normal respiratory effort and able to speak in complete sentences Cardio Rate: regular rate Skin General skin exam: no rashes or lesions noted Neuro General: patient alert and patient oriented x3 Extrem General: normal to inspection Psych Mental Status: mental status grossly normal Course Vital Signs Vital signs: Vital Signs Temperature 36.5 C 02/23/24 14:52 Pulse 74 02/23/24 14:52 Respiratory Rate 18 02/23/24 14:52 Blood Pressure 135/59 L 02/23/24 14:52 Pulse Oximetry 97 02/23/24 14:52 Temperature 36.5 C 02/23/24 14:52 Temperature Source Skin 02/23/24 14:52 Pulse 74 02/23/24 14:52 Respiratory Rate 18 02/23/24 14:52 Respiratory Effort Normal, Non-Labored 02/23/24 14:55 Blood Pressure 135/59 L 02/23/24 14:52 Blood Pressure Position Sitting 02/23/24 14:52 Pulse Oximetry 97 02/23/24 14:52 Oxygen Delivery Method Room Air 02/23/24 14:52 Oxygen Flow Rate 0 02/23/24 14:52 Pain Level 0 02/23/24 14:52 Medical Decision Making 38-year-old female who comes in with 1 day of feeling like her nose is congested and cannot breathe through her nose. She denies any other symptoms, no fevers, no cough, no headaches. She has not had any purulent or bloody nasal discharge She is well on exam in no distress speaking in full sentences. She has no nasal drainage currently, states she has pressure in the maxillary sinuses, no periorbital swelling or facial lesions, normal posterior pharynx, normal TMs. 1 day of symptoms do not feel antibiotics indicated advised to try [id number] remedies and will provide a short course of prednisone to help with likely allergies. He is stable for discharge, advised to follow-up with her PCP and return precautions given Differential Diagnosis Differential Diagnosis: Sinusitis, allergies, viral illness Quality:SDOH Health Related Social Needs: No Data to Display PFSH All Active Problems (Updated 02/23/24 @ 15:15 by Brian Carrera MD) Sinusitis (Acute) Ovarian cyst, right (Acute) Right flank pain, chronic (Acute) Pre-diabetes (Acute) Partial epilepsy (Acute) Asthma (Acute) Asthma exacerbation (Acute) CAP (community acquired pneumonia) (Acute) Low back pain (Acute) Cough (Acute) Cervicogenic headache (Acute) More of a localized head pain, but worse with supine position .. WHEN LAYING ON OCCIPUT Fungal rash of torso (Acute) Chest pain (Acute) Vitamin D deficiency (Chronic 07/16/17) Seizure disorder (Chronic) Dx at 21yo. 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 On meds. [place] [facility] [place] [facility] 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 Depression (Chronic 07/16/17) Chronic anxiety (Acute 07/16/17) Anxiety with depression (Acute 07/16/17) Malrotation of intestine (Acute) Medical History (Updated 02/23/24 @ 15:15 by Brian Carrera MD) Ventricular inversion (~01/2024) 02/17/24 Cardiology Left ovarian cyst Incidental finding on CT scan - likely physiologic Hydrocephalus (01/23/16) Shunted at . Last repair 1994 at [facility]. No issues. 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 Pulmonary artery banding. removal of band at 22mo and closure of VSD. 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 Pulmonary artery banding. 22mo removal of PA band and closure of VSD. Pt is under impression that she should not be Pt is under impression that she should not become . 03/2016 [facility] [place] reviewed with [facility] Cardiology. No contraindication to . open heart surgery as for transposition of great vessels. Pulmonary artery banding at and removal of band @ 22mo and closure of VSD. Ventriculoperitoneal Shunt At ? Last surgery was 1994 @ [facility]. Family History Paternal Grandfather Diabetes Essential hypertension Coronary heart disease Brother ADHD Social History Smoking/Tobacco Use Status: Former Tobacco Use Second Hand Exposure: No Smoking risk assessment performed?: Yes Alcohol Intake: former Drug use: Never Substance use type: does not use Adopted: No Caregiver/Support person: No Foster care: No Household members: other Details: Has her own apartment Housing: apartment Number of Children: 0 Education Level: high school current occupation: On disability for cognitive impairment Pets and animals: Yes Pets and animals: cat(s) and other Details: Rabbit Current gender identity: female What type of physical activity do you participate in: walking Frequency: 3-4 times per week Seatbelt use: always Do you feel safe at home: Yes Do you feel safe in your relationship?: Yes Female Reproductive History Menstrual control method: implanted History History 0 Para Hx # Term Pregnancies Multiple births Hx # Pregnancies Ectopic pregnancies AB induced Hx Number of Living Children AB spontaneous
[2024-02-23 15:18] VITALS: BP 135/59; PULSE 74; RESP 18; TEMP 36.5; O2SAT 97
== END 2024-02-23 15:29 | disposition home or self-care (01) ==
LOC: ER 17:54
PROVIDERS: Emergency Provider Emergency Medicine; PCP Nurse Practitioner
DX: J32.9 Chronic sinusitis, unspecified (principal)
CPT/HCPCS: 99283

== ENCOUNTER 2024-02-28 16:13 | Emergency (ER) | payer MEDICAID, SELFPAY ==
[2024-02-28 16:28] VITALS: BP 137/71; PULSE 65; RESP 16; TEMP 37; O2SAT 99
== END 2024-02-28 17:21 ==
LOC: ER 16:16
PROVIDERS: PCP Nurse Practitioner
DX: Z53.21 Procedure and treatment not carried out due to patient leaving prior to being seen by health care provider (principal)

== ENCOUNTER 2024-05-05 13:31 | Emergency (ER) | payer MEDICAID, SELFPAY ==
[2024-05-05 13:35] VITALS: BP 121/53; PULSE 69; RESP 18; TEMP 35.7; O2SAT 97
--- NOTE | 2024-05-05 14:47 | NUR.NOTE ---
patient left before being seen.
--- NOTE | 2024-05-05 17:01 | NUR.NOTE ---
Nursing Note:[id number] patient left wobs.
== END 2024-05-05 14:41 | disposition left against medical advice (07) ==
LOC: ER 15:04
PROVIDERS: PCP Nurse Practitioner
DX: Z53.21 Procedure and treatment not carried out due to patient leaving prior to being seen by health care provider (principal)

== ENCOUNTER 2024-06-23 12:17 | Emergency (ER) | payer MEDICAID, SELFPAY ==
[2024-06-23 12:19] VITALS: BP 116/73; PULSE 74; RESP 18; TEMP 36.7; O2SAT 93
--- NOTE | 2024-06-23 12:30 | ED.GENADUL_ITS ---
Discharge Plan Disposition Patient Disposition: Eloped Condition: Stable Discharge Details Clinical Impression: Clavicle pain Primary Care Provider: Isabell Guthrie ED Provider: Aquiles Hanesn Home Meds and New Rx's Prescriptions: No Action Nexplanon 68 mg implant 1 implant SBD ONCE Qty: 1 0RF Rx Instructions: as a single dose albuterol sulfate 90 mcg/actuation HFA aerosol inhaler 2 puff inhalation Q6H PRN (Reason: shortness of breath or wheezing) Qty: 18 6RF Mounjaro 5 mg/0.5 mL pen injector 5 mg subcut QWEEK MDD 5.0 mg 28 Days Qty: 2 12RF Rx Instructions: Inject 5.0 mg subcutaneously (under the skin) once weekly as directed clotrimazole 1 % cream 1 applic TP TID Qty: 30 0RF Rx Instructions: apply liberal amnt to L axilla 3x/d until resolved metformin 500 mg tablet 500 mg PO BID Qty: 60 3RF lamotrigine [Lamictal] 100 mg tablet See Rx Instructions PO DIRECTED Qty: 315 3RF Rx Instructions: 200 mg am, 150 mg pm NKHS trazodone 100 mg tablet See Rx Instructions .ROUTE .COMPLEX Qty: 180 1RF Dose Instruction: TAKE TWO TABLETS BY MOUTH AT BEDTIME Rx Instructions: TAKE TWO TABLETS BY MOUTH AT BEDTIME fluoxetine 20 mg capsule See Rx Instructions .ROUTE .COMPLEX Qty: 90 1RF Dose Instruction: TAKE ONE CAPSULE BY MOUTH EVERY DAY Rx Instructions: TAKE ONE CAPSULE BY MOUTH EVERY DAY hydroxyzine HCl 10 mg tablet 10 mg PO TID PRN (Reason: itching) Qty: 30 2RF Discharge Instructions Additional Instructions: Patient eloped without speaking to anyone, had been given Tylenol and 2 lidocaine patches. Discharge Data Discharge Date/Time-TO BE ENTERED AT DEPARTURE: 06/23/24 13:48 HPI General Date/Time Provider Initiated Documentation: 06/23/24 12:23 . HPI Narrative: 39 year-old female presents to ED today by POV/ambulating with a chief complaint of bilateral distal clavicle pains without trauma with onset this morning. Quality described as tender/painful to touch, no radiation to trauma, fever, swelling, deformity, chest pain, shortness of breath, cough. Severity is described as moderate. Palliating factors include nothing attempted. Provoking factors include nothing specific. Patient not anticoagulated. Related Data Home Medications ?Medication ?Instructions ?Recorded ?Confirmed etonogestrel 68 mg subdermal 1 implant subdermal ONCE #1 ea 11/03/18 06/02/24 implant (Nexplanon) clotrimazole 1 % topical cream 1 applic topical TID #30 grams 08/22/21 06/02/24 albuterol sulfate 90 mcg/actuation 2 puff inhalation Q6H PRN 04/16/23 06/02/24 aerosol inhaler shortness of breath or wheezing #18 grams metformin 500 mg tablet 500 mg PO BID #60 tabs 08/24/23 06/02/24 lamotrigine 100 mg tablet See Rx Instructions PO DIRECTED 11/16/23 06/02/24 (Lamictal) #315 tabs trazodone 100 mg tablet See Rx Instructions .Route 12/29/23 06/02/24 .COMPLEX #180 tabs tirzepatide 5 mg/0.5 mL 5 mg (0.5 mL) subcut QWEEK 28 days 02/07/24 06/02/24 subcutaneous pen injector #2 mL (Trevor) fluoxetine 20 mg capsule See Rx Instructions .Route 03/28/24 06/02/24 .COMPLEX #90 caps hydroxyzine HCl 10 mg tablet 10 mg PO TID PRN itching #30 tabs 04/11/24 06/02/24 Previous Rx's ?Medication ?Instructions ?Recorded etonogestrel 68 mg subdermal 1 implant subdermal ONCE #1 ea 11/03/18 implant (Nexplanon) clotrimazole 1 % topical cream 1 applic topical TID #30 grams 08/22/21 albuterol sulfate 90 mcg/actuation 2 puff inhalation Q6H PRN 04/16/23 aerosol inhaler shortness of breath or wheezing #18 grams metformin 500 mg tablet 500 mg PO BID #60 tabs 08/24/23 lamotrigine 100 mg tablet See Rx Instructions PO DIRECTED 11/16/23 (Lamictal) #315 tabs trazodone 100 mg tablet See Rx Instructions .Route 12/29/23 .COMPLEX #180 tabs tirzepatide 5 mg/0.5 mL 5 mg (0.5 mL) subcut QWEEK 28 days 04/08/24 subcutaneous pen injector #2 mL (Trevor) fluoxetine 20 mg capsule See Rx Instructions .Route 03/28/24 .COMPLEX #90 caps hydroxyzine HCl 10 mg tablet 10 mg PO TID PRN itching #30 tabs 04/11/24 Allergies Allergy/AdvReac Type Severity Reaction Status Date / Time aspirin AdvReac Intermediate unable to Verified 05/05/24 13:37 take due to heart surgery ibuprofen AdvReac Unknown unknown Verified 05/05/24 13:37 General Stated Complaint: Orthopedic PAT: 4 Review of Systems All systems reviewed & are unremarkable except as noted in HPI and below Exam Narrative Exam Narrative: GENERAL APPEARANCE: Well-nourished, non-toxic, awake and alert, atraumatic, no acute distress. SKIN: Warm, pink, dry, intact, without rashes/lesions/ulcerations. HEAD: Normocephalic, atraumatic, normal hair distribution for gender/age. EYES: Normal conjunctiva, no exudates on lids/lashes. ENT: Nares patent, no circumoral cyanosis, no facial swelling NECK: Supple, trachea midline, painless cervical ROM. LUNGS/CHEST: Lungs CTA bilaterally- no rhonchi/rales/wheezes diffusely, non- labored respirations, normal A/P diameter, symmetrical expansion, no chest wall deformity HEART (CV/PV): Regular rate and rhythm without murmur, no peripheral edema, no JVD. ABDOMEN: Soft, non-distended, no guarding. MSK: Normal ROM, no swelling/deformity to bilateral UEs or LEs, moving all extremities without weakness, no cyanosis, spine midline without tenderness, normal curvature, tenderness to distal into bilateral clavicles without abnormality, no strength or motion deficits of either upper extremity, no crepitus NEURO: Mental Status AAOx4 - alert to person, place, time, events No facial droop, no forehead involvement. Motor: No focal weakness - strength 5/5 in bilateral UEs and LEs, proximal and distal, symmetric. Sensory: sensation intact to light touch globally. Gait normal: patient ambulated without ataxia into ED room. PSYCH: euthymic, cooperative, pleasant, appropriate speech Course Vital Signs Vital signs: Vital Signs Temperature 36.7 C 06/23/24 12:19 Pulse 74 06/23/24 12:19 Respiratory Rate 18 06/23/24 12:19 Blood Pressure 116/73 06/23/24 12:19 Pulse Oximetry 93 06/23/24 12:19 Temperature 36.7 C 06/23/24 12:19 Temperature Source Temporal Artery Scan 06/23/24 12:19 Pulse 74 06/23/24 12:19 Respiratory Rate 18 06/23/24 12:19 Blood Pressure 116/73 06/23/24 12:19 Blood Pressure Position Sitting 06/23/24 12:19 Pulse Oximetry 93 06/23/24 12:19 Oxygen Delivery Method Room Air 06/23/24 12:19 Oxygen Flow Rate 0 06/23/24 12:19 Medical Decision Making This dictation utilizes [id number] dictation software and may contain unedit ed grammatical errors. 39 year-old female presents to ED today by POV/ambulating with a chief complaint of bilateral distal clavicle pains without trauma with onset this morning. Quality described as tender/painful to touch, no radiation to trauma, fever, swelling, deformity, chest pain, shortness of breath, cough. Severity is described as moderate. Palliating factors include nothing attempted. Provoking factors include nothing specific. Patients' medical history: Cognitive delay, history of transposition of great vessels unable to take NSAIDs. 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 Pertinent exam findings / vital signs include clavicle stable, lungs CTA, mild tenderness at the ends of each distal clavicle without skin abnormalities or swelling. Differential / pathologies of concern include musculoskeletal pain, repetitive motion injury, strain/sprain. Diagnostic studies of: -none. Interventions of: -1000mg Tylenol, Lidoderm patches x2. 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 Findings not consistent with PE risk, trauma, fracture. Disposition of Clavicle Pain. Patient verbalized understanding of the plan and return to ED criteria and engaged in shared decision making. Medical Records Medical records reviewed: Yes I reviewed the patient's medical records. Quality:SDOH Health Related Social Needs: No Data to Display PFSH All Active Problems (Updated 06/23/24 @ 13:48 by KAYE Rivas) Clavicle pain (Acute) Right flank pain, chronic (Acute) Pre-diabetes (Acute) Partial epilepsy (Acute) Asthma (Acute) Asthma exacerbation (Acute) CAP (community acquired pneumonia) (Acute) Low back pain (Acute) Cough (Acute) Cervicogenic headache (Acute) More of a localized head pain, but worse with supine position .. WHEN LAYING ON OCCIPUT Fungal rash of torso (Acute) Chest pain (Acute) Vitamin D deficiency (Chronic 07/16/17) Seizure disorder (Chronic) Dx at 21yo. 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 On meds. Previously seen at [facility]. 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 Depression (Chronic 07/16/17) Chronic anxiety (Acute 07/16/17) Anxiety with depression (Acute 07/16/17) Malrotation of intestine (Acute) Medical History (Updated 06/23/24 @ 13:48 by KAYE Rivas) Ventricular inversion (~01/2024) 02/17/24 Cardiology Left ovarian cyst Incidental finding on CT scan - likely physiologic Hydrocephalus (01/23/16) Shunted at . Last repair 1994 at [facility]. No issues. 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 Pulmonary artery banding. removal of band at 22mo and closure of VSD. 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 Pulmonary artery banding. 22mo removal of PA band and closure of VSD. Pt is under impression that she should not be Pt is under impression that she should not become . 03/2016 [facility] records reviewed with [facility] Cardiology. No contraindication to . open heart surgery as for transposition of great vessels. Pulmonary artery banding at and removal of band @ 22mo and closure of VSD. Ventriculoperitoneal Shunt At ? Last surgery was 1994 @ [facility]. Family History Paternal Grandfather Diabetes Essential hypertension Coronary heart disease Brother ADHD Social History Smoking/Tobacco Use Status: Former Tobacco Use Second Hand Exposure: No Smoking risk assessment performed?: Yes Alcohol Intake: former Drug use: Never Substance use type: does not use Adopted: No Caregiver/Support person: No Foster care: No Household members: other Details: Has her own apartment Housing: apartment Number of Children: 0 Education Level: high school current occupation: On disability for cognitive impairment Pets and animals: Yes Pets and animals: cat(s) and other Details: Rabbit Current gender identity: female What type of physical activity do you participate in: walking Frequency: 3-4 times per week Seatbelt use: always Do you feel safe at home: Yes Do you feel safe in your relationship?: Yes Female Reproductive History Menstrual control method: implanted History History 0 Para Hx # Term Pregnancies Multiple births Hx # Pregnancies Ectopic pregnancies AB induced Hx Number of Living Children AB spontaneous
== END 2024-06-23 13:48 | disposition left against medical advice (07) ==
PROVIDERS: Emergency Provider Physician Assistant; PCP Nurse Practitioner
DX: Z53.21 Procedure and treatment not carried out due to patient leaving prior to being seen by health care provider (principal)

== ENCOUNTER 2024-07-05 03:04 | Outpatient (CLI) | payer MEDICAID, SELFPAY ==
[2024-07-05 12:00] LABS: Iron 37 ug/dL (50-170)
[2024-07-05 12:12] LABS: Anion Gap 7.2 mmol/L (3-11); BUN 13 mg/dL (7-18); CO2 28.8 mmol/L (21.0-32.0); CREATININE 0.8 mg/dL (0.55-1.02); Calcium 9.3 mg/dL (8.5-10.1); Calculated LDL 114 mg/dL (<100); Chloride 105 mmol/L (98-107); Cholesterol 185 mg/dL (<200); Estimated GFR 96.66 (mL/min/1.73m2); Ferritin 75 ng/mL (8-252); Glucose 86 mg/dL (74-106); HDL Cholesterol 62 mg/dL (40-60); Magnesium 1.7 mg/dL (1.8-2.4); Potassium 4.1 mmol/L (3.5-5.1); Sodium 141 mmol/L (136-145); Triglyceride 49 mg/dL (<150)
== END 2024-07-05 03:05 | disposition home or self-care (01) ==
LOC: LBO 03:04
PROVIDERS: PCP Nurse Practitioner; Referring Provider Nurse Practitioner; Visit Provider Nurse Practitioner
DX: Z51.81 Encounter for therapeutic drug level monitoring (principal)
CPT/HCPCS: 36415; 80048; 80061; 82728; 83540; 83735

== ENCOUNTER 2024-07-12 15:46 | Outpatient (REF) | payer MEDICAID, SELFPAY | END 2024-07-12 15:47 | disposition home or self-care (01) | LOC: LBN 15:46 | PROVIDERS: PCP Nurse Practitioner; Visit Provider Physician Assistant Medical | DX: J02.9 Acute pharyngitis, unspecified (principal) | CPT/HCPCS: 87070 ==

== ENCOUNTER 2024-07-30 08:39 | Emergency (ER) | payer MEDICAID, SELFPAY ==
[2024-07-30 08:41] VITALS: BP 134/81; PULSE 86; RESP 14; TEMP 36.7; O2SAT 96
[2024-07-30 08:45] VITALS: BP 134/81; PULSE 86; RESP 14; TEMP 36.7; O2SAT 96
--- NOTE | 2024-07-30 08:55 | ED.GENADUL_ITS ---
Discharge Plan Disposition Patient Disposition: Home Discharge Details Clinical Impression: Suprapubic discomfort Primary Care Provider: Isabell Guthrie ED Provider: Taryn Kendall Home Meds and New Rx's Prescriptions: Continued Nexplanon 68 mg implant 1 implant SBD ONCE Qty: 1 0RF Rx Instructions: as a single dose albuterol sulfate 90 mcg/actuation HFA aerosol inhaler 2 puff inhalation Q6H PRN (Reason: shortness of breath or wheezing) Qty: 18 6RF clotrimazole 1 % cream 1 applic TP TID Qty: 30 0RF Rx Instructions: apply liberal amnt to L axilla 3x/d until resolved lamotrigine [Lamictal] 100 mg tablet See Rx Instructions PO DIRECTED Qty: 315 3RF Rx Instructions: 200 mg am, 150 mg pm NKHS hydroxyzine HCl 10 mg tablet 10 mg PO TID PRN (Reason: anxiety) Qty: 30 2RF trazodone 100 mg tablet See Rx Instructions .ROUTE .COMPLEX Qty: 180 1RF Dose Instruction: TAKE TWO TABLETS BY MOUTH AT BEDTIME Rx Instructions: TAKE TWO TABLETS BY MOUTH AT BEDTIME Magnesium Complex 300 mg magnesium tablet See Rx Instructions PO .COMPLEX Qty: 90 3RF Rx Instructions: orally; 1 tab daily ferrous sulfate 325 mg (65 mg iron) tablet 325 mg PO DAILY Qty: 90 3RF tirzepatide 7.5 mg/0.5 mL pen injector 7.5 mg subcut QWEEK 28 Days Qty: 2 1RF Rx Instructions: Inject 5.0 mg subcutaneously (under the skin) once weekly as directed fluoxetine 20 mg capsule See Rx Instructions .ROUTE .COMPLEX Rx Instructions: TAKE ONE CAPSULE BY MOUTH EVERY evening Discharge Instructions Additional Instructions: Please call [facility] to schedule a follow up appointment for reassessment if you are not feeling significantly better in a few days. Stay well hydrated, drinking plenty of fluids throughout the day. Advance diet slowly as tolerated, starting with gentle foods like chicken noodle soup. Return to emergency care if you develop severe abdominal pain, uncontrollable vomiting, blood in stool or vomit, fevers associated with belly pain, or if you are very worried and need to be rechecked again immediately. Referrals: Isabell Guthrie NP [Primary Care Provider] - [facility] General Date/Time Provider Initiated Documentation: 07/30/24 08:41 . HPI Narrative: Florence is a 39-year-old female who presents to the emergency department today for evaluation of suprapubic discomfort described as a tightness that started last night. She reports she has also had discomfort/burning with urination. She denies associated fever/chills, nausea/vomiting, change in bowel function/diarrhea from baseline, black/tarry stools, unusual vaginal discharge or bleeding. She is sexually active, has Nexplanon implant in place. Denies history of abdominal surgeries. She has had decreased appetite which she attributes to the abdominal discomfort, says she is nervous about making her belly pain worse. She also reports irregular menstrual cycle, says LMP was last month but has not had period this month yet. Physical exam very reassuring. Patient is alert and oriented, no acute distress. Abdomen is soft, nondistended, mild tenderness with palpation of suprapubic area. No palpable masses. Normal active bowel sounds. Easy work of breathing, lung sounds clear bilaterally. Normal heart sounds. No CVA tenderness. History and presentation most consistent with UTI, though other d/dx include but are not limited to: early , fibroids, ovulatory pain. Physical exam very reassuring with no peritoneal signs in nontoxic appearing patient, no indications at this time for emergent diagnostic imaging or labs. I independently interpreted the following tests: Urine dip not consistent with UTI, some protein and trace ketone. While in the emergency department/was given celine hector and crackers which she was able to eat without difficulty. Unclear etiology of abdominal pain, however abdominal exam and history are reassuring and outpatient management/observation recommended. Recommend follow- up with PCP if this discomfort persist. Reviewed discharge instructions with patient, including symptomatic management, importance of follow-up with PCP, and red flags indicate need for return to emergency care. Related Data Home Medications ?Medication ?Instructions ?Recorded ?Confirmed etonogestrel 68 mg subdermal 1 implant subdermal ONCE #1 ea 11/03/18 07/30/24 implant (Nexplanon) clotrimazole 1 % topical cream 1 applic topical TID #30 grams 08/22/21 07/30/24 albuterol sulfate 90 mcg/actuation 2 puff inhalation Q6H PRN 04/16/23 07/30/24 aerosol inhaler shortness of breath or wheezing #18 grams lamotrigine 100 mg tablet See Rx Instructions PO DIRECTED 11/16/23 07/30/24 (Lamictal) #315 tabs hydroxyzine HCl 10 mg tablet 10 mg PO TID PRN anxiety #30 tabs 04/11/24 07/30/24 trazodone 100 mg tablet See Rx Instructions .Route 07/04/24 07/30/24 .COMPLEX #180 tabs ferrous sulfate 325 mg (65 mg 325 mg PO DAILY #90 tabs 07/05/24 07/30/24 iron) tablet magnesium carb,citrate,oxide See Rx Instructions PO .COMPLEX 07/05/24 07/30/24 (Magnesium Complex) #90 tabs tirzepatide 7.5 mg/0.5 mL 7.5 mg (0.5 mL) subcut QWEEK 28 07/25/24 07/30/24 subcutaneous pen injector days #2 mL fluoxetine 20 mg capsule See Rx Instructions .Route .COMPLEX 07/30/24 07/30/24 Previous Rx's ?Medication ?Instructions ?Recorded etonogestrel 68 mg subdermal 1 implant subdermal ONCE #1 ea 11/03/18 implant (Nexplanon) clotrimazole 1 % topical cream 1 applic topical TID #30 grams 08/22/21 albuterol sulfate 90 mcg/actuation 2 puff inhalation Q6H PRN 04/16/23 aerosol inhaler shortness of breath or wheezing #18 grams lamotrigine 100 mg tablet See Rx Instructions PO DIRECTED 11/16/23 (Lamictal) #315 tabs hydroxyzine HCl 10 mg tablet 10 mg PO TID PRN anxiety #30 tabs 04/11/24 trazodone 100 mg tablet See Rx Instructions .Route 07/04/24 .COMPLEX #180 tabs ferrous sulfate 325 mg (65 mg 325 mg PO DAILY #90 tabs 07/05/24 iron) tablet magnesium carb,citrate,oxide See Rx Instructions PO .COMPLEX 07/05/24 (Magnesium Complex) #90 tabs tirzepatide 7.5 mg/0.5 mL 7.5 mg (0.5 mL) subcut QWEEK 07/25/24 subcutaneous pen injector days #2 mL Allergies Allergy/AdvReac Type Severity Reaction Status Date / Time aspirin AdvReac Intermediate unable to Verified 07/30/24 08:46 take due to heart surgery ibuprofen AdvReac Unknown unknown Verified 07/30/24 08:46 General Stated Complaint: Abd Prob PAT: 3 Review of Systems Narrative: see HPI Exam Const General: cooperative, healthy appearing, comfortable, no acute distress, well developed and well groomed Nutritional Appearance: average body habitus Orientation: alert and oriented x3 Resp Effort & Inspection: normal respiratory effort and able to speak in complete sentences Auscultation: clear to auscultation bilaterally Cardio Rate: regular rate Rhythm: regular rhythm GI Inspection: normal to inspection and non-distended Palpation: soft, not firm, no guarding, no pulsatile masses, not rigid and tender suprapubicly (very mild); with no rebound tenderness Auscultation: normal bowel sounds Back/Spine/Pelvis Back: no CVA tenderness Course Vital Signs Vital signs: Vital Signs Temperature 36.7 C 07/30/24 08:41 Pulse 86 07/30/24 08:41 Respiratory Rate 14 07/30/24 08:41 Blood Pressure 134/81 07/30/24 08:41 Pulse Oximetry 96 07/30/24 08:41 Temperature 36.7 C 07/30/24 08:45 Temperature Source Oral 07/30/24 08:45 Pulse 86 07/30/24 08:45 Respiratory Rate 14 07/30/24 08:45 Respiratory Effort Normal 07/30/24 08:45 Blood Pressure 134/81 07/30/24 08:45 Blood Pressure Position Sitting 07/30/24 08:45 Pulse Oximetry 96 07/30/24 08:45 Oxygen Delivery Method Room Air 07/30/24 08:45 Oxygen Flow Rate 0 07/30/24 08:45 Pain Level 6 07/30/24 08:45 Medical Decision Making Quality:SDOH Health Related Social Needs: No Data to Display PFSH All Active Problems (Updated 07/30/24 @ 10:12 by Taryn Mcarthur) Suprapubic discomfort (Acute) Right flank pain, chronic (Acute) Pre-diabetes (Acute) Partial epilepsy (Acute) Asthma (Acute) Asthma exacerbation (Acute) CAP (community acquired pneumonia) (Acute) Low back pain (Acute) Cough (Acute) Cervicogenic headache (Acute) More of a localized head pain, but worse with supine position .. WHEN LAYING ON OCCIPUT Fungal rash of torso (Acute) Chest pain (Acute) Vitamin D deficiency (Chronic 07/16/17) Seizure disorder (Chronic) Dx at 21yo. 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 On meds. [place] [facility] 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 Depression (Chronic 07/16/17) Chronic anxiety (Acute 07/16/17) Anxiety with depression (Acute 07/16/17) Malrotation of intestine (Acute) Medical History (Updated 07/30/24 @ 10:12 by Taryn Mcarthur) Ventricular inversion (~01/2024) 02/17/24 Cardiology Left ovarian cyst Incidental finding on CT scan - likely physiologic Hydrocephalus (01/23/16) Shunted at . Last repair 1994 at [facility]. No issues. 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 Pulmonary artery banding. removal of band at 22mo and closure of VSD. 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 Pulmonary artery banding. 22mo removal of PA band and closure of VSD. Pt is under impression that she should not be Pt is under impression that she should not become . 03/2016 [facility] reviewed with [facility] Cardiology. No contraindication to . open heart surgery as for transposition of great vessels. Pulmonary artery banding at and removal of band @ 22mo and closure of VSD. Ventriculoperitoneal Shunt At ? Last surgery was 1994 @ [facility]. Family History Paternal Grandfather Diabetes Essential hypertension Coronary heart disease Brother ADHD Social History Smoking/Tobacco Use Status: Former Tobacco Use Second Hand Exposure: No Smoking risk assessment performed?: Yes Alcohol Intake: former Drug use: Never Substance use type: does not use Adopted: No Caregiver/Support person: No Foster care: No Household members: other Details: Has her own apartment Housing: apartment Number of Children: 0 Education Level: high school current occupation: On disability for cognitive impairment Pets and animals: Yes Pets and animals: cat(s) and other Details: Rabbit Current gender identity: female What type of physical activity do you participate in: walking Frequency: 3-4 times per week Seatbelt use: always Do you feel safe at home: Yes Do you feel safe in your relationship?: Yes Female Reproductive History Menstrual control method: implanted History History 0 Para Hx # Term Pregnancies Multiple births Hx # Pregnancies Ectopic pregnancies AB induced Hx Number of Living Children AB spontaneous
[2024-07-30 09:57] LABS: Bilirubin Negative (Negative); Blood Negative (Negative); Clarity Sl Cloudy (Clear); Glucose Negative (Negative); Ketones Trace mg/dL (Negative); Leukocyte Esterase Negative (Negative); Nitrite Negative (Negative); Urobilinogen 0.2 mg/dL (Up to 0.2)
== END 2024-07-30 10:24 | disposition home or self-care (01) ==
PROVIDERS: Emergency Provider Nurse Practitioner Family; PCP Nurse Practitioner
DX: R10.2 Pelvic and perineal pain (principal); R19.7 Diarrhea, unspecified
CPT/HCPCS: 81025; 99282; 81003; 99283

== ENCOUNTER 2024-07-31 15:27 | Outpatient (REF) | payer MEDICAID, SELFPAY ==
[2024-07-31 21:18] LABS: Abs Immature Grans 0.03 10^3/uL (0.0-0.06); Absolute Basophil Count 0.02 10^3/uL (0.0-0.2); Absolute Eosinophil Count 0.33 10^3/uL (0.0-0.7); Absolute Lymphocyte Count 2.76 10^3/uL (1.2-3.4); Absolute Monocyte Count 0.68 10^3/uL (0.1-0.8); Absolute Neutrophil Count 6.93 10^3/uL (1.2-6.7); Basophils % 0.2 %; Eosinophils % 3.1 %; HCT 38.7 % (36.0-46.0); HGB 12.6 g/dL (11.2-15.7); Immature Grans % 0.3 %; Lymphocytes % 25.7 %; MCH 27.1 pg (27.0-33.0); MCHC 32.6 % (32.0-36.0); MCV 83 fL (80-95); MPV 9.4 fL (8.0-11.0); Monocytes % 6.3 %; Neutrophils % 64.4 %; Platelet Count 372 10^3/uL (130-400); RBC 4.65 10^6/uL (3.93-5.22); RDW 12.8 % (11.7-14.6); RDW-SD 38.5 fL; WBC 10.75 10^3/uL (4.4-10.8)
[2024-07-31 21:41] LABS: ALT 25 U/L (14-59); AST 20 U/L (15-37); Alkaline Phosphatase 92 U/L (46-116); Anion Gap 9.3 mmol/L (3-11); BUN 11 mg/dL (7-18); Bilirubin, Total 0.37 mg/dL (0.2-1.0); CO2 27.7 mmol/L (21.0-32.0); CREATININE 0.8 mg/dL (0.55-1.02); Calcium 9.4 mg/dL (8.5-10.1); Chloride 99 mmol/L (98-107); Estimated GFR 96.66 (mL/min/1.73m2); Glucose 66 mg/dL (74-106); Lipase 34 U/L (16-77); Potassium 4.1 mmol/L (3.5-5.1); Sodium 136 mmol/L (136-145); Total Protein 7.6 g/dL (6.4-8.2)
== END 2024-07-31 15:28 | disposition home or self-care (01) ==
LOC: LBN 15:27
PROVIDERS: PCP Nurse Practitioner; Visit Provider Nurse Practitioner Family
DX: R10.11 Right upper quadrant pain (principal)
CPT/HCPCS: 80053; 83690; 85025

== ENCOUNTER 2024-08-02 01:19 | Outpatient (CLI) | payer MEDICAID, SELFPAY ==
--- NOTE | 2024-08-02 | DI.US_ITS ---
Exam(s) US ABDOMEN LIMITED EXAM: US ABDOMEN LIMITED CLINICAL HISTORY: RUQ PAIN, R10.11,? GALLSTONES TECHNIQUE: Ultrasound abdomen performed using standard protocol. COMPARISON: US US ABDOMEN LIMITED from 04/14/[address] ABDOMEN PELVIS WO from 02/08/2024 FINDINGS: LIVER: Normal size. Mildly increased echogenicity. No focal liver lesions are seen.. GALLBLADDER: No evidence of cholelithiasis. No evidence of wall thickening. No pericholecystic fluid identified. STOUT'S SIGN: Negative. BILIARY SYSTEM: No intrahepatic or extrahepatic biliary ductal dilation. RIGHT KIDNEY: Normal size. No evidence of renal calculi. No evidence of hydronephrosis. No suspicious renal mass. No cyst identified. PANCREAS: Obscured by bowel gas. ABDOMINAL AORTA AND IVC: Visualized portions normal caliber. ASCITES: None seen. IMPRESSION: No evidence of cholelithiasis. Mild hepatic steatosis.. DATA REPOSITORY:
== END 2024-08-02 01:39 ==
LOC: DI 01:20
PROVIDERS: PCP Nurse Practitioner; Visit Provider Nurse Practitioner Family
DX: K76.0 Fatty (change of) liver, not elsewhere classified (principal)
CPT/HCPCS: 76705

== ENCOUNTER 2024-08-21 13:17 | Emergency (ER) | payer MEDICAID, SELFPAY ==
[2024-08-21 13:18] VITALS: BP 117/80; PULSE 89; RESP 16; TEMP 36.4
--- NOTE | 2024-08-21 14:00 | DI.RAD_ITS ---
Exam(s) XR KNEE RT 4V AP,LAT,AMADOR,PAT EXAM: XR KNEE RT 4V AP,LAT,AMADOR,PAT CLINICAL HISTORY: R knee pain. TECHNIQUE: 2D digital imaging was performed of the right knee. Four views obtained. Merchant, AP, la teral and PA tunnel views were obtained. COMPARISON: CR LEFT KNEE 3 VIEW COMPLETE from 10/23/2014 FINDINGS: BONES: No acute fracture is present. No bony destructive lesion is seen. JOINTS: The knee is normally aligned. No joint effusion is seen. SOFT TISSUE: Normal. IMPRESSION: Unremarkable radiographs of the right knee. DATA REPOSITORY: RADIATION DOSE DELIVERED:
--- NOTE | 2024-08-21 14:21 | ED.GENADUL_ITS ---
Discharge Plan Disposition Patient Disposition: Home Discharge Details Clinical Impression: Acute pain of right knee Primary Care Provider: Isabell Guthrie ED Provider: Frankie Salinas Home Meds and New Rx's Prescriptions: Continued Nexplanon 68 mg implant 1 implant SBD ONCE Qty: 1 0RF Rx Instructions: as a single dose albuterol sulfate 90 mcg/actuation HFA aerosol inhaler 2 puff inhalation Q6H PRN (Reason: shortness of breath or wheezing) Qty: 18 6RF tirzepatide 7.5 mg/0.5 mL pen injector 7.5 mg subcut QWEEK 28 Days Qty: 2 8RF Rx Instructions: Inject 5.0 mg subcutaneously (under the skin) once weekly as directed magnesium oxide 400 mg magnesium tablet 400 mg PO DAILY 90 Days Qty: 90 4RF Rx Instructions: Take one 400 mg magnesium oxide tablet by mouth once daily. lamotrigine [Lamictal] 100 mg tablet See Rx Instructions PO DIRECTED Qty: 315 3RF Rx Instructions: 200 mg am, 150 mg pm NKHS hydroxyzine HCl 10 mg tablet 10 mg PO TID PRN (Reason: anxiety) Qty: 30 2RF trazodone 100 mg tablet See Rx Instructions .ROUTE .COMPLEX Qty: 180 1RF Dose Instruction: TAKE TWO TABLETS BY MOUTH AT BEDTIME Rx Instructions: TAKE TWO TABLETS BY MOUTH AT BEDTIME Magnesium Complex 300 mg magnesium tablet See Rx Instructions PO .COMPLEX Qty: 90 3RF Rx Instructions: orally; 1 tab daily ferrous sulfate 325 mg (65 mg iron) tablet 325 mg PO DAILY Qty: 90 3RF fluoxetine 20 mg capsule See Rx Instructions .ROUTE .COMPLEX Rx Instructions: TAKE ONE CAPSULE BY MOUTH EVERY evening Discharge Instructions Instructions: Knee Pain ED Additional Instructions: You are seen in the emergency department for your knee pain. As we discussed, you are x-ray showed no sign of any fractures. You are receiving a knee immobilizer which you should wear to support your knee. Please ice your knee fo r 20 minutes on 20 and soft the remainder of the day. Please return to the emergency department if you develop fevers take any falls or develop any numbness or tingling in the right foot. Otherwise please follow-up with your primary care provider as you may benefit from a repeat x-ray or possibly additional imaging based on reassessment by your primary care provider. For your pain please take medications as follows: 1. Take acetaminophen (Tylenol), 1,000 mg (two 500 mg tabs) every 6 hours [2. Take ibuprofen (Advil), 400 mg every 6 hours.] HPI General Date/Time Provider Initiated Documentation: 08/21/24 14:04 . HPI Narrative: MDM This is a quite well-appearing afebrile and not tachycardic 39-year-old female with right knee pain most consistent with sprain given reassuring exam. Patient is able to straight leg raise so I am not concerned for quadriceps tendon rupture. No calf pain to suggest DVT. No pain out of proportion to suggest necrotizing soft tissue infection. No lacerations that require primary closure. Patient has good range of motion in right knee and no significant joint effusion nor erythema so I am not concerned for septic joint. No fluctuance to suggest abscess. No erythema to suggest cellulitis. Right foot warm well- perfused so I am not suspicious for critical limb ischemia so I do not feel that the patient requires a CT angiogram with runoffs. If patient does not have any acute osseous abnormalities we will treat with a knee immobilizer make her weightbearing as tolerated with PCP follow-up. I discussed with the patient that it certainly possible that she could have a ligamentous or tendinous injury. I advised that she should use her knee immobilizer and follow-up with her primary care provider later this week. We discussed that she should return to the ED if she develops any numbness or tingling in her foot any worsening pa in or has any other falls. She understood her return indications and was discharged with an empiric trial of expectant outpatient management. HPI This is a 39-year-old female with history of partial epilepsy obesity GERD arrived to the emergency department via private vehicle in setting of right knee pain. Patient is not anticoagulated. She says that she inadvertently hit her right knee on her bed frame yesterday and has increasing soreness. She is able to bear weight. She did not have any preceding chest pain nausea or vomiting. She did not lose consciousness. She denies any numbness or tingling in her right foot. She denies any prior history of surgeries to her right knee. Exam General: Well-appearing in no acute distress speaking in complete sentences. Head: Normocephalic, atraumatic. Eye: Extraocular eye movements intact. No conjunctival injection. No scleral icterus. Ear, nose, mouth, throat: Grossly normal inspection. Normal voice, handling secretions normally. Neck: Trachea midline. Cardiovascular: Well-perfused distal extremities. Respiratory: Nonlabored respiration. Gastrointestinal: Nondistended abdomen. Musculoskeletal: Right knee with no marked abnormalities on inspection. No ecchymosis. No lacerations. No effusion. Right foot warm well-perfused 2+ right PT and DP pulses. Patient is able to straight leg raise. She has no significant laxity on valgus nor varus stress testing. She has full range of motion in her right knee. Skin: Normal for age and race, grossly normal temperature and turgor. No acute rash. Neurologic: Alert and appropriate, no apparent acute deficits. Psychiatric: Mood and manner are appropriate. Grooming and personal hygiene are appropriate. Related Data Home Medications ?Medication ?Instructions ?Recorded ?Confirmed etonogestrel 68 mg subdermal 1 implant subdermal ONCE #1 ea 11/03/18 08/21/24 implant (Nexplanon) albuterol sulfate 90 mcg/actuation 2 puff inhalation Q6H PRN 04/16/23 08/21/24 aerosol inhaler shortness of breath or wheezing #18 grams lamotrigine 100 mg tablet See Rx Instructions PO DIRECTED 11/16/23 08/21/24 (Lamictal) #315 tabs hydroxyzine HCl 10 mg tablet 10 mg PO TID PRN anxiety #30 tabs 04/11/24 08/21/24 trazodone 100 mg tablet See Rx Instructions .Route 07/04/24 08/21/24 .COMPLEX #180 tabs ferrous sulfate 325 mg (65 mg 325 mg PO DAILY #90 tabs 07/05/24 08/21/24 iron) tablet magnesium carb,citrate,oxide See Rx Instructions PO .COMPLEX 07/05/24 08/21/24 (Magnesium Complex) #90 tabs fluoxetine 20 mg capsule See Rx Instructions .Route .COMPLEX 07/30/24 08/21/24 magnesium oxide 400 mg PO DAILY 90 days #90 tabs 08/04/24 08/21/24 tirzepatide 7.5 mg/0.5 mL 7.5 mg (0.5 mL) subcut QWEEK 28 08/16/24 08/21/24 subcutaneous pen injector days #2 mL Previous Rx's ?Medication ?Instructions ?Recorded etonogestrel 68 mg subdermal 1 implant subdermal ONCE #1 ea 11/03/18 implant (Nexplanon) albuterol sulfate 90 mcg/actuation 2 puff inhalation Q6H PRN 04/16/23 aerosol inhaler shortness of breath or wheezing #18 grams lamotrigine 100 mg tablet See Rx Instructions PO DIRECTED 11/16/23 (Lamictal) #315 tabs hydroxyzine HCl 10 mg tablet 10 mg PO TID PRN anxiety #30 tabs 04/11/24 trazodone 100 mg tablet See Rx Instructions .Route 07/04/24 .COMPLEX #180 tabs ferrous sulfate 325 mg (65 mg 325 mg PO DAILY #90 tabs 07/05/24 iron) tablet magnesium carb,citrate,oxide See Rx Instructions PO .COMPLEX 07/05/24 (Magnesium Complex) #90 tabs magnesium oxide 400 mg PO DAILY 90 days #90 tabs 08/04/24 tirzepatide 7.5 mg/0.5 mL 7.5 mg (0.5 mL) subcut QWEEK 28 08/16/24 subcutaneous pen injector days #2 mL Allergies Allergy/AdvReac Type Severity Reaction Status Date / Time aspirin AdvReac Intermediate unable to Verified 08/21/24 13:23 take due to heart surgery ibuprofen AdvReac Unknown unknown Verified 08/21/24 13:23 General Stated Complaint: Orthopedic PAT: 4 Course Vital Signs Vital signs: Vital Signs Temperature 36.4 C L 08/21/24 13:18 Pulse 89 08/21/24 13:18 Respiratory Rate 16 08/21/24 13:18 Blood Pressure 117/80 08/21/24 13:18 Temperature 36.4 C L 08/21/24 13:18 Pulse 89 08/21/24 13:18 Respiratory Rate 16 08/21/24 13:18 Respiratory Effort Normal 08/21/24 13:23 Blood Pressure 117/80 08/21/24 13:18 Pain Level 4 08/21/24 13:18 Lab/Test Results Lab/Test Results: POC- Test(urine) Negative Medical Decision Making Quality:SDOH Health Related Social Needs: No Data to Display PFSH All Active Problems (Updated 08/21/24 @ 15:08 by Frankie Salinas MD) Acute pain of right knee (Acute) Suprapubic discomfort (Acute) Right flank pain, chronic (Acute) Pre-diabetes (Acute) Partial epilepsy (Acute) Asthma (Acute) Asthma exacerbation (Acute) CAP (community acquired pneumonia) (Acute) Low back pain (Acute) Cough (Acute) Cervicogenic headache (Acute) More of a localized head pain, but worse with supine position .. WHEN LAYING ON OCCIPUT Fungal rash of torso (Acute) Chest pain (Acute) Vitamin D deficiency (Chronic 07/16/17) Seizure disorder (Chronic) Dx at 21yo. 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 On meds. Previously seen at [facility]. 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 Depression (Chronic 07/16/17) Chronic anxiety (Acute 07/16/17) Anxiety with depression (Acute 07/16/17) Malrotation of intestine (Acute) Medical History (Updated 08/21/24 @ 15:08 by Frankie Salinas MD) Ventricular inversion (~01/2024) 02/17/24 Cardiology Left ovarian cyst Incidental finding on CT scan - likely physiologic Hydrocephalus (01/23/16) Shunted at . Last repair 1994 at [facility]. No issues. 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 Pulmonary artery banding. removal of band at 22mo and closure of VSD. 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 Pulmonary artery banding. 22mo removal of PA band and closure of VSD. Pt is under impression that she should not be Pt is under impression that she should not become . 03/2016 [facility] records reviewed with [facility] Cardiology. No contraindication to . open heart surgery as infant for transposition of great vessels. Pulmonary artery banding at and removal of band @ 22mo and closure of VSD. Ventriculoperitoneal Shunt At ? Last surgery was 1994 @ [facility]. Family History Paternal Grandfather Diabetes Essential hypertension Coronary heart disease Brother ADHD Social History Smoking/Tobacco Use Status: Former Tobacco Use Second Hand Exposure: No Smoking risk assessment performed?: Yes Alcohol Intake: former Drug use: Never Substance use type: does not use Adopted: No Caregiver/Support person: No Foster care: No Household members: other Details: Has her own apartment Housing: apartment Number of Children: 0 Education Level: high school current occupation: On disability for cognitive impairment Pets and animals: Yes Pets and animals: cat(s) and other Details: Rabbit Current gender identity: female What type of physical activity do you participate in: walking Frequency: 3-4 times per week Seatbelt use: always Do you feel safe at home: Yes Do you feel safe in your relationship?: Yes Female Reproductive History Menstrual control method: implanted History History 0 Para Hx # Term Pregnancies Multiple births Hx # Pregnancies Ectopic pregnancies AB induced Hx Number of Living Children AB spontaneous
[2024-08-21] MEDS: Acetaminophen 500 MG TAB 1000 MG PO (15:12)
[2024-08-21 15:25] VITALS: BP 125/64; PULSE 77; RESP 16; O2SAT 99
== END 2024-08-21 15:26 | disposition home or self-care (01) ==
PROVIDERS: Emergency Provider Emergency Medicine; PCP Nurse Practitioner
DX: M25.561 Pain in right knee (principal)
CPT/HCPCS: 81025; 99283; 73564

== ENCOUNTER 2024-09-19 13:35 | Emergency (ER) | payer MEDICAID, SELFPAY ==
[2024-09-19 13:36] VITALS: BP 109/74; PULSE 89; RESP 18; TEMP 36.9; O2SAT 95
== END 2024-09-19 14:37 | disposition left against medical advice (07) ==
PROVIDERS: Emergency Provider Emergency Medicine; PCP Nurse Practitioner
DX: Z53.21 Procedure and treatment not carried out due to patient leaving prior to being seen by health care provider (principal)

== ENCOUNTER 2024-09-25 16:32 | Outpatient (REF) | payer MEDICAID, SELFPAY ==
[2024-09-26 18:38] LABS: Hepatitis C Ab w Rflx HCV PCR Negative (Negative)
[2024-09-26 18:43] LABS: HIV-1/2 Ag & Ab Screen Negative (Negative)
[2024-09-27 11:00] LABS: Syphilis Serology (RPR) Negative (Negative)
[2024-09-28 11:41] LABS: Chlamydia Result Negative (Negative); GC Result Negative (Negative)
== END 2024-09-25 16:33 | disposition home or self-care (01) ==
LOC: LBN 16:32
PROVIDERS: PCP Nurse Practitioner; Visit Provider Nurse Practitioner Family
DX: Z11.3 Encounter for screening for infections with a predominantly sexual mode of transmission (principal)
CPT/HCPCS: 81513; 86803; 87389; 87481; 87491; 87591; 87661; 86592; 87480; 87510; 87660

== ENCOUNTER 2024-11-14 12:57 | Emergency (ER) | payer MEDICAID, SELFPAY ==
[2024-11-14 13:00] VITALS: BP 148/88; PULSE 92; RESP 16; TEMP 36.6; O2SAT 96
--- NOTE | 2024-11-14 13:15 | DI.RAD_ITS ---
Exam(s) XR HIP RT COMPLETE AP PELVIS EXAM: XR HIP RT COMPLETE AP PELVIS CLINICAL HISTORY: R hip pain. TECHNIQUE: 2D digital imaging was performed. Two views COMPARISON: No exams were available for comparison FINDINGS: BONES: No acute fracture is present. No bony destructive lesion is seen. JOINTS: No dislocation present. Hip joint spaces are maintained. Minimal acetabular spurring. SI justin ints and pubic symphysis are unremarkable. SOFT TISSUE: Normal. IMPRESSION: No acute abnormality. DATA REPOSITORY: RADIATION DOSE DELIVERED:
--- NOTE | 2024-11-14 13:25 | W.ED.GENAD ---
Discharge Plan Disposition Patient Disposition: Home Condition: Stable Discharge Details Clinical Impression: Low back pain Primary Care Provider: Isabell Guthrie ED Provider: Aquiles Hansen Home Meds and New Rx's Prescriptions: New methocarbamol 750 mg tablet 750 mg PO QID 7 Days Qty: 28 0RF Continued Nexplanon 68 mg implant 1 implant SBD ONCE Qty: 1 0RF Rx Instructions: as a single dose albuterol sulfate 90 mcg/actuation HFA aerosol inhaler 2 puff inhalation Q6H PRN (Reason: shortness of breath or wheezing) Qty: 18 6RF tirzepatide 10 mg/0.5 mL pen injector 10 mg subcut QWEEK MDD 10 mg weekly 28 Days Qty: 2 1RF Rx Instructions: Inject 10 mg subcutaneously once weekly as directed magnesium oxide 400 mg magnesium tablet 400 mg PO DAILY 90 Days Qty: 90 4RF Rx Instructions: Take one 400 mg magnesium oxide tablet by mouth once daily. lamotrigine [Lamictal] 100 mg tablet See Rx Instructions PO DIRECTED Qty: 315 3RF Rx Instructions: 200 mg am, 150 mg pm NKHS hydroxyzine HCl 10 mg tablet 10 mg PO TID PRN (Reason: anxiety) Qty: 30 2RF trazodone 100 mg tablet See Rx Instructions .ROUTE .COMPLEX Qty: 180 1RF Dose Instruction: TAKE TWO TABLETS BY MOUTH AT BEDTIME Rx Instructions: TAKE TWO TABLETS BY MOUTH AT BEDTIME Magnesium Complex 300 mg magnesium tablet See Rx Instructions PO .COMPLEX Qty: 90 3RF Rx Instructions: orally; 1 tab daily ferrous sulfate 325 mg (65 mg iron) tablet 325 mg PO DAILY Qty: 90 3RF fluoxetine 20 mg capsule See Rx Instructions .ROUTE .COMPLEX Rx Instructions: TAKE ONE CAPSULE BY MOUTH EVERY evening Discharge Instructions Instructions: Low Back Pain ED Additional Instructions: You were seen in the emergency department for your fall on the ice days ago. There is no acute fracture to your hip or pelvis. Take 1000 mg of Tylenol every 6 hours, take the prescribed muscle relaxers sent to [place] [facility], follow-up with physical therapy visits for failure to improve, return to the emergency department for any severe worsening despite treatment, bowel or urinary changes, any other emergent concern Stand Alone Forms: Physical Therapy Referral Referrals: Isabell Guthrie NP [Primary Care Provider] - Discharge Data Discharge Date/Time-TO BE ENTERED AT DEPARTURE: 11/14/24 14:33 HPI General Date/Time Provider Initiated Documentation: 11/14/24 13:21. HPI Narrative: 39 year-old female presents to ED today by POV/ambulating with a chief complaint of fall on back steps on Wednesday, with R hip/SI joint pain, able to ambulate, R-side dominant. Quality described as focal pain to posterior R hip, no radiation to numbness/tingling, inability to walk or lift R leg, denies bruising. Severity is described as moderate. Palliating factors include nothing specific attempted. Provoking factors include nothing specific. Patient not anticoagulated. Related Data Home Medications ?Medication ?Instructions ?Recorded ?Confirmed etonogestrel 68 mg subdermal 1 implant subdermal ONCE #1 ea 11/03/18 11/14/24 implant (Nexplanon) albuterol sulfate 90 mcg/actuation 2 puff inhalation Q6H PRN 04/16/23 11/14/24 aerosol inhaler shortness of breath or wheezing #18 grams lamotrigine 100 mg tablet See Rx Instructions PO DIRECTED 11/16/23 11/14/24 (Lamictal) #315 tabs hydroxyzine HCl 10 mg tablet 10 mg PO TID PRN anxiety #30 tabs 04/11/24 11/14/24 trazodone 100 mg tablet See Rx Instructions .Route 07/04/24 11/14/24 .COMPLEX #180 tabs ferrous sulfate 325 mg (65 mg 325 mg PO DAILY #90 tabs 07/05/24 11/14/24 iron) tablet magnesium carb,citrate,oxide See Rx Instructions PO .COMPLEX 07/05/24 11/14/24 (Magnesium Complex) #90 tabs fluoxetine 20 mg capsule See Rx Instructions .Route .COMPLEX 07/30/24 11/14/24 magnesium oxide 400 mg PO DAILY 90 days #90 tabs 08/04/24 11/14/24 tirzepatide 10 mg/0.5 mL 10 mg (0.5 mL) subcut QWEEK 28 09/25/24 11/14/24 subcutaneous pen injector days #2 mL methocarbamol 750 mg tablet 750 mg PO QID 7 days #28 tabs 11/14/24 Previous Rx's ?Medication ?Instructions ?Recorded etonogestrel 68 mg subdermal 1 implant subdermal ONCE #1 ea 11/03/18 implant (Nexplanon) albuterol sulfate 90 mcg/actuation 2 puff inhalation Q6H PRN 04/16/23 aerosol inhaler shortness of breath or wheezing #18 grams lamotrigine 100 mg tablet See Rx Instructions PO DIRECTED 11/16/23 (Lamictal) #315 tabs hydroxyzine HCl 10 mg tablet 10 mg PO TID PRN anxiety #30 tabs 04/11/24 trazodone 100 mg tablet See Rx Instructions .Route 07/04/24 .COMPLEX #180 tabs ferrous sulfate 325 mg (65 mg 325 mg PO DAILY #90 tabs 07/05/24 iron) tablet magnesium carb,citrate,oxide See Rx Instructions PO .COMPLEX 07/05/24 (Magnesium Complex) #90 tabs magnesium oxide 400 mg PO DAILY 90 days #90 tabs 08/04/24 tirzepatide 10 mg/0.5 mL 10 mg (0.5 mL) subcut QWEEK 28 09/25/24 subcutaneous pen injector days #2 mL methocarbamol 750 mg tablet 750 mg PO QID 7 days #28 tabs 11/14/24 Allergies Allergy/AdvReac Type Severity Reaction Status Date / Time aspirin AdvReac Intermediate unable to Verified 11/14/24 13:05 take due to heart surgery ibuprofen AdvReac Unknown unknown Verified 11/14/24 13:05 General Stated Complaint: Orthopedic PAT: 4 Review of Systems All systems reviewed & are unremarkable except as noted in HPI and below Exam Narrative Exam Narrative: GENERAL APPEARANCE: Well-nourished, non-toxic, awake and alert, atraumatic, no acute distress. SKIN: Warm, pink, dry, intact, without rashes/lesions/ulcerations. HEAD: Normocephalic, atraumatic, normal hair distribution for gender/age. EYES: Normal conjunctiva, no exudates on lids/lashes. ENT: Nares patent, no circumoral cyanosis, no facial swelling NECK: Supple, trachea midline, painless cervical ROM. LUNGS/CHEST: Non-labored respirations, normal A/P diameter, symmetrical expansion, no chest wall deformity HEART (CV/PV): No peripheral edema, no JVD. ABDOMEN: Soft, non-distended, no guarding. MSK: Normal ROM, no swelling/deformity to bilateral UEs or LEs, moving all extremities without weakness, no cyanosis, spine midline without tenderness, normal curvature, right posterior hip tenderness without swelling or deformity, able to SLR, no crepitus NEURO: Mental Status AAOx4 - alert to person, place, time, events No facial droop, no forehead involvement. Motor: No focal weakness - strength 5/5 in bilateral UEs and LEs, proximal and distal, symmetric. Sensory: sensation intact to light touch globally. Gait normal: patient ambulated without ataxia into ED room. PSYCH: euthymic, cooperative, pleasant, appropriate speech Course Vital Signs Vital signs: Vital Signs Temperature 36.6 C 11/14/24 13:00 Pulse 92 H 11/14/24 13:00 Respiratory Rate 16 11/14/24 13:00 Blood Pressure 148/88 H 11/14/24 13:00 Pulse Oximetry 96 11/14/24 13:00 Temperature 36.6 C 11/14/24 13:00 Temperature Source Oral 11/14/24 13:00 Pulse 92 H 11/14/24 13:00 Respiratory Rate 16 11/14/24 13:00 Blood Pressure 148/88 H 11/14/24 13:00 Pulse Oximetry 96 11/14/24 13:00 Oxygen Delivery Method Room Air 11/14/24 13:00 Oxygen Flow Rate 0 11/14/24 13:00 Pain Level 5 11/14/24 13:00 Medical Decision Making This dictation utilizes [id number] dictation software and may contain unedited grammatical errors. 39 year-old female presents to ED today by POV/ambulating with a chief complaint of fall on back steps on Wednesday, with R hip/SI joint pain, able to ambulate, R-side dominant. Quality described as focal pain to posterior R hip, no radiation to numbness/tingling, inability to walk or lift R leg, denies bruising. Severity is described as moderate. Palliating factors include nothing specific attempted. Provoking factors include nothing specific. Patients' medical history: Transposition of the great vessels, asthma, partial epilepsy, GERD. Family and social history: Noncontributory. Pertinent exam findings / vital signs include right posterior hip tenderness without swelling or deformity, able to SLR, no crepitus. Differential / pathologies of concern include strain/sprain, unlikely fracture. Diagnostic studies of: -XR R Hip - no acute fractures. Interventions of: -recommend Tylenol, Voltaren gel. ED Course/Assessment/Plan: 39-year-old female presents with right lower back pain after a minor fall on her back stairs days ago. X-rays negative for fracture she has right SI joint tenderness and posterior hip tenderness without crepitus or deformity, neurovascularly intact in the right lower extremity, recommend Tylenol and Voltaren gel follow-up with orthopedics for persistent pain. Findings not consistent with fracture or neurovascular compromise. Disposition of Low Back Pain. Patient verbalized understanding of the plan and return to ED criteria and engaged in shared decision making. Medical Records Medical records reviewed: Yes I reviewed the patient's medical records. Imaging Data Radiologic Study: Attestation: I personally reviewed and interpreted this imaging study as follows: Imaging: X-Ray Radiologist's impression: EXAM: XR HIP RT COMPLETE AP PELVIS CLINICAL HISTORY: R hip pain. TECHNIQUE: 2D digital imaging was performed. Two views COMPARISON: No exams were available for comparison FINDINGS: BONES: No acute fracture is present. No bony destructive lesion is seen. JOINTS: No dislocation present. Hip joint spaces are maintained. Minimal acetabular spurring. SI joints and pubic symphysis are unremarkable. SOFT TISSUE: Normal. IMPRESSION: No acute abnormality. Quality:SDOH Health Related Social Needs: No Data to Display PFSH All Active Problems (Updated 11/14/24 @ 14:17 by KAYE Rivas) Low back pain (Acute) Right flank pain, chronic (Acute) Pre-diabetes (Acute) Partial epilepsy (Acute) Asthma (Acute) Asthma exacerbation (Acute) CAP (community acquired pneumonia) (Acute) Low back pain (Acute) Cough (Acute) Cervicogenic headache (Acute) More of a localized head pain, but worse with supine position .. WHEN LAYING ON OCCIPUT Fungal rash of torso (Acute) Chest pain (Acute) Vitamin D deficiency (Chronic 07/16/17) Seizure disorder (Chronic) Dx at 21yo. 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 On meds. Previously seen at [facility]. 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 Depression (Chronic 07/16/17) Chronic anxiety (Acute 07/16/17) Anxiety with depression (Acute 07/16/17) Malrotation of intestine (Acute) Medical History (Updated 11/14/24 @ 14:17 by KAYE Rivas) Congenital heart defect 09/05/24 F/U with Cardiology Ventricular inversion (~01/2024) 02/17/24 Cardiology Left ovarian cyst Incidental finding on CT scan - likely physiologic Hydrocephalus (01/23/16) Shunted at . Last repair 1994 at [facility]. No issues. Transposition of great vessels s/p surgery at [facility]. Pulmonary artery banding. removal of band at 22mo and closure of VSD. Surgical History History of transposition of great vessels (01/23/16) surgery at [facility] as a . Pulmonary artery banding. 22mo removal of PA band and closure of VSD. Pt is under impression that she should not be Pt is under impression that she should not become . 03/2016 [facility] records reviewed with [facility] Cardiology. No contraindication to . open heart surgery as infant for transposition of great vessels. Pulmonary artery banding at and removal of band @ 22mo and closure of VSD. Ventriculoperitoneal Shunt At ? Last surgery was 1994 @ [facility]. Family History Paternal Grandfather Diabetes Essential hypertension Coronary heart disease Brother ADHD Social History Smoking/Tobacco Use Status: Former Tobacco Use Second Hand Exposure: No Smoking risk assessment performed?: Yes Alcohol Intake: current Alcohol Intake frequency: holidays/special occasions only Drug use: Never Substance use type: does not use Adopted: No Caregiver/Support person: No Foster care: No Household members: other Details: Has her own apartment Housing: apartment Number of Children: 0 Education Level: high school current occupation: On disability for cognitive impairment Pets and animals: Yes Pets and animals: cat(s) and other Details: Rabbit Current gender identity: female What type of physical activity do you participate in: walking Frequency: 3-4 times per week Seatbelt use: always Do you feel safe at home: Yes Do you feel safe in your relationship?: Yes Female Reproductive History Menstrual control method: implanted History History 0 Para Hx # Term Pregnancies Multiple births Hx # Pregnancies Ectopic pregnancies AB induced Hx Number of Living Children AB spontaneous
== END 2024-11-14 14:33 | disposition home or self-care (01) ==
PROVIDERS: Emergency Provider Physician Assistant; PCP Nurse Practitioner
DX: M25.551 Pain in right hip (principal); M54.50 Low back pain, unspecified; Z98.2 Presence of cerebrospinal fluid drainage device; Z87.891 Personal history of nicotine dependence
CPT/HCPCS: 99283; 73502

== ENCOUNTER 2025-01-05 00:32 | Outpatient (CLI) | payer MEDICAID, SELFPAY ==
--- NOTE | 2025-01-05 10:52 | DI.RAD_ITS ---
Exam(s) XR KNEE RT 3V AP,LAT,AMADOR EXAM: XR KNEE RT 3V AP,LAT,AMADOR CLINICAL HISTORY: M25.561 Pain in Rt knee. TECHNIQUE: 2D digital imaging was performed. COMPARISON: CR XR KNEE RT 4V AP,LAT,AMADOR,PAT from 08/21/2024 FINDINGS: 3 views No evidence of fracture. There appears to be a small amount of increased joint fluid. Bone density normal. No osseous lesions. No degenerative changes. IMPRESSION: No significant osseous findings in the knee. Small joint effusion. DATA REPOSITORY: RADIATION DOSE DELIVERED:
== END 2025-01-05 00:52 ==
LOC: DI 00:33
PROVIDERS: PCP Nurse Practitioner; Visit Provider Physician Assistant Medical
DX: M25.561 Pain in right knee (principal)
CPT/HCPCS: 73562

== ENCOUNTER 2025-01-26 15:50 | Outpatient (REF) | payer MEDICAID, SELFPAY | END 2025-01-26 15:51 | disposition home or self-care (01) | LOC: LBN 15:50 | PROVIDERS: PCP Nurse Practitioner; Visit Provider Physician Assistant Medical | DX: J02.9 Acute pharyngitis, unspecified (principal) | CPT/HCPCS: 87070 ==

== ENCOUNTER 2025-03-13 10:49 | Emergency (ER) | payer MEDICAID, SELFPAY ==
[2025-03-13 10:56] VITALS: BP 109/68; PULSE 91; RESP 16; TEMP 36.6; O2SAT 95
[2025-03-13 11:02] VITALS: BP 109/68; PULSE 91; RESP 16; TEMP 36.6; O2SAT 95
--- NOTE | 2025-03-13 11:48 | ED.GENADUL_ITS ---
Discharge Plan Disposition Patient Disposition: Home Condition: Good Discharge Details Clinical Impression: MYLES (subconjunctival hemorrhage) Primary Care Provider: Isabell Guthrie ED Provider: Kim Campuzano Home Meds and New Rx's Prescriptions: Continued Nexplanon 68 mg implant 1 implant SBD ONCE Qty: 1 0RF Rx Instructions: as a single dose tirzepatide 15 mg/0.5 mL pen injector 15 mg subcut QWEEK 28 Days Qty: 2 1RF Rx Instructions: Inject 15.0 mg subcutaneously once weekly as directed. magnesium oxide 400 mg magnesium tablet 400 mg PO DAILY 90 Days Qty: 90 4RF Rx Instructions: Take one 400 mg magnesium oxide tablet by mouth once daily. albuterol sulfate 90 mcg/actuation HFA aerosol inhaler 2 puff inhalation Q6H PRN (Reason: shortness of breath or wheezing) Qty: 18 6RF lamotrigine [Lamictal] 100 mg tablet See Rx Instructions PO DIRECTED Qty: 315 3RF Rx Instructions: 200 mg am, 150 mg pm NKHS hydroxyzine HCl 10 mg tablet 10 mg PO TID PRN (Reason: anxiety) Qty: 30 2RF Magnesium Complex 300 mg magnesium tablet See Rx Instructions PO .COMPLEX Qty: 90 3RF Rx Instructions: orally; 1 tab daily ferrous sulfate 325 mg (65 mg iron) tablet 325 mg PO DAILY Qty: 90 3RF trazodone 100 mg tablet See Rx Instructions .ROUTE .COMPLEX Qty: 180 1RF Dose Instruction: TAKE TWO TABLETS BY MOUTH AT BEDTIME Rx Instructions: TAKE TWO TABLETS BY MOUTH AT BEDTIME fluoxetine 20 mg capsule See Rx Instructions .ROUTE .COMPLEX Rx Instructions: TAKE ONE CAPSULE BY MOUTH EVERY evening Discharge Instructions Instructions: Subconjunctival hemorrhage Additional Instructions: Your exam shows a subconjunctival hemorrhage which is a small broken vessel in the outter aspect of the eye. This should not chagne your vision or cause any ocean transportation intermediary problems with your eye. It is not infectious and will go away on its own. It is good to have your eyes checked routinely and I encourage you to call [facility], number listed below, and they can help with furhter treatment of this if you need it. Please return with increased pain, fevers/chills, visual changes, discharge or other new/worsening symptoms. Referrals: [facility] [Outside] HPI General Date/Time Provider Initiated Documentation: 03/13/25 11:47 . Limitations to Documentation: no limitations . Information obtained by: patient and RN notes reviewed . History of Present Illness 39 year old F presents to the emergency department with the chief complaint of left eye redness and irritation, Quality is described as burning, and is localized to the eyes. Patient reports no radiation. Patient started experiencing this day(s) and it has been constant. No relieving factors improve symptom(s), No exacerbating factors reported . Patient notes no other symptoms.. Patient did receive the following treatments prior to arrival, none Related Data Home Medications ?Medication ?Instructions ?Recorded ?Confirmed etonogestrel 68 mg subdermal 1 implant subdermal ONCE #1 ea 11/03/18 03/13/25 implant (Nexplanon) lamotrigine 100 mg tablet See Rx Instructions PO DIRECTED 11/16/23 03/13/25 (Lamictal) #315 tabs hydroxyzine HCl 10 mg tablet 10 mg PO TID PRN anxiety #30 tabs 04/11/24 03/13/25 ferrous sulfate 325 mg (65 mg 325 mg PO DAILY #90 tabs 07/05/24 03/13/25 iron) tablet magnesium carb,citrate,oxide See Rx Instructions PO .COMPLEX 07/05/24 03/13/25 (Magnesium Complex) #90 tabs fluoxetine 20 mg capsule See Rx Instructions .Route .COMPLEX 07/30/24 03/13/25 magnesium oxide 400 mg PO DAILY 90 days #90 tabs 08/04/24 03/07/25 trazodone 100 mg tablet See Rx Instructions .Route 12/25/24 03/13/25 .COMPLEX #180 tabs tirzepatide 15 mg/0.5 mL 15 mg (0.5 mL) subcut QWEEK 28 02/12/25 03/13/25 subcutaneous pen injector days #2 mL albuterol sulfate 90 mcg/actuation 2 puff inhalation Q6H PRN 03/07/25 03/13/25 aerosol inhaler shortness of breath or wheezing #18 grams Previous Rx's ?Medication ?Instructions ?Recorded etonogestrel 68 mg subdermal 1 implant subdermal ONCE #1 ea 11/03/18 implant (Nexplanon) lamotrigine 100 mg tablet See Rx Instructions PO DIRECTED 11/16/23 (Lamictal) #315 tabs hydroxyzine HCl 10 mg tablet 10 mg PO TID PRN anxiety #30 tabs 04/11/24 ferrous sulfate 325 mg (65 mg 325 mg PO DAILY #90 tabs 07/05/24 iron) tablet magnesium carb,citrate,oxide See Rx Instructions PO .COMPLEX 07/05/24 (Magnesium Complex) #90 tabs magnesium oxide 400 mg PO DAILY 90 days #90 tabs 08/04/24 trazodone 100 mg tablet See Rx Instructions .Route 12/25/24 .COMPLEX #180 tabs tirzepatide 15 mg/0.5 mL 15 mg (0.5 mL) subcut QWEEK 28 02/12/25 subcutaneous pen injector days #2 mL albuterol sulfate 90 mcg/actuation 2 puff inhalation Q6H PRN 03/07/25 aerosol inhaler shortness of breath or wheezing #18 grams Allergies Allergy/AdvReac Type Severity Reaction Status Date / Time aspirin AdvReac Intermediate unable to Verified 03/13/25 11:00 take due to heart surgery ibuprofen AdvReac Unknown unknown Verified 03/13/25 11:00 General Stated Complaint: EyeProblem PAT: 4 Review of Systems Constitutional Constitutional: Reports as per HPI, Denies chills, Denies fever(s) and Denies headache(s) Eyes Eyes: Reports as per HPI ENT Ears, Nose, Mouth, and Throat: Denies headache(s) Cardiovascular Cardiovascular: Reports as per HPI, Denies chest pain and Denies lightheadedness Respiratory Respiratory: Denies cough Integumentary/Breasts Skin/Breast: Reports as per HPI, Denies rash, Denies skin pain and Denies skin swelling Neurologic Neurologic: Denies headache(s) Exam Const General: cooperative, healthy appearing, comfortable, no acute distress, well developed and well groomed Nutritional Appearance: average body habitus and well nourished Orientation: alert, awake and oriented x3 HENMT Head: normal to inspection, normocephalic and atraumatic Ears: hearing grossly normal bilaterally and external ears normal General nose exam: external nose normal and nares normal Face and sinus: normal facial exam and face symmetric Mouth: oral mucosae normal, lip normal and moist mucous membranes Eyes Visual Garcia: normal visual garcia by confrontation Alignment and Position: alignment normal and position normal Periorbital: periorbital findings normal Eyelids: eyelids normal Conjunctivae: conjunctival abnormality left subconjunctival hemorrhage (along lateral boarder) Sclera: sclerae normal Cornea: corneas normal Pupils: PERRL, normal by confrontation and accommodation normal EOM: EOM intact bilaterally Resp Effort & Inspection: normal respiratory effort, able to speak in complete sentences and no respiratory distress Skin General skin exam: no rashes or lesions noted Neuro General: patient alert, patient awake and patient oriented x3 Cranial Nerves: CN's II-XI intact bilaterally Cognition: normal cognition Speech: speech normal Gait: normal gait Course Vital Signs Vital signs: Vital Signs Temperature 36.6 C 03/13/25 10:56 Pulse 91 H 03/13/25 10:56 Respiratory Rate 16 03/13/25 10:56 Blood Pressure 109/68 03/13/25 10:56 Pulse Oximetry 95 03/13/25 10:56 Temperature 36.6 C 03/13/25 11:02 Temperature Source Oral 03/13/25 11:02 Pulse 91 H 03/13/25 11:02 Respiratory Rate 16 03/13/25 11:02 Blood Pressure 109/68 03/13/25 11:02 Blood Pressure Position Sitting 03/13/25 11:02 Pulse Oximetry 95 03/13/25 11:02 Medical Decision Making Patient is a 39-year-old female presenting today with chief complaint of left eye redness that began 2 days ago. Past medical history significant for prediabetes, obesity, seizure disorder, asthma, anxiety with depression. She states is not sure what caused the onset of this. Denies any visual changes. Is not routinely followed by an eye doctor. She denies any discharge from the eye. No trauma to the eye. She does not wear contacts. States that she does have discomfort to the eye but is primarily concerned about the look and is feeling self-conscious while at work with the right eye and is concerned about this potentially being contagious. 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 Patient is aware that she has been recommended glasses historically but does not want to have to wear these. Exam of the eye shows a subconjunctival hemorrhage. She has no discharge or evidence to suggest infectious etiology or conjunctivitis. Normal pupillary exam. Visual garcia are intact. Equal round reactive pupils, extraocular movements are intact. Reassured the patient that her exam is most concerning for small ruptured capillaries causing the some conjunctival hemorrhage and that does not appear infectious. I did advise that she may return to work. Alternatively, I did offer a work note given her level of anxiety around this but she would prefer to return to work at this time. We did discuss return precautions. I did encourage follow-up with an eye doctor, particularly given her chronic visual changes. All of her questions and concerns were addressed, she si in agreement with this plan. Quality:[facility] Health Related Social Needs: No Data to Display [facility] All Active Problems (Updated 03/13/25 @ 12:00 by KAYE Ramsey) MYLES (subconjunctival hemorrhage) (Acute) Contraception management (Acute) Dehydration (Acute) Right flank pain, chronic (Acute) Pre-diabetes (Acute) Partial epilepsy (Acute) Asthma (Acute) Asthma exacerbation (Acute) CAP (community acquired pneumonia) (Acute) Low back pain (Acute) Cough (Acute) Cervicogenic headache (Acute) More of a localized head pain, but worse with supine position .. WHEN LAYING ON OCCIPUT Fungal rash of torso (Acute) Chest pain (Acute) Vitamin D deficiency (Chronic 07/16/17) Seizure disorder (Chronic) Dx at 21yo. 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 On meds. Previously seen at [facility]. 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 Last repair 1994 at [facility]. No issues. 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 Pulmonary artery banding. removal of band at 22mo and closure of VSD. Surgical History History of transposition of great vessels (01/23/16) surgery at [facility] as a . Pulmonary artery banding. 22mo removal of PA band and closure of VSD. Pt is under impression that she should not be Pt is under impression that she should not become . 03/2016 [facility] records reviewed with [facility] Cardiology. No contraindication to . open heart surgery as infant for transposition of great vessels. Pulmonary artery banding at and removal of band @ 22mo and closure of VSD. Ventriculoperitoneal Shunt At ? Last surgery was 1994 @ [facility]. Family History Paternal Grandfather Diabetes Essential hypertension Coronary heart disease Brother ADHD Social History Smoking/Tobacco Use Status: Former Tobacco Use Second Hand Exposure: No Smoking risk assessment performed?: Yes Alcohol Intake: current Alcohol Intake frequency: holidays/special occasions only Drug use: Never Substance use type: does not use Adopted: No Caregiver/Support person: No Foster care: No Household members: other Details: Has her own apartment Housing: apartment Number of Children: 0 Education Level: high school current occupation: On disability for cognitive impairment Pets and animals: Yes Pets and animals: cat(s) and other Details: Rabbit Current gender identity: female What type of physical activity do you participate in: walking Frequency: 3-4 times per week Seatbelt use: always Do you feel safe at home: Yes Do you feel safe in your relationship?: Yes Female Reproductive History Menstrual control method: implanted History History 0 Para Hx # Term Pregnancies Multiple births Hx # Pregnancies Ectopic pregnancies AB induced Hx Number of Living Children AB spontaneous
== END 2025-03-13 12:12 | disposition home or self-care (01) ==
LOC: ER 12:05
PROVIDERS: Emergency Provider Physician Assistant; PCP Nurse Practitioner
DX: H11.32 Conjunctival hemorrhage, left eye (principal)
CPT/HCPCS: 99283; 99282

== ENCOUNTER 2025-05-01 10:37 | Emergency (ER) | payer MEDICAID, SELFPAY ==
[2025-05-01 10:40] VITALS: BP 131/77; PULSE 83; RESP 18; TEMP 36.6; O2SAT 96
--- NOTE | 2025-05-01 10:46 | W.ED.GENAD ---
Discharge Plan Disposition Patient Disposition: Home Discharge Details Clinical Impression: Pain due to dental caries Primary Care Provider: Isabell Guthrie ED Provider: Frankie Salinas Home Meds and New Rx's Prescriptions: New amoxicillin-pot clavulanate 875-125 mg tablet 1 tab PO BID 8 Days Qty: 16 0RF Continued Nexplanon 68 mg implant 1 implant SBD ONCE Qty: 1 0RF Rx Instructions: as a single dose magnesium oxide 400 mg magnesium tablet 400 mg PO DAILY 90 Days Qty: 90 4RF Rx Instructions: Take one 400 mg magnesium oxide tablet by mouth once daily. albuterol sulfate 90 mcg/actuation HFA aerosol inhaler 2 puff inhalation Q6H PRN (Reason: shortness of breath or wheezing) Qty: 18 6RF lamotrigine [Lamictal] 100 mg tablet See Rx Instructions PO DIRECTED Qty: 315 3RF Rx Instructions: 200 mg am, 150 mg pm NKHS hydroxyzine HCl 10 mg tablet 10 mg PO TID PRN (Reason: anxiety) Qty: 30 2RF Magnesium Complex 300 mg magnesium tablet See Rx Instructions PO .COMPLEX Qty: 90 3RF Rx Instructions: orally; 1 tab daily ferrous sulfate 325 mg (65 mg iron) tablet 325 mg PO DAILY Qty: 90 3RF trazodone 100 mg tablet See Rx Instructions .ROUTE .COMPLEX Qty: 180 1RF Dose Instruction: TAKE TWO TABLETS BY MOUTH AT BEDTIME Rx Instructions: TAKE TWO TABLETS BY MOUTH AT BEDTIME tirzepatide 15 mg/0.5 mL pen injector 15 mg subcut QWEEK 28 Days Qty: 2 3RF Rx Instructions: Inject 15.0 mg subcutaneously once weekly as directed. fluoxetine 20 mg capsule See Rx Instructions .ROUTE .COMPLEX Rx Instructions: TAKE ONE CAPSULE BY MOUTH EVERY evening Discharge Instructions Instructions: Dental Pain Additional Instructions: You are seen in the emergency department for your dental pain. You have a cavity and there is likely a small infection. Please go to the dentist as soon as you are able. Please take these antibiotics as directed. Please return to the emergency department if you develop any worsening pain cannot eat as result of nausea or vomiting or if you develop any fevers. For your pain please take medications as follows: 1. Take acetaminophen (Tylenol), 1,000 mg (two 500 mg tabs) every 6 hours Discharge Data Discharge Date/Time-TO BE ENTERED AT DEPARTURE: 05/01/25 11:23 HPI General Date/Time Provider Initiated Documentation: 05/01/25 10:38. HPI Narrative: MDM This is a quite well-appearing normothermic and not tachycardic 40-year-old female with right maxillary dental discomfort concerning for periapical abscess versus pain from dental caries for which patient will receive amoxicillin clavulanic acid and empiric trial of discharge with expectant outpatient management. No pain out of proportion to suggest necrotizing soft tissue infection. Good range of motion in neck so I am not suspicious for retropharyngeal abscess. Uvula midline so doubt peritonsillar abscess. Handling secretions so my suspicion is low for epiglottitis. Nontoxic so doubt bacterial tracheitis. Patient has no history of HIV to suggest acute necrotizing gingivitis. Patient has no brawny edema submentally to suggest Fabian's angina. No ear pain to suggest mastoiditis. I treated patient with ibuprofen for pain. Patient and I discussed return indications including any fevers inability tolerate p.o. or any nausea or vomiting that did not stop. Patient understood her return indications and was discharged with empiric trial of expectant and outpatient management with dental follow-up next week. HPI The patient presents for evaluation of a toothache. She has been experiencing pain in one of her upper right teeth for the past few days. She had planned to visit a dentist this month but was unable to do so due to travel constraints. She reports no fever, difficulty in eating or drinking, respiratory issues, nausea, or vomiting. She is not a diabetic, does not smoke or consume alcohol, and has no history of HIV. Exam General: Well-appearing in no acute distress speaking in complete sentences. Head: Normocephalic, atraumatic. Eye: Extraocular eye movements intact. No conjunctival injection. No scleral icterus. Ear, nose, mouth, throat: Posterior maxillary molar with signs of chronic appearing fracture. Mild progressive tenderness. No brawny edema submentally. Handling secretions. Uvula midline. Normal voice. Neck: Trachea midline. Good range of motion in neck. Cardiovascular: Well-perfused distal extremities. Respiratory: Nonlabored respiration. Gastrointestinal: Nondistended abdomen. Musculoskeletal: No edema. Moving all 4 extremities spontaneously. Skin: Normal for age and race, grossly normal temperature and turgor. No acute rash. Neurologic: Alert and appropriate, no apparent acute deficits. Psychiatric: Mood and manner are appropriate. Grooming and personal hygiene are appropriate. Related Data Home Medications ?Medication ?Instructions ?Recorded ?Confirmed etonogestrel 68 mg subdermal 1 implant subdermal ONCE #1 ea 11/03/18 05/01/25 implant (Nexplanon) lamotrigine 100 mg tablet See Rx Instructions PO DIRECTED 11/16/23 05/01/25 (Lamictal) #315 tabs hydroxyzine HCl 10 mg tablet 10 mg PO TID PRN anxiety #30 tabs 04/11/24 05/01/25 ferrous sulfate 325 mg (65 mg 325 mg PO DAILY #90 tabs 07/05/24 05/01/25 iron) tablet magnesium carb,citrate,oxide See Rx Instructions PO .COMPLEX 07/05/24 05/01/25 (Magnesium Complex) #90 tabs fluoxetine 20 mg capsule See Rx Instructions .Route .COMPLEX 07/30/24 05/01/25 magnesium oxide 400 mg PO DAILY 90 days #90 tabs 08/04/24 05/01/25 trazodone 100 mg tablet See Rx Instructions .Route 12/25/24 05/01/25 .COMPLEX #180 tabs albuterol sulfate 90 mcg/actuation 2 puff inhalation Q6H PRN 03/07/25 05/01/25 aerosol inhaler shortness of breath or wheezing #18 grams tirzepatide 15 mg/0.5 mL 15 mg (0.5 mL) subcut QWEEK 28 04/19/25 05/01/25 subcutaneous pen injector days #2 mL amoxicillin 875 mg-potassium 1 tab PO BID 8 days #16 tabs 05/01/25 clavulanate 125 mg tablet Previous Rx's ?Medication ?Instructions ?Recorded etonogestrel 68 mg subdermal 1 implant subdermal ONCE #1 ea 11/03/18 implant (Nexplanon) lamotrigine 100 mg tablet See Rx Instructions PO DIRECTED 11/16/23 (Lamictal) #315 tabs hydroxyzine HCl 10 mg tablet 10 mg PO TID PRN anxiety #30 tabs 04/11/24 ferrous sulfate 325 mg (65 mg 325 mg PO DAILY #90 tabs 07/05/24 iron) tablet magnesium carb,citrate,oxide See Rx Instructions PO .COMPLEX 07/05/24 (Magnesium Complex) #90 tabs magnesium oxide 400 mg PO DAILY 90 days #90 tabs 08/04/24 trazodone 100 mg tablet See Rx Instructions .Route 12/25/24 .COMPLEX #180 tabs albuterol sulfate 90 mcg/actuation 2 puff inhalation Q6H PRN 03/07/25 aerosol inhaler shortness of breath or wheezing #18 grams tirzepatide 15 mg/0.5 mL 15 mg (0.5 mL) subcut QWEEK 28 04/19/25 subcutaneous pen injector days #2 mL amoxicillin 875 mg-potassium 1 tab PO BID 8 days #16 tabs 05/01/25 clavulanate 125 mg tablet Allergies Allergy/AdvReac Type Severity Reaction Status Date / Time aspirin AdvReac Intermediate unable to Verified 05/01/25 10:44 take due to heart surgery ibuprofen AdvReac Unknown unknown Verified 05/01/25 10:44 General Stated Complaint: DentalOral PAT: 4 Course Vital Signs Vital signs: Vital Signs Temperature 36.6 C 05/01/25 10:40 Pulse 83 05/01/25 10:40 Respiratory Rate 18 05/01/25 10:40 Blood Pressure 131/77 05/01/25 10:40 Pulse Oximetry 96 05/01/25 10:40 Temperature 36.6 C 05/01/25 10:40 Temperature Source Oral 05/01/25 10:40 Pulse 83 05/01/25 10:40 Respiratory Rate 18 05/01/25 10:40 Blood Pressure 131/77 05/01/25 10:40 Pulse Oximetry 96 05/01/25 10:40 Oxygen Delivery Method Room Air 05/01/25 10:40 Oxygen Flow Rate 0 05/01/25 10:40 Pain Level 5 05/01/25 10:40 PFSH All Active Problems (Updated 05/01/25 @ 11:09 by Frankie Salinas MD) Pain due to dental caries (Acute) Right flank pain, chronic (Acute) Pre-diabetes (Acute) Partial epilepsy (Acute) Asthma (Acute) Asthma exacerbation (Acute) CAP (community acquired pneumonia) (Acute) Low back pain (Acute) Cough (Acute) Cervicogenic headache (Acute) More of a localized head pain, but worse with supine position .. WHEN LAYING ON OCCIPUT Fungal rash of torso (Acute) Chest pain (Acute) Vitamin D deficiency (Chronic 07/16/17) Seizure disorder (Chronic) Dx at 21yo. 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 On meds. Previously seen at [facility]. 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 Depression (Chronic 07/16/17) Chronic anxiety (Acute 07/16/17) Anxiety with depression (Acute 07/16/17) Malrotation of intestine (Acute) Medical History (Updated 05/01/25 @ 11:09 by Frankie Salinas MD) Congenital heart defect 09/05/24 F/U with Cardiology Ventricular inversion (~01/2024) 02/17/24 Cardiology Left ovarian cyst Incidental finding on CT scan - likely physiologic Hydrocephalus (01/23/16) Shunted at . Last repair 1994 at [facility]. No issues. 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 Pulmonary artery banding. removal of band at 22mo and closure of VSD. Surgical History History of transposition of great vessels (01/23/16) surgery at [facility] as a . Pulmonary artery banding. 22mo removal of PA band and closure of VSD. Pt is under impression that she should not be Pt is under impression that she should not become . 03/2016 [facility] records reviewed with [facility] Cardiology. No contraindication to . open heart surgery as infant for transposition of great vessels. Pulmonary artery banding at and removal of band @ 22mo and closure of VSD. Ventriculoperitoneal Shunt At ? Last surgery was 1994 @ [facility]. Family History Paternal Grandfather Diabetes Essential hypertension Coronary heart disease Brother ADHD Social History Smoking/Tobacco Use Status: Former Tobacco Use Second Hand Exposure: No Smoking risk assessment performed?: Yes Alcohol Intake: current Alcohol Intake frequency: holidays/special occasions only Drug use: Never Substance use type: does not use Adopted: No Caregiver/Support person: No Foster care: No Household members: other Details: Has her own apartment Housing: apartment Number of Children: 0 Education Level: high school current occupation: On disability for cognitive impairment Pets and animals: Yes Pets and animals: cat(s) and other Details: Rabbit Current gender identity: female What type of physical activity do you participate in: walking Frequency: 3-4 times per week Seatbelt use: always Do you feel safe at home: Yes Do you feel safe in your relationship?: Yes Female Reproductive History Menstrual control method: implanted History History 0 Para Hx # Term Pregnancies Multiple births Hx # Pregnancies Ectopic pregnancies AB induced Hx Number of Living Children AB spontaneous
[2025-05-01] MEDS: Acetaminophen 500 MG TAB 1000 MG PO (11:17)
[2025-05-01] MEDS: Amoxicillin 875/Clav. 125 TAB PO (11:17)
[2025-05-01 11:23] VITALS: BP 133/77; PULSE 82; RESP 18; TEMP 36.6; O2SAT 99
== END 2025-05-01 11:23 | disposition home or self-care (01) ==
PROVIDERS: Emergency Provider Emergency Medicine; PCP Nurse Practitioner
DX: R68.84 Jaw pain (principal); K02.9 Dental caries, unspecified
CPT/HCPCS: 99283 ×2

== ENCOUNTER 2025-05-11 10:40 | Emergency (ER) | payer MEDICAID, SELFPAY ==
--- NOTE | 2025-05-11 10:45 | RT.EKG_ITS ---
APPROVED REPORT Exam: Resting ECG Reason for Exam: Syncope Patient Location: E HR:86 bpm ECG Measurements Heart Rate 86 AXIS PA 107 P -36 QRSd 137 QRS 220 QT 407 T 107 QTc 488 Conclusion Sinus rhythm...normal P axis, V-rate 60- 99 Nonspecific intraventricular conduction delay...QRSd >115mS, not LBBB/RBBB Abnrm T, consider ischemia, anterolateral lds...T <-0.20mV, I aVL V2-V6 ST elev, probable normal early repol pattern...ST elevation, age<55 No Occlusion WA
[2025-05-11 10:48] VITALS: BP 124/81; PULSE 83; RESP 16; TEMP 37.6; O2SAT 95
--- NOTE | 2025-05-11 11:24 | ED.GENADUL_ITS ---
Discharge Plan Disposition Patient Disposition: Home Discharge Details Clinical Impression: Syncope Primary Care Provider: Isabell Guthrie ED Provider: Taryn Kendall Home Meds and New Rx's Prescriptions: No Action Nexplanon 68 mg implant 1 implant SBD ONCE Qty: 1 0RF Rx Instructions: as a single dose magnesium oxide 400 mg magnesium tablet 400 mg PO DAILY 90 Days Qty: 90 4RF Rx Instructions: Take one 400 mg magnesium oxide tablet by mouth once daily. albuterol sulfate 90 mcg/actuation HFA aerosol inhaler 2 puff inhalation Q6H PRN (Reason: shortness of breath or wheezing) Qty: 18 6RF lamotrigine [Lamictal] 100 mg tablet See Rx Instructions PO DIRECTED Qty: 315 3RF Rx Instructions: 200 mg am, 150 mg pm NKHS hydroxyzine HCl 10 mg tablet 10 mg PO TID PRN (Reason: anxiety) Qty: 30 2RF Magnesium Complex 300 mg magnesium tablet See Rx Instructions PO .COMPLEX Qty: 90 3RF Rx Instructions: orally; 1 tab daily ferrous sulfate 325 mg (65 mg iron) tablet 325 mg PO DAILY Qty: 90 3RF trazodone 100 mg tablet See Rx Instructions .ROUTE .COMPLEX Qty: 180 1RF Dose Instruction: TAKE TWO TABLETS BY MOUTH AT BEDTIME Rx Instructions: TAKE TWO TABLETS BY MOUTH AT BEDTIME tirzepatide 15 mg/0.5 mL pen injector 15 mg subcut QWEEK 28 Days Qty: 2 3RF Rx Instructions: Inject 15.0 mg subcutaneously once weekly as directed. fluoxetine 20 mg capsule See Rx Instructions .ROUTE .COMPLEX Rx Instructions: TAKE ONE CAPSULE BY MOUTH EVERY evening Discharge Instructions Additional Instructions: Please call your primary care provider first thing Wednesday to schedule follow-up appointment for reassessment. Continue taking your prescriptions, including your seizure medications as per Your workup and head CT/shunt series was reassuring. There were no acute abnormalities. Your episode of passing out was likely due to heat and not eating/drinking properly. Please stay well-hydrated, drink plenty of fluids throughout the day and eat regular meals Return to emergency care if you develop new headaches, dizziness, episodes of passing out, chest pain, difficulty breathing, or if you are very worried you need to be rechecked again Referrals: Isabell Guthrie, LIAT [Primary Care Provider, Medicine] HPI General Date/Time Provider Initiated Documentation: 05/11/25 10:42 . HPI Narrative: Florence is a 40-year-old female with epilepsy presents to the emergency department today for evaluation of syncopal episode and head injury 3 days ago. Abrupt onset of dizziness and lightheadedness in bathroom led to loss of consciousness and fall, hitting back of head against wall. No bleeding, tongue biting, or urinary incontinence. Attributes incident to hot weather and skipping meals, says it is not uncommon for her to feel this way when he is hot and she has not eaten/drinking regularly. Evaluated at urgent care yesterday for concussion, no concerning findings. Reports mild neck pain near shoulder blade, Denies headaches, new episodes of dizziness, vision changes, chest pain, difficulty breathing, nausea/ vomiting, abdominal pain, painful urination, or coughing. Appetite and hydration normal. Has [employer]LEGE [employer]LETE shunt, came to ensure no issues. History of epilepsy (occipital epileptiform seizures, no tonic-clonic seizures) last seizure over a year ago. On Lamictal for seizure control, no recent changes. Related Data Home Medications ?Medication ?Instructions ?Recorded ?Confirmed etonogestrel 68 mg subdermal 1 implant subdermal ONCE #1 ea 11/03/18 05/01/25 implant (Nexplanon) lamotrigine 100 mg tablet See Rx Instructions PO DI RECTED 11/16/23 05/01/25 (Lamictal) #315 tabs hydroxyzine HCl 10 mg tablet 10 mg PO TID PRN anxiety #30 tabs 04/11/24 05/01/25 ferrous sulfate 325 mg (65 mg 325 mg PO DAILY #90 tabs 07/05/24 05/01/25 iron) tablet magnesium carb,citrate,oxide See Rx Instructions PO .C OMPLEX 07/05/24 05/01/25 (Magnesium Complex) #90 tabs fluoxetine 20 mg capsule See Rx Instructions .Route . COMPLEX 07/30/24 05/01/25 magnesium oxide 400 mg PO DAILY 90 days #90 tabs 08/04/24 05/01/25 trazodone 100 mg tablet See Rx Instructions .Route 0 12/25/24 05/01/25 .COMPLEX #180 tabs albuterol sulfate 90 mcg/actuation 2 puff inhalation Q 6H PRN 03/07/25 05/01/25 aerosol inhaler shortness of breath or wheez ing #18 grams tirzepatide 15 mg/0.5 mL 15 mg (0.5 mL) subcut QWEEK 28 04/19/25 05/01/25 subcutaneous pen injector days #2 mL Previous Rx's ?Medication ?Instructions ?Recorded etonogestrel 68 mg subdermal 1 implant subdermal ONCE #1 ea 11/03/18 implant (Nexplanon) lamotrigine 100 mg tablet See Rx Instructions PO DI RECTED 11/16/23 (Lamictal) #315 tabs hydroxyzine HCl 10 mg tablet 10 mg PO TID PRN anxiety #30 tabs 04/11/24 ferrous sulfate 325 mg (65 mg 325 mg PO DAILY #90 tabs 07/05/24 iron) tablet magnesium carb,citrate,oxide See Rx Instructions PO .C OMPLEX 07/05/24 (Magnesium Complex) #90 tabs magnesium oxide 400 mg PO DAILY 90 days #90 tabs 08/04/24 trazodone 100 mg tablet See Rx Instructions .Route 0 12/25/24 .COMPLEX #180 tabs albuterol sulfate 90 mcg/actuation 2 puff inhalation Q 6H PRN 03/07/25 aerosol inhaler shortness of breath or wheez ing #18 grams tirzepatide 15 mg/0.5 mL 15 mg (0.5 mL) subcut QWEEK 28 04/19/25 subcutaneous pen injector days #2 mL Allergies Allergy/AdvReac Type Severity Reaction Status Date / Time aspirin AdvReac Intermediate unable to Verified 05/01/25 10:44 take due to heart surgery ibuprofen AdvReac Unknown unknown Verified 05/01/25 10:44 General Stated Complaint: Dizzy/Sync PAT: 3 Exam Narrative Exam Narrative: General Appearance: Normal. Patient is alert and oriented, no acute distress Vital signs: Within normal limits. HEENT: PERRL, EOMs intact. No scalp bogginess/tenderness. No raccoon eyes or Riso sign. Moist mucous membranes. No dental damage noted. Neck: Full painless range of motion to neck. No C-spine step- off/formation/tenderness Respiratory: Breath sounds clear bilaterally, no wheezes, rales, or rhonchi. Cardiovascular: Heart sounds normal, no murmurs, rubs, or gallops. Skin: Warm and dry, no rash. Neurological: Cranial nerves II-XII intact. Motor strength 5/5 in all extremities. Normal Romberg, rapid altering movements, heel hess, finger finger, finger-nose, gait, and tandem gait. No sensory deficits. Psychiatric: Normal. Course Vital Signs Vital signs: Vital Signs Temperature 37.6 C H 05/11/25 10:48 Pulse 83 05/11/25 10:48 Respiratory Rate 16 05/11/25 10:48 Blood Pressure 124/81 05/11/25 10:48 Pulse Oximetry 95 05/11/25 10:48 Temperature 37.6 C H 05/11/25 10:48 Temperature Source Tympanic 05/11/25 10:48 Pulse 83 05/11/25 10:48 Respiratory Rate 16 05/11/25 10:48 Blood Pressure 124/81 05/11/25 10:48 Blood Pressure Position Sitting 05/11/25 10:48 Pulse Oximetry 95 05/11/25 10:48 Oxygen Delivery Method Room Air 05/11/25 10:48 Oxygen Flow Rate 0 05/11/25 10:48 Pain Level 0 05/11/25 10:48 Medical Decision Making Initial Assessment: 40-year-old female with syncopal episode and head injury 3 days ago. Dizziness and lightheadedness likely due to heat and not eating. No significant injury at urgent care. History of epilepsy, on Lamotrigine, last seizure over a year ago. Differential Diagnosis includes but is not limited to: Vasovagal syncope, dehydration, electrolyte imbalance, cardiac arrhythmia, shunt malfunction. Low suspicion for intracranial hemorrhage. ED Course: - Physical exam and neurological assessment; reassuring. - CT head ordered with shunt series. - Blood work and EKG ordered I independently interpreted the following tests: CBC and CMP reassuring. Lamotrigine level was a send out, is currently pending. No acute abnormalities on head CT or x-ray shunt series Final Assessment: Physical exam and neurological assessment performed. CT head and blood work ordered to check [employer]LEGE [employer]LETE shunt and electrolytes. Clinical Impression: - Syncope, likely attributed to not eating/heat, no red flags and workup. - Epilepsy Disposition: Discharge: Home. Return precautions include worsening dizziness, severe headache, or new neurological symptoms. Follow-Up: Primary care physician for blood work results. Patient Education: Discussed importance of hydration and regular meals to prevent dizziness and lightheadedness. Patient consented to the use of [facility] Imaging Data Radiologic Study: Radiologist's impression: Exam(s) XR SHUNT SERIES EXAM: XR SHUNT SERIES CLINICAL HISTORY: head injury, LOC 3 days ago. TECHNIQUE: 2D digital imaging was performed. COMPARISON: CR,XR XR CHEST 2V PA LATERAL from 01/12/2022 FINDINGS: 3 views Right-sided ventriculoperitoneal shunt appears intact. Distal tip is in the right iliac fossa. Calcifications seen along the shunt in the lower right neck supraclavicular region. On 1 of the images there is a subtle suggestion of possible right-sided pneumothorax. There is possibly that this is artifact related to the lateral aspect of the see lateral breast. There are no rib nor clavicle fractures evident. IMPRESSION: [employer]LE[employer]LETE shunt appears intact. Possible right-sided pneumothorax versus artifact. Recommend further images Radiologic Study #2: Radiologist's impression: Exam(s) CT HEAD WO EXAM: CT HEAD WO CLINICAL HISTORY: head injury 3 days ago, has shunt. TECHNIQUE: Imaging Protocol: Axial computed tomography images with coronal and sagittal reformatted images were created and reviewed COMPARISON: CT CT HEAD WO from 08/24/2023 FINDINGS: There are no skull fractures. There is no fluid in the visualized paranasal sinuses. Position of the right frontal entrance shunt is unchanged. There is no evidence of intracranial hemorrhage, mass effect, or shift of midline structures. There are no extra-axial fluid collections. The ventricles are not enlarged or shifted and there is no blood within the ventricular system nor within the basal cisterns. IMPRESSION: No acute intracranial findings on this noninfused CT scan of the brain. Stable position of the previously described shunt which enters from the right frontal region. No hydrocephalus. PFSH All Active Problems (Updated 05/11/25 @ 12:22 by Taryn Mcarthur) Syncope (Chronic) Pain due to dental caries (Acute) Right flank pain, chronic (Acute) Pre-diabetes (Acute) Partial epilepsy (Acute) Asthma (Acute) Asthma exacerbation (Acute) CAP (community acquired pneumonia) (Acute) Low back pain (Acute) Cough (Acute) Cervicogenic headache (Acute) More of a localized head pain, but worse with supine position .. WHEN LAYING ON OCCIPUT Fungal rash of torso (Acute) Chest pain (Acute) Vitamin D deficiency (Chronic 07/16/17) Seizure disorder (Chronic) Dx at 21yo. 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 On meds. Previously seen at [facility]. Now 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 Depression (Chronic 07/16/17) Chronic anxiety (Acute 07/16/17) Anxiety with depression (Acute 07/16/17) Malrotation of intestine (Acute) Medical History (Updated 05/11/25 @ 12:22 by Taryn Mcarthur) Congenital heart defect 09/05/24 F/U with Cardiology Ventricular inversion (~01/2024) 02/17/24 Cardiology Left ovarian cyst Incidental finding on CT scan - likely physiologic Hydrocephalus (01/23/16) Shunted at . Last repair 1994 at [facility]. No issues. 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 Pulmonary artery banding. removal of band at 22mo and closure of VSD. 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 Pulmonary artery banding. 22mo removal of PA band and closure of VSD. Pt is under impression that she should not be Pt is under impression that she should not become . 03/2016 [facility] records reviewed with [facility] Cardiology. No contraindication to . open heart surgery as infant for transposition of great vessels. Pulmonary artery banding at and removal of band @ 22mo and closure of VSD. Ventriculoperitoneal Shunt At ? Last surgery was 1994 @ [facility]. Family History Paternal Grandfather Diabetes Essential hypertension Coronary heart disease Brother ADHD Social History Smoking/Tobacco Use Status: Former Tobacco Use Second Hand Exposure: No Smoking risk assessment performed?: Yes Alcohol Intake: current Alcohol Intake frequency: holidays/special occasions only Drug use: Never Substance use type: does not use Adopted: No Caregiver/Support person: No Foster care: No Household members: other Details: Has her own apartment Housing: apartment Number of Children: 0 Education Level: high school current occupation: On disability for cognitive impairment Pets and animals: Yes Pets and animals: cat(s) and other Details: Rabbit Current gender identity: female What type of physical activity do you participate in: walking Frequency: 3-4 times per week Seatbelt use: always Do you feel safe at home: Yes Do you feel safe in your relationship?: Yes Female Reproductive History Menstrual control method: implanted History History 0 Para Hx # Term Pregnancies Multiple births Hx # Pregnancies Ectopic pregnancies AB induced Hx Number of Living Children AB spontaneous
--- NOTE | 2025-05-11 11:30 | DI.RAD_ITS ---
Exam(s) XR SHUNT SERIES EXAM: XR SHUNT SERIES CLINICAL HISTORY: head injury, LOC 3 days ago. TECHNIQUE: 2D digital imaging was performed. COMPARISON: CR,XR XR CHEST 2V PA LATERAL from 01/12/2022 FINDINGS: 3 views Right-sided ventriculoperitoneal shunt appears intact. Distal tip is in the right iliac fossa. Calcifications seen along the shunt in the lower right neck supraclavicular region. On 1 of the images there is a subtle suggestion of possible right-sided pneumothorax. There is possibly that this is artifact related to the lateral aspect of the see lateral breast. There are no rib nor clavicle fractures evident. IMPRESSION: MECH[employer] shunt appears intact. Possible right-sided pneumothorax versus artifact. Recommend further images DATA REPOSITORY: RADIATION DOSE DELIVERED:
--- NOTE | 2025-05-11 11:30 | DI.CT_ITS ---
Exam(s) CT HEAD WO EXAM: CT HEAD WO CLINICAL HISTORY: head injury 3 days ago, has shunt. TECHNIQUE: Imaging Protocol: Axial computed tomography images with coronal and sagittal reformatted images were created and reviewed COMPARISON: CT CT HEAD WO from 08/24/2023 FINDINGS: There are no skull fractures. There is no fluid in the visualized paranasal sinuses. Position of the right frontal entrance shunt is unchanged. There is no evidence of intracranial hemorrhage, mass effect, or shift of midline structures. There are no extra-axial fluid collections. The ventricles are not enlarged or shifted and there is no blood within the ventricular system nor within the basal cisterns. IMPRESSION: No acute intracranial findings on this noninfused CT scan of the brain. Stable position of the previously described shunt which enters from the right frontal region. No hydrocephalus. RADIATION DOSE DELIVERED: 888.11mGy.cm Total DLP DATA REPOSITORY: All CT scans at this facility are submitted to the National Radiology Data Registry (NRDR) Dose Index Registry (DIR) with the [employer] (ACR). RADIATION OPTIMIZATION: All CT scans at this facility use at least one of these dose optimization techniques: automated exposure control; mA and/or kV adjustment per patient size (includes targeted exams where dose is matched to clinical indication); or iterative reconstruction.
[2025-05-11 11:49] LABS: HCT 37.3 % (36.0-46.0); HGB 12.7 g/dL (11.2-15.7); MCH 27.4 pg (27.0-33.0); MCHC 34.0 % (32.0-36.0); MCV 81 fL (80-95); MPV 8.8 fL (8.0-11.0); Platelet Count 361 10^3/uL (130-400); RBC 4.63 10^6/uL (3.93-5.22); RDW 12.3 % (11.7-14.6); RDW-SD 35.8 fL; WBC 7.64 10^3/uL (4.4-10.8)
[2025-05-11 12:00] LABS: Anion Gap 10.9 mmol/L (3-11); BUN 14 mg/dL (7-18); CO2 26.1 mmol/L (21.0-32.0); Calcium 9.5 mg/dL (8.5-10.1); Chloride 103 mmol/L (98-107); Estimated GFR 112.75 (mL/min/1.73m2); Glucose 94 mg/dL (74-106); Potassium 3.8 mmol/L (3.5-5.1); Sodium 140 mmol/L (136-145)
[2025-05-11 12:40] VITALS: BP 144/88; PULSE 87; TEMP 36.9; O2SAT 97
== END 2025-05-11 12:45 | disposition home or self-care (01) ==
PROVIDERS: Emergency Provider Nurse Practitioner Family; PCP Nurse Practitioner
DX: R55 Syncope and collapse (principal); Z86.69 Personal history of other diseases of the nervous system and sense organs; Z86.79 Personal history of other diseases of the circulatory system
CPT/HCPCS: 99283; 99284; 81025; 36415; 80048; 80175; 85027; 93005; 70360; 70450; 71045; 72050; 74018; 93010

== ENCOUNTER 2025-05-15 17:42 | Outpatient (REF) | payer MEDICAID, SELFPAY ==
[2025-05-17 11:37] LABS: Chlamydia Result Negative (Negative); GC Result Negative (Negative)
== END 2025-05-15 17:43 | disposition home or self-care (01) ==
LOC: LBN 17:42
PROVIDERS: PCP Nurse Practitioner; Visit Provider Nurse Practitioner Family
DX: Z11.3 Encounter for screening for infections with a predominantly sexual mode of transmission (principal); N76.0 Acute vaginitis
CPT/HCPCS: 87491; 87591; 87480; 87510; 87660

== ENCOUNTER 2025-06-15 00:36 | Outpatient (CLI) | payer MEDICAID, SELFPAY ==
[2025-06-15 13:26] LABS: Abs Immature Grans 0.02 10^3/uL (0.0-0.06); HCT 35.0 % (36.0-46.0); HGB 11.7 g/dL (11.2-15.7); Immature Grans % 0.2 %; MCH 27.3 pg (27.0-33.0); MCHC 33.4 % (32.0-36.0); MCV 82 fL (80-95); MPV 8.5 fL (8.0-11.0); Platelet Count 324 10^3/uL (130-400); RBC 4.29 10^6/uL (3.93-5.22); RDW 12.7 % (11.7-14.6); RDW-SD 37.6 fL; WBC 9.43 10^3/uL (4.4-10.8)
[2025-06-15 13:27] LABS: Glucose Negative (Negative)
[2025-06-15 13:37] LABS: Hemoglobin A1C 5.0 % (<5.7)
[2025-06-15 13:53] LABS: ALT 24 U/L (14-59); AST 17 U/L (15-37); Albumin 3.6 g/dL (3.4-5.0); Alkaline Phosphatase 71 U/L (46-116); Anion Gap 7.3 mmol/L (3-11); BUN 16 mg/dL (7-18); Bilirubin, Total 0.2 mg/dL (0.2-1.0); CO2 28.7 mmol/L (21.0-32.0); Calcium 8.8 mg/dL (8.5-10.1); Chloride 105 mmol/L (98-107); Estimated GFR 96.06 (mL/min/1.73m2); Glucose 95 mg/dL (74-106); Potassium 4.2 mmol/L (3.5-5.1); Sodium 141 mmol/L (136-145); Total Protein 7.1 g/dL (6.4-8.2)
[2025-06-15 14:04] LABS: Calculated LDL 76 mg/dL (<100); Cholesterol 167 mg/dL (<200); HDL Cholesterol 48 mg/dL (>or=50); Magnesium 1.9 mg/dL (1.8-2.4); TSH 0.75 uIU/mL (0.36-3.74); Triglyceride 215 mg/dL (<150)
== END 2025-06-15 00:37 | disposition home or self-care (01) ==
LOC: LBO 00:36
PROVIDERS: Nurse Practitioner Family; Absent Provider Family Medicine; PCP Nurse Practitioner; Referring Provider Family Medicine; Visit Provider Family Medicine
DX: E83.42 Hypomagnesemia (principal); Z13.220 Encounter for screening for lipoid disorders; R73.03 Prediabetes; Z13.89 Encounter for screening for other disorder
CPT/HCPCS: 36415; 80053; 80061; 81003; 83036; 83735; 84443; 85025

== ENCOUNTER 2025-06-28 14:23 | Outpatient (REF) | payer MEDICAID, SELFPAY ==
--- NOTE | 2025-06-28 14:15 | PAPFT_PTH ---
PATIENT: Florence Otto LOC: [facility] U#:[id number] AGE/SX: 40/F ROOM: RE06/28/[address]: Elisha Abdi DO : 1985 BED: DIS: 06/28/2025 SPEC #: [id number] RECD: 06/28/25 17:45 STATUS: ALEX RE #: [id number] JOSELIN: 06/28/25 14:[address]: Elisha bAdi DEPT: [facility] Cytology RECD BY: Crys Truong ENTERED: 06/28/25 17:45 SP TYPE: PAPFT OTHR DR: Isabell Guthrie APRN Tissues: 1 - CX/ENDOCX FOR PAP SMEARS Procedures: PAP THIN PREP/UVM Screening HPV DNA PROBE Comments: [id number] (HPV 16 & 18/45) (CHLAMYDIA/GC)
[2025-06-29 12:35] LABS: Chlamydia Result Negative (Negative); GC Result Negative (Negative)
== END 2025-06-28 14:24 | disposition home or self-care (01) ==
LOC: LBN 14:23
PROVIDERS: PCP Nurse Practitioner; Visit Provider Obstetrics & Gynecology
DX: Z12.4 Encounter for screening for malignant neoplasm of cervix (principal)
CPT/HCPCS: 87491; 87591; 88142; 87624

== ENCOUNTER 2025-07-13 10:41 | Emergency (ER) | payer MEDICAID, SELFPAY ==
[2025-07-13 10:44] VITALS: BP 121/63; PULSE 89; RESP 16; TEMP 36.9; O2SAT 99
--- NOTE | 2025-07-13 11:30 | DI.RAD_ITS ---
Exam(s) XR SHOULDER RT COMPLETE 2+V EXAM: XR SHOULDER RT COMPLETE 2+V CLINICAL HISTORY: pain with movement. TECHNIQUE: 2D digital imaging was performed. COMPARISON: No exams were available for comparison FINDINGS: Five views There is no evidence of fracture or dislocation and there are no degenerative changes in the glenohumeral and AC joints. Subacromial space is not diminished. However, there is a prominent chunk of calcium in the lateral subacromial space just above the greater tuberosity consistent with calcific rotator cuff tendinitis. This calcification measures approximately 1.5 x 0.6 cm. IMPRESSION: Prominent calcification in the lateral subacromial space consistent with calcific rotator cuff tendinitis DATA REPOSITORY: RADIATION DOSE DELIVERED:
--- NOTE | 2025-07-13 12:22 | W.ED.GENAD ---
Discharge Plan Disposition Patient Disposition: Home Condition: Good Discharge Details Clinical Impression: Calcific tendinitis, Impingement of right shoulder Primary Care Provider: Isabell Guthrie ED Provider: Kim Campuzano Home Meds and New Rx's Prescriptions: Continued Nexplanon 68 mg implant 1 implant SBD ONCE Qty: 1 0RF Rx Instructions: as a single dose albuterol sulfate 90 mcg/actuation HFA aerosol inhaler 2 puff inhalation Q6H PRN (Reason: shortness of breath or wheezing) Qty: 18 6RF ferrous sulfate 325 mg (65 mg iron) tablet 325 mg PO DAILY 90 Days Qty: 24 1RF Rx Instructions: Take one 325 mg tablet twice weekly as directed. fluoxetine 20 mg capsule 20 mg PO DAILY 90 Days Qty: 90 4RF Rx Instructions: Take one 20 mg fluoxetine by mouth once daily as directed. magnesium oxide 400 mg magnesium capsule 400 mg PO DAILY 90 Days Qty: 90 4RF Rx Instructions: Take one 400 mg capsule by mouth once daily lamotrigine [Lamictal] 100 mg tablet See Rx Instructions PO DIRECTED Qty: 315 3RF Rx Instructions: 200 mg am, 150 mg pm NKHS hydroxyzine HCl 10 mg tablet 10 mg PO TID PRN (Reason: anxiety) Qty: 30 2RF trazodone 100 mg tablet See Rx Instructions .ROUTE .COMPLEX Qty: 180 1RF Dose Instruction: TAKE TWO TABLETS BY MOUTH AT BEDTIME Rx Instructions: TAKE TWO TABLETS BY MOUTH AT BEDTIME tirzepatide 15 mg/0.5 mL pen injector 15 mg subcut QWEEK 28 Days Qty: 2 3RF Rx Instructions: Inject 15.0 mg subcutaneously once weekly as directed. Discharge Instructions Instructions: Calcific Tendinopathy of the Shoulder (DC), Shoulder Pain ED Additional Instructions: As we discussed, your exam and imaging are not consistent or do not show fracture, dislocation or tendon tear. However, there is calcification in the tendon that you are most tender over on the x-ray. This is likely leading to recurrent inflammation as you have had this discomfort historically. I have referred you to orthopedics. Please call appointment to schedule follow-up appointment, number listed below. Please continue to encourage range of motion but try to avoid any heavy lifting or repetitive exercises overhead as this may cause increased discomfort. May continue with Tylenol as needed for discomfort, please take as directed on the packaging. If you develop any fever/chills, increased pain or other new/worsening symptom please seek care urgently once again. Otherwise, please follow-up with physical therapy and orthopedics. Referral for physical therapy is attached. Stand Alone Forms: Physical Therapy Referral Referrals: Perry Wong MD [ [facility] STAFF PHYSICIAN, Orthopaedic Surgical] [facility] General Date/Time Provider Initiated Documentation: 07/13/25 11:35. Limitations to Documentation: no limitations. Information obtained by: patient and RN notes reviewed. History of Present Illness 40 year old F presents to the emergency department with the chief complaint of right shoulder pain, described as moderate and similar to prior episodes, Quality is described as aching, and is localized to the right and upper extremity. Patient reports no radiation. Patient started experiencing this week(s) and it has been constant. Immobilization improves symptom(s), Movement worsens symptoms . Patient notes no other symptoms.. Patient did receive the following treatments prior to arrival, none Related Data Home Medications ?Medication ?Instructions ?Recorded ?Confirmed etonogestrel 68 mg subdermal 1 implant subdermal ONCE #1 ea 11/03/18 07/13/25 implant (Nexplanon) lamotrigine 100 mg tablet See Rx Instructions PO DIRECTED 11/16/23 07/13/25 (Lamictal) #315 tabs hydroxyzine HCl 10 mg tablet 10 mg PO TID PRN anxiety #30 tabs 04/11/24 07/13/25 trazodone 100 mg tablet See Rx Instructions .Route 12/25/24 07/13/25 .COMPLEX #180 tabs albuterol sulfate 90 mcg/actuation 2 puff inhalation Q6H PRN 03/07/25 07/13/25 aerosol inhaler shortness of breath or wheezing #18 grams tirzepatide 15 mg/0.5 mL 15 mg (0.5 mL) subcut QWEEK 28 04/19/25 07/13/25 subcutaneous pen injector days #2 mL ferrous sulfate 325 mg (65 mg 325 mg PO DAILY 90 days #24 tabs 06/18/25 07/13/25 iron) tablet fluoxetine 20 mg capsule 20 mg PO DAILY 90 days #90 caps 06/18/25 07/13/25 magnesium oxide 400 mg PO DAILY 90 days #90 caps 06/18/25 07/13/25 Previous Rx's ?Medication ?Instructions ?Recorded etonogestrel 68 mg subdermal 1 implant subdermal ONCE #1 ea 11/03/18 implant (Nexplanon) lamotrigine 100 mg tablet See Rx Instructions PO DIRECTED 11/16/23 (Lamictal) #315 tabs hydroxyzine HCl 10 mg tablet 10 mg PO TID PRN anxiety #30 tabs 04/11/24 trazodone 100 mg tablet See Rx Instructions .Route 12/25/24 .COMPLEX #180 tabs albuterol sulfate 90 mcg/actuation 2 puff inhalation Q6H PRN 03/07/25 aerosol inhaler shortness of breath or wheezing #18 grams tirzepatide 15 mg/0.5 mL 15 mg (0.5 mL) subcut QWEEK 28 04/19/25 subcutaneous pen injector days #2 mL ferrous sulfate 325 mg (65 mg 325 mg PO DAILY 90 days #24 tabs 06/18/25 iron) tablet fluoxetine 20 mg capsule 20 mg PO DAILY 90 days #90 caps 06/18/25 magnesium oxide 400 mg PO DAILY 90 days #90 caps 06/18/25 Allergies Allergy/AdvReac Type Severity Reaction Status Date / Time aspirin AdvReac Intermediate unable to Verified 07/13/25 10:47 take due to heart surgery ibuprofen AdvReac Unknown unknown Verified 07/13/25 10:47 General Stated Complaint: Orthopedic PAT: 4 Review of Systems Constitutional Constitutional: Reports as per HPI, Denies fever(s) and Denies weakness Cardiovascular Cardiovascular: Reports as per HPI Respiratory Respiratory: Reports as per HPI and Denies cough Musculoskeletal Musculoskeletal: Reports as per HPI and Denies tingling Integumentary/Breasts Skin/Breast: Reports as per HPI, Denies rash and Denies wounds Neurologic Neurologic: Reports as per HPI, Denies tingling, Denies paresthesias and Denies weakness Exam Const General: cooperative, healthy appearing, comfortable, no acute distress, well developed and well groomed Nutritional Appearance: average body habitus and well nourished Orientation: alert and awake Resp Effort & Inspection: normal respiratory effort, able to speak in complete sentences and no respiratory distress Cardio Rate: regular rate Rhythm: regular rhythm Skin General skin exam: no rashes or lesions noted Lesions: no lesions Rashes: no rashes Trauma: no lacerations or abrasions Neuro General: patient alert and patient awake Cognition: normal cognition Speech: speech normal Gait: normal gait Motor: muscle tone normal throughout Sensory Exam: no sensory deficits noted Extrem Shoulder/upper arm images:  1. Area of maximal discomfort. No palpable residual defect for many. Is not erythematous, no rash. 2+ distal pulses. Neurovascular intact. No axillary nerve dysfunction. She has full range of motion, pain at maximal forward extension. No pain with external or internal rotation. She has discomfort with empty can testing but no appreciable weakness. No pain over the proximal head of the biceps, negative speeds exam. Negative Neer and Hawkin. Full range of motion of the elbow, wrist, hand. Course Vital Signs Vital signs: Vital Signs Temperature 36.9 C 07/13/25 10:44 Pulse 89 07/13/25 10:44 Respiratory Rate 16 07/13/25 10:44 Blood Pressure 121/63 07/13/25 10:44 Pulse Oximetry 99 07/13/25 10:44 Temperature 36.9 C 07/13/25 10:44 Pulse 89 07/13/25 10:44 Respiratory Rate 16 07/13/25 10:44 Blood Pressure 121/63 07/13/25 10:44 Pulse Oximetry 99 07/13/25 10:44 Pain Level 6 07/13/25 10:44 Medical Decision Making Patient is a [id number] 40-year-old female with past medical history of congenital heart defect, hydrocephalus, transposition of the great vessels, presented with chief complaint of right shoulder pain that began a few weeks ago after she slept funny on it. She denies any significant trauma. Denies any numbness or tingling. States that she has had pain like this historically that has not been evaluated by orthopedics. She has not done any physical therapy for the shoulder. She has been using acetaminophen to help with her discomfort with minimal improvement. States the pain is worse with overhead exertion. On exam, patient appears nontoxic. She resting comfortably no acute distress. She is neurovascularly intact in the right arm no axillary nerve dysfunction. She does have full range of motion but has pain at full extension as well as full internal rotation which is maximal along the lateral aspect of the shoulder with pain over the deltoid. She has no weakness with rotator cuff testing. Negative speeds exam, no Zachariah deformity. Full range of motion of the elbow, wrist, hand. X-rays reviewed by myself and radiologist, concerning for calcification at the lateral subacromial space consistent with calcific tendinitis which matches patient's area of discomfort. We did discuss this and I advised follow-up with orthopedics. She may find injection is beneficial given her recurrence of this discomfort. Will also refer to physical therapy. We discussed supportive at home measures and activities that she may find helpful to avoid given the discomfort. Return precautions were discussed. All her questions and concerns were addressed and she is in agreement this plan. Dictation completed using [employer] dictation software. 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 [employer] All Active Problems (Updated 07/13/25 @ 12:30 by KAYE Ramsey) Impingement of right shoulder (Acute) Calcific tendinitis (Acute) Right flank pain, chronic (Acute) Pre-diabetes (Acute) Partial epilepsy (Acute) Asthma (Acute) Asthma exacerbation (Acute) CAP (community acquired pneumonia) (Acute) Low back pain (Acute) Cough (Acute) Cervicogenic headache (Acute) More of a localized head pain, but worse with supine position .. WHEN LAYING ON OCCIPUT Fungal rash of torso (Acute) Chest pain (Acute) Vitamin D deficiency (Chronic 07/16/17) Seizure disorder (Chronic) Dx at 21yo. 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 On meds. [place] [facility] 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 Depression (Chronic 07/16/17) Chronic anxiety (Acute 07/16/17) Anxiety with depression (Acute 07/16/17) Malrotation of intestine (Acute) Medical History (Updated 07/13/25 @ 12:30 by KAYE Ramsey) Hypomagnesemia Congenital heart defect 09/05/24 F/U with Cardiology Ventricular inversion (~01/2024) [facility] ovarian cyst Incidental finding on CT scan - likely physiologic Hydrocephalus (01/23/16) Shunted at . Last repair 1994 at [facility]. No issues. Transposition of great vessels s/p surgery at [facility]. Pulmonary artery banding. removal of band at 22mo and closure of VSD. Surgical History History of transposition of great vessels (01/23/16) surgery at [facility] as a . Pulmonary artery banding. 22mo removal of PA band and closure of VSD. Pt is under impression that she should not be Pt is under impression that she should not become . 03/2016 [facility] reviewed with [facility] Cardiology. No contraindication to . open heart surgery as for transposition of great vessels. Pulmonary artery banding at and removal of band @ 22mo and closure of VSD. Ventriculoperitoneal Shunt At ? Last surgery was 1994 @ [facility]. Family History Paternal Grandfather Diabetes Essential hypertension Coronary heart disease Brother ADHD Social History Smoking/Tobacco Use Status: Never Second Hand Exposure: No Smoking risk assessment performed?: Yes Alcohol Intake: current Alcohol Intake frequency: holidays/special occasions only Drug use: Never Substance use type: does not use Adopted: No Caregiver/Support person: No Foster care: No Household members: other Details: Has her own apartment Housing: apartment Number of Children: 0 Education Level: high school current occupation: On disability for cognitive impairment Pets and animals: Yes Pets and animals: cat(s) and other Details: Rabbit Current gender identity: female What type of physical activity do you participate in: walking Frequency: 3-4 times per week Seatbelt use: always Do you feel safe at home: Yes Do you feel safe in your relationship?: Yes Female Reproductive History Menstrual control method: implanted History History 0 Para Hx # Term Pregnancies Multiple births Hx # Pregnancies Ectopic pregnancies AB induced Hx Number of Living Children AB spontaneous
[2025-07-13 12:30] VITALS: BP 113/58; PULSE 84; RESP 18; O2SAT 97
== END 2025-07-13 12:45 | disposition home or self-care (01) ==
PROVIDERS: Emergency Provider Physician Assistant; PCP Nurse Practitioner
DX: M25.811 Other specified joint disorders, right shoulder (principal); M65.221 Calcific tendinitis, right upper arm
CPT/HCPCS: 99283 ×2; 73030

== ENCOUNTER 2025-09-20 19:27 | Outpatient (REF) | payer MEDICAID, SELFPAY ==
[2025-09-24 11:41] LABS: Chlamydia Result Negative (Negative); GC Result Negative (Negative)
[2025-09-24 12:41] LABS: HSV 1 DNA Result Negative (Negative); HSV 2 DNA Result Negative (Negative)
== END 2025-09-20 19:28 | disposition home or self-care (01) ==
LOC: LBN 19:27
PROVIDERS: Visit Provider Physician Assistant Medical
DX: N89.8 Other specified noninflammatory disorders of vagina (principal)
CPT/HCPCS: 87491; 87529; 87591; 86695; 86696; 87480; 87510; 87660